=== PATIENT | female | born 1940 | race Caucasian/White ===

== ENCOUNTER 2017-02-10 21:18 | Emergency (ER) | payer MEDICARE, BC ==
[2017-02-11 00:01] VITALS: BP 161/69
--- NOTE | 2017-02-11 01:33 | ED ---
Complex/Multi-Sys Presentation - HPI Summary HPI Summary: 76 female presents to ED stating she was told to come here by her PCP Dr Quigley for abnormal WBC value after obtaining routine bloodwork this morning. Patient states she has no complaints and feels fine without symptoms. Completely asymptomatic, no chest pain, SOB, difficulty breathing, edema, urinary symptoms , abdominal pain and cough. States she is just fatigued and tired as she had a long day. Patient is acting appropriately without concern. - History Of Current Complaint Chief Complaint: EDGeneral Time Seen by Provider: 02/10/17 23:58 Hx Obtained From: Patient Onset/Duration: Sudden Onset Severity Currently: None Aggravating Factor(s): n/a Alleviating Factor(s): n/a - Allergies/Home Medications Allergies/Adverse Reactions: Allergies Allergy/AdvReac Type Severity Reaction Status Date / Time Atorvastatin [From Lipitor] AdvReac Severe elevated Verified 02/05/17 11:23 liver enzymes Pregabalin [From Lyrica] AdvReac Severe mood Verified 02/05/17 11:23 changes Simvastatin [From Zocor] AdvReac Severe elevated Verified 02/05/17 11:23 liver enzymes Lisinopril AdvReac Intermediate shakes/dizz Verified 02/05/17 11:23 iness Metoclopramide [From Reglan] AdvReac Unknown parkinsonian Verified 02/05/17 11: 23 movements PMH/Surg Hx/FS Hx/Imm Hx Endocrine/Hematology History: Reports: Hx Diabetes - IDDM Cardiovascular History: Reports: Hx Angina, Hx Hypercholesterolemia, Hx Hypertension Denies: Hx Coronary Artery Disease, Hx Myocardial Infarction, Hx Pacemaker/ ICD, Hx Valvular Heart Disease Respiratory History: Reports: Other Respiratory Problems/Disorders - PT STATES DYSPNEA X4-5 YRS, BUT HAS NOT BEEN DIAGNOSED WITH ANY RESP DISEAS Denies: Hx Asthma, Hx Chronic Obstructive Pulmonary Disease (COPD) Musculoskeletal History: Reports: Hx Arthritis, Hx Back Problems, Hx Bursitis, Hx Osteoporosis Sensory History: Reports: Hx Contacts or Glasses, Hx Legally Blind - Right Eye, Hx Deafness - Left Ear, Hx Hearing Problem - Deaf Left Ear Denies: Hx Hearing Aid Opthamlomology History: Reports: Hx Contacts or Glasses, Hx Legally Blind - Right Eye Psychiatric History: Denies: Hx Panic Disorder - Cancer History Cancer Type, Location and Year: 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 1976 - LOBECTOMY- 2/3 REMOVED FOR LUNG CA. 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 1993 - Lt SMALL TOE AMPUTEE. 1973 -C SECTION. 2010 - GALLBLADDER Infectious Disease History: No Infectious Disease History: Denies: History Other Infectious Disease, Traveled Outside the [place] in Last 30 Days - Family History Known Family History: Positive: None - Social History Alcohol Use: None Substance Use Type: Reports: None Smoking Status (MU): Never Smoked Tobacco Have You Smoked in the Last Year: No Review of Systems Constitutional: Negative Eyes: Negative ENT: Negative Cardiovascular: Negative Respiratory: Negative Gastrointestinal: Negative Genitourinary: Negative Musculoskeletal: Negative Skin: Negative Neurological: Negative Psychological: Normal All Other Systems Reviewed And Are Negative: Yes Physical Exam Triage Information Reviewed: Yes Vital Signs On Initial Exam: Initial Vitals Temp Pulse Resp BP Pulse Ox 98.8 F 93 18 157/56 98 02/10/17 21:20 02/10/17 21:20 02/10/17 21:20 02/10/17 21:20 02/10/17 21:20 afebrile, not hypoxic Vital Signs Reviewed: Yes Appearance: Positive: Well-Appearing, No Pain Distress, Well-Nourished Skin: Positive: Warm, Skin Color Reflects Adequate Perfusion, Dry. Negative: Cold, Cyanosis @, Pale, Erythema @ Head/Face: Positive: Normal Head/Face Inspection Eyes: Positive: EOMI, EMMANUELLE, Conjunctiva Clear, Other: - missing right eye ENT: Positive: Normal ENT inspection, Hearing grossly normal, Pharynx normal, TMs normal. Negative: Pharyngeal erythema, Nasal congestion, Nasal drainage, TM bulging, Tonsillar swelling, Tonsillar exudate, Trismus Dental: Negative: Cervical Lymphadenopathy Neck: Positive: Supple, Nontender, No Lymphadenopathy Respiratory/Lung Sounds: Positive: Clear to Auscultation, Breath Sounds Present. Negative: Rales, Rhonchi, Wheezes Cardiovascular: Positive: Normal, RRR, Pulses are Symmetrical in both Upper and Lower Extremities. Negative: Murmur, Rub, Leg Edema Left, Leg Edema Right Abdomen Description: Positive: Nontender, No Organomegaly, Soft. Negative: CVA Tenderness (R), CVA Tenderness (L), Distended, Guarding, Peritoneal Signs, Pulsatile Mass Bowel Sounds: Positive: Present Musculoskeletal: Positive: Normal, Strength/ROM Intact. Negative: Pain @ Neurological: Positive: Normal, Sensory/Motor Intact, Alert, Oriented to Person Place, Time, Reflexes Intact, NV Bundle Intact Distally, Normal Gait Psychiatric: Positive: Affect/Mood Appropriate - Dora Coma Scale Best Eye Response: 4 - Spontaneous Best Motor Response: 6 - Obeys Commands Best Verbal Response: 5 - Oriented Diagnostics - Vital Signs Vital Signs Temp Pulse Resp BP Pulse Ox 02/10/17 23:56 98.1 F 93 16 161/69 98 02/10/17 22:55 98.8 F 95 16 150/57 99 02/10/17 21:20 98.8 F 93 18 157/56 98 - Laboratory Lab Statement: Any lab studies that have been ordered have been reviewed, and results considered in the medical decision making process. Complex Multi-Symp Course/Dx Course Of Treatment: discussed with Dr Culver and Dr Vargas at 1:45am. Due to patient being asymptomatic and only lab value of WBC of 15 without known source , complaint or fever does not seem appropriate for admission at this time. No further work up felt necessary as patient was feeling fine. No concern for CHF, sepsis, or other emergent etiology at this time due to HPI and PE findings. Told to follow up with PCP. Aware of worsening signs and symptoms to watch out for such as cough, fever, pain, difficulty breathing, swelling etc. Patient would like to be discharged. - Diagnoses Differential Diagnoses/HQI/PQRI: Sepsis, Urinary Tract Infection, Other - abnormal lab values Provider Diagnoses: Elevated WBC count, Elevated brain natriuretic peptide (BNP) level Discharge - Discharge Plan Condition: Stable Disposition: HOME Referrals: Celestine Quigley MD [Primary Care Provider] - Additional Instructions: If you start developing any symptoms such as fever, chest pain, difficulty breathing, swelling, fatigue, nausea or vomiting- please return and seek medical attention promptly. Follow up with PCP and your specialist doctor as scheduled.
== END 2017-02-11 01:57 | disposition home or self-care (01) ==
LOC: ED 21:18
DX: R79.89 Other specified abnormal findings of blood chemistry (principal); D72.829 Elevated white blood cell count, unspecified
CPT/HCPCS: 99281

== ENCOUNTER 2018-03-11 13:57 | Inpatient (IN) | payer MEDICARE, BC ==
[2018-03-11] MEDS ORDERED: NS 0.9% 1000 ML* 1,000 ML IV ONE ×2 (14:04→16:23)
--- NOTE | 2018-03-11 14:17 | ED ---
HPI Diabetic - HPI Summary HPI Summary: This pt is a 77 y/o female presenting to [facility] via EMS from home for elevated glucose level. EMS states pt is a type 1 diabetic with insulin UTD. Pt reports she has had a cold for the past 2 weeks and last week began intermittently vomiting. She describes emesis as green, denies hematemesis. Pt has noticed that she these episodes of vomiting occur during the mornings. Last night she felt well until this morning. At 04:00 today pt woke up and took her blood glucose, it was 116. At 08:30 she took her glucose level and it was around 500. Pt reports I have been a diabetic since 74 and it has never been this high. She has had 10 to 12 episodes of emesis today, described as green in color. Pt did forget to take her insulin today. Denies tarry black stools, melena, abd pain, chest pain, SOB. EMS reports glucose of 403 [employer]. Pt notes she usually takes Lantus every morning and before bedtime. She also takes Novolog. - History Of Current Complaint Hx Obtained From: Patient Onset/Duration: Lasting Days, Still Present Timing: Days Severity Currently: None Character: Alert Aggravating: Nothing Alleviating: Nothing Associated Signs & Symptoms: Nausea, Vomiting Related History: Compliant, DM I - Allergies/Home Medications Allergies/Adverse Reactions: Allergies Allergy/AdvReac Type Severity Reaction Status Date / Time atorvastatin AdvReac Severe Elevated Verified 02/08/18 11:01 Liver Enzymes pregabalin AdvReac Severe Mood Verified 02/08/18 11:01 Changes simvastatin AdvReac Severe Elevated Verified 02/08/18 11:01 Liver Enzymes lisinopril AdvReac Intermediate Shakes and Verified 02/08/18 11:01 Dizziness metoclopramide AdvReac Unknown Parkinsonian Verified 02/08/18 11:01 movements Home Medications: Home Medications Alendronate (NF) [Fosamax (NF)] 70 mg PO Q30D 03/11/18 [History Confirmed ] Aspirin [Aspir-Low] 81 mg PO DAILY 03/11/18 [History Confirmed 03/11/18] Calcium Carbonate/Vitamin D3 [Calcium 600 + Vit D Tablet] 1 tab PO DAILY [History Confirmed 03/11/18] Multivit-Min/Iron/Folic/Lutein [Centrum Silver Women Tablet] 1 each PO DAILY 10/22 [History Confirmed 03/11/18] traMADol TAB* [Ultram*] 25 mg PO Q8H PRN 03/11/18 [History Confirmed 03/11/18] PMH/Surg Hx/FS Hx/Imm Hx Endocrine/Hematology History: Reports: Hx Diabetes - IDDM Cardiovascular History: Reports: Hx Angina, Hx Hypercholesterolemia, Hx Hypertension Denies: Hx Coronary Artery Disease, Hx Myocardial Infarction, Hx Pacemaker/ ICD, Hx Valvular Heart Disease Respiratory History: Reports: Other Respiratory Problems/Disorders - PT STATES DYSPNEA X4-5 YRS, BUT HAS NOT BEEN DIAGNOSED WITH ANY RESP DISEAS Denies: Hx Asthma, Hx Chronic Obstructive Pulmonary Disease (COPD) Musculoskeletal History: Reports: Hx Arthritis, Hx Rheumatoid Arthritis, Hx Back Problems, Hx Bursitis Denies: Hx Osteoporosis Sensory History: Reports: Hx Contacts or Glasses, Hx Legally Blind - Right Eye, Hx Deafness - Left Ear, Hx Hearing Problem - Deaf Left Ear Denies: Hx Hearing Aid Opthamlomology History: Reports: Hx Contacts or Glasses, Hx Legally Blind - Right Eye Psychiatric History: Denies: Hx Panic Disorder - Cancer History Cancer Type, Location and Year: 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 1976 - LOBECTOMY- 2/3 REMOVED FOR LUNG CA. 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 1993 - Lt SMALL TOE AMPUTEE. 1973 -C SECTION. 2010 - GALLBLADDER Infectious Disease History: Denies: History Other Infectious Disease - Family History Known Family History: Positive: Cardiac Disease - mother, Diabetes - mother, Respiratory Disease - father with emphysema - Social History Alcohol Use: None Substance Use Type: Reports: None Smoking Status (MU): Never Smoked Tobacco Have You Smoked in the Last Year: No Review of Systems Negative: Fever, Chills ENT: Other - cold symptoms Negative: Chest Pain Negative: Shortness Of Breath Positive: Vomiting, Nausea. Negative: Abdominal Pain, Other - black stool, melena All Other Systems Reviewed And Are Negative: Yes Physical Exam - Summary Physical Exam Summary: VITAL SIGNS: Reviewed. GENERAL: Patient is a well-developed and nourished female who is lying comfortable in the stretcher. Patient is not in any acute respiratory distress. HEAD AND FACE: No signs of trauma. No ecchymosis, hematomas or skull depressions. No sinus tenderness. EYES: PERRLA, EOMI x 2, No injected conjunctiva, no nystagmus. EARS: Hearing grossly intact. Ear canals and tympanic membranes are within normal limits. MOUTH: Oropharynx within normal limits. NECK: Supple, trachea is midline, no adenopathy, no JVD, no carotid bruit, no c- spine tenderness, neck with full ROM. CHEST: Symmetric, no tenderness at palpation LUNGS: Clear to auscultation bilaterally. No wheezing or crackles. CVS: Regular rate and rhythm, S1 and S2 present, no murmurs or gallops appreciated. ABDOMEN: Soft, non-tender. No signs of distention. No rebound, no guarding, and no masses palpated. Bowel sounds are normal. EXTREMITIES: FROM in all major joints, no edema, no cyanosis or clubbing. NEURO: Alert and oriented x 3. No acute neurological deficits. Speech is normal and follows commands. SKIN: Dry and warm. Dry skin. Triage Information Reviewed: Yes Vital Signs Reviewed: Yes Diagnostics - Laboratory Result Diagrams: 03/11/18 14:18 03/11/18 14:18 Lab Statement: Any lab studies that have been ordered have been reviewed, and results considered in the medical decision making process. - Radiology Chest XR Xray Interpretation: No Acute Changes - IMPRESSION: No active cardiopulmonary disease. Dr. Israel has reviewed this report. Radiology Interpretation Completed By: Radiologist - EKG 14:37 Cardiac Rate: Tachycardia - at 103 bpm EKG Rhythm: Sinus Tachycardia EKG Interpretation: Incomplete RBBB. EKG Comparison: No Significant Change - unchanged from prior on 05/19/14. Diabetic Course/Dx - Course Assessment/Plan: This pt is a 77 y/o female presenting to [facility] via EMS from home for elevated glucose level. EMS states pt is a type 1 diabetic with insulin UTD. Pt reports she has had a cold for the past 2 weeks and last week began intermittently vomiting. She describes emesis as green, denies hematemesis. Pt has noticed that she these episodes of vomiting occur during the mornings. Last night she felt well until this morning. At 04:00 today pt woke up and took her blood glucose, it was 116. At 08:30 she took her glucose level and it was around 500. Pt reports I have been a diabetic since 74 and it has never been this high. She has had 10 to 12 episodes of emesis today, described as green in color. Pt did forget to take her insulin today. Denies tarry black stools, melena, abd pain, chest pain, SOB. EMS reports glucose of 403 [employer]. Pt notes she usually takes Lantus every morning and before bedtime. She also takes Novolog. At arrival to the emergency department the patient was started on 2 L of IV fluids, and had blood work. Blood test results shows WBCs of 13.9, carbon dioxide of 18, anion gap of 18, BUN 28 and creatinine 0.97. Glucose is 361 and lactic acid is 3.3. Magnesium level is 1.8 and CRP is 39.7. At this time I see that the patient is in DKA and the patient was placed in an insulin drip. Patient was also given magnesium by mouth. Urinalysis is pending. I discussed my physical exam and findings with Dr. Braswell from the hospitalist services who accepted the patient for admission. The patient is hemodynamically stable alert and oriented 3. Dr. Braswell will check the urinalysis. - Diagnoses Differential Dx: Diabetic Ketoacidosis, Gestational Diabetes, Hyperglycemia, Hyperosmolar State, New Onset Diabetes Provider Diagnoses: DKA (diabetic ketoacidoses) - Physician Notifications Discussed Care Of Patient With: Elodia Braswell - hospitalist Time Discussed With Above Provider: 16:26 Instructed by Provider To: Admit As Inpatient Discharge - Sign-Out/Discharge Documenting (check all that apply): Patient Departure - Admit to [facility] [place] - Discharge Plan Condition: Stable Disposition: ADMITTED TO [facility] Referrals: Celestine Quigley MD [Primary Care Provider] - - Attestation Statements Document Initiated by Scribe: Yes Documenting Scribe: Zhanna Hernandez Provider For Whom Scribe is Documenting (Include Credential): Gabriel Israel MD Scribe Attestation: IZhanna, scribed for Gabriel Israel MD on 03/11/18 at 1729.
--- OUTSIDE RECORDS SUMMARY | 2018-03-11 14:31 | XMS REPORT ---
:1940 External Reference #:[id number] Author Organization [facility] Address [address] [place] [address] Phone [phone] Care Team Providers Name Role Phone Celestine Quigley MD Primary Care Physician Unavailable Payers Type Date Identification Numbers Payment Provider Subscriber Medicare Primary Effective: Policy Number: Medicare Rosalva Becerra 1997 [id number] PayID: [id number] [address] [place] [address] Medigap Part B Effective: 2012 Policy Number: Facets Rosalva Becerra October [id number] PayID: [id number] [address] [address] [place] [address] Medigap Part B Effective: 2005 Policy Number: BS FAUSTINA Becerra October [id number] Expires: 2012 Group Number: [id number] [address] [address] PayID: [id number] [place] [address] Problems Date Description Provider Status Onset: 05/20/2011 Benign essential hypertension Gt Long M.D. Active Onset: 04/27/2012 Type 2 diabetes mellitus Gt Long M.D. Active Onset: 04/27/2012 Coronary arteriosclerosis Gt Long M.D. Active Onset: 04/27/2012 Chronic diastolic heart failure Gt Long M.D. Active Onset: 04/27/2012 Difficulty breathing Gt Long M.D. Active Onset: 12/16/2012 Orthostatic hypotension Gt Long M.D. Active Onset: 05/21/2014 Postoperative Wound Closure Peng Strange M.D., [facility], Active Encounter [facility] Family History Date Family Member(s) Problem(s) Comments General Heart Disease Father Emphysema Mother Heart Disease Mother A brother had possible Ra Social History Type Date Description Comments Lives With Alone Occupation Retired Cigarette Use Never Smoked Cigarettes ETOH Use Denies alcohol use Smoking Patient has never smoked Recreational Drug Use Never Used Drugs Daily Caffeine Consumes on average 1 soda per day caffeine free Exercise Type/Frequency Exercises regularly Allergies, Adverse Reactions, Alerts Date Description Reaction Status Severity Comments 07/19/2008 Reglan active tremors 10/15/2008 Lipitor increased lfts active 10/15/2008 Zocor increased lfts active increased lfts 08/01/2010 Lisinopril cough dizziness, cough active cough dizziness dizziness 10/12/2013 Lyrica active radical mood changes Medications Medication Date Status Form Strength Qnty SIG Indications Ordering Provider Leflunomide 09/14/ Active Tablets 10mg 30tab 1 by mouth M05.79 Ever 2017 s every day Zaida Grady Coq10 07/24/ Active Capsules 200mg 90cap 1 by mouth E78.00 Gt 2016 s every day Jerica Long M.D. Crestor 07/24/ Active Tablets 5mg 90tab 1 by mouth E78.00 Gt 2016 s every day Jerica Long M.D. Aspirin 02/27/ Active Tablets 325mg 1/2 tablet Gt 2012 po qd Jerica Long M.D. Centrum Silver 02/27/ Active Tablets 30tab 1 po qd Other 2012 s Ordering Provider Latanoprost 02/27/ Active Solution 0.005% 1 drop in Other 2012 Lt eye at Ordering hs Provider Calcium 500/D 07/19/ Active Tablets 500/D 60tab bid Gt 2008 s Jerica Long M.D. Fish Oil 07/19/ Active Capsules 1000mg 1 po bid Gt 2008 Jerica Long M.D. Novolog 07/19/ Active Solution 100Unit/M 2Vial 1 unit per Gt 2008 L s 15 g of Jerica carbs as meli Long ( M.D. adjusted by Dr. Law Lawler 00/ Active Solution 100Unit/M as Law, 0000 L directed MD Edy Meclizine / Active Tablets 12.5mg 30tab 1 po tid Unknown 0000 s prn Ranitidine HCL / Active Capsules 150mg 60cap 1 po bid Darlow, 0000 s Celestine Samuels MD Betaxolol HCL / Active Liquid 0.5% 90uni 1 drop in Unknown 0000 ts lt eye q am Alendronate / Active Tablets 70mg x1 weekly Unknown Sodium 0000 Dorzolamide HCL / Active Solution 2% 1 gtt OS Brooks, 0000 twice MD Pa daily Tramadol HCL / Active Tablets 50mg 1/2 Unknown 0000 tablets daily as needed Epogen / Active Solution 2000Unit/ Unknown 0000 ML Soothe XP / Active Solution 3-4 Unknown 0000 drops/day Thera Tears / Active prn Unknown Allergy 0000 Fludrocortisone 06/14/ Hx Tablets 0.1mg 30tab 1 by mouth Gt Acetate 2014 - s every F. 07/12/ wednesday M.D. and wednesday On Hold starting 06/18/14 Nitro-Dur 04/06/ Hx Patches 0.2mg/HR 30uni 1 patch Gt 2013 - 24HR ts every day F. 05/20/ on in the 2015 morning, M.D. off in the at night hold as of 11.9.16 Oxycodone HCL 10/12/ Hx Capsules 5mg 60cap 1-2 tabs Meliton 2013 - s by mouth Wilfrid, 11/16/ every 4-6 M.D. 2014 hours as needed pain Fludrocortisone 12/16/ Hx Tablets 0.1mg 90tab 1 by mouth Gt Acetate 2012 - s every day F. 06/14/ Ethan2014 M.D. Aspirin 04/27/ Hx Tablets 325mg 1 po qd Gt 2011 - F. 04/27/ Ethan, 2011 M.D. Gabapentin 04/27/ Hx Capsules 100mg 1 po Gt 2011 - tablet in F. 04/05/ am 1 at [place], 2013 1200 and M.D. 2 at Aspirin 04/27/ Hx Chewtabs 81mg 1 po qd Gt 2011 - F. Mauser, 2012 M.D. Aspirin 04/16/ Hx Chewtabs 81mg 1 po qd Gt 2010 - . user, 2011 M.D. Atenolol 06/12/ Hx Tablets 25mg 90tab 1 po qd Gt 2010 - user, 2012 M.D. Lisinopril 05/26/ Hx Tablets 2.5mg 1 po qd Gt 2009 - . user, 2009 M.D. Lisinopril 03/14/ Hx Tablets 5mg 90tab 1/2 po qd Gt 2008 - kt, 2009 M.D. Atenolol 11/12/ Hx Tablets 25mg 180ta 1 po bid Gt 2008 - F. monar, 2010 M.D. Lisinopril 11/06/ Hx Tablets 5mg 1 po qd Gt 2008 - . kt, 2008 M.D. Atenolol 10/15/ Hx Tablets 25mg 300ta 2 po qam Gt 2008 and 1 qpm . Ethan, 2008 M.D. Lisinopril 07/19/ Hx Tablets 2.5mg 1 po qd Gt 2008 - . user, 2008 M.D. Gemfibrozil 07/19/ Hx Tablets 600mg 60tab 1 po bid Gt 2008 - hold as of F. .17.17 Ethan, 2016 M.D. Aspirin Ec 07/19/ Hx Tablets DR 325mg 1 po qd Gt 2008 - . Valentineuser, 2010 M.D. Atenolol 07/19/ Hx Tablets 25mg 180ta 1 po bid Jones 2008 - bs S. 10/15/ Dari 2008 , Zaida Mucomyst-10 07/19/ Hx Solution 10% 4unit 1200mg bid Gt 2008 - s in diet F. 07/31/ cola 1 day Ethan, 2008 before M.D. cath and day of cath Hydrocodone / Hx Tablets 5-325mg 30tab 1 tablet Unknown Bitartrate/Acetam 0000 - s by mouth inophen 04/27/ every 4 2012 hours as needed Gabapentin / Hx Capsules 90cap 1 po in Gt 0000 - s am 1 F. 04/27/ tablet at [place], 2011 1200 2 M.D. tablets in pm Procrit / Hx Solution 2000U/ML 1 Bael, - injection Zain 07/20/ q week (on E., 2017 hold) Advil / Hx Capsules 200mg as needed Unknown 0000 - 2016 Iron / Hx Tablets 325(65Fe) 1 by mouth Unknown 0000 - mg bid 2016 Meloxicam / Hx Tablets 7.5mg take one Unknown 0000 - tab twice daily as 2017 needed for pain Vital Signs Date Vital Result Comment 02/15/2018 Height 61 inches 5'1" Weight 147.00 lb Heart Rate 85 /min BP Systolic Sitting 148 mmHg BP Diastolic Sitting 71 mmHg Respiratory Rate 16 /min Pain Level 1 BMI (Body Mass Index) 27.8 kg/m2 01/24/2018 Height 61 inches 5'1" Weight 147.00 lb Heart Rate 76 /min BP Systolic Sitting 122 mmHg lg adult cuff left arm BP Diastolic Sitting 74 mmHg lg adult cuff left arm Respiratory Rate 16 /min O2 % BldC Oximetry 96 % at rest on room air BMI (Body Mass Index) 27.8 kg/m2 Neck Circumference in inches 15.25 11/11/2017 Height 61 inches 5'1" Weight 146.00 lb Heart Rate 76 /min BP Systolic Sitting 144 mmHg BP Diastolic Sitting 82 mmHg Respiratory Rate 16 /min Pain Level 5 BMI (Body Mass Index) 27.6 kg/m2 09/27/2017 Height 61 inches 5'1" Weight 145.00 lb Heart Rate 74 /min BP Systolic Sitting 138 mmHg lue reg cuff BP Diastolic Sitting 70 mmHg lue reg cuff BP Systolic Standing 130 mmHg lue reg cuff BP Diastolic Standing 64 mmHg lue reg cuff Respiratory Rate 18 /min BMI (Body Mass Index) 27.4 kg/m2 Ejection Fraction 60-65% echo 03/17/2017 09/14/2017 Height 61 inches 5'1" Weight 146.00 lb Heart Rate 88 /min BP Systolic Sitting 134 mmHg BP Diastolic Sitting 67 mmHg Respiratory Rate 14 /min Pain Level 4 BMI (Body Mass Index) 27.6 kg/m2 07/20/2017 Height 61 inches 5'1" Weight 142.00 lb Heart Rate 84 /min BP Systolic Sitting 150 mmHg BP Diastolic Sitting 80 mmHg Respiratory Rate 18 /min Pain Level 0 BMI (Body Mass Index) 26.8 kg/m2 02/23/2017 Height 61 inches 5'1" Weight 146.00 lb with shoes Heart Rate 94 /min BP Systolic Sitting 128 mmHg Lue reg cuff BP Diastolic Sitting 70 mmHg Lue reg cuff BP Systolic Standing 118 mmHg Lue reg cuff BP Diastolic Standing 64 mmHg Lue reg cuff Respiratory Rate 17 /min BMI (Body Mass Index) 27.6 kg/m2 Ejection Fraction 60-65% 05/13/2016-echo 01/06/2017 Height 61 inches 5'1" Weight 139.62 lb LA reg cuff Heart Rate 90 /min BP Systolic Sitting 134 mmHg LA reg cuff BP Diastolic Sitting 78 mmHg LA reg cuff BMI (Body Mass Index) 26.4 kg/m2 Ejection Fraction 60% - 65% echo 05/13/16 08/13/2016 Height 61 inches 5'1" Weight 156.75 lb with shoes Heart Rate 76 /min BP Systolic 136 mmHg LA 1st home cuff BP Diastolic 70 mmHg LA 1st home cuff BP Systolic Sitting 130 mmHg LA reg cuff in office BP Diastolic Sitting 66 mmHg LA reg cuff in office BP Systolic Standing 155 mmHg LA 2nd home cuff BP Diastolic Standing 89 mmHg LA 2nd home cuff BMI (Body Mass Index) 29.6 kg/m2 Ejection Fraction 60% - 65% echo 05/13/16 07/24/2016 Height 61 inches 5'1" Weight 159.00 lb with shoes Heart Rate 88 /min BP Systolic Sitting 196 mmHg LA lrg cuff BP Diastolic Sitting 86 mmHg LA lrg cuff BP Systolic Standing 152 mmHg repeat nl cuff sitting BP Diastolic Standing 78 mmHg repeat nl cuff sitting BMI (Body Mass Index) 30.0 kg/m2 Ejection Fraction 60%-65% echo 05/13/16 05/20/2016 Height 61 inches 5'1" Weight 157.25 lb w/shoes Heart Rate 86 /min BP Systolic Sitting 142 mmHg LA reg cuff BP Diastolic Sitting 82 mmHg LA reg cuff BMI (Body Mass Index) 29.7 kg/m2 Ejection Fraction 60-65% Echo 05/13/16 04/15/2016 Height 61 inches 5'1" Weight 154.00 lb w/shoes Heart Rate 80 /min BP Systolic Sitting 112 mmHg LA reg cuff BP Diastolic Sitting 68 mmHg LA reg cuff BP Systolic Standing 110 mmHg LA reg cuff BP Diastolic Standing 54 mmHg LA reg cuff BMI (Body Mass Index) 29.1 kg/m2 Ejection Fraction 65-70% Echo 06/06/14 10/31/2015 Height 61 inches 5'1" Weight 156.25 lb with shoes Heart Rate 80 /min BP Systolic 154 mmHg LA reg cuff BP Diastolic 78 mmHg LA reg cuff BMI (Body Mass Index) 29.5 kg/m2 Ejection Fraction 65%-70% echo 06/06/14 07/02/2015 Height 61 inches 5'1" Weight 159.25 lb w/shoes Heart Rate 90 /min BP Systolic Sitting 138 mmHg LA reg cuff BP Diastolic Sitting 66 mmHg LA reg cuff BMI (Body Mass Index) 30.1 kg/m2 Ejection Fraction 65-70 06/06/14 2014 Height 61 inches 5'1" Weight 167.50 lb Heart Rate 84 /min BP Systolic Sitting 172 mmHg LA, reg BP Diastolic Sitting 82 mmHg LA, reg BP Systolic Standing 138 mmHg la sitting BP Diastolic Standing 72 mmHg la sitting BMI (Body Mass Index) 31.6 kg/m2 Ejection Fraction 65%-70% 06/06/14 07/12/2014 Height 61 inches 5'1" Weight 166.00 lb without shoes Heart Rate 90 /min BP Systolic Sitting 138 mmHg LA lg cuff BP Diastolic Sitting 74 mmHg LA lg cuff Respiratory Rate 17 /min BMI (Body Mass Index) 31.4 kg/m2 06/14/2014 Height 61 inches 5'1" Weight 167.75 lb Heart Rate 90 /min BP Systolic 172 mmHg LA reg BP Diastolic 80 mmHg LA reg BMI (Body Mass Index) 31.7 kg/m2 05/21/2014 Height 61 inches 5'1" Weight 167.00 lb Heart Rate 88 /min 90 BP Systolic Sitting 130 mmHg left arm, reg cuff BP Diastolic Sitting 62 mmHg left arm, reg cuff BP Systolic Standing 124 mmHg left arm, reg cuff BP Diastolic Standing 60 mmHg left arm, reg cuff Respiratory Rate 20 /min BMI (Body Mass Index) 31.6 kg/m2 04/06/2014 Height 61 inches 5'1" Weight 161.25 lb Heart Rate 90 /min BP Systolic 128 mmHg repeat la sitting BP Diastolic 74 mmHg repeat la sitting BP Systolic Sitting 168 mmHg LA reg cuff BP Diastolic Sitting 80 mmHg LA reg cuff Respiratory Rate 18 /min BMI (Body Mass Index) 30.5 kg/m2 11/16/2013 Height 61 inches 5'1" Weight 165.00 lb Heart Rate 92 /min Pain Level 0 BMI (Body Mass Index) 31.2 kg/m2 10/26/2013 Height 61 inches 5'1" Weight 165.00 lb Heart Rate 92 /min BP Systolic 159 mmHg BP Diastolic 84 mmHg Pain Level 1 BMI (Body Mass Index) 31.2 kg/m2 10/12/2013 Height 61 inches 5'1" Weight 165.00 lb Heart Rate 86 /min BP Systolic 148 mmHg BP Diastolic 118 mmHg BMI (Body Mass Index) 31.2 kg/m2 02/27/2013 Height 61 inches 5'1" Weight 162.00 lb Heart Rate 83 /min BP Systolic 120 mmHg BP Diastolic 60 mmHg Respiratory Rate 16 /min BMI (Body Mass Index) 30.6 kg/m2 12/16/2012 Height 61 inches 5'1" Weight 164.00 lb Heart Rate 92 /min BP Systolic Sitting 122 mmHg BP Diastolic Sitting 72 mmHg BMI (Body Mass Index) 31.0 kg/m2 04/27/2012 Height 61 inches 5'1" Weight 170.00 lb Heart Rate 81 /min BP Systolic 120 mmHg BP Diastolic 80 mmHg Respiratory Rate 18 /min BMI (Body Mass Index) 32.1 kg/m2 04/16/2011 Height 61 inches 5'1" Weight 163.00 lb Heart Rate 66 /min BP Systolic Sitting 122 mmHg BP Diastolic Sitting 64 mmHg BMI (Body Mass Index) 30.8 kg/m2 08/28/2010 Height 61 inches 5'1" Weight 177.00 lb Heart Rate 77 /min BP Systolic Sitting 120 mmHg BP Diastolic Sitting 54 mmHg BMI (Body Mass Index) 33.4 kg/m2 05/26/2010 Height 61 inches 5'1" Weight 175.00 lb Heart Rate 78 /min BP Systolic Sitting 118 mmHg BP Diastolic Sitting 70 mmHg BP Systolic Standing 118 mmHg BP Diastolic Standing 70 mmHg BMI (Body Mass Index) 33.1 kg/m2 11/14/2009 Height 61 inches 5'1" Weight 174.00 lb Heart Rate 65 /min BP Systolic Sitting 110 mmHg R BP Diastolic Sitting 60 mmHg R BMI (Body Mass Index) 32.9 kg/m2 03/14/2009 Height 61 inches 5'1" Weight 176.00 lb Heart Rate 75 /min BP Systolic Sitting 105 mmHg la: pt bp cuff 116/63 BP Diastolic Sitting 68 mmHg la: pt bp cuff 116/63 BMI (Body Mass Index) 33.3 kg/m2 11/06/2008 Weight 160.00 lb Heart Rate 72 /min BP Systolic Sitting 120 mmHg BP Diastolic Sitting 64 mmHg BP Systolic Standing 110 mmHg BP Diastolic Standing 60 mmHg 10/15/2008 Weight 169.00 lb Heart Rate 83 /min BP Systolic Sitting 120 mmHg BP Diastolic Sitting 70 mmHg 07/31/2008 Weight 171.00 lb Heart Rate 80 /min BP Systolic Sitting 120 mmHg BP Diastolic Sitting 60 mmHg Respiratory Rate 16 /min 07/19/2008 Weight 170.00 lb Heart Rate 94 /min BP Systolic Sitting 144 mmHg BP Diastolic Sitting 70 mmHg Respiratory Rate 16 /min Results Test Date Test Result H/L Range Note CBC Auto Diff 11/17/2017 White Blood Count 7.8 10^3/uL 3.5-10.8 Red Blood Count 4.39 10^6/uL 4.00-5.40 Hemoglobin 12.2 g/dL 12.0-16.0 Hematocrit 37 % 35-47 Mean Corpuscular Volume 85 fL 80-97 Mean Corpuscular Hemoglobin 28 pg 27-31 Mean Corpuscular HGB Conc 33 g/dL 31-36 Red Cell Distribution Width 15 % 10.5-15 Platelet Count 239 10^3/uL 150-450 Mean Platelet Volume 8.5 um3 7.4-10.4 Abs Neutrophils 4.7 10^3/uL 1.5-7.7 Abs Lymphocytes 1.5 10^3/uL 1.0-4.8 Abs Monocytes 0.7 10^3/uL 0-0.8 Abs Eosinophils 0.9 10^3/uL High 0-0.6 Abs Basophils 0 10^3/uL 0-0.2 Abs Nucleated RBC 0 10^3/uL Granulocyte % 60.2 % 38-83 Lymphocyte % 19.3 % Low 25-47 Monocyte % 9.0 % High 0-7 Eosinophil % 11.4 % High 0-6 Basophil % 0.1 % 0-2 Nucleated Red Blood Cells % 0 Iron & Iron Binding Capacity 11/17/2017 Iron 64 g/dL 50-212 Unsaturated Iron Binding 257 g/dL Total Iron Binding Capacity 321 g/dL 250-450 Transferrin 229 mg/dL 203-362 % Iron Saturation 20 % 15-55 Laboratory test finding 11/17/2017 Ferritin 40.4 ng/mL 11-307 CBC Auto Diff 11/03/2017 White Blood Count 7.9 10^3/uL 3.5-10.8 Red Blood Count 4.57 10^6/uL 4.0-5.4 Hemoglobin 12.7 g/dL 12.0-16.0 Hematocrit 39 % 35-47 Mean Corpuscular Volume 85 fL 80-97 Mean Corpuscular Hemoglobin 28 pg 27-31 Mean Corpuscular HGB Conc 33 g/dL 31-36 Red Cell Distribution Width 15 % 10.5-15 Platelet Count 232 10^3/uL 150-450 Mean Platelet Volume 8.5 um3 7.4-10.4 Abs Neutrophils 4.6 10^3/uL 1.5-7.7 Abs Lymphocytes 1.7 10^3/uL 1.0-4.8 Abs Monocytes 0.7 10^3/uL 0-0.8 Abs Eosinophils 0.8 10^3/uL High 0-0.6 Abs Basophils 0 10^3/uL 0-0.2 Abs Nucleated RBC 0 10^3/uL Granulocyte % 58.4 % 38-83 Lymphocyte % 22.1 % Low 25-47 Monocyte % 8.7 % High 0-7 Eosinophil % 10.7 % High 0-6 Basophil % 0.1 % 0-2 Nucleated Red Blood Cells % 0 Lipid Panel - [facility] 11/03/2017 Creatine Kinase(CK) 46 U/L 10-223 Comp Metabolic Panel 11/03/2017 Sodium 138 mmol/L Low 139-145 Potassium 4.2 mmol/L 3.5-5.0 Chloride 105 mmol/L 101-111 Co2 Carbon Dioxide 26 mmol/L 22-32 Anion Gap 7 mmol/L 2-11 Glucose 144 mg/dL High 70-100 Blood Urea Nitrogen 20 mg/dL 6-24 Creatinine 0.76 mg/dL 0.51-0.95 BUN/Creatinine Ratio 26.3 High 8-20 Calcium 9.0 mg/dL 8.6-10.3 Total Protein 6.6 g/dL 6.4-8.9 Albumin 3.8 g/dL 3.2-5.2 Globulin 2.8 g/dL 2-4 Albumin/Globulin Ratio 1.4 1-3 Total Bilirubin 0.40 mg/dL 0.2-1.0 Alkaline Phosphatase 138 U/L High 34-104 Alt 31 U/L 7-52 Ast 37 U/L 13-39 Egfr Non- 74.2 >60 Egfr 95.4 >60 1 Lipid Profile (Trig/Chol/HDL) 11/03/2017 Triglycerides 50 mg/dL 2 Cholesterol 138 mg/dL 3 HDL Cholesterol 67.4 mg/dL 4 LDL Cholesterol 61 mg/dL 5 Laboratory test finding 11/03/2017 B-Type Natriuretic Peptide BNP 31 pg/mL 6 Laboratory test finding 11/03/2017 Erythrocyte Sed Rate 31 mm/Hr 0-40 7 C Reactive Protein 6.99 mg/L High < 5.00 8 CBC Auto Diff 08/18/2017 White Blood Count 13.7 10^3/uL High 3.5-10.8 Red Blood Count 4.08 10^6/uL 4.0-5.4 Hemoglobin 11.5 g/dL Low 12.0-16.0 Hematocrit 35 % 35-47 Mean Corpuscular Volume 86 fL 80-97 Mean Corpuscular Hemoglobin 28 pg 27-31 Mean Corpuscular HGB Conc 33 g/dL 31-36 Red Cell Distribution Width 14 % 10.5-15 Platelet Count 323 10^3/uL 150-450 Mean Platelet Volume 8 um3 7.4-10.4 Abs Neutrophils 10.2 10^3/uL High 1.5-7.7 Abs Lymphocytes 1.8 10^3/uL 1.0-4.8 Abs Monocytes 0.8 10^3/uL 0-0.8 Abs Eosinophils 0.8 10^3/uL High 0-0.6 Abs Basophils 0 10^3/uL 0-0.2 Abs Nucleated RBC 0 10^3/uL Granulocyte % 74.7 % 38-83 Lymphocyte % 13.3 % Low 25-47 Monocyte % 5.6 % 0-7 Eosinophil % 6.2 % High 0-6 Basophil % 0.2 % 0-2 Nucleated Red Blood Cells % 0 Laboratory test finding 08/18/2017 Erythrocyte Sed Rate 67 mm/Hr High 0- 40 9 C Reactive Protein 20.41 mg/L High < 5.00 10 Rheumatoid Factor <10 IU/mL 0-14 11 Cyclic Citrullinated Pep Igg 125.4 U 12 Vitamin D, 1,25 Dihydroxy 39 pg/mL 18-78 13 CBC Auto Diff 05/19/2017 White Blood Count 13.8 10^3/uL High 3.5-10.8 Red Blood Count 3.73 10^6/uL Low 4.0-5.4 Hemoglobin 10.7 g/dL Low 12.0-16.0 Hematocrit 33 % Low 35-47 Mean Corpuscular Volume 88 fL 80-97 Mean Corpuscular Hemoglobin 29 pg 27-31 Mean Corpuscular HGB Conc 33 g/dL 31-36 Red Cell Distribution Width 14 % 10.5-15 Platelet Count 297 10^3/uL 150-450 Mean Platelet Volume 8 um3 7.4-10.4 Abs Neutrophils 10.2 10^3/uL High 1.5-7.7 Abs Lymphocytes 2.0 10^3/uL 1.0-4.8 Abs Monocytes 0.9 10^3/uL High 0-0.8 Abs Eosinophils 0.8 10^3/uL High 0-0.6 Abs Basophils 0 10^3/uL 0-0.2 Abs Nucleated RBC 0 10^3/uL Granulocyte % 73.6 % 38-83 Lymphocyte % 14.2 % Low 25-47 Monocyte % 6.3 % 1-9 Eosinophil % 5.7 % 0-6 Basophil % 0.2 % 0-2 Nucleated Red Blood Cells % 0 Laboratory test 02/26/2017 B-Type Natriuretic 39 pg/mL 14 finding Peptide BNP CBC Auto Diff 02/26/2017 White Blood Count 12.2 10^3/uL High 3.5-10.8 Red Blood Count 4.11 10^6/uL 4.0-5.4 Hemoglobin 11.7 g/dL Low 12.0-16.0 Hematocrit 36 % 35-47 Mean Corpuscular Volume 87 fL 80-97 Mean Corpuscular Hemoglobin 29 pg 27-31 Mean Corpuscular HGB Conc 33 g/dL 31-36 Red Cell Distribution Width 14 % 10.5-15 Platelet Count 361 10^3/uL 150-450 Mean Platelet Volume 8 um3 7.4-10.4 Abs Neutrophils 8.5 10^3/uL High 1.5-7.7 Abs Lymphocytes 2.2 10^3/uL 1.0-4.8 Abs Monocytes 0.9 10^3/uL High 0-0.8 Abs Eosinophils 0.6 10^3/uL 0-0.6 Abs Basophils 0 10^3/uL 0-0.2 Abs Nucleated RBC 0 10^3/uL Granulocyte % 69.8 % 38-83 Lymphocyte % 18.0 % Low 25-47 Monocyte % 7.1 % 1-9 Eosinophil % 4.8 % 0-6 Basophil % 0.3 % 0-2 Nucleated Red Blood Cells % 0 CBC Auto Diff 02/10/2017 White Blood Count 15.6 10^3/uL High 3.5-10.8 Red Blood Count 4.20 10^6/uL 4.0-5.4 Hemoglobin 12.0 g/dL 12.0-16.0 Hematocrit 37 % 35-47 Mean Corpuscular Volume 87 fL 80-97 Mean Corpuscular Hemoglobin 29 pg 27-31 Mean Corpuscular HGB Conc 33 g/dL 31-36 Red Cell Distribution Width 14 % 10.5-15 Platelet Count 342 10^3/uL 150-450 Mean Platelet Volume 8 um3 7.4-10.4 Abs Neutrophils 12.8 10^3/uL High 1.5-7.7 Abs Lymphocytes 1.8 10^3/uL 1.0-4.8 Abs Monocytes 0.7 10^3/uL 0-0.8 Abs Eosinophils 0.3 10^3/uL 0-0.6 Abs Basophils 0 10^3/uL 0-0.2 Abs Nucleated RBC 0 10^3/uL Granulocyte % 82.2 % 38-83 Lymphocyte % 11.4 % Low 25-47 Monocyte % 4.2 % 1-9 Eosinophil % 2.1 % 0-6 Basophil % 0.1 % 0-2 Nucleated Red Blood Cells % 0 Lipid Panel - [facility] 02/10/2017 Creatine Kinase(CK) 37 U/L 10-223 Comp Metabolic Panel 02/10/2017 Sodium 137 mmol/L 133-145 Potassium 4.2 mmol/L 3.5-5.0 Chloride 102 mmol/L 101-111 Co2 Carbon Dioxide 25 mmol/L 22-32 Anion Gap 10 mmol/L 2-11 Glucose 226 mg/dL High 70-100 Blood Urea Nitrogen 27 mg/dL High 6-24 Creatinine 0.93 mg/dL 0.51-0.95 BUN/Creatinine Ratio 29.0 High 8-20 Calcium 9.4 mg/dL 8.6-10.3 Total Protein 6.5 g/dL 6.4-8.9 Albumin 3.6 g/dL 3.2-5.2 Globulin 2.9 g/dL 2-4 Albumin/Globulin Ratio 1.2 1-3 Total Bilirubin 0.50 mg/dL 0.2-1.0 Alkaline Phosphatase 121 U/L High 34-104 Alt 17 U/L 7-52 Ast 22 U/L 13-39 Egfr Non- 58.9 >60 Egfr 75.8 >60 15 Lipid Profile (Trig/Chol/HDL) 02/10/2017 Triglycerides 76 mg/dL 16 Cholesterol 140 mg/dL 17 HDL Cholesterol 58.6 mg/dL 18 LDL Cholesterol 66 mg/dL 19 Laboratory test finding 02/10/2017 B-Type Natriuretic 938 pg/mL High 20 Peptide BNP Lipid Panel - [facility] 08/26/2016 Creatine Kinase(CK) 40 U/L 10-223 21 Comp Metabolic Panel 08/26/2016 Sodium 138 mmol/L 133-145 Potassium 4.3 mmol/L 3.5-5.0 Chloride 108 mmol/L 101-111 Co2 Carbon Dioxide 23 mmol/L 22-32 Anion Gap 7 mmol/L 2-11 Glucose 205 mg/dL High 70-100 Blood Urea Nitrogen 29 mg/dL High 6-24 Creatinine 0.90 mg/dL 0.51-0.95 BUN/Creatinine Ratio 32.2 High 8-20 Calcium 8.9 mg/dL 8.6-10.3 Total Protein 6.3 g/dL Low 6.4-8.9 Albumin 3.6 g/dL 3.2-5.2 Globulin 2.7 g/dL 2-4 Albumin/Globulin Ratio 1.3 1-3 Total Bilirubin 0.40 mg/dL 0.2-1.0 Alkaline Phosphatase 113 U/L High 34-104 Alt 17 U/L 7-52 Ast 22 U/L 13-39 Egfr Non- 61.4 >60 Egfr 78.9 >60 22 Lipid Profile (Trig/Chol/HDL) 08/26/2016 Triglycerides 66 mg/dL 23 Cholesterol 140 mg/dL 24 HDL Cholesterol 58.0 mg/dL 25 LDL Cholesterol 69 mg/dL 26 Basic Metabolic Panel 07/30/2016 Sodium 138 mmol/L 133-145 Potassium 4.2 mmol/L 3.5-5.0 Chloride 107 mmol/L 101-111 Co2 Carbon Dioxide 22 mmol/L 22-32 Anion Gap 9 mmol/L 2-11 Glucose 217 mg/dL High 70-100 Blood Urea Nitrogen 30 mg/dL High 6-24 Creatinine 0.96 mg/dL High 0.51-0.95 BUN/Creatinine Ratio 31.3 High 8-20 Calcium 9.1 mg/dL 8.6-10.3 Egfr Non- 57.0 >60 Egfr 73.3 >60 27 CBC Auto Diff 07/30/2016 White Blood Count 13.4 10^3/uL High 3.5-10.8 Red Blood Count 3.98 10^6/uL Low 4.0-5.4 Hemoglobin 11.2 g/dL Low 12.0-16.0 Hematocrit 35 % 35-47 Mean Corpuscular Volume 88 fL 80-97 Mean Corpuscular Hemoglobin 28 pg 27-31 Mean Corpuscular HGB Conc 32 g/dL 31-36 Red Cell Distribution Width 14 % 10.5-15 Platelet Count 329 10^3/uL 150-450 Mean Platelet Volume 8 um3 7.4-10.4 Abs Neutrophils 10.3 10^3/uL High 1.5-7.7 Abs Lymphocytes 1.8 10^3/uL 1.0-4.8 Abs Monocytes 0.8 10^3/uL 0-0.8 Abs Eosinophils 0.5 10^3/uL 0-0.6 Abs Basophils 0 10^3/uL 0-0.2 Abs Nucleated RBC 0 10^3/uL Granulocyte % 76.6 % 38-83 Lymphocyte % 13.2 % Low 25-47 Monocyte % 5.9 % 1-9 Eosinophil % 4.0 % 0-6 Basophil % 0.3 % 0-2 Nucleated Red Blood Cells % 0 CBC Auto Diff 06/28/2014 White Blood Count 10.3 10^3/uL 4.8-10.8 Red Blood Count 4.86 10^6/uL 4.0-5.4 Hemoglobin 14.6 g/dL 12.0-16.0 Hematocrit 45 % 35-47 Mean Corpuscular Volume 92 fL 80-97 Mean Corpuscular Hemoglobin 30 pg 27-31 Mean Corpuscular HGB Conc 33 g/dL 31-36 Red Cell Distribution Width 14 % 10.5-15 Platelet Count 342 10^3/uL 150-450 Mean Platelet Volume 8 um3 7.4-10.4 Abs Neutrophils 6.8 10^3/uL 1.5-7.7 Abs Lymphocytes 1.9 10^3/uL 1.0-4.8 Abs Monocytes 0.9 10^3/uL High 0-0.8 Abs Eosinophils 0.7 10^3/uL High 0-0.6 Abs Basophils 0 10^3/uL 0-0.2 Abs Nucleated RBC 0 10^3/uL Granulocyte % 65.9 % 38-83 Lymphocyte % 18.7 % Low 25-47 Monocyte % 8.3 % 1-9 Eosinophil % 6.8 % High 0-6 Basophil % 0.3 % 0-2 Nucleated Red Blood Cells % 0 Order 06/06/2014 Echocardiogram <pending> Cath Panel 05/11/2014 Activated Partial Thrombo Time 31.8 seconds 24.0- 36.1 CBC Auto Diff 05/11/2014 White Blood Count 10.9 10^3/uL High 4.8-10.8 Red Blood Count 4.19 10^6/uL 4.0-5.4 Hemoglobin 12.5 g/dL 12.0-16.0 Hematocrit 38 % 35-47 Mean Corpuscular Volume 90 fL 80-97 Mean Corpuscular Hemoglobin 30 pg 27-31 Mean Corpuscular HGB Conc 33 g/dL 31-36 Red Cell Distribution Width 16 % High 10.5-15 Platelet Count 389 10^3/uL 150-450 Mean Platelet Volume 8 um3 7.4-10.4 Abs Neutrophils 7.4 10^3/uL 1.5-7.7 Abs Lymphocytes 1.8 10^3/uL 1.0-4.8 Abs Monocytes 0.9 10^3/uL High 0-0.8 Abs Eosinophils 0.7 10^3/uL High 0-0.6 Abs Basophils 0 10^3/uL 0-0.2 Abs Nucleated RBC 0.01 10^3/uL Granulocyte % 68.2 % 38-83 Lymphocyte % 16.2 % Low 25-47 Monocyte % 8.4 % 1-9 Eosinophil % 6.8 % High 0-6 Basophil % 0.4 % 0-2 Nucleated Red Blood Cells % 0 Basic Metabolic Panel 05/11/2014 Sodium 137 mmol/L 133-145 Potassium 4.4 mmol/L 3.5-5.0 Chloride 106 mmol/L 101-111 Co2 Carbon Dioxide 23 mmol/L 22-32 Anion Gap 8 mmol/L 2-11 Glucose 234 mg/dL High 70-100 Blood Urea Nitrogen 23 mg/dL 6-24 Creatinine 0.80 mg/dL 0.51-0.95 BUN/Creatinine Ratio 28.8 High 8-20 Calcium 9.2 mg/dL 8.6-10.3 Egfr Non- 70.7 >60 Egfr 90.9 >60 28 Inr/Protime 05/11/2014 Inr 0.79 Low 0.85-1.06 CBC Auto Diff 04/26/2014 White Blood Count 8.4 10^3/uL 4.8-10.8 Red Blood Count 4.29 10^6/uL 4.0-5.4 Hemoglobin 12.6 g/dL 12.0-16.0 Hematocrit 39 % 35-47 Mean Corpuscular Volume 90 fL 80-97 Mean Corpuscular Hemoglobin 29 pg 27-31 Mean Corpuscular HGB Conc 33 g/dL 31-36 Red Cell Distribution Width 16 % High 10.5-15 Platelet Count 357 10^3/uL 150-450 Mean Platelet Volume 7 um3 Low 7.4-10.4 Abs Neutrophils 5.7 10^3/uL 1.5-7.7 Abs Lymphocytes 1.5 10^3/uL 1.0-4.8 Abs Monocytes 0.9 10^3/uL High 0-0.8 Abs Eosinophils 0.3 10^3/uL 0-0.6 Abs Basophils 0 10^3/uL 0-0.2 Abs Nucleated RBC 0 10^3/uL Granulocyte % 68.0 % 38-83 Lymphocyte % 18.3 % Low 25-47 Monocyte % 10.2 % High 1-9 Eosinophil % 3.3 % 0-6 Basophil % 0.2 % 0-2 Nucleated Red Blood Cells % 0 Laboratory test finding 04/26/2014 B Type Natriuretic Peptide 72 pg/mL 29 Basic Metabolic Panel 04/26/2014 Sodium 137 mmol/L 133-145 Potassium 4.3 mmol/L 3.5-5.0 30 Chloride 104 mmol/L 101-111 Co2 Carbon Dioxide 23 mmol/L 22-32 Anion Gap 10 mmol/L 2-11 Glucose 183 mg/dL High 70-100 Blood Urea Nitrogen 22 mg/dL 6-24 Creatinine 0.88 mg/dL 0.51-0.95 BUN/Creatinine Ratio 25.0 High 8-20 Calcium 9.4 mg/dL 8.6-10.3 Egfr Non- 63.3 >60 Egfr 81.5 >60 31 CBC Auto Diff 04/02/2014 White Blood Count 12.4 10^3/uL High 4.8-10.8 Red Blood Count 4.07 10^6/uL 4.0-5.4 Hemoglobin 11.7 g/dL Low 12.0-16.0 Hematocrit 35 % 35-47 Mean Corpuscular Volume 87 fL 80-97 Mean Corpuscular Hemoglobin 29 pg 27-31 Mean Corpuscular HGB Conc 33 g/dL 31-36 Red Cell Distribution Width 14 % 10.5-15 Platelet Count 386 10^3/uL 150-450 Mean Platelet Volume 8 um3 7.4-10.4 Abs Neutrophils 8.8 10^3/uL High 1.5-7.7 Abs Lymphocytes 2.0 10^3/uL 1.0-4.8 Abs Monocytes 1.0 10^3/uL High 0-0.8 Abs Eosinophils 0.6 10^3/uL 0-0.6 Abs Basophils 0 10^3/uL 0-0.2 Abs Nucleated RBC 0 10^3/uL Granulocyte % 71.2 % 38-83 Lymphocyte % 16.0 % Low 25-47 Monocyte % 7.7 % 1-9 Eosinophil % 5.0 % 0-6 Basophil % 0.1 % 0-2 Nucleated Red Blood Cells % 0 Leukemia/Lymphoma Flow Tissue 02/07/2014 LLPT Microscopic See Comment 32 Description LLPT Final Diagnosis See Comment 33 LLPT Comment See Comment 34 Cytology Non-Scallop Cutter 02/07/2014 [place] RUN DATE: SEE 35 NOTE> CBC Auto Diff 01/24/2014 White Blood Count 12.0 10^3/uL High 4.8-10.8 Red Blood Count 4.82 10^6/uL 4.0-5.4 Hemoglobin 14.1 g/dL 12.0-16.0 Hematocrit 42 % 35-47 Mean Corpuscular Volume 88 fL 80-97 Mean Corpuscular Hemoglobin 29 pg 27-31 Mean Corpuscular HGB Conc 33 g/dL 31-36 Red Cell Distribution Width 15 % 10.5-15 Platelet Count 342 10^3/uL 150-450 Mean Platelet Volume 8 um3 7.4-10.4 Abs Neutrophils 9.2 10^3/uL High 1.5-7.7 Abs Lymphocytes 1.6 10^3/uL 1.0-4.8 Abs Monocytes 0.8 10^3/uL 0-0.8 Abs Eosinophils 0.4 10^3/uL 0-0.6 Abs Basophils 0 10^3/uL 0-0.2 Abs Nucleated RBC 0.01 10^3/uL Granulocyte % 77.0 % 38-83 Lymphocyte % 13.1 % Low 25-47 Monocyte % 6.6 % 1-9 Eosinophil % 3.2 % 0-6 Basophil % 0.1 % 0-2 Nucleated Red Blood Cells % 0.1 Comp Metabolic Panel 01/24/2014 Sodium 136 mmol/L 133-145 Potassium 4.4 mmol/L 3.7-5.6 Chloride 102 mmol/L 101-111 Co2 Carbon Dioxide 25 mmol/L 22-32 Anion Gap 9 mmol/L 2-11 Glucose 235 mg/dL High 70-100 Blood Urea Nitrogen 25 mg/dL High 6-24 Creatinine 0.87 mg/dL 0.51-0.95 BUN/Creatinine Ratio 28.7 High 8-20 Calcium 9.5 mg/dL 8.6-10.3 Total Protein 6.5 g/dL 6.4-8.9 Albumin 3.8 g/dL 3.2-5.2 Globulin 2.7 g/dL 2-4 Albumin/Globulin Ratio 1.4 1-3 Total Bilirubin 0.50 mg/dL 0.2-1.0 Alkaline Phosphatase 143 U/L High 34-104 Alt 11 U/L 7-52 Ast 16 U/L 13-39 Egfr Non- 64.2 >60 Egfr 82.5 >60 36 Iron & Iron Binding Capacity 01/24/2014 Iron 117 g/dL 50-212 Unsaturated Iron Binding 234 g/dL Total Iron Binding Capacity 351 g/dL 250-450 % Iron Saturation 33 % 15-55 Laboratory test finding 01/24/2014 Vitamin B12 526 pg/mL 180-914 37 CBC Auto Diff 07/17/2013 White Blood Count 11.0 10^3/uL High 4.8-10.8 Red Blood Count 3.66 10^6/uL Low 4.0-5.4 Hemoglobin 10.2 g/dL Low 12.0-16.0 Hematocrit 32 % Low 35-47 Mean Corpuscular Volume 88 fL 80-97 Mean Corpuscular Hemoglobin 28 pg 27-31 Mean Corpuscular HGB Conc 32 g/dL 31-36 Red Cell Distribution Width 15 % 10.5-15 Platelet Count 386 10^3/uL 150-450 Mean Platelet Volume 8 um3 7.4-10.4 Abs Neutrophils 6.2 10^3/uL 1.5-7.7 Abs Lymphocytes 2.1 10^3/uL 1.0-4.8 Abs Monocytes 0.6 10^3/uL 0-0.8 Abs Eosinophils 2.0 10^3/uL High 0-0.6 Abs Basophils 0 10^3/uL 0-0.2 Abs Nucleated RBC 0 10^3/uL Manual Differential 07/17/2013 Neutrophil % 60 % 38-83 Lymphocytes % 17 % Low 25-47 Monocytes % 4 % 0-13 Eosinophils % 19 % High 0-6 RBC Morphology Normal Normal Laboratory test finding 07/17/2013 Pathologist Review (SEE NOTE) 38 Laboratory test finding 06/20/2013 Erythrocyte Sed Rate 61 mm/Hr High 0- 40 Erythropoietin 12.0 mIU/mL 2.6 - 18.5 39 Laboratory test finding 03/13/2013 Cortisol 16.1 g/dL 40 Adrenal 21 Hydroxylase <1 U/mL <1 41 Protein Electrophoresis 02/14/2013 Total Protein(Pep) 7.0 g/dL 6.3 - 7.9 Albumin 3.5 g/dL 3.4-4.7 Alpha-1 Globulin 0.3 g/dL 0.1-0.3 Alpha-2 Globulin 1.1 g/dL 0.6-1.0 Beta Globulin 1.1 g/dL 0.7-1.2 Gamma Globulin 1.0 g/dL 0.6-1.6 Albumin/Globulin Ratio 1.00 Impression See Comment 42 Laboratory test finding 02/14/2013 Rheumatoid Factor <15 IU/mL <15 43 Retic Count 02/14/2013 Retic Count 0.7 % 0.5-1.5 Corrected Retic Count 0.5 % 0.5-1.5 Maturation Factor Retic 1.5 Retic Index 0.30 Mean Retic Volume 105.5 Immature Retic Fraction 0.34 RBC Retic Count 3.71 10^6/uL Low 4.6-6.2 Hematocrit for Retic CNT 34 % Low 35-47 Laboratory test finding 02/14/2013 Erythrocyte Sed Rate 63 mm/Hr High 0- 40 CBC With Manual Diff 02/14/2013 White Blood Count 8.6 10^3/uL 4.8-10.8 Red Blood Count 3.71 10^6/uL Low 4.0-5.4 Hemoglobin 11.3 g/dL Low 12.0-16.0 Hematocrit 34 % Low 35-47 Mean Corpuscular Volume 90 fL 80-97 Mean Corpuscular Hemoglobin 31 pg 27-31 Mean Corpuscular HGB Conc 34 g/dL 31-36 Red Cell Distribution Width 14 % 10.5-15 Platelet Count 351 10^3/uL 150-450 Mean Platelet Volume 9 um3 7.4-10.4 Abs Neutrophils 5.8 10^3/uL 1.5-7.7 Abs Lymphocytes 1.5 10^3/uL 1.0-4.8 Abs Monocytes 0.7 10^3/uL 0-0.8 Abs Eosinophils 0.5 10^3/uL 0-0.6 Abs Basophils 0 10^3/uL 0-0.2 Abs Nucleated RBC 0 10^3/uL Neutrophil % 68 % 38-83 Lymphocytes % 20 % Low 25-47 Monocytes % 5 % 0-13 Eosinophils % 7 % High 0-6 RBC Morphology Normal Normal Laboratory test finding 02/14/2013 Uric Acid 5.2 mg/dL 2.6-7.2 LDH 204 U/L High 95-185 Vitamin B12 354 pg/mL 180-914 Comp Metabolic Panel 02/14/2013 Sodium 141 mmol/L 133-145 Potassium 4.0 mmol/L 3.5-5.0 Chloride 111 mmol/L 101-111 Co2 Carbon Dioxide 24.0 mmol/L 22-32 Anion Gap 6.0 mmol/L 2-11 Glucose 76 mg/dL 70-100 Blood Urea Nitrogen 26 mg/dL High 6-24 Creatinine 1.00 mg/dL 0.50-1.40 BUN/Creatinine Ratio 26.0 High 8-20 Calcium 9.7 mg/dL 8.1-9.9 Total Protein 6.9 g/dL 6.2-8.1 Albumin 3.5 g/dL 3.2-5.2 Globulin 3.4 g/dL 2-4 Albumin/Globulin Ratio 1.0 1-3 Total Bilirubin 0.6 mg/dL 0.4-1.5 Alkaline Phosphatase 129 U/L High 30-110 Alt 17 U/L 14-54 Ast 30 U/L 12-42 Egfr Non- 54.8 >60 Egfr 70.5 >60 44 Basic Metabolic Panel 02/09/2013 Sodium 144 mmol/L 133-145 Potassium 4.0 mmol/L 3.5-5.0 Chloride 111 mmol/L 101-111 Co2 Carbon Dioxide 24.0 mmol/L 22-32 Anion Gap 9.0 mmol/L 2-11 Glucose 33 mg/dL Low 70-100 45 Blood Urea Nitrogen 27 mg/dL High 6-24 Creatinine 0.90 mg/dL 0.50-1.40 BUN/Creatinine Ratio 30.0 High 8-20 Calcium 10.0 mg/dL High 8.1-9.9 Egfr Non- 61.9 >60 Egfr 79.6 >60 46 Laboratory test finding 02/09/2013 B Type Natriuretic Peptide 62.0 pg/mL 0-100 Comp Metabolic Panel 05/14/2012 Sodium 139 mmol/L 133-145 Potassium 4.0 mmol/L 3.5-5.0 Chloride 106 mmol/L 101-111 Co2 Carbon Dioxide 24.0 mmol/L 22-32 Anion Gap 9.0 mmol/L 2-11 Glucose 313 mg/dL High 70-100 Blood Urea Nitrogen 30 mg/dL High 6-24 Creatinine 1.00 mg/dL 0.50-1.40 BUN/Creatinine Ratio 30.0 High 8-20 Calcium 9.6 mg/dL 8.1-9.9 Total Protein 6.8 g/dL 6.2-8.1 Albumin 3.6 g/dL 3.2-5.2 Globulin 3.2 g/dL 2-4 Albumin/Globulin Ratio 1.1 1-3 Total Bilirubin 0.6 mg/dL 0.4-1.5 Alkaline Phosphatase 151 U/L High 30-110 Alt 15 U/L 14-54 Ast 21 U/L 12-42 Egfr Non- 55.0 >60 Egfr 70.7 >60 47 Lipid Profile (Trig/Chol/HDL) 05/14/2012 Triglycerides 48 mg/dL 40-200 Cholesterol 188 mg/dL Less than 200 HDL Cholesterol 54 mg/dL 40-60 48 Cholesterol/HDL Ratio 3.5 Average 1-4.44 LDL Cholesterol 124.4 mg/dL High Less Than 100 49 Laboratory test finding 05/14/2012 Creatine Kinase 30 U/L 0-200 50 Laboratory test finding 05/14/2012 TSH (Thyroid Stimulating 1.55 MIU/ML 0.34-5.60 51 Horm) B Type Natriuretic Peptide 63.0 pg/mL 0-100 CBC Auto Diff 05/14/2012 White Blood Count 6.6 10^3/uL 4.8-10.8 Red Blood Count 3.70 10^6/uL Low 4.0-5.4 Hemoglobin 10.9 g/dL Low 12.0-16.0 Hematocrit 33 % Low 35-47 Mean Corpuscular Volume 89 fL 80-97 Mean Corpuscular Hemoglobin 30 pg 27-31 Mean Corpuscular HGB Conc 33 g/dL 31-36 Red Cell Distribution Width 14 % 10.5-15 Platelet Count 304 10^3/uL 150-450 Mean Platelet Volume 8 um3 7.4-10.4 Abs Neutrophils 3.5 10^3/uL 1.5-7.7 Abs Lymphocytes 1.9 10^3/uL 1.0-4.8 Abs Monocytes 0.6 10^3/uL 0-0.8 Abs Eosinophils 0.5 10^3/uL 0-0.6 Abs Basophils 0 10^3/uL 0-0.2 Abs Nucleated RBC 0 10^3/uL Granulocyte % 53.7 % 38-83 Lymphocyte % 28.9 % 25-47 Monocyte % 9.3 % High 1-9 Eosinophil % 8.0 % High 0-6 Basophil % 0.1 % 0-2 Nucleated Red Blood Cells % 0.1 Comp Metabolic Panel 07/01/2010 Sodium 136 mmol/L 135-145 Potassium 3.9 mmol/L 3.5-5.0 Chloride 103 mmol/L 101-111 Co2 (Carbon Dioxide) 26.0 mmol/L 22-32 Anion Gap 7.0 mmol/L 2-11 52 Glucose 156 mg/dL High 70-100 BUN 20 mg/dL 6-24 Creatinine 0.70 mg/dL 0.50-1.40 One Over Creatinine 1.40 BUN/Creatinine Ratio 28.6 High 8-20 Calcium 8.8 mg/dL 8.1-9.9 Total Protein 6.1 GM/DL Low 6.2-8.1 Albumin 3.4 GM/DL 3.2-5.2 Globulin 2.7 GM/DL 2-4 Albumin/Globulin Ratio 1.3 1-3 Bilirubin Total 0.5 mg/dL 0.4-1.5 53 Alkaline Phosphatase 136 U/L High 30-110 Alt (SGPT) 11 U/L Low 14-54 Ast (Sgot) 19 U/L 12-42 eGFR Non- 88.7 > 60 eGFR 107.3 > 60 54 Lipid Profile (Trig/Chol/HDL) 07/01/2010 Triglyceride 31 mg/dL Low 40-200 Cholesterol 162 mg/dL Less Than 200 55 High Density Lipoprotein 56 mg/dL 40-60 56 Cholesterol/HDL Ratio 2.89 AVERAGE 1-4.44 Low Density Lipoprotein 100 mg/dL Less Than 100 57 Laboratory test finding 07/01/2010 CPK (Creatine Kinase) 50 U/L 0-170 CBC With Electronic Diff 07/01/2010 White Blood Count 10.0 CUMM 4.8-10.8 Red Cell Count 3.52 CUMM Low 4.2-5.4 Hemoglobin 10.2 g/dL Low 12.0-16.0 Hematocrit 30 % Low 35-47 Mean Corpuscular Volume 86 um3 79-97 Mean Corpuscular Hemoglob 29 pg 27-31 Mean Corpuscular HGB Cone 34 g/dL 32-36 Redcell Distribution WDTH 15 % 10.5-15 Platelet Count 398 CUMM 150-450 Mean Platelet Volume 6.8 um3 Low 7.4-10.4 Gran % 72.3 % 38-83 Lymph % 15.6 % Low 25-47 Mononuclear % 7.1 % 1-9 Eosinophil % 4.8 % 0-6 Basophil % 0.2 % 0-2 Abs Lymphs 1.6 1.0-4.8 Abs Mononuclear 0.7 0-0.8 Absolute Neutrophil Count 7.2 1.5-7.7 Abs Eosinophils 0.5 0-0.6 Abs Basophils 0 0-0.2 Laboratory test finding 07/01/2010 Iron Total 86 g/dL 28-170 Iron & Iron Binding 07/01/2010 Unsaturated Iron Binding 304 g/dL Capacity Total Iron Binding Capacity 390 g/dL 250-450 % Iron Saturation 22 % 15-55 Protime 07/20/2008 Protime 11.3 10.9-13.3 Inr 0.87 58 Laboratory test finding 07/20/2008 PTT (Aptt) 22.0 20.1-28.2 59 Basic Metabolic Panel 07/20/2008 Sodium 141 mmol/L 135-145 Potassium 4.3 mmol/L 3.5-5.0 Chloride 106 mmol/L 101-111 Co2 (Carbon Dioxide) 27.0 mmol/L 22-32 Anion Gap 8.0 mmol/L 2-11 60 Glucose 175 mg/dL High 70-100 61 BUN 20 mg/dL 6-24 Creatinine 1.00 mg/dL 0.50-1.40 One Over Creatinine 1.00 BUN/Creatinine Ratio 20.0 8-20 Calcium 9.6 mg/dL 8.1-9.9 62 Lipid Profile (Trig/Chol/HDL) 07/20/2008 Triglyceride 57 mg/dL 40-200 Cholesterol 189 mg/dL Less Than 200 63 High Density Lipoprotein 60 mg/dL 40-60 64 Cholesterol/HDL Ratio 3.15 AVERAGE 1-4.44 Low Density Lipoprotein 118 mg/dL High Less Than 100 65 Liver Function Panel 07/20/2008 Total Protein 6.5 GM/DL 6.2-8.1 Albumin 3.7 GM/DL 3.2-5.2 Globulin 2.8 GM/DL 2-4 Albumin/Globulin Ratio 1.3 1-3 Bilirubin Total 0.7 mg/dL 0.4-1.5 Bilirubin Direct < 0.1 mg/dL Low 0.1-0.5 Indirect Bilirubin (SEE NOTE) mg/dL 0.1-0.75 66 Alkaline Phosphatase 125 U/L High 30-110 Alt (SGPT) 16 U/L 14-54 Ast (Sgot) 22 U/L 12-42 Laboratory test finding 07/20/2008 TSH 1.94 MIU/ML 0.34-5.60 Microalbumin Random Urine 07/20/2008 Microalbumin (MG/L) 14.0 mg/L Urine Creatinine 107.2 mg/dL [place]/Creatinine Ratio 12.7 UG/MG Less Than 30 67 CBC With Manual Diff 07/20/2008 White Blood Count 6.1 CUMM 4.8-10.8 Red Cell Count 4.01 CUMM Low 4.2-5.4 Hemoglobin 11.7 g/dL Low 12.0-16.0 Hematocrit 35 % 35-47 Mean Corpuscular Volume 86 um3 79-97 Mean Corpuscular Hemoglob 29 pg 27-31 Mean Corpuscular HGB Cone 34 g/dL 32-36 Redcell Distribution WDTH 15 % 10.5-15 Platelet Count 362 CUMM 150-450 Mean Platelet Volume 8.1 um3 7.4-10.4 Polysegmented Neutrophil 52 % 38-83 Band Neutrophil 11 % High 0-8 Lymphocyte 22 % Low 25-47 Monocyte 5 % 0-13 Eosenophil 10 % High 0-6 Absolute Neutrophil Count 3.8 RBC Morphology NORMAL 1 Because ethnic data is not always readily available, this report includes an eGFR for both -Americans and non- Americans. The National Kidney Disease Education Program (NKDEP) does not endorse the use of the MDRD equation for patients that are not between the ages of 18 and 70, are , have extremes of body size, muscle mass, or nutritional status, or are non- or non-. According to the National Kidney Foundation, irrespective of diagnosis, the stage of the disease is based on the level of kidney function: Stage Description GFR(mL/min/1.73 m(2)) 1 Kidney damage with normal or decreased GFR 90 2 Kidney damage with mild decrease in GFR 60-89 3 Moderate decrease in GFR 30-59 4 Severe decrease in GFR 15-29 5 Kidney failure <15 (or dialysis) 2 Desirable: <150 Borderline High: 150-199 High: 200-499 Very High: >500 3 Desirable: <200 Borderline High: 200-239 High: >239 4 Low: <40 Desirable: 40-60 High: >60 5 Desirable: <100 Near Optimal: 100-129 Borderline High: 130-159 High: 160-189 Very High: >189 6 >100 to <200 pg/mL: likely compensated congestive heart failure (CHF) 200 to 400 pg/mL: likely moderate CHF >400 pg/mL: likely moderate to severe CHF 7 Please check labs 2 days before follow up visit 8 Acute inflammation: >10.00 9 Please check labs this week 10 Acute inflammation: >10.00 11 Performed by [facility], [address] [place] [id number] [email or web address], Tee Franks MD - Lab. Director Test Performed by: [facility] [address] [place] [address] 12 Interpretation: Strong Positive (>=60.0) REFERENCE VALUE <20.0 (Negative) Test Performed by: [facility] [address] [place] [address] 13 ADDITIONAL INFORMATION This test was developed and its performance characteristics determined by [facility] in a manner consistent with CLIA requirements. This test has not been cleared or approved by the U.S. Food and Drug Administration. Test Performed by: [facility] [address] [place] [address] 14 >100 to <200 pg/mL: likely compensated congestive heart failure (CHF) 200 to 400 pg/mL: likely moderate CHF >400 pg/mL: likely moderate to severe CHF 15 Because ethnic data is not always readily available, this report includes an eGFR for both -Americans and non- Americans. The National Kidney Disease Education Program (NKDEP) does not endorse the use of the MDRD equation for patients that are not between the ages of 18 and 70, are , have extremes of body size, muscle mass, or nutritional status, or are non- or non-. According to the National Kidney Foundation, irrespective of diagnosis, the stage of the disease is based on the level of kidney function: Stage Description GFR(mL/min/1.73 m(2)) 1 Kidney damage with normal or decreased GFR 90 2 Kidney damage with mild decrease in GFR 60-89 3 Moderate decrease in GFR 30-59 4 Severe decrease in GFR 15-29 5 Kidney failure <15 (or dialysis) 16 Desirable <150 Borderline high 150-199 High 200-499 Very High >500 17 Desirable <200 Borderline high 200-239 High >239 18 Low <40 Desirable: 40-60 High: >60 19 Desirable: <100 mg/dL Near Optimal: 100-129 mg/dL Borderline High: 130-159 mg/dL High: 160-189 mg/dL Very High: >189 mg/dL 20 >100 to <200 pg/mL: likely compensated congestive heart failure (CHF) 200 to 400 pg/mL: likely moderate CHF >400 pg/mL: likely moderate to severe CHF 21 FASTING cc pmd 22 Because ethnic data is not always readily available, this report includes an eGFR for both -Americans and non- Americans. The National Kidney Disease Education Program (NKDEP) does not endorse the use of the MDRD equation for patients that are not between the ages of 18 and 70, are , have extremes of body size, muscle mass, or nutritional status, or are non- or non-. According to the National Kidney Foundation, irrespective of diagnosis, the stage of the disease is based on the level of kidney function: Stage Description GFR(mL/min/1.73 m(2)) 1 Kidney damage with normal or decreased GFR 90 2 Kidney damage with mild decrease in GFR 60-89 3 Moderate decrease in GFR 30-59 4 Severe decrease in GFR 15-29 5 Kidney failure <15 (or dialysis) 23 Desirable <150 Borderline high 150-199 High 200-499 Very High >500 24 Desirable <200 Borderline high 200-239 High >239 25 Low <40 Desirable: 40-60 High: >60 26 Desirable: <100 mg/dL Near Optimal: 100-129 mg/dL Borderline High: 130-159 mg/dL High: 160-189 mg/dL Very High: >189 mg/dL 27 Because ethnic data is not always readily available, this report includes an eGFR for both -Americans and non- Americans. The National Kidney Disease Education Program (NKDEP) does not endorse the use of the MDRD equation for patients that are not between the ages of 18 and 70, are , have extremes of body size, muscle mass, or nutritional status, or are non- or non-. According to the National Kidney Foundation, irrespective of diagnosis, the stage of the disease is based on the level of kidney function: Stage Description GFR(mL/min/1.73 m(2)) 1 Kidney damage with normal or decreased GFR 90 2 Kidney damage with mild decrease in GFR 60-89 3 Moderate decrease in GFR 30-59 4 Severe decrease in GFR 15-29 5 Kidney failure <15 (or dialysis) 28 Because ethnic data is not always readily available, this report includes an eGFR for both -Americans and non- Americans. The National Kidney Disease Education Program (NKDEP) does not endorse the use of the MDRD equation for patients that are not between the ages of 18 and 70, are , have extremes of body size, muscle mass, or nutritional status, or are non- or non-. According to the National Kidney Foundation, irrespective of diagnosis, the stage of the disease is based on the level of kidney function: Stage Description GFR(mL/min/1.73 m(2)) 1 Kidney damage with normal or decreased GFR 90 2 Kidney damage with mild decrease in GFR 60-89 3 Moderate decrease in GFR 30-59 4 Severe decrease in GFR 15-29 5 Kidney failure <15 (or dialysis) 29 >100 to <200 pg/mL: likely compensated congestive heart failure (CHF) 200 to 400 pg/mL: likely moderate CHF >400 pg/mL: likely moderate to severe CHF [place] [facility] 30 Potassium reference range changed effective 04/08/14 31 Because ethnic data is not always readily available, this report includes an eGFR for both -Americans and non- Americans. The National Kidney Disease Education Program (NKDEP) does not endorse the use of the MDRD equation for patients that are not between the ages of 18 and 70, are , have extremes of body size, muscle mass, or nutritional status, or are non- or non-. According to the National Kidney Foundation, irrespective of diagnosis, the stage of the disease is based on the level of kidney function: Stage Description GFR(mL/min/1.73 m(2)) 1 Kidney damage with normal or decreased GFR 90 2 Kidney damage with mild decrease in GFR 60-89 3 Moderate decrease in GFR 30-59 4 Severe decrease in GFR 15-29 5 Kidney failure <15 (or dialysis) 32 A Nicholson-Giemsa stained slide prepared from the flow cytometry specimen was examined for quality purposes.The specimen available for morphologic review is sparsely cellular. PDF Report available at: [email or web address] 33 Lymph node, right supraclavicular, specimen for flow cytometric analysis ([id number]): Normal immunophenotyping results. No monotypic B-cell population, phenotypically aberrant T-cell population or increase in blasts identified. Reviewed by: Keiry Stephens M.D 03:14:06 Analyte Specific Reagent: This test was developed and its performance characteristics determined by [facility]. It has not been cleared or approved by the U.S. Food and Drug Administration. 34 Results: Blasts: Not increased by CD45/side scatter. B-cells: No monotypic; normal expression pattern of CD19, CD20, CD5, CD10, CD23, surface kappa and lambda. T-cells/NK-cells: No aberrant phenotype by CD3, CD5, CD7, and CD10. Viability: Acceptable Viable lymphocytes (7-AAD): 99% Quality Assessment: Specimen received within validated guidelines. Test Performed by: [facility] [place] [address] Advertising Material Distributor: Wilmer Loera III, M.D. 35 RUN DATE: 02/13/14 [facility] [place] LAB LIVE PAGE 1 RUN TIME: [address] [place] [address] Specimen Inquiry Name: ROSALVA COLUNGA : [address]: Zain Salcedo MD Acct: [id number] Unit: [id number] AGE: 73 Location: LAB Re02/07/14 SEX: F Status: REG REF SPEC: [id number] ALESSANDRA: 02/07/14 [facility] DR: Crow Cooney MD REQ: [id number] RECD: 02/07/14 STATUS: VIBHA MIGUEL DR: Edy Salcedo MD _ ORDERED: FN ASP SUPERFIC, FN ASP PALP, FNA IMMEDIATE S, PATH CONSULT, Leukemia/Ly FINAL DIAGNOSIS Right supraclavicular node, fine needle aspiration: Benign- mixed lymphocytes compatible with reactive lymph node (see comment). COMMENTS: The aspirate smears are amply cellular and demonstrate an admixture of lymphoid elements dominated by small mature lymphocytes. Scattered macrophages are seen and a few larger lymphocytes are also noted. Based on morphologic features, clinical history, and flow cytometric evaluation these changes are most characteristic of a benign reactive process. The procedure was explained to and understood by the patient. Signed consent was obtained and a time-out was performed to verify patient identity and biopsy site. Fine needle aspiration biopsy was performed x2 of an approximate 10.0 mm. mobile right supraclavicular lymph node. Adequacy was assessed by fast stain technique. The procedure was tolerated well without complications. Specimen sent to [facility] for Flow cytometry [place], [place] on 02/07/14 by [email or web address] at 1457. A. SUPRACLAVICULAR RIGHT - RIGHT SUPRCLAVICULAR FINE NEEDLE ASPIRATION BY PALPATION CONTINUED ON NEXT PAGE * ML=Testing performed at Main Lab DEPARTMENT OF PATHOLOGY, [facility] [employer] [place], [place] [address] Crow Cooney M.D. Director [facility] # [id number] RUN DATE: 02/13/14 [facility] [place] LAB LIVE PAGE 2 RUN TIME: 7028 [facility] [employer] [place], [place] [address] Specimen Inquiry Patient: ROSALVA COLUNGA [id number] (Continued) CLINICAL HISTORY (Continued) CLINICAL HISTORY Right mastectomy. IMMEDIATE INTERPRETATION Pass 1- Adequate GROSS DESCRIPTION Fine needle aspiration by palpation x 2 passes with 1 Alcohol fixed slide(s) , 1 Air dried slide(s) and FLOW Cytometry sent to [facility]. SPECIAL STUDIES Flow cytometry has been performed at [facility], [place], [place]. The testing reveals: A Nicholson-Giemsa stained slide prepared from the flow cytometry specimen was examined for quality purposes.The specimen available for morphologic review is sparsely cellular. Lymph node, right supraclavicular, specimen for flow cytometric analysis ( [id number]): Normal immunophenotyping results. No monotypic B-cell population, phenotypically aberrant T-cell population or increase in blasts identified. Results: Blasts: Not increased by CD45/side scatter. B-cells: No monotypic; normal expression pattern of CD19, CD20, CD5, CD10, CD23, surface kappa and lambda. T-cells/NK-cells: No aberrant phenotype by CD3, CD5, CD7, and CD10. Viability: Acceptable Viable lymphocytes (7-AAD): 99% Quality Assessment: Specimen received within validated guidelines. Test Performed by: [facility] - [address] [address] Advertising Material Distributor: Wilmer Loera III, M.D. CONTINUED ON NEXT PAGE * ML=Testing performed at Main Lab DEPARTMENT OF PATHOLOGY, [address] [place] [address] Crow Cooney M.D. Director [facility] # [id number] RUN DATE: 02/13/14 [facility], [place] LAB LIVE PAGE 3 RUN TIME: [address] [place] [id number] Specimen Inquiry Patient: ROSALVA COLUNGA [id number] (Continued) SPECIAL STUDIES (Continued) Signed (signature on file) Crow Cooney MD 1218 END OF REPORT * ML=Testing performed at Main Lab DEPARTMENT OF PATHOLOGY, [address] [place] [address] Crow Cooney M.D. Director [facility] # [id number] 36 Because ethnic data is not always readily available, this report includes an eGFR for both -Americans and non- Americans. The National Kidney Disease Education Program (NKDEP) does not endorse the use of the MDRD equation for patients that are not between the ages of 18 and 70, are , have extremes of body size, muscle mass, or nutritional status, or are non- or non-. According to the National Kidney Foundation, irrespective of diagnosis, the stage of the disease is based on the level of kidney function: Stage Description GFR(mL/min/1.73 m(2)) 1 Kidney damage with normal or decreased GFR 90 2 Kidney damage with mild decrease in GFR 60-89 3 Moderate decrease in GFR 30-59 4 Severe decrease in GFR 15-29 5 Kidney failure <15 (or dialysis) 37 Normal Range 180 to 914 Indeterminate Range 145 to 180 Deficient Range <145 38 CBC and smear reviewed. Eosinophilia confirmed. May be allergy, drug or parasite related. Reviewed by Coral Ferreira MD 39 Test Performed by: [place] [address] Advertising Material Distributor: Wilmer Lorea III, M.D. 40 AM Cortisol 8.7-22.4 PM Cortisol Less than 10 41 Test Performed by: [place] [address] Advertising Material Distributor: Wilmer Loera III, M.D. 42 RESULT: No apparent monoclonal protein on serum electrophoresis. Test Performed by: [place] [address] Advertising Material Distributor: Wilmer Loera III, M.D. 43 Test Performed by: [place] [address] Advertising Material Distributor: Wilmer Loera III, M.D. 44 Because ethnic data is not always readily available, this report includes an eGFR for both -Americans and non- Americans. The National Kidney Disease Education Program (NKDEP) does not endorse the use of the MDRD equation for patients that are not between the ages of 18 and 70, are , have extremes of body size, muscle mass, or nutritional status, or are non- or non-. According to the National Kidney Foundation, irrespective of diagnosis, the stage of the disease is based on the level of kidney function: Stage Description GFR(mL/min/1.73 m(2)) 1 Kidney damage with normal or decreased GFR 90 2 Kidney damage with mild decrease in GFR 60-89 3 Moderate decrease in GFR 30-59 4 Severe decrease in GFR 15-29 5 Kidney failure <15 (or dialysis) 45 @Repeated by: Paris Lora 02/09/13 1616 @Prev Result: 30 mg/dL 46 Because ethnic data is not always readily available, this report includes an eGFR for both -Americans and non- Americans. The National Kidney Disease Education Program (NKDEP) does not endorse the use of the MDRD equation for patients that are not between the ages of 18 and 70, are , have extremes of body size, muscle mass, or nutritional status, or are non- or non-. According to the National Kidney Foundation, irrespective of diagnosis, the stage of the disease is based on the level of kidney function: Stage Description GFR(mL/min/1.73 m(2)) 1 Kidney damage with normal or decreased GFR 90 2 Kidney damage with mild decrease in GFR 60-89 3 Moderate decrease in GFR 30-59 4 Severe decrease in GFR 15-29 5 Kidney failure <15 (or dialysis) 47 Because ethnic data is not always readily available, this report includes an eGFR for both -Americans and non- Americans. The National Kidney Disease Education Program (NKDEP) does not endorse the use of the MDRD equation for patients that are not between the ages of 18 and 70, are , have extremes of body size, muscle mass, or nutritional status, or are non- or non-. According to the National Kidney Foundation, irrespective of diagnosis, the stage of the disease is based on the level of kidney function: Stage Description GFR(mL/min/1.73 m(2)) 1 Kidney damage with normal or decreased GFR 90 2 Kidney damage with mild decrease in GFR 60-89 3 Moderate decrease in GFR 30-59 4 Severe decrease in GFR 15-29 5 Kidney failure <15 (or dialysis) 48 HDL Interpretation: Undesirable: High Risk: Less than 40 MG/DL Desirable: Low Risk: Greater than 60 MG/DL 49 LDL Interpretation: Low Risk Optimal Level: LDL Less than 100 MG/DL Near or Above Optimal: LDL 100-129 MG/DL Borderline High Risk: LDL 130-159 MG/DL High Risk: LDL 160-189 MG/DL Very High Risk: LDL Greater than 189 MG/DL 50 Fasting 51 Fasting 52 Anion gap measurement may be of limited value in the presence of any alkalosis, especially in a combined acid base disorder. . 53 A metabolite of Naproxen, O-desmethylnaproxen, has been shown to interfere with the Jendrassik-Kanwal method for measuring total bilirubin. Samples from patients who have taken Naproxen have shown spurious elevation in total bilirubin levels. 54 Because ethnic data is not always readily available, this report includes an eGFR for both -Americans and non- Americans. The National Kidney Disease Education Program (NKDEP) does not endorse the use of the MDRD equation for patients that are not between the ages of 18 and 70, are , have extremes of body size, muscle mass, or nutritional status, or are non- or non-. According to the National Kidney Foundation, irrespective of diagnosis, the stage of the disease is based on the level of kidney function: Stage Description GFR(mL/min/1.73 m(2)) 1 Kidney damage with normal or decreased GFR 90 2 Kidney damage with mild decrease in GFR 60-89 3 Moderate decrease in GFR 30-59 4 Severe decrease in GFR 15-29 5 Kidney failure <15 (or dialysis) 55 CHOLESTEROL INTERPRETATION: Desirable: Less than 200 MG/DL Borderline-High Risk: 200-239 MG/DL High-Risk: 240 MG/DL and over 56 HDL INTERPRETATION: Undesirable: High Risk: Less than 40 MG/DL Desirable: Low Risk: Greater than 60 MG/DL 57 LDL INTERPRETATION: Low Risk Optimal Level: LDL Less than 100 MG/DL Near or Above Optimal: LDL 100-129 MG/DL Borderline High Risk: LDL 130-159 MG/DL High Risk: LDL 160-189 MG/DL Very High Risk: LDL Greater than 189 MG/DL 58 IRAIS VALUE=2.01 ( OF 05/13/07 Recommended INR for Patients on Oral Anticoagulants Prophylaxis 2.0 - 3.0 Treatment of thrombosis 2.0 - 3.0 Prevention of embolism 2.0 - 3.0 Prevention of embolism from prosthetic heart valves 2.5 - 3.5 59 PLEASE NOTE NEW REFERENCE RANGE EFFECTIVE 07. 60 Anion gap measurement may be of limited value in the presence of any alkalosis, especially in a combined acid base disorder. . 61 Note change in reference range as of 01/26/08. The change was based on recommendations from the [employer]. 62 Please note change in reference range effective 07 . 63 CHOLESTEROL INTERPRETATION: Desirable: Less than 200 MG/DL Borderline-High Risk: 200-239 MG/DL High-Risk: 240 MG/DL and over 64 HDL INTERPRETATION: Undesirable: High Risk: Less than 40 MG/DL Desirable: Low Risk: Greater than 60 MG/DL 65 LDL INTERPRETATION: Low Risk Optimal Level: LDL Less than 100 MG/DL Near or Above Optimal: LDL 100-129 MG/DL Borderline High Risk: LDL 130-159 MG/DL High Risk: LDL 160-189 MG/DL Very High Risk: LDL Greater than 189 MG/DL 66 UNABLE TO CALCULATE IND.BILI D.BILI IS <0.1 67 MICROALBUMINURIA IN A RANDOM SAMPLE IS DEFINED : MICROALBUMIN/CREATININE RATIO OF 30-299 ug/mg. . Procedures Date CPT Code Description Status 09/27/2017 76161 EKG Tracing & Interpretation Completed 06/15/2017 Bone Mineral Density Test Completed 03/17/2017 98174 ECHO Transthoracic, Real-Time 2D With Doppler And Color Completed Flow 03/17/2017 34269 ECHO Transthoracic, Real-Time 2D With Doppler And Color Completed Flow 02/23/2017 03764 EKG Tracing & Interpretation Completed 02/23/2017 51588 EKG Tracing & Interpretation Completed 01/06/2017 45353 EKG Tracing & Interpretation Completed 07/24/2016 57643 EKG Tracing & Interpretation Completed 05/13/2016 55699 ECHO Transthoracic, Real-Time 2D With Doppler And Color Completed Flow 04/15/2016 31984 EKG Tracing & Interpretation Completed 08/11/2015 22075 Holter Monitor Review (24 hr)dr review & interp only Completed 08/05/2015 06928 ECG Monitor/Recording W/Visual Superimposition Scanning Completed 07/02/2015 14313 EKG Tracing & Interpretation Completed 2014 54327 EKG Tracing & Interpretation Completed 06/06/2014 29783 ECHO Transthoracic, Real-Time 2D With Doppler And Color Completed Flow 05/18/2014 74924 Left Heart Cath. Incl S/I Coronaries, Angio S/I V Gram Completed If Done 05/18/2014 14090 EKG, Interpretation Only Completed 05/02/2014 27249 Treadmill Interp/Report Only Completed 05/02/2014 44249 Stress Test Supervsn W/Out I/R Completed 04/06/2014 42955 EKG Tracing & Interpretation Completed 10/26/2013 26224 Rad Shoulder Comp, Min. 2 Views Completed 10/12/2013 93895 Closed trtmt prox humeral fx Completed 02/27/2013 59553 EKG Tracing & Interpretation Completed 05/19/2012 57700 Stress ECHO Interpretation/Report Hospital Completed 05/19/2012 05475 Treadmill Interp/Report Only Completed 05/19/2012 40648 Stress Test Supervsn W/Out I/R Completed 05/06/2012 65333 ECHO Transthoracic, Real-Time 2D With Doppler And Color Completed Flow 04/27/2012 46274 EKG Tracing & Interpretation Completed 04/16/2011 82589 EKG Tracing & Interpretation Completed 08/28/2010 65835 EKG, Interpretation Only Completed 08/28/2010 83197 EKG Tracing & Interpretation Completed 07/22/2010 34585 ECHO Transthoracic, Real-Time 2D With Doppler And Color Completed Flow 07/01/2010 70735 Treadmill Interp/Report Only Completed 07/01/2010 01370 Stress Test Supervsn W/Out I/R Completed 05/26/2010 98327 EKG Tracing & Interpretation Completed 11/14/2009 77491 EKG Tracing & Interpretation Completed 03/14/2009 16719 EKG Tracing & Interpretation Completed 10/15/2008 14849 EKG Tracing & Interpretation Completed 08/20/2008 53116 Color Doppler Completed 08/20/2008 56321 Pulse Doppler & Continuous Wave Completed 08/20/2008 02180 Echocardiogram Completed 08/20/2008 73289 ECHO Transthoracic, Real-Time 2D With Doppler And Color Completed Flow 07/27/2008 11593 S/I/R Inj Proc Vent And Or Atrial Completed 07/27/2008 81896 Coronary Angiography Completed 07/27/2008 55286 Inj Proc LFT Vent/LFT Atrl Angio Completed 07/27/2008 34140 Com RT And LT Catheterization Completed 07/27/2008 38555 Selective Coronary Angioplasty Completed 07/19/2008 14634 EKG Tracing & Interpretation Completed 04/30/2008 60671 Treadmill Interp/Report Only Completed 04/30/2008 27145 Stress Test Supervsn W/Out I/R Completed 04/30/2008 62213 Stress Test Supervsn W/Out I/R Completed Encounters Type Date Location Provider CPT E/M Dx Office Visit 01/24/2018 [place] [address] R06.83 11:00a [facility] G25.81 D64.9 E66.09 Z68.27 Office Visit 11/11/2017 10:00a [facility] Ever Grady [address] M05.79 Of [facility] M.DCal D64.9 Z79.899 M81.0 Office Visit 09/27/2017 11:00a [facility] [place], [address] D64.9 [facility] M.DCal I25.10 R06.02 I10 R42 G25.81 Office Visit 09/14/2017 10:20a [facility] Ever Grady 18259 M05.79 Of [facility] M.DCal G62.9 D64.9 Z79.899 Office Visit 07/20/2017 10:00a [facility] Ever Grady 38585 M05.79 Of [facility] M.DCal M81.0 G62.9 D64.9 Office Visit 02/23/2017 10:00a [facility] CARLI Samayoa 30650 D72.829 I25.10 R06.02 R94.31 Office Visit 01/06/2017 11:00a [facility] [place] 56814 E78.00 Zaida I25.10 R42 I95.1 I10 R94.31 Office Visit 08/13/2016 1:30p [facility] CARLI Samayoa 47916 E78.00 I25.10 Office Visit 07/24/2016 11:00a [facility] [place] M.D. 71001 R42 I95.9 I25.10 E11.9 I95.1 E78.00 Office Visit 05/20/2016 11:00a [facility] CARLI Samayoa 49565VKV I25.10 R42 Office Visit 04/15/2016 11:00a [facility] [place] M.D. 11285 I95.1 I25.10 E11.9 R42 Office Visit 10/31/2015 11:00a [facility] CARLI Samayoa 60273HNP I25.10 I95.1 E11.9 Office Visit 07/02/2015 10:20a [facility] [place] M.D. 08156 I95.1 I25.10 E11.9 W18.39xA Office Visit 2014 11:00a [facility] [place] M.D. 90917 458.0 414.01 250.00 786.05 Office Visit 07/12/2014 10:30a [facility] CARLI Samayoa 15876 414.01 458.0 250.00 786.05 Office Visit 06/14/2014 1:00p [facility] [place] 68689 786.09 M.DCal 414.01 458.0 401.9 Office Visit 05/21/2014 3:40p [facility] Peng Strange M.D., 49943 V58.41 [facility] AT [facility] Office Visit 05/02/2014 11:00a [facility] [place] 63952 414.9 M.D. 786.09 Office Visit 04/06/2014 10:20a [facility] [place] M.D. 58117 458.0 414.01 428.32 786.09 250.00 794.31 307.49 Office Visit 02/27/2013 1:40p [facility] [place] M.D. 15311 458.0 414.01 428.32 250.00 Office Visit 12/16/2012 4:00p [facility] [place] M.D. 93930 458.0 414.01 428.32 Office Visit 04/27/2012 9:00a [facility] [place] 38921 250.00 M.D. 414.01 428.32 786.09 Office Visit 04/16/2011 1:40p [facility] [place] 18233 414.01 M.D. 401.1 428.32 250.00 Office Visit 08/28/2010 10:40a [facility] [place], 01223 414.01 M.D. 401.1 428.32 426.4 250.00 Office Visit 07/31/2010 8:15a [facility] [place] [address] 401.1 Office Visit 06/11/2010 1:15p [facility] [place] [address] 401.1 414.01 426.4 Office Visit 05/26/2010 11:20a [facility] [place] M.D. 22768 401.1 414.01 426.4 250.00 786.05 Office Visit 01/14/2010 11:00a [facility] Squires M.D. 25013 844.1 C.M.A. Office Visit 12/24/2009 4:00p [facility] Squires M.D. 39623 844.1 C.M.A. Office Visit 11/14/2009 11:20a [facility] [place] 12525 401.1 M.D. 414.01 426.4 250.00 Office Visit 03/14/2009 2:40p [facility] [place] M.D. 90490 401.1 414.01 426.4 250.00 428.32 Office Visit 11/06/2008 10:30[place] [facility] [place] [address] 401.1 Office Visit 10/15/2008 11:10a [facility] [place] 16269 414.01 M.D. 426.4 401.1 250.00 Office Visit 07/31/2008 1:10p [facility] Qutaybeh S. Magesmerydfroylan, 69559 426.4 M.D. 401.1 414.01 250.00 786.09 Office Visit 07/27/2008 10:00a [facility] Qutaybeh S. Maghaydah, [address]1041 786.50 M.D. 786.05 794.31 401.1 414.01 Office Visit 07/19/2008 10:40a [facility] [place] M.D. 53035 426.4 786.50 401.1 272.0 786.09 250.00 Office Visit 04/30/2008 12:00p [facility] [place] M.D. 45318 426.4 786.50 401.1 272.0 Plan of Care Future Appointment(s):05/17/2018 1:00 pm - PARAS Mancuso at [facility]03/30/2018 11:00 am - Yarelis Bryson DNP, RN, AUTOMOTIVE REFINISHER-BC at [facility]02/15/2018 - Ever Grady M.D.M05.79 Rheu arthritis w rheu factor mult site w/o org/sys involvNew Labs:Erythrocyte Sed RateC Reactive KnmilrdP50.0 Age-related osteoporosis w/o current pathological qivauvokA24.9 Polyneuropathy, njqmgujcieeA19.899 Other intermediate teacher ( current) drug therapyNew Labs:CBC Auto DiffComp Metabolic PanelFollow up:Follow up in 3 months or sooner if needed
[2018-03-11 14:40] LABS: ABS Basophils 0 10^3/ul (0-0.2); ABS Eosinophils 0 10^3/ul (0-0.6); ABS Lymphocytes 0.8 10^3/ul (1.0-4.8); ABS Monocytes 0.4 10^3/ul (0-0.8); ABS Neutrophils 12.6 10^3/ul (1.5-7.7); ABS Nucleated RBC 0 10^3/ul; Eosinophil % 0 % (0-6); Hematocrit 39 % (35-47); Hemoglobin 12.9 g/dl (12.0-16.0); Lymphocyte % 6.1 % (25-47); Mean Corpuscular HGB Conc 33 g/dl (31-36); Mean Corpuscular Hemoglobin 29 pg (27-31); Mean Corpuscular Volume 88 fL (80-97); Mean Platelet Volume 8.4 um3 (7.4-10.4); Nucleated Red Blood Cells % 0; Platelet Count 271 10^3/ul (150-450); Red Blood Count 4.47 10^6/ul (4.00-5.40); Red Cell Distribution Width 15 % (10.5-15); White Blood Count 13.9 10^3/ul (3.5-10.8)
[2018-03-11 14:54] LABS: Albumin 3.9 g/dL (3.2-5.2); Albumin/Globulin Ratio 1.5 (1-3); BUN/Creatinine Ratio 28.9 (8-20); C Reactive Protein 39.75 mg/L (<8.01); Calcium 9.3 mg/dL (8.6-10.3); Globulin 2.6 g/dL (2-4); Magnesium 1.8 mg/dL (1.9-2.7); Potassium 3.7 mmol/L (3.5-5.0); Total Bilirubin 0.6 mg/dL (0.2-1.0); Total Protein 6.5 g/dL (6.4-8.9)
--- NOTE | 2018-03-11 15:22 | RAD ---
HISTORY: vomiting COMPARISONS: February 27, 2016 VIEWS: 2: Frontal and lateral views of the chest. FINDINGS: CARDIOMEDIASTINAL SILHOUETTE: The cardiomediastinal silhouette is normal. ANNIKA: The annika are normal. PLEURA: The costophrenic angles are sharp. No pleural abnormalities are noted. LUNG PARENCHYMA: There is postsurgical change to the right lung. ABDOMEN: The upper abdomen is clear. There is no subphrenic gas. BONES AND SOFT TISSUES: There is chronic post traumatic versus post surgical change to the right hemithorax. There is a chronic fracture of the proximal right humerus. The appearance is similar to the previous examination. There is diffuse osteopenia with stable compression deformity of the lower thoracic spine. OTHER: None. IMPRESSION: NO ACTIVE CARDIOPULMONARY DISEASE.
[2018-03-11] MEDS ORDERED: Ondansetron INJ* 2 MG/ML VIAL ONE (15:46)
[2018-03-11] MEDS ORDERED: Ondansetron INJ* 2 MG/ML VIAL IV ONE (15:46)
[2018-03-11] MEDS ORDERED: Insulin IVPB 100 units/100 ml 100 UNITS/100 ML UNIT IVPB ONE (16:23)
[2018-03-11] MEDS ORDERED: Ondansetron INJ* 2 MG/ML VIAL IV PRN (16:59)
[2018-03-11] MEDS ORDERED: NS 0.9% 1000 ML* 1,000 ML IV SCH (17:00)
[2018-03-11] MEDS ORDERED: Meclizine TAB* 12.5 MG PO PRN (17:02)
[2018-03-11] MEDS ORDERED: Magnesium Oxide TAB* 400 MG PO ONE (17:19)
[2018-03-11] MEDS ORDERED: PROCHLORPERAZINE INJ 5 MG/ML 2 ML VIAL ONE (17:53)
[2018-03-11] MEDS: PROCHLORPERAZINE INJ 5 MG/ML 2 ML VIAL IV PRN (17:54)
[2018-03-11] MEDS ORDERED: Insulin IVPB 100 units/100 ml 100 UNITS/100 ML UNIT IVPB SCH (20:00)
[2018-03-11] MEDS: Heparin VIAL(*) 5000 UNITS/ML VIAL (FIVE THOUSAND) SUBCUT SCH (22:18)
[2018-03-11] MEDS: Famotidine TAB* 20 MG PO SCH (22:18)
[2018-03-11] MEDS ORDERED: D5W NS 0.9% 20Meq KCL 1000 ML* 1,000 ML IV SCH (23:00)
[2018-03-11] MEDS ORDERED: D5W NS IV ONE (23:05)
[2018-03-11] MEDS ORDERED: KCL IV ONE (23:05)
[2018-03-11 23:18] LABS: Potassium 3.3 mmol/L (3.5-5.0)
[2018-03-12] MEDS ORDERED: Dextrose 50% Syringe 50 ML* 25 GM/50 ML SYRINGE IV PUSH PRN ×3 (00:24→16:13)
[2018-03-12] MEDS: PROCHLORPERAZINE INJ 5 MG/ML 2 ML VIAL IV PRN (01:13)
[2018-03-12] MEDS: Potassium Chlor TAB* 20 MEQ TAB.ER PO SCH ×3 (01:30→20:59)
[2018-03-12] MEDS: traMADol TAB* 50 MG PO PRN (01:31)
[2018-03-12] MEDS ORDERED: Insulin LISPRO* 1 UNITS UNIT SUBCUT SCH ×2 (04:00→17:00)
--- NOTE | 2018-03-12 04:16 | HP ---
CC: Dr. Quigley * HISTORY AND PHYSICAL: DATE OF ADMISSION: 03/11/18 PRIMARY CARE PROVIDER: Dr. Quigley. IMPORT/EXPORT ADMINISTRATOR: Dr. Harkins. STUDIO OPERATIONS MANAGER: Dr. Grady. CHIEF COMPLAINT: Increased blood sugar, nausea, and vomiting. HISTORY OF PRESENT ILLNESS: Ms. Mari is a 77-year-old female, type 1 diabetic, who has a history also of rheumatoid arthritis, who presents to the emergency room; was feeling unwell for approximately 1 week. The patient states approximately 3 weeks ago, she developed a mild cold. She then began to feel like she had no energy. On 03/01/18, the patient underwent a sleep study at the hospital. She had a hard time sleeping at that point, but otherwise was generally feeling okay. Later that day, however, she began to feel unwell and like something was wrong, but she could not tell directly what that was. The following day, she started vomiting only in the morning. By noon, she was generally feeling better. On , the patient tried to go to [employer] to do some shopping, but was only able to get her lunch but she only took a couple of bites. She could no longer do the activities that she needed at that point. She tried to go back a couple of days later, but again felt very poorly. Last evening, when she went to bed, her blood sugar was reportedly 156. She woke up at approximately 4 a.m. today and her blood sugar was about 500. She did take a dose of NovoLog this morning, but has not had her Lantus since yesterday. She generally takes this in the evening. The patient due to the elevated blood sugar and generally feeling unwell presented to the emergency room for evaluation. PAST MEDICAL HISTORY: 1. Type 1 diabetes. 2. Rheumatoid arthritis. 3. Questionable obstructive sleep apnea - the patient is being worked up for this currently. PAST SURGICAL HISTORY: 1. Left 5th toe removal. 2. Right radical mastectomy. 3. . 4. Bilateral oophorectomy. 5. Right partial pneumonectomy. 6. Bilateral cataract extractions. 7. 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 MEDICATIONS: 1. Calcium plus D 1 tab p.o. daily. 2. Multivitamin 1 tab p.o. daily. 3. Aspirin 81 mg p.o. daily. 4. Alendronate 70 mg p.o. q.30 days. 5. NovoLog 5 units subcutaneous t.i.d. with meals. 6. Lantus 5 units subcutaneous at bedtime, 7 units subcutaneous in the morning. 7. TheraTears apply to the left eye at bedtime. 8. 2000 units IV q.7 days. 9. Meclizine 12.5 mg p.o. t.i.d. p.r.n. dizziness. 10. [place]-3 fatty acids 1 cap p.o. b.i.d. 11. Crestor 5 mg p.o. daily. 12. Ranitidine 150 mg p.o. b.i.d. 13. Soothe X 1 drop to the left eye 4 times a day p.r.n. dryness. 14. Leflunomide 10 mg p.o. daily. 15. Tramadol 25 mg p.o. q.8 hours p.r.n. pain. 16. CoQ10 200 mg p.o. daily. ALLERGIES: LIPITOR, LYRICA, SIMVASTATIN, LISINOPRIL, and METOCLOPRAMIDE. FAMILY HISTORY: Mom at the age of 82 of heart related condition. Dad at the age of 58 of emphysema. SOCIAL HISTORY: The patient is a lifelong nonsmoker. She does not drink alcohol. 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 She is . She has no children. Her 1 child shortly after . REVIEW OF SYSTEMS: A complete 11-system review of systems is obtained. Pertinent positives and negatives are as per HPI and in addition, the patient states that her appetite has been very poor over the last 24 hours. She, in addition to the nausea and vomiting, has had crampy abdominal discomfort. PHYSICAL EXAMINATION GENERAL: The patient is a well-developed elderly female, seen sitting up in the stretcher, in no acute distress. VITAL SIGNS: Blood pressure 150/69, pulse 106, respirations 23, temp 98.3, O2 sat 100% on room air. HEENT: The patient has a right eye prosthesis. Left pupil is round. There is evidence of prior cataract extraction. Extraocular muscles are intact of the left eye. Oropharynx is clear. Oral mucosa is slightly dry. The patient has poor dentition with numerous broken teeth on the bottom and she is mostly edentulous on the top. There is no submandibular, cervical or supraclavicular adenopathy. Thyroid is not enlarged. No thyroid nodules are noted. PULMONARY: Lungs are clear to auscultation anteriorly. CARDIAC: Normal S1, S2. Heart rate is tachycardic and regular. There is no lower extremity edema. ABDOMEN: Bowel sounds are present. Abdomen is soft, nontender, nondistended. MUSCULOSKELETAL: There is no cyanosis or clubbing of the digits. There is full active range of motion of the left upper extremity and bilateral lower extremities. Right upper extremity range of motion is severely limited due to prior shoulder fracture. NEUROLOGIC: Cranial nerves II through XII appear to be grossly intact. Sensation is intact to light touch throughout. Strength is 5/5 and symmetric in both upper and lower extremities bilaterally. SKIN: Warm and dry. There are no rashes. Few bruises are noted in the patient 's bilateral lower extremities. PSYCH: The patient is alert. She is oriented x3. Affect appears appropriate. LABORATORY DATA: WBC 13.9, hemoglobin 12.9, hematocrit 39, platelets 271. Sodium 140, potassium 3.7, chloride 104, anion gap 18, BUN 28, creatinine 0.97, glucose 361, lactic acid 3.3, calcium 9.3, magnesium 1.8. Bilirubin 0.6, AST 26 , ALT 23, alk phos 89. CPK 90. Troponin 0.01. CRP 39.75. Albumin 3.9. EKG reveal sinus rhythm without any acute ST-T wave abnormalities. Chest x-ray reveals no active cardiopulmonary disease. ASSESSMENT AND PLAN: Ms. Mari is a 77-year-old female who developed a cold approximately 3 weeks ago, who has subsequently developed nausea, vomiting and generally feeling of malaise who is found to be in mild diabetic ketoacidosis. 1. Diabetic ketoacidosis. The patient will be admitted to the intensive care unit. We will continue on aggressive IV fluid hydration. Additionally, she will be started on an insulin drip which has been ordered, but not yet started. The patient will have fingersticks q.1 hour with the need to titrate the insulin drip frequently. Follow up electrolyte panel will be obtained at 10 p.m. The patient shall remain on the insulin drip until her CO2 normalizes and her anion gap closes. At that point, the patient can then be transitioned over back to her usual insulin regimen. The patient, as far as I can tell does not follow with an house registry rn. We will discuss this with her tomorrow about potentially establishing with Endocrinology here in town. 2. Rheumatoid arthritis. I am going to hold the patient's leflunomide. We will continue p.r.n. tramadol. 3. Nausea/vomiting/abdominal pain. I suspect this is secondary to the patient' s diabetic ketoacidosis. She will be receiving IV fluids and insulin as above. In addition, she will have p.r.n. Compazine and Zofran. 4. DVT prophylaxis. According to the Adult Thrombosis Prophylaxis Risk Factor Assessment Guide, the patient has a total risk factor score of 6 making her high risk. She will be placed on heparin 5000 units subcutaneous q.8 hours. 5. Code status is DNR. The patient indicates that her friend, Elizabeth Will, would be her healthcare proxy. TIME SPENT: 65 minutes were spent admitting this patient. [id number]/CPS #: [id number] RAJ
[2018-03-12 04:26] LABS: ABS Basophils 0 10^3/ul (0-0.2); ABS Eosinophils 0 10^3/ul (0-0.6); ABS Lymphocytes 0.5 10^3/ul (1.0-4.8); ABS Monocytes 0.5 10^3/ul (0-0.8); ABS Neutrophils 8.9 10^3/ul (1.5-7.7); ABS Nucleated RBC 0 10^3/ul; Eosinophil % 0 % (0-6); Hematocrit 33 % (35-47); Hemoglobin 10.7 g/dl (12.0-16.0); Lymphocyte % 4.6 % (25-47); Mean Corpuscular HGB Conc 32 g/dl (31-36); Mean Corpuscular Hemoglobin 29 pg (27-31); Mean Corpuscular Volume 90 fL (80-97); Mean Platelet Volume 8.6 um3 (7.4-10.4); Nucleated Red Blood Cells % 0; Platelet Count 214 10^3/ul (150-450); Red Blood Count 3.71 10^6/ul (4.00-5.40); Red Cell Distribution Width 15 % (10.5-15); White Blood Count 9.9 10^3/ul (3.5-10.8)
[2018-03-12 04:41] LABS: EGFR Non-African American 62.6 (>60); Potassium 4.8 mmol/L (3.5-5.0)
[2018-03-12] MEDS ORDERED: Insulin LISPRO* 1 UNITS UNIT SUBCUT ONE (04:55)
[2018-03-12] MEDS ORDERED: NS 0.9% 1000 ML* 1,000 ML IV SCH (05:00)
[2018-03-12] MEDS: Insulin LISPRO* 1 UNITS UNIT SUBCUT ONE ×2 (05:01→05:10)
[2018-03-12 06:09] LABS: Urine Appearance Clear; Urine Bacteria 1+ (Absent); Urine Bilirubin Negative (Negative); Urine Blood 1+ (Negative); Urine Color Yellow; Urine Glucose 3+(>=500 mg/dL) (Negative); Urine Ketones 2+ (Negative); Urine Nitrite Positive (Negative); Urine Protein Negative (Negative); Urine Red Blood Cell 1+(3-5/hpf) (Absent); Urine Specific Gravity 1.021 (1.010-1.030); Urine Urobilinogen Negative (Negative); Urine White Blood Cell 1+(6-10/hpf) (Absent)
[2018-03-12] MEDS: Heparin VIAL(*) 5000 UNITS/ML VIAL (FIVE THOUSAND) SUBCUT SCH ×3 (07:16→22:37)
--- NOTE | 2018-03-12 08:17 | RAD ---
Indication: Nausea and vomiting. Oncology patient. Comparison: October 21, 2011 CT. Technique: Supine and LEFT lateral decubitus abdomen views. Report: Negative for free intraperitoneal air. Upper normal diameter small bowel loops visualized. No dilated bowel loops evident. No suspicious calcifications or mass effect evident. Unremarkable soft tissue contours accounting for body habitus. IMPRESSION: #. No evidence for bowel obstruction. R1
--- NOTE | 2018-03-12 08:20 | PN ---
Date of Service: 03/12/18 Critical Care Services: 77F with RA, DM presents with DKA. 03/11: Patient gap closed. Then became hypoglycemic. Insulin gtt stopped. AG reopened. Insulin restarted this am. Vital Signs: Temp Pulse Resp BP SpO2 FiO2 99.1 F 106 16 95/37 95 03/12/18 03:43 03/12/18 07:30 03/12/18 07:30 03/12/18 07:30 03/12/18 07:30 Physical Exam: Gen - nad heent - ncat, eomi, perrl neck - no jvd cv - s1/s2, tachy, no murmur lungs - cta, no wheeze abd - soft, nt, ext - no cce neuro - non-focal Fluid Balance (Past 24 Hours): I= O= Net Intake & Output 03/10/18 03/11/18 03/12/18 03/13/18 06:59 06:59 06:59 06:59 Intake Total 2772 Output Total 150 Balance 2622 Weight 67.2 kg Intake: IV Fluids 2511 NS (0.9%) 510 Medicated IV 21 CC - Insulin 21 Oral 240 Output: Urine 150 Other: Estimated Void Large # Voids 1 Labs: Laboratory Results - last 24 hr 03/11/18 03/11/18 03/11/18 14:18 14:18 14:18 WBC 13.9 H RBC 4.47 Hgb 12.9 Hct 39 MCV 88 MCH 29 MCHC 33 RDW 15 Plt Count 271 MPV 8.4 Neut % (Auto) 90.6 H Lymph % (Auto) 6.1 L [place] % (Auto) 3.0 Eos % (Auto) 0 Baso % (Auto) 0.3 Absolute Neuts (auto) 12.6 H Absolute Lymphs (auto) 0.8 L Absolute Monos (auto) 0.4 Absolute Eos (auto) 0 Absolute Basos (auto) 0 Absolute Nucleated RBC 0 Nucleated RBC % 0 Sodium 140 Potassium 3.7 Chloride 104 Carbon Dioxide 18 L Anion Gap 18 H BUN 28 H Creatinine 0.97 H Est GFR ( Amer) 67.7 Est GFR (Non-Af Amer) 56.0 BUN/Creatinine Ratio 28.9 H Glucose 361 H POC Glucose (mg/dL) Glucose Meter Confirm Lactic Acid 3.3 H* Calcium 9.3 Magnesium 1.8 L Total Bilirubin 0.60 AST 26 ALT 23 Alkaline Phosphatase 89 Total Creatine Kinase 90 Troponin I 0.01 C-Reactive Protein 39.75 H Total Protein 6.5 Albumin 3.9 Globulin 2.6 Albumin/Globulin Ratio 1.5 Urine Color Urine Appearance Urine pH Ur Specific [place] Urine Protein Urine Ketones Urine Blood Urine Nitrate Urine Bilirubin Urine Urobilinogen Ur Leukocyte Esterase Urine WBC (Auto) Urine RBC (Auto) Ur Squamous Epith Cells Urine Bacteria Urine Glucose 03/11/18 03/11/18 03/11/18 17:46 19:06 20:58 WBC RBC Hgb Hct MCV MCH MCHC RDW Plt Count MPV Neut % (Auto) Lymph % (Auto) [place] % (Auto) Eos % (Auto) Baso % (Auto) Absolute Neuts (auto) Absolute Lymphs (auto) Absolute Monos (auto) Absolute Eos (auto) Absolute Basos (auto) Absolute Nucleated RBC Nucleated RBC % Sodium Potassium Chloride Carbon Dioxide Anion Gap BUN Creatinine Est GFR ( Amer) Est GFR (Non-Af Amer) BUN/Creatinine Ratio Glucose POC Glucose (mg/dL) 413 H* 356 H 179 H Glucose Meter Confirm Lactic Acid Calcium Magnesium Total Bilirubin AST ALT Alkaline Phosphatase Total Creatine Kinase Troponin I C-Reactive Protein Total Protein Albumin Globulin Albumin/Globulin Ratio Urine Color Urine Appearance Urine pH Ur Specific [place] Urine Protein Urine Ketones Urine Blood Urine Nitrate Urine Bilirubin Urine Urobilinogen Ur Leukocyte Esterase Urine WBC (Auto) Urine RBC (Auto) Ur Squamous Epith Cells Urine Bacteria Urine Glucose 03/11/18 03/11/18 03/11/18 21:58 22:50 22:50 WBC RBC Hgb Hct MCV MCH MCHC RDW Plt Count MPV Neut % (Auto) Lymph % (Auto) [place] % (Auto) Eos % (Auto) Baso % (Auto) Absolute Neuts (auto) Absolute Lymphs (auto) Absolute Monos (auto) Absolute Eos (auto) Absolute Basos (auto) Absolute Nucleated RBC Nucleated RBC % Sodium 144 Potassium 3.3 L Chloride 114 H Carbon Dioxide 23 Anion Gap 7 BUN Creatinine Est GFR ( Amer) Est GFR (Non-Af Amer) BUN/Creatinine Ratio Glucose POC Glucose (mg/dL) 125 H Glucose Meter Confirm Lactic Acid 1.7 Calcium Magnesium Total Bilirubin AST ALT Alkaline Phosphatase Total Creatine Kinase Troponin I C-Reactive Protein Total Protein Albumin Globulin Albumin/Globulin Ratio Urine Color Urine Appearance Urine pH Ur Specific [place] Urine Protein Urine Ketones Urine Blood Urine Nitrate Urine Bilirubin Urine Urobilinogen Ur Leukocyte Esterase Urine WBC (Auto) Urine RBC (Auto) Ur Squamous Epith Cells Urine Bacteria Urine Glucose 03/11/18 03/12/18 03/12/18 22:55 00:07 03:58 WBC RBC Hgb Hct MCV MCH MCHC RDW Plt Count MPV Neut % (Auto) Lymph % (Auto) [place] % (Auto) Eos % (Auto) Baso % (Auto) Absolute Neuts (auto) Absolute Lymphs (auto) Absolute Monos (auto) Absolute Eos (auto) Absolute Basos (auto) Absolute Nucleated RBC Nucleated RBC % Sodium Potassium Chloride Carbon Dioxide Anion Gap BUN Creatinine Est GFR ( Amer) Est GFR (Non-Af Amer) BUN/Creatinine Ratio Glucose POC Glucose (mg/dL) 44 L 134 H > 444 H* Glucose Meter Confirm Lactic Acid Calcium Magnesium Total Bilirubin AST ALT Alkaline Phosphatase Total Creatine Kinase Troponin I C-Reactive Protein Total Protein Albumin Globulin Albumin/Globulin Ratio Urine Color Urine Appearance Urine pH Ur Specific [place] Urine Protein Urine Ketones Urine Blood Urine Nitrate Urine Bilirubin Urine Urobilinogen Ur Leukocyte Esterase Urine WBC (Auto) Urine RBC (Auto) Ur Squamous Epith Cells Urine Bacteria Urine Glucose 03/12/18 03/12/18 03/12/18 04:20 04:20 05:27 WBC 9.9 RBC 3.71 L Hgb 10.7 L Hct 33 L MCV 90 MCH 29 MCHC 32 RDW 15 Plt Count 214 MPV 8.6 Neut % (Auto) 90.0 H Lymph % (Auto) 4.6 L [place] % (Auto) 5.3 Eos % (Auto) 0 Baso % (Auto) 0.1 Absolute Neuts (auto) 8.9 H Absolute Lymphs (auto) 0.5 L Absolute Monos (auto) 0.5 Absolute Eos (auto) 0 Absolute Basos (auto) 0 Absolute Nucleated RBC 0 Nucleated RBC % 0 Sodium 140 Potassium 4.8 D Chloride 111 Carbon Dioxide 14 L* Anion Gap 15 H BUN 22 Creatinine 0.88 Est GFR ( Amer) 75.8 Est GFR (Non-Af Amer) 62.6 BUN/Creatinine Ratio 25.0 H Glucose 501 H* POC Glucose (mg/dL) Glucose Meter Confirm 501 H* Lactic Acid Calcium 8.0 L Magnesium Total Bilirubin AST ALT Alkaline Phosphatase Total Creatine Kinase Troponin I C-Reactive Protein Total Protein Albumin Globulin Albumin/Globulin Ratio Urine Color Yellow Urine Appearance Clear Urine pH 5.0 Ur Specific [place] 1.021 Urine Protein Negative Urine Ketones 2+ A Urine Blood 1+ A Urine Nitrate Positive A Urine Bilirubin Negative Urine Urobilinogen Negative Ur Leukocyte Esterase Negative Urine WBC (Auto) 1+(6-10/hpf) A Urine RBC (Auto) 1+(3-5/hpf) A Ur Squamous Epith Cells Present A Urine Bacteria 1+ A Urine Glucose 3+(>=500 mg/dl) A 03/12/18 03/12/18 06:00 06:19 WBC RBC Hgb Hct MCV MCH MCHC RDW Plt Count MPV Neut % (Auto) Lymph % (Auto) [place] % (Auto) Eos % (Auto) Baso % (Auto) Absolute Neuts (auto) Absolute Lymphs (auto) Absolute Monos (auto) Absolute Eos (auto) Absolute Basos (auto) Absolute Nucleated RBC Nucleated RBC % Sodium Potassium Chloride Carbon Dioxide Anion Gap BUN Creatinine Est GFR ( Amer) Est GFR (Non-Af Amer) BUN/Creatinine Ratio Glucose POC Glucose (mg/dL) > 444 H* Glucose Meter Confirm 431 H Lactic Acid Calcium Magnesium Total Bilirubin AST ALT Alkaline Phosphatase Total Creatine Kinase Troponin I C-Reactive Protein Total Protein Albumin Globulin Albumin/Globulin Ratio Urine Color Urine Appearance Urine pH Ur Specific [place] Urine Protein Urine Ketones Urine Blood Urine Nitrate Urine Bilirubin Urine Urobilinogen Ur Leukocyte Esterase Urine WBC (Auto) Urine RBC (Auto) Ur Squamous Epith Cells Urine Bacteria Urine Glucose Studies: CXR 03/11 IMPRESSION: NO ACTIVE CARDIOPULMONARY DISEASE. Abd Xray 03/12 Pending Impression: 77F with hld, dm, ra, presents with dka. Plan: Neuro - pain control CV - tachycardia, hypotension - 2/2 dka and volume depletion - iv hydration - statin for hld Pulm - shannan? - f/u as outpatient ID - normal wbc - afebrile - cxr/ua neg GI -nausea/vomiting/abd pain - 2/2 dka - abd xray pending - npo - anti-emetics prn Renal - monitor i/o - replete lytes prn Heme - monitor cbc Endo - dka - insulin gtt - fs q1h - iv hydration Rheum - RA - restart leflunamide when tolerating po Lines - piv PPx - gi/dvt Full Code Critical Care Time: 45 mins
[2018-03-12] MEDS ORDERED: Lactated Ringers 1000 ML Bag* 1,000 ML IV SCH ×2 (09:00→19:00)
[2018-03-12] MEDS ORDERED: Lactated Ringers 1000 ML Bag* 1,000 ML IV ONE (09:00)
[2018-03-12] MEDS: Famotidine TAB* 20 MG PO SCH ×2 (10:24→20:58)
[2018-03-12] MEDS: CMC:Rosuvastatin (NF) 10 MG TAB PO SCH (10:24)
[2018-03-12] MEDS: Aspirin EC TAB* 81 MG TAB.EC PO SCH (10:24)
[2018-03-12] MEDS ORDERED: D5W 1/2 NS 1000 ML BAG* 1,000 ML IV SCH ×2 (11:00→11:16)
[2018-03-12] MEDS: Ketorolac INJ* 15 MG/ML 1 ML VIAL IV PUSH ONE ×2 (12:20→14:14)
[2018-03-12] MEDS: Lidocaine PATCH 5%* 1 PATCH TRANSDERM SCH (12:44)
[2018-03-12] MEDS: cefTRIAXone(*) 1 GM in NS 0.9% 50 ML* 50 ML IVPB SCH (12:45)
[2018-03-12 13:17] LABS: BUN/Creatinine Ratio 21.4 (8-20); Blood Urea Nitrogen 18 mg/dL (6-24); CO2 Carbon Dioxide 19 mmol/L (22-32); Calcium 7.9 mg/dL (8.6-10.3); Chloride 118 mmol/L (101-111); EGFR Non-African American 66.1 (>60); Glucose 77 mg/dL (70-100); Phosphorus 1.7 mg/dL (2.5-5.0); Sodium 144 mmol/L (135-145)
[2018-03-12] MEDS ORDERED: Lidocaine 1% INJ* 10 MG/ML 30 ML SDV ONE (13:34)
[2018-03-12 13:52] LABS: Anion Gap 7 mmol/L (2-11)
[2018-03-12] MEDS ORDERED: Sodium Phosphate INJ* 15 MMOLE in NS 0.9% 250 ML* 250 ML IVPB ONE (15:00)
[2018-03-12] MEDS: Insulin GLARGINE(*) 1 UNITS UNIT SUBCUT SCH (15:02)
--- NOTE | 2018-03-12 16:10 | OP ---
Operative Report - Blank - Operative Report Date of Operation: 03/12/18 Note: Central Venous Catheter (CVC, Central Line) Placement Date: 03/12 Time: 2- Indication: Hemodynamic monitoring/Intravenous access Attending: Lazaro Gillis time-out was completed verifying correct patient, procedure, site, positioning , and special equipment if applicable. The patient was placed in a dependent position appropriate for central line placement based on the vein to be cannulated. The patients right groin was prepped and draped in sterile fashion. 1% Lidocaine was used to anesthetize the surrounding skin area. A triple lumen 7-Alban[place] catheter was introduced into the the common femoral vein using the Seldinger technique and under ultrasound guidance. The catheter was threaded smoothly over the guide wire and appropriate blood return was obtained. Each lumen of the catheter was evacuated of air and flushed with sterile saline. The catheter was then sutured in place to the skin and a sterile dressing applied. Perfusion to the extremity distal to the point of catheter insertion was checked and found to be adequate. Estimated Blood Loss: none The patient tolerated the procedure well and there were no complications.
[2018-03-12 16:36] LABS: Magnesium 1.8 mg/dL (1.9-2.7)
[2018-03-12 18:15] LABS: BUN/Creatinine Ratio 21.1 (8-20); Magnesium 1.8 mg/dL (1.9-2.7); Phosphorus 2.5 mg/dL (2.5-5.0); Potassium 4.2 mmol/L (3.5-5.0)
[2018-03-12] MEDS: oxyCODONE/Acetamin 5/325 MG* TAB PO PRN (18:22)
[2018-03-12] MEDS ORDERED: Lidocaine Patch REMOVE* 1 NOTE MISC SCH (21:00)
[2018-03-12] MEDS: Insulin LISPRO* 1 UNITS UNIT SUBCUT SCH (21:01)
[2018-03-12] MEDS: Lactated Ringers 1000 ML Bag* 1,000 ML IV SCH (21:30)
[2018-03-12] MEDS: Lidocaine Patch REMOVE* 1 NOTE MISC PATCH OFF SCH (22:38)
[2018-03-13] MEDS: oxyCODONE/Acetamin 5/325 MG* TAB PO PRN (00:13)
[2018-03-13] MEDS: traMADol TAB* 50 MG PO PRN (00:14)
[2018-03-13] MEDS ORDERED: Morphine VIAL* 4 MG/ML VIAL (1 ml vial) IV PRN (00:36)
[2018-03-13 01:14] LABS: BUN/Creatinine Ratio 19.8 (8-20); Calcium 7.9 mg/dL (8.6-10.3); EGFR Non-African American 68.9 (>60); Magnesium 1.7 mg/dL (1.9-2.7); Phosphorus 2.7 mg/dL (2.5-5.0); Potassium 3.7 mmol/L (3.5-5.0)
[2018-03-13] MEDS: Lactated Ringers 1000 ML Bag* 1,000 ML IV SCH (05:51)
[2018-03-13 06:32] LABS: BUN/Creatinine Ratio 18.7 (8-20); Calcium 7.8 mg/dL (8.6-10.3); EGFR Non-African American 75.3 (>60); Magnesium 1.7 mg/dL (1.9-2.7); Phosphorus 2.6 mg/dL (2.5-5.0); Potassium 4.1 mmol/L (3.5-5.0)
[2018-03-13] MEDS: Heparin VIAL(*) 5000 UNITS/ML VIAL (FIVE THOUSAND) SUBCUT SCH ×3 (06:33→21:53)
[2018-03-13] MEDS: Lidocaine PATCH 5%* 1 PATCH TRANSDERM SCH (08:03)
[2018-03-13] MEDS: Aspirin EC TAB* 81 MG TAB.EC PO SCH (08:03)
[2018-03-13] MEDS: Famotidine TAB* 20 MG PO SCH ×2 (08:03→21:52)
[2018-03-13] MEDS: Potassium Chlor TAB* 20 MEQ TAB.ER PO SCH ×2 (08:03→21:52)
[2018-03-13] MEDS: Insulin LISPRO* 1 UNITS UNIT SUBCUT SCH ×4 (08:54→21:40)
[2018-03-13] MEDS: CMC:Rosuvastatin (NF) 10 MG TAB PO SCH (08:54)
[2018-03-13] MEDS: Insulin GLARGINE(*) 1 UNITS UNIT SUBCUT SCH ×2 (08:55→13:02)
[2018-03-13] MEDS ORDERED: Magnesium Oxide TAB* 400 MG PO SCH (09:00)
[2018-03-13] MEDS: cefTRIAXone(*) 1 GM in NS 0.9% 50 ML* 50 ML IVPB SCH (10:45)
[2018-03-13] MEDS ORDERED: Magnesium Sulfate 2 GM IV* 2 GM/50 ML BAG IVPB ONE (11:22)
--- NOTE | 2018-03-13 11:38 | PN ---
Subjective Date of Service: 03/13/18 Interval History: Feeling stronger and has much better appetite No abdominal pain today No N/V, LH, SOB, CP Objective Active Medications: Aspirin (Aspirin Ec Tab*) 81 mg PO DAILY [facility] Last Admin: 03/13/18 08:03 Dose: 81 mg Dextrose (D50w Syringe 50 Ml*) 12.5 gm IV PUSH .FOR FS < 60 - SS PRN PRN Reason: FS < 60 Last Admin: 03/13/18 01:23 Dose: 12.5 gm Famotidine (Pepcid Tab*) 20 mg PO BID [facility]; Protocol Last Admin: 03/13/18 08:03 Dose: 20 mg Heparin Sodium (Porcine) (Heparin Vial(*)) 5,000 units SUBCUT Q8HR [facility] Last Admin: 03/13/18 06:33 Dose: 5,000 units Heparin Sodium (Porcine) (Heparin Flush Picc/Ml/Cvc(*)) 0 ml IV FLUSH 0600, 1800 [facility]; Protocol Ceftriaxone Sodium 1 gm/ (Sodium Chloride) 50 mls @ 200 mls/hr IVPB Q24H [facility] Stop: 03/17/18 11:59 Last Admin: 03/13/18 10:45 Dose: 200 mls/hr Magnesium Sulfate (Magnesium Sulfate 2 Gm Iv*) 2 gm in 50 mls @ 50 mls/hr IVPB ONCE ONE Stop: 03/13/18 12:21 Insulin Glargine (Lantus(*)) 5 units SUBCUT Q24H [facility] Last Admin: 03/12/18 15:02 Dose: 5 units Insulin Glargine (Lantus(*)) 7 units SUBCUT QAM [facility] Last Admin: 03/13/18 08:55 Dose: 7 units Insulin Human Lispro (Humalog*) 0 units SUBCUT FS ACHS ICU [facility]; Protocol Last Admin: 03/13/18 08:54 Dose: 1 units Leflunomide (Arava (Nf)) 10 mg PO DAILY [facility]; Protocol Lidocaine (Lidoderm 5% Patch*) 1 patch TRANSDERM DAILY [facility] Last Admin: 03/13/18 08:03 Dose: Not Given Meclizine HCl (Antivert Tab*) 12.5 mg PO TID PRN PRN Reason: VERTIGO Ondansetron HCl (Zofran Inj*) 4 mg IV Q6H PRN PRN Reason: NAUSEA Last Admin: 03/12/18 00:47 Dose: 4 mg Oxycodone/Acetaminophen (Percocet 5/325 Tab*) 1 tab PO Q6H PRN PRN Reason: PAIN Last Admin: 03/13/18 00:13 Dose: 1 tab Pharmacy Profile Note (Lidocaine Patch Remove*) 1 note PATCH OFF 2100 [facility] Last Admin: 03/12/18 22:38 Dose: 1 note Potassium Chloride (Klor Con Er Tab*) 20 meq PO BID [facility] Last Admin: 03/13/18 08:03 Dose: 20 meq Prochlorperazine Edisylate (Compazine Inj*) 10 mg IV Q6H PRN PRN Reason: NAUSEA/VOMITING Last Admin: 03/12/18 01:13 Dose: 10 mg Rosuvastatin Calcium (Crestor (Nf)) 5 mg PO DAILY [facility]; Protocol Last Admin: 03/13/18 08:54 Dose: 5 mg Tramadol HCl (Ultram*) 25 mg PO Q8H PRN PRN Reason: PAIN Last Admin: 03/13/18 00:14 Dose: 25 mg Vital Signs - 8 hr 03/13/18 03/13/18 03/13/18 03:49 06:48 08:09 Temperature 96.8 F 97.5 F Pulse Rate 85 81 Respiratory 16 16 16 Rate Blood Pressure 114/47 142/72 (mmHg) O2 Sat by Pulse 99 98 Oximetry 03/13/18 08:17 Temperature Pulse Rate Respiratory 16 Rate Blood Pressure (mmHg) O2 Sat by Pulse Oximetry Oxygen Devices in Use Now: None Appearance: sitting up, NAD Eyes: No Scleral Icterus, - - right eye prosthetic Ears/Nose/Mouth/Throat: Clear Oropharnyx Neck: NL Appearance and Movements; NL JVP, Trachea Midline Respiratory: Symmetrical Chest Expansion and Respiratory Effort, Clear to Auscultation Cardiovascular: RRR Abdominal: NL Sounds; No Tenderness; No Distention, No Hepatosplenomegaly Lymphatic: No Cervical Adenopathy Extremities: - - trace b/l LE edema Neurological: Alert and Oriented x 3 Result Diagrams: 03/12/18 04:20 03/13/18 05:50 Microbiology and Other Data: Microbiology 03/12/18 05:27 Urine Culture - Preliminary Urine Escherichia Coli 03/11/18 19:00 Nasal Screen MRSA (PCR) - Final Nasal Mrsa Not Detected Assess/Plan/Problems-Billing Assessment: 77 yo F h/o DM1, RA p/w DKA found with UTI - Patient Problems (1) DKA (diabetic ketoacidoses) Comment: resolved c/w home dose lantus - low BS noted overnight. No intervention noted. Pt reports appetite much better today - will not adjust down insulin. Ambulate, encouraged PO intake d/c LR c/w SS insulin (2) Rheumatoid arthritis Comment: restart leflunomide (3) Urinary tract infection Comment: cw CTX (4) DVT prophylaxis Comment: HSQ
[2018-03-13] MEDS: LEFLUNOMIDE 10 MG PO SCH (12:29)
[2018-03-13] MEDS: Lidocaine Patch REMOVE* 1 NOTE MISC PATCH OFF SCH (21:59)
[2018-03-14] MEDS: traMADol TAB* 50 MG PO PRN (00:27)
[2018-03-14] MEDS: oxyCODONE/Acetamin 5/325 MG* TAB PO PRN ×2 (00:28→13:00)
[2018-03-14] MEDS: Heparin VIAL(*) 5000 UNITS/ML VIAL (FIVE THOUSAND) SUBCUT SCH ×2 (07:20→14:23)
[2018-03-14 07:51] LABS: BUN/Creatinine Ratio 13.1 (8-20); Calcium 8.2 mg/dL (8.6-10.3); EGFR Non-African American 95.6 (>60)
[2018-03-14 08:09] LABS: Magnesium 1.7 mg/dL (1.9-2.7); Potassium 4.2 mmol/L (3.5-5.0)
[2018-03-14] MEDS: Insulin GLARGINE(*) 1 UNITS UNIT SUBCUT SCH (08:36)
[2018-03-14] MEDS: Famotidine TAB* 20 MG PO SCH (08:36)
[2018-03-14] MEDS: CMC:Rosuvastatin (NF) 10 MG TAB PO SCH (08:37)
[2018-03-14] MEDS: Aspirin EC TAB* 81 MG TAB.EC PO SCH (08:37)
[2018-03-14] MEDS: Potassium Chlor TAB* 20 MEQ TAB.ER PO SCH (08:37)
[2018-03-14] MEDS: LEFLUNOMIDE 10 MG PO SCH (08:38)
[2018-03-14] MEDS: Insulin LISPRO* 1 UNITS UNIT SUBCUT SCH ×2 (08:40→12:54)
[2018-03-14] MEDS: Lidocaine PATCH 5%* 1 PATCH TRANSDERM SCH (08:41)
[2018-03-14 10:27] LABS: ABS Basophils 0 10^3/ul (0-0.2); ABS Eosinophils 0.3 10^3/ul (0-0.6); ABS Lymphocytes 1.4 10^3/ul (1.0-4.8); ABS Monocytes 0.7 10^3/ul (0-0.8); ABS Neutrophils 5.6 10^3/ul (1.5-7.7); ABS Nucleated RBC 0 10^3/ul; Eosinophil % 3.8 % (0-6); Hematocrit 32 % (35-47); Hemoglobin 10.7 g/dl (12.0-16.0); Lymphocyte % 17.4 % (25-47); Mean Corpuscular HGB Conc 33 g/dl (31-36); Mean Corpuscular Hemoglobin 29 pg (27-31); Mean Corpuscular Volume 87 fL (80-97); Mean Platelet Volume 8.2 um3 (7.4-10.4); Nucleated Red Blood Cells % 0.1; Platelet Count 182 10^3/ul (150-450); Red Blood Count 3.66 10^6/ul (4.00-5.40); Red Cell Distribution Width 15 % (10.5-15)
[2018-03-14 11:38] VITALS: BP 135/69
[2018-03-14] MEDS: cefTRIAXone(*) 1 GM in NS 0.9% 50 ML* 50 ML IVPB SCH (12:54)
--- NOTE | 2018-03-14 16:55 | DS ---
CC: Dr. Quigley * DISCHARGE SUMMARY: DATE OF ADMISSION: 03/11/18 DATE OF DISCHARGE: 03/14/18 PRIMARY CARE PROVIDER: Dr. Quigley. PRIMARY DIAGNOSIS: Diabetic ketoacidosis (DKA). SECONDARY DIAGNOSES: Include: 1. Type 1 diabetes. 2. Rheumatoid arthritis. 3. Urinary tract infection. MEDICATIONS AT DISCHARGE: 1. Keflex 500 mg twice a day for 3 additional days. 2. Calcium/vitamin D 1 tab daily. 3. Multivitamin 1 tab daily. 4. Aspirin 81 mg daily. 5. Fosamax 70 mg every month. 6. Insulin aspart 5 units 3 times a day with meals. 7. Insulin glargine 5 units at bedtime and 7 units in the morning. 8. TheraTears 1% left eye at bedtime. 9. Epoetin 2000 units injected weekly. 10. Meclizine 12.5 mg 3 times a day as needed. 11. Parks-3 fatty acids with fish oil 1 cap twice daily. 12. Crestor 5 mg daily. 13. Ranitidine 150 mg twice daily. 14. Soothe XP 1 drop left eye 4 times a day as needed. 15. Leflunomide 10 mg daily. 16. Tramadol 25 mg 3 times a day as needed. 17. CoQ10 200 mg daily. PERTINENT LABORATORY DATA: Glucose on presentation as high as 501, on the morning of discharge 145. Lactic acid 3.3 on presentation. Creatinine on discharge 0.61. White blood cell count on presentation 13.9, 8.0 on the day of discharge. Urine microbiology positive for E. coli pansensitive to all antibiotics tested. DIET ON DISCHARGE: Diabetic. HISTORY OF PRESENT ILLNESS AND HOSPITAL COURSE: This is a 77-year-old female with past medical history as outlined in the history of present illness on the day of admission including type 1 diabetes, on long and short acting insulin, presented to the hospital feeling unwell for 1 week. Noted that she had not taken her insulin the day before, was found with hyperglycemia as well as an anion gap of 18, bicarb as a silvana to 14. There was no ABG drawn. She was treated for DKA in the ICU on an insulin drip before being restarted on her home regimen of insulin. Her urine microbiology grew E. coli pansensitive to all antibiotics. She received 3 days of ceftriaxone in the hospital and was discharged with additional 3 days of Keflex. It is unclear if this was the precipitating event leading to her decompensated diabetes and hospital admission , although she improved with antibiotics, fluids, and insulin. On the day of discharge, she felt back to her baseline, was ambulating, in good spirits. We discussed insulin management as well as diet management, which she has a good grasp of. There were no complications during the course of this hospital stay. At followup, please; 1. Continue to follow diabetes control after discharge from the hospital. 2. There should be no complications with Keflex as she received ceftriaxone, however query as necessary. 3. No other specific labs or vitals that need followup. Reasons to return to the hospital including but not limited to, recurrent or worsening symptoms, changes in urinary frequency, urinary burning or hesitancy, fevers, chills or night sweats, inability to obtain or tolerate her insulin, chest pain, shortness of breath, abdominal pain, nausea, vomiting, or bleeding from any source were discussed with the patient and she acknowledged understanding. TIME SPENT: Greater than 45 minutes was spent on the discharge of the patient, greater than half was spent [id number] with the patient. [id number]/[facility] #: [id number] RAJ
[2018-03-15] MEDS ORDERED: CMC:Rosuvastatin (NF) 5 MG TAB PO SCH (09:00)
== END 2018-03-14 15:35 | disposition home or self-care (01) | DRG 638 ==
LOC: ED 13:57 → ICU 18:51 → MED 03-12 20:29
PROVIDERS: ADMIT Hospitalist; ATTEND Internal Medicine
PROC: 06HM33Z Insertion of Infusion Device into Right Femoral Vein, Percutaneous Approach (ICD-10-PCS; principal; 2018-03-12)
PROC: B54BZZA Ultrasonography of Right Lower Extremity Veins, Guidance (ICD-10-PCS; 2018-03-12)
DX: E10.10 Type 1 diabetes mellitus with ketoacidosis without coma (principal); N39.0 Urinary tract infection, site not specified; I44.7 Left bundle-branch block, unspecified; E78.00 Pure hypercholesterolemia, unspecified; I10 Essential (primary) hypertension; M06.9 Rheumatoid arthritis, unspecified; H54.61 Unqualified visual loss, right eye, normal vision left eye; B96.20 Unspecified Escherichia coli [E. coli] as the cause of diseases classified elsewhere; Z66 Do not resuscitate; E10.649 Type 1 diabetes mellitus with hypoglycemia without coma; H91.92 Unspecified hearing loss, left ear; I95.9 Hypotension, unspecified; E10.65 Type 1 diabetes mellitus with hyperglycemia; R00.0 Tachycardia, unspecified; Z88.8 Allergy status to other drugs, medicaments and biological substances; Z85.3 Personal history of malignant neoplasm of breast; Z85.118 Personal history of other malignant neoplasm of bronchus and lung; Z82.49 Family history of ischemic heart disease and other diseases of the circulatory system; Z83.3 Family history of diabetes mellitus; Z82.5 Family history of asthma and other chronic lower respiratory diseases; Z90.11 Acquired absence of right breast and nipple; Z90.2 Acquired absence of lung [part of]; Z90.49 Acquired absence of other specified parts of digestive tract; Z98.42 Cataract extraction status, left eye; Z98.41 Cataract extraction status, right eye; Z90.722 Acquired absence of ovaries, bilateral; Z79.4 Long term (current) use of insulin; Z79.82 Long term (current) use of aspirin
CPT/HCPCS: 36415; 71046; 74019; 80048; 80051; 80053; 81003; 81015; 82550; 82947; 83605; 83735; 84100; 84484; 85025; 86140; 87077; 87086; 87186; 87641; 93005; 99285; A9270-GY; J0696; J0780; J1644; J1815; J1885; J2405; J3475

== ENCOUNTER 2018-11-29 12:33 | Emergency (ER) | payer MEDICARE, BC ==
--- NOTE | 2018-11-29 12:50 | ED ---
HPI Diabetic - HPI Summary HPI Summary: The patient is a 78 y/o F arriving by ambulance to [facility] with a chief complaint of hypoglycemia this morning. She reports that she woke up at 0600 as usual, had breakfast around 0730, and then was lying down watching TV. She states that for her IDDM, she takes 7 units of Lantus in the morning, and then 1 unit/15 carbs of Novolog. She took the Lantus this morning, and then she had 5 units of Novolog because she measured her glucose and it was 222; she usually takes just 4 units, but she took an extra unit for hyperglycemia. She was then supposed to go out, but then the [employer] truck driver found her unresponsive on the floor. In the ambulance, the patient's glucose was 39, and she was confused; they administered 45g PO glucose and patient was alert. Her glucose is now 151. She denies nausea and abd pain. Hx of IDDM, HLD, HTN, arthritis. Nonsmoker, no EtOH , no substance use. - History Of Current Complaint Chief Complaint: EDDiabeticProb Time Seen by Provider: 11/29/18 12:40 Hx Obtained From: Patient Onset/Duration: Sudden Onset, Resolved Timing: Minutes Severity Initially: Severe Severity Currently: Mild Character: Other - patient was unresponsive and confused upon EMS arrival but is now alert Aggravating: Other - took 5 units of Novolog instead of 4 Alleviating: EMS Treatment - 45g PO glucose Associated Signs & Symptoms: Decreased Level of Conciousness Related History: Insulin Requiring - Allergies/Home Medications Allergies/Adverse Reactions: Allergies Allergy/AdvReac Type Severity Reaction Status Date / Time atorvastatin AdvReac Severe Elevated Verified 11/29/18 12:44 Liver Enzymes pregabalin AdvReac Severe Mood Verified 11/29/18 12:44 Changes simvastatin AdvReac Severe Elevated Verified 11/29/18 12:44 Liver Enzymes lisinopril AdvReac Intermediate Shakes and Verified 11/29/18 12:44 Dizziness metoclopramide AdvReac Unknown Parkinsonian Verified 11/29/18 12:44 movements Home Medications: Home Medications Gabapentin CAP(*) [Neurontin 100 mg CAP(*)] 100 mg PO DAILY 11/29/18 [History Confirmed 11/29/18] PMH/Surg Hx/FS Hx/Imm Hx Endocrine/Hematology History: Reports: Hx Diabetes - IDDM Cardiovascular History: Reports: Hx Angina, Hx Hypercholesterolemia, Hx Hypertension, Other Cardiovascular Problems/Disorders - cardiac cath 05/2014 Denies: Hx Coronary Artery Disease, Hx Myocardial Infarction, Hx Pacemaker/ ICD, Hx Valvular Heart Disease Respiratory History: Reports: Other Respiratory Problems/Disorders - PT STATES DYSPNEA X4-5 YRS; H/O PARTIAL RIGHT LUNGECTOMY IN 1976 Denies: Hx Asthma, Hx Chronic Obstructive Pulmonary Disease (COPD) Musculoskeletal History: Reports: Hx Arthritis, Hx Rheumatoid Arthritis, Hx Back Problems, Hx Bursitis Denies: Hx Osteoporosis Sensory History: Reports: Hx Legally Blind - RIGHT EYE, Hx Deafness - LEFT EAR, Hx Hearing Problem - Deaf Left Ear Denies: Hx Contacts or Glasses - LEFT AT HOME, Hx Hearing Aid Opthamlomology History: Reports: Hx Legally Blind - RIGHT EYE Denies: Hx Contacts or Glasses - LEFT AT HOME Psychiatric History: Denies: Hx Panic Disorder - Cancer History Cancer Type, Location and Year: 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 1976 - LOBECTOMY- 2/3 REMOVED FOR LUNG CA. 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 - Lt SMALL TOE AMPUTEE. 1973 -C SECTION. 2010 - GALLBLADDER Infectious Disease History: No Infectious Disease History: Denies: History Other Infectious Disease, Traveled Outside the [place] in Last 30 Days - Family History Known Family History: Positive: Cardiac Disease - mother, Diabetes - mother, Respiratory Disease - father with emphysema - Social History Alcohol Use: None Hx Substance Use: No Substance Use Type: Reports: None Substance Use Comment - Amount & Last Used: tramadol Hx Tobacco Use: No Smoking Status (MU): Never Smoked Tobacco Do You Chew or Dip Tobacco: No Have You Chewed or Dipped Tobacco in the LAST YEAR: No Have You Smoked in the Last Year: No Review of Systems Negative: Abdominal Pain, Nausea Neurological: Other - decreased responsiveness All Other Systems Reviewed And Are Negative: Yes Physical Exam - Summary Physical Exam Summary: Appearance: Well-appearing, Well-nourished, lying in bed comfortably Skin: Warm, dry, no obvious rash Eyes: sclera anicteric, no conjunctival pallor ENT: mucous membranes moist, pharynx appears normal Neck: Supple, nontender Respiratory: Clear to auscultation, no signs of respiratory distress Cardiovascular: Normal S1, S2. No murmurs. Normal distal pulses in tibial and radial bilaterally. Abdomen: Soft, nontender, normal active bowel sounds present Musculoskeletal: Normal, Strength/ROM Intact Neurological: A&Ox3, awake and alert, mentation is normal, speech is fluent and appropriate Psychiatric: affect is normal, does not appear anxious or depressed Triage Information Reviewed: Yes Vital Signs On Initial Exam: Initial Vitals Temp Pulse Resp BP Pulse Ox 97.6 F 93 18 158/65 96 11/29/18 12:37 11/29/18 12:37 11/29/18 12:37 11/29/18 12:37 11/29/18 12:37 Vital Signs Reviewed: Yes Diagnostics - Vital Signs Vital Signs Temp Pulse Resp BP Pulse Ox 11/29/18 12:37 97.6 F 93 18 158/65 96 - Laboratory Lab Statement: Any lab studies that have been ordered have been reviewed, and results considered in the medical decision making process. Re-Evaluation - Re-Evaluation First Eval Re-Evaluation Time: 14:20 Change: Improved Comment: Patient's symptoms have improved. We discussed discharge home. Diabetic Course/Dx - Course Course Of Treatment: The patient is a 78 y/o F arriving by ambulance to [facility] with a chief complaint of hypoglycemia this morning after eating breakfast and 7 units of Lantus and 5 units of Novolog because she measured her glucose and it was 222. The [employer] tier truck driver found her unresponsive on the floor. In the ambulance, the patient's glucose was 39, and she was confused; they administered 45g PO glucose and patient was alert. Her glucose is now 151. She denies nausea and abd pain. Hx of IDDM, HLD, HTN, arthritis. Nonsmoker, no EtOH , no substance use. Upon physical exam, the patient exhibits no acute abnormalities. In the ED course, she was given sandwiches because she hasnt eaten lunch yet. Finger stick reveals first glucose of 151. Second glucose is 203. Since she is feeling better, she will be discharged home with dx of hypoglycemia associated with diabetes. She will follow up with PCP. She agrees with this plan. - Diagnoses Provider Diagnoses: Hypoglycemia associated with diabetes Discharge - Sign-Out/Discharge Documenting (check all that apply): Patient Departure - Patient will be discharged home. Patient Received Moderate/Deep Sedation with Procedure: No - Discharge Plan Condition: Good Disposition: HOME Patient Education Materials: Hypoglycemia in a Person with Diabetes (ED) Referrals: Celestine Quigley MD [Primary Care Provider] - 3 Days Additional Instructions: Make sure to eat something when you take your insulin. RETURN TO THE EMERGENCY DEPARTMENT FOR ANY NEW OR WORSENING SYMPTOMS. - Billing Disposition and Condition Condition: GOOD Disposition: Home - Attestation Statements Document Initiated by Paulie: Yes Documenting Scribe: Dara Yang Provider For Whom Paulie is Documenting (Include Credential): Dr. Yonny Beal MD Scribe Attestation: Dara Valdes scribed for Dr. Yonny Beal MD on 12/02/18 at 0417. Scribe Documentation Reviewed: Yes Provider Attestation: The documentation as recorded by the Dara sanchez accurately reflects the service I personally performed and the decisions made by me, Dr. Yonny Beal MD Status of [place] Document: Viewed
--- OUTSIDE RECORDS SUMMARY | 2018-11-29 13:05 | XMS REPORT | Continuity of Care Document ---
:1940 External Reference #:[id number] Author Name Sara Greenwood Care Team Providers Name Role Phone Celestine Quigley MD Primary Care Physician Unavailable Payers Date Identification Numbers Payment Provider Subscriber Effective: 1999 Policy Number: [id number] Medicare Rosalva Colunga PayID: [id number] [address] [place] [address] Effective: 2012 Policy Number: [id number] BS [employer]ets Rosalva Colunga PayID: [id number] [address] [place] [address] Effective: 2005 Policy Number: [id number] BS Of FAUSTINA Becerra October Expires: 2012 Group Number: [id number] [address] PayID: [id number] [place] [address] Problems Active Problems Provider Date Benign essential hypertension Gt Long M.D. Onset: 05/20/2011 Type 2 diabetes mellitus Gt Long M.D. Onset: 04/27/2012 Coronary arteriosclerosis Gt Long M.D. Onset: 04/27/2012 Chronic diastolic heart failure Gt Long M.D. Onset: 04/27/2012 Difficulty breathing Gt Long M.D. Onset: 04/27/2012 Orthostatic hypotension Gt Long M.D. Onset: 12/16/2012 Postoperative Wound Closure Encounter Peng Strange M.D., [facility], Onset: 2013 [facility] Family History Date Family Member(s) Observation Comments General Heart Disease Father Emphysema Mother Heart Disease Mother A brother had possible Ra Social History Type Date Description Comments Sex Unknown Lives With Alone Occupation Retired Tobacco Use Start: Unknown Never Smoked Cigarettes Smoking Status Reviewed: 11/08/18 Never Smoked Cigarettes ETOH Use Denies alcohol use Tobacco Use Start: Unknown Patient has never smoked Recreational Drug Use Never Used Drugs Exercise Type/Frequency Exercises regularly Allergies, Adverse Reactions, Alerts Active Allergies Reaction Severity Comments Date Reglan tremors 07/19/2008 Lipitor increased lfts 10/15/2008 Zocor increased lfts increased lfts 10/15/2008 Lisinopril cough dizziness, cough cough dizziness 08/01/2010 dizziness Lyrica radical mood changes 10/12/2013 Medications Active Medications SIG Qnty Indications Ordering Provider Date Midodrine HCL Take 1 Tablet 270tabs I95.1 Ban Knox, 08/04/2018 2.5mg Three Times Daily N.P. Tablets Gabapentin take 1 capsule by 30caps G25.81 Lorin Harkins, 04/14/2018 100mg mouth at bedtime Capsules Leflunomide Take 1 Tablet 90tabs M05.79 Ever Grady, 09/14/2017 10mg Every Day MCalDCal Tablets Coq10 1 by mouth every 90caps E78.00 Gt Pizano 07/24/2016 200mg Capsules day Zaida Long Crestor 1/2 tablet by 45tabs E78.00 Gt Pizano 07/24/2016 5mg Tablets mouth every day Zaida Long Aspirin 1/2 tablet po qd Gt Pizano 02/27/2013 325mg Tablets Zaida Long Centrum Silver 1 po qd 30tabs Other Ordering 02/27/2013 Provider Tablets Latanoprost 1 drop in Lt eye Other Ordering 02/27/2013 0.005% at hs Provider Solution Calcium 500/D bid 60tabs M81.0 Gt Pizano 07/19/2008 500/D Zaida Long Tablets Fish Oil 1 po bid Gt Pizano 07/19/2008 1000mg Zaida Long Capsules Novolog 1 unit per 15 g 2Vials Gt Pizano 07/19/2008 100Unit/ML of carbs as Zaida Long Solution directed ( adjusted by Dr. Abraham Thercaitlin Tears Allergy prn Unknown Soothe XP 3-4 drops/day Unknown Solution Epogen Unknown 2000Unit/ML Solution Tramadol HCL 1/2 tablets Unknown 50mg daily as needed Tablets Dorzolamide HCL 1 gtt OS twice Pa Brooks MD 2% daily Solution Alendronate Sodium x1 weekly M81.0 Unknown 70mg Tablets Betaxolol HCL 1 drop in lt eye 90units Unknown 0.5% q am Liquid Ranitidine HCL 1 po bid 60caps Celestine Quigley, 150mg MD Capsules Meclizine 1 po tid prn 30tabs Unknown 12.5mg Tablets Lantus 5 units as 30units Edy Abraham MD 100Unit/ML directed Solution History Medications Fludrocortisone Acetate 1 by mouth every 30tabs Gt Pizano 06/14/2014 - 0.1mg wednesday Zaida Long 07/12/2014 Tablets and wednesday On Hold starting 06/18/14 Nitro-Dur 1 patch every day 30units Gt Pizano 04/06/2014 - 0.2mg/HR Patches on in the Zaida Long 05/20/2016 24HR morning, off in the at night hold as of 11.9.16 Oxycodone HCL 1-2 tabs by mouth 60caps Meliton Yuen 10/12/2013 - 5mg Capsules every 4-6 hours M.DCal 11/16/2013 as needed pain Fludrocortisone Acetate 1 by mouth every 90tabs Gt Pizano 12/16/2012 - 0.1mg day Zaida Long 06/14/2014 Tablets Aspirin 1 po qd Gt Pizano 04/27/2012 - 325mg Tablets Zaida Long 04/27/2012 Gabapentin 1 po tablet in am Gt Pizano 04/27/2012 - 100mg Capsules 1 at 1200 Zaida Long 04/05/2014 and 2 at hs Aspirin 1 po qd Gt Pizano 04/27/2012 - 81mg Chewtabs Zaida Long 02/27/2013 Aspirin 1 po qd Gt Pizano 04/16/2011 - 81mg Chewjuan m Long M.D. 04/27/2012 Atenolol 1 po qd 90tabs Gt Pizano 06/12/2010 - 25mg Tablets Zaida Long 12/01/2012 Lisinopril 1 po qd Gt Pizano 05/26/2010 - 2.5mg Tablets Zaida Long 05/26/2010 Lisinopril 1/2 po qd 90tabs Gt Pizano 03/14/2009 - 5mg Tablets Zaida Long 05/26/2010 Atenolol 1 po bid 180tabs Gt Pizano 11/12/2008 - 25mg Tablets Zaida Long 06/12/2010 Lisinopril 1 po qd Gt Pizano 11/06/2008 - 5mg Tablets Zaida Long 03/14/2009 Atenolol 2 po qam and 1 300tabs Gt Pizano 10/15/2008 - 25mg Tablets qpm Zaida Long 11/12/2008 Lisinopril 1 po qd Gt Pizano 07/19/2008 - 2.5mg Tablets Zaida Long 11/06/2008 Gemfibrozil 1 po bid hold as 60tabs Gt Pizano 07/19/2008 - 600mg Tablets of 2.17.17 Zaida Long 08/12/2016 Aspirin Ec 1 po qd Gt Pizano 07/19/2008 - 325mg Tablets DR Ethan M.D. 04/16/2011 Atenolol 1 po bid 180tabs Jones Ruiz 07/19/2008 - 25mg Tablets Zaida Chapin 10/15/2008 Mucomyst-10 1200mg bid in 4units Gt Pizano 07/19/2008 - 10% Solution diet cola 1 day Zaida Long 07/31/2008 before cath and day of cath Hydrocodone 1 tablet by mouth 30tabs Unknown - Bitartrate/Acetaminophen every 4 hours as 04/27/2012 needed 5-325mg Tablets Gabapentin 1 po in am 1 luz Pizano - Capsules tablet at 1200 2 Zaida Long 04/27/2012 tablets in pm Procrit 1 injection q Zain Salcedo - 2000U/ML Solution edmond (on hold) MD Timi 07/20/2017 Advil as needed Unknown - 200mg Capsules 08/12/2016 Iron 1 by mouth bid Unknown - 325(65Fe) mg Tablets 08/12/2016 Meloxicam take one tab Unknown - 7.5mg Tablets twice daily as 02/15/2017 needed for pain Vital Signs Date Vital Result Comment 11/08/2018 10:29am Height 61 inches 5'1" Weight 146.00 lb Heart Rate 98 /min BP Systolic Sitting 154 mmHg BP Diastolic Sitting 84 mmHg Respiratory Rate 16 /min BMI (Body Mass Index) 27.6 kg/m2 08/05/2018 10:46am Height 61 inches 5'1" Weight 142.12 lb Heart Rate 85 /min BP Systolic 128 mmHg BP Diastolic 70 mmHg Pain Level 2 O2 % BldC Oximetry 97 % BMI (Body Mass Index) 26.9 kg/m2 08/04/2018 10:55am Height 61 inches 5'1" Heart Rate 88 /min BP Systolic Sitting 164 mmHg BP Diastolic Sitting 90 mmHg BP Systolic Standing 134 mmHg BP Diastolic Standing 68 mmHg Ejection Fraction 60-65% echo 03/17/17 07/04/2018 10:47am Height 61 inches 5'1" Weight 140.12 lb Heart Rate 88 /min BP Systolic Sitting 118 mmHg Lue reg cuff BP Diastolic Sitting 80 mmHg Lue reg cuff Respiratory Rate 16 /min O2 % BldC Oximetry 96 % On Ra BMI (Body Mass Index) 26.5 kg/m2 05/17/2018 1:00pm Height 61 inches 5'1" Weight 143.50 lb Heart Rate 88 /min BP Systolic Sitting 130 mmHg BP Diastolic Sitting 74 mmHg Pain Level 1 O2 % BldC Oximetry 95 % BMI (Body Mass Index) 27.1 kg/m2 04/14/2018 10:16am Height 61 inches 5'1" Weight 138.00 lb Heart Rate 88 /min BP Systolic Sitting 132 mmHg BP Diastolic Sitting 74 mmHg Respiratory Rate 14 /min O2 % BldC Oximetry 97 % BMI (Body Mass Index) 26.1 kg/m2 02/15/2018 11:10am Height 61 inches 5'1" Weight 147.00 lb Heart Rate 85 /min BP Systolic Sitting 148 mmHg BP Diastolic Sitting 71 mmHg Respiratory Rate 16 /min Pain Level 1 BMI (Body Mass Index) 27.8 kg/m2 01/24/2018 10:27am Height 61 inches 5'1" Weight 147.00 lb Heart Rate 76 /min BP Systolic Sitting 122 mmHg lg adult cuff left arm BP Diastolic Sitting 74 mmHg lg adult cuff left arm Respiratory Rate 16 /min O2 % BldC Oximetry 96 % at rest on room air BMI (Body Mass Index) 27.8 kg/m2 Neck Circumference in inches 15.25 11/11/2017 10:16am Height 61 inches 5'1" Weight 146.00 lb Heart Rate 76 /min BP Systolic Sitting 144 mmHg BP Diastolic Sitting 82 mmHg Respiratory Rate 16 /min Pain Level 5 BMI (Body Mass Index) 27.6 kg/m2 09/27/2017 11:09am Height 61 inches 5'1" Weight 145.00 lb Heart Rate 74 /min BP Systolic Sitting 138 mmHg lue reg cuff BP Diastolic Sitting 70 mmHg lue reg cuff BP Systolic Standing 130 mmHg lue reg cuff BP Diastolic Standing 64 mmHg lue reg cuff Respiratory Rate 18 /min BMI (Body Mass Index) 27.4 kg/m2 Ejection Fraction 60-65% echo 03/17/2017 09/14/2017 10:16am Height 61 inches 5'1" Weight 146.00 lb Heart Rate 88 /min BP Systolic Sitting 134 mmHg BP Diastolic Sitting 67 mmHg Respiratory Rate 14 /min Pain Level 4 BMI (Body Mass Index) 27.6 kg/m2 07/20/2017 9:31am Height 61 inches 5'1" Weight 142.00 lb Heart Rate 84 /min BP Systolic Sitting 150 mmHg BP Diastolic Sitting 80 mmHg Respiratory Rate 18 /min Pain Level 0 BMI (Body Mass Index) 26.8 kg/m2 02/23/2017 9:43am Height 61 inches 5'1" Weight 146.00 lb with shoes Heart Rate 94 /min BP Systolic Sitting 128 mmHg Lue reg cuff BP Diastolic Sitting 70 mmHg Lue reg cuff BP Systolic Standing 118 mmHg Lue reg cuff BP Diastolic Standing 64 mmHg Lue reg cuff Respiratory Rate 17 /min BMI (Body Mass Index) 27.6 kg/m2 Ejection Fraction 60-65% 05/13/2016-echo 01/06/2017 10:36am Height 61 inches 5'1" Weight 139.62 lb LA reg cuff Heart Rate 90 /min BP Systolic Sitting 134 mmHg LA reg cuff BP Diastolic Sitting 78 mmHg LA reg cuff BMI (Body Mass Index) 26.4 kg/m2 Ejection Fraction 60% - 65% echo 05/13/16 08/13/2016 1:07pm Height 61 inches 5'1" Weight 156.75 lb [...] Fraction 60% - 65% echo 05/13/16 07/24/2016 10:50am Height 61 inches 5'1" Weight 159.00 lb with shoes Heart Rate 88 /min BP Systolic Sitting 196 mmHg LA lrg cuff BP Diastolic Sitting 86 mmHg LA lrg cuff BP Systolic Standing 152 mmHg repeat nl cuff sitting BP Diastolic Standing 78 mmHg repeat nl cuff sitting BMI (Body Mass Index) 30.0 kg/m2 Ejection Fraction 60%-65% echo 05/13/16 05/20/2016 10:50am Height 61 inches 5'1" Weight 157.25 lb w/shoes Heart Rate 86 /min BP Systolic Sitting 142 mmHg LA reg cuff BP Diastolic Sitting 82 mmHg LA reg cuff BMI (Body Mass Index) 29.7 kg/m2 Ejection Fraction 60-65% Echo 05/13/16 04/15/2016 10:13am Height 61 inches 5'1" Weight 154.00 lb w/shoes Heart Rate 80 /min BP Systolic Sitting 112 mmHg LA reg cuff BP Diastolic Sitting 68 mmHg LA reg cuff BP Systolic Standing 110 mmHg LA reg cuff BP Diastolic Standing 54 mmHg LA reg cuff BMI (Body Mass Index) 29.1 kg/m2 Ejection Fraction 65-70% Echo 06/06/14 10/31/2015 10:27am Height 61 inches 5'1" Weight 156.25 lb with shoes Heart Rate 80 /min BP Systolic 154 mmHg LA reg cuff BP Diastolic 78 mmHg LA reg cuff BMI (Body Mass Index) 29.5 kg/m2 Ejection Fraction 65%-70% echo 06/06/14 07/02/2015 10:06am Height 61 inches 5'1" Weight 159.25 lb w/shoes Heart Rate 90 /min BP Systolic Sitting 138 mmHg LA reg cuff BP Diastolic Sitting 66 mmHg LA reg cuff BMI (Body Mass Index) 30.1 kg/m2 Ejection Fraction 65-70 06/06/14 2014 10:27am Height 61 inches 5'1" Weight 167.50 lb Heart Rate 84 /min BP Systolic Sitting 172 mmHg LA, reg BP Diastolic Sitting 82 mmHg LA, reg BP Systolic Standing 138 mmHg la sitting BP Diastolic Standing 72 mmHg la sitting BMI (Body Mass Index) 31.6 kg/m2 Ejection Fraction 65%-70% 06/06/14 07/12/2014 9:39am Height 61 inches 5'1" Weight 166.00 lb without shoes Heart Rate 90 /min BP Systolic Sitting 138 mmHg LA lg cuff BP Diastolic Sitting 74 mmHg LA lg cuff Respiratory Rate 17 /min BMI (Body Mass Index) 31.4 kg/m2 06/14/2014 12:31pm Height 61 inches 5'1" Weight 167.75 lb Heart Rate 90 /min BP Systolic 172 mmHg LA reg BP Diastolic 80 mmHg LA reg BMI (Body Mass Index) 31.7 kg/m2 05/21/2014 3:41pm Height 61 inches 5'1" Weight 167.00 lb Heart Rate 88 /min 90 BP Systolic Sitting 130 mmHg left arm, reg cuff BP Diastolic Sitting 62 mmHg left arm, reg cuff BP Systolic Standing 124 mmHg left arm, reg cuff BP Diastolic Standing 60 mmHg left arm, reg cuff Respiratory Rate 20 /min BMI (Body Mass Index) 31.6 kg/m2 04/06/2014 10:38am Height 61 inches 5'1" Weight 161.25 lb Heart Rate 90 /min BP Systolic 128 mmHg repeat la sitting BP Diastolic 74 mmHg repeat la sitting BP Systolic Sitting 168 mmHg LA reg cuff BP Diastolic Sitting 80 mmHg LA reg cuff Respiratory Rate 18 /min BMI (Body Mass Index) 30.5 kg/m2 11/16/2013 1:23pm Height 61 inches 5'1" Weight 165.00 lb Heart Rate 92 /min Pain Level 0 BMI (Body Mass Index) 31.2 kg/m2 10/26/2013 12:58pm Height 61 inches 5'1" Weight 165.00 lb Heart Rate 92 /min BP Systolic 159 mmHg BP Diastolic 84 mmHg Pain Level 1 BMI (Body Mass Index) 31.2 kg/m2 10/12/2013 1:18pm Height 61 inches 5'1" Weight 165.00 lb Heart Rate 86 /min BP Systolic 148 mmHg BP Diastolic 118 mmHg BMI (Body Mass Index) 31.2 kg/m2 02/27/2013 1:49pm Height 61 inches 5'1" Weight 162.00 lb Heart Rate 83 /min BP Systolic 120 mmHg BP Diastolic 60 mmHg Respiratory Rate 16 /min BMI (Body Mass Index) 30.6 kg/m2 12/16/2012 3:43pm Height 61 inches 5'1" Weight 164.00 lb Heart Rate 92 /min BP Systolic Sitting 122 mmHg BP Diastolic Sitting 72 mmHg BMI (Body Mass Index) 31.0 kg/m2 04/27/2012 8:56am Height 61 inches 5'1" Weight 170.00 lb Heart Rate 81 /min BP Systolic 120 mmHg BP Diastolic 80 mmHg Respiratory Rate 18 /min BMI (Body Mass Index) 32.1 kg/m2 04/16/2011 1:34pm Height 61 inches 5'1" Weight 163.00 lb Heart Rate 66 /min BP Systolic Sitting 122 mmHg BP Diastolic Sitting 64 mmHg BMI (Body Mass Index) 30.8 kg/m2 08/28/2010 10:23am Height 61 inches 5'1" Weight 177.00 lb Heart Rate 77 /min BP Systolic Sitting 120 mmHg BP Diastolic Sitting 54 mmHg BMI (Body Mass Index) 33.4 kg/m2 05/26/2010 11:20am Height 61 inches 5'1" Weight 175.00 lb Heart Rate 78 /min BP Systolic Sitting 118 mmHg BP Diastolic Sitting 70 mmHg BP Systolic Standing 118 mmHg BP Diastolic Standing 70 mmHg BMI (Body Mass Index) 33.1 kg/m2 11/14/2009 11:16am Height 61 inches 5'1" Weight 174.00 lb Heart Rate 65 /min BP Systolic Sitting 110 mmHg R BP Diastolic Sitting 60 mmHg R BMI (Body Mass Index) 32.9 kg/m2 03/14/2009 2:23pm Height 61 inches 5'1" Weight 176.00 lb Heart Rate 75 /min BP Systolic Sitting 105 mmHg la: pt bp cuff 116/63 BP Diastolic Sitting 68 mmHg la: pt bp cuff 116/63 BMI (Body Mass Index) 33.3 kg/m2 11/06/2008 10:26am Weight 160.00 lb Heart Rate 72 /min BP Systolic Sitting 120 mmHg BP Diastolic Sitting 64 mmHg BP Systolic Standing 110 mmHg BP Diastolic Standing 60 mmHg 10/15/2008 10:46am Weight 169.00 lb Heart Rate 83 /min BP Systolic Sitting 120 mmHg BP Diastolic Sitting 70 mmHg 07/31/2008 1:05pm Weight 171.00 lb Heart Rate 80 /min BP Systolic Sitting 120 mmHg BP Diastolic Sitting 60 mmHg Respiratory Rate 16 /min 07/19/2008 10:39am Weight 170.00 lb Heart Rate 94 /min BP Systolic Sitting 144 mmHg BP Diastolic Sitting 70 mmHg Respiratory Rate 16 /min Results Test Date Facility Test Result H/L Range Note Liver Function 09/21/2018 [facility] Total Protein 6.1 g/dL Low 6.4-8.9 Panel [address] [place] [address] [phone] Albumin 3.8 g/dL N 3.2-5.2 Globulin 2.3 g/dL N 2-4 Albumin/Globulin Ratio 1.7 N 1-3 Total Bilirubin 0.40 mg/dL N 0.2-1.0 Direct Bilirubin 0.10 mg/dL N 0.03-0.18 Indirect Bilirubin 0.3 mg/dL N 0.3-1.0 Alkaline Phosphatase 136 U/L High 34-104 Alt 24 U/L N 7-52 Ast 28 U/L N 13-39 Laboratory test 08/18/2018 [facility] Creatine 53 U/L N 10- 223 1 finding [facility] Kinase(CK) [place] [address] [phone] Cortisol 13.64 g/dL 2 Lipid Profile 08/18/2018 [facility] Triglycerides 82 mg/dL 3 (Trig/Chol/HDL) [place] [address] [phone] Cholesterol 172 mg/dL 4 HDL Cholesterol 81.4 mg/dL 5 LDL Cholesterol 74 mg/dL 6 Comp Metabolic Panel 08/18/2018 [facility] Sodium 139 mmol/L N 135-145 [address] [place] [address] [phone] Potassium 4.3 mmol/L N 3.5-5.0 Chloride 104 mmol/L N 101-111 Co2 Carbon Dioxide 23 mmol/L N 22-32 Anion Gap 12 mmol/L High 2-11 Glucose 261 mg/dL High 70-100 Blood Urea Nitrogen 25 mg/dL High 6-24 Creatinine 0.84 mg/dL N 0.51-0.95 BUN/Creatinine Ratio 29.8 High 8-20 Calcium 9.6 mg/dL N 8.6-10.3 Total Protein 6.7 g/dL N 6.4-8.9 Albumin 4.1 g/dL N 3.2-5.2 Globulin 2.6 g/dL N 2-4 Albumin/Globulin Ratio 1.6 N 1-3 Total Bilirubin 0.60 mg/dL N 0.2-1.0 Alkaline Phosphatase 324 U/L High 34-104 Alt 48 U/L N 7-52 Ast 42 U/L High 13-39 Egfr Non- 66.1 >60 Egfr 80.0 >60 7 Laboratory test 08/18/2018 [facility] B-Type 20 pg/mL <=100 [address] [place] [address] Peptide BNP [phone] Urine Microalbumin 08/18/2018 [facility] Ur Microalbumin 44.[address] (mg/L) [place] [address] [phone] Urine Creatinine 125.76 mg/dL Urine Microalbumin/Creatinine 35.3 High <31 Laboratory test 08/18/2018 [facility] Vitamin B12 597 pg/mL N 180-914 [address] [place] [address] [phone] Liver Function 08/18/2018 [facility] Total Protein 6.5 g/dL N 6.4-8.[address] [place] [address] [phone] Albumin 4.1 g/dL N 3.2-5.2 Globulin 2.4 g/dL N 2-4 Albumin/Globulin Ratio 1.7 N 1-3 Total Bilirubin 0.60 mg/dL N 0.2-1.0 Direct Bilirubin 0.10 mg/dL N 0.03-0.18 Indirect Bilirubin 0.5 mg/dL N 0.3-1.0 Alkaline Phosphatase 329 U/L High 34-104 Alt 46 U/L N 7-52 Ast 41 U/L High 13-39 Urine Microalbumin 08/18/2018 [facility] Ur Microalbumin 44.[address] (mg/L) [place] [address] [phone] Urine Creatinine 125.76 mg/dL Urine Microalbumin/Creatinine 35.3 High <31 CBC Auto Diff 08/18/2018 [facility] White Blood 10.2 10^3/uL N 3.5-10.[address] [place] [address] [phone] Red Blood Count 4.65 10^6/uL N 3.70-4.87 Hemoglobin 13.5 g/dL N 12.0-16.0 Hematocrit 42 % High 33-41 Mean Corpuscular Volume 90 fL N 80-97 Mean Corpuscular Hemoglobin 29 pg N 27-31 Mean Corpuscular HGB Conc 32 g/dL N 31-36 Red Cell Distribution Width 15 % N 10.5-15 Platelet Count 259 10^3/uL N 150-450 Mean Platelet Volume 9.2 fL N 7.4-10.4 Abs Neutrophils 7.7 10^3/uL N 1.5-7.7 Abs Lymphocytes 1.4 10^3/uL N 1.0-4.8 Abs Monocytes 0.7 10^3/uL N 0-0.8 Abs Eosinophils 0.5 10^3/uL N 0-0.6 Abs Basophils 0 10^3/uL N 0-0.2 Abs Nucleated RBC 0 10^3/uL Granulocyte % 75.3 % Lymphocyte % 13.4 % Monocyte % 6.6 % Eosinophil % 4.6 % Basophil % 0.1 % Nucleated Red Blood Cells % 0 Laboratory test 08/18/2018 [facility] B-Type 20 pg/mL <=100 [address] [place] [address] Peptide BNP [phone] Cortisol 13.64 g/dL 11 Lipid Profile 08/18/2018 [facility] Triglycerides 82 mg/dL 12 (Trig/Chol/HDL) [address] [place] [address] [phone] Cholesterol 172 mg/dL 13 HDL Cholesterol 81.4 mg/dL 14 LDL Cholesterol 74 mg/dL 15 Comp Metabolic Panel 08/18/2018 [facility] Sodium 139 mmol/L N 135-[address] [place] [address] [phone] Potassium 4.3 mmol/L N 3.5-5.0 Chloride 104 mmol/L N 101-111 Co2 Carbon Dioxide 23 mmol/L N 22-32 Anion Gap 12 mmol/L High 2-11 Glucose 261 mg/dL High 70-100 Blood Urea Nitrogen 25 mg/dL High 6-24 Creatinine 0.84 mg/dL N 0.51-0.95 BUN/Creatinine Ratio 29.8 High 8-20 Calcium 9.6 mg/dL N 8.6-10.3 Total Protein 6.7 g/dL N 6.4-8.9 Albumin 4.1 g/dL N 3.2-5.2 Globulin 2.6 g/dL N 2-4 Albumin/Globulin Ratio 1.6 N 1-3 Total Bilirubin 0.60 mg/dL N 0.2-1.0 Alkaline Phosphatase 324 U/L High 34-104 Alt 48 U/L N 7-52 Ast 42 U/L High 13-39 Egfr Non- 66.1 >60 Egfr 80.0 >60 16 Lipid Panel - JFM 08/18/2018 [facility] Creatine 53 U/L N 10- [address] Kinase(CK) [place] [address] [phone] Laboratory test 05/19/2018 [facility] C Reactive 7.53 mg/L N < 8.[address] [place] [address] [phone] Erythrocyte Sed Rate 27 mm/Hr N 0-40 Comp Metabolic Panel 05/19/2018 [facility] Sodium 140 mmol/L N 135-[address] [place] [address] [phone] Potassium 4.0 mmol/L N 3.5-5.0 Chloride 106 mmol/L N 101-111 Co2 Carbon Dioxide 27 mmol/L N 22-32 Anion Gap 7 mmol/L N 2-11 Glucose 205 mg/dL High 70-100 Blood Urea Nitrogen 24 mg/dL N 6-24 Creatinine 0.85 mg/dL N 0.51-0.95 BUN/Creatinine Ratio 28.2 High 8-20 Calcium 9.8 mg/dL N 8.6-10.3 Total Protein 6.2 g/dL Low 6.4-8.9 Albumin 3.8 g/dL N 3.2-5.2 Globulin 2.4 g/dL N 2-4 Albumin/Globulin Ratio 1.6 N 1-3 Total Bilirubin 0.30 mg/dL N 0.2-1.0 Alkaline Phosphatase 103 U/L N 34-104 Alt 26 U/L N 7-52 Ast 29 U/L N 13-39 Egfr Non- 65.2 >60 Egfr 78.9 >60 18 CBC Auto Diff 05/19/2018 [facility] White Blood 9.1 10^3/uL N 3.5-10.[address] [place] [address] [phone] Red Blood Count 4.14 10^6/uL N 4.00-5.40 Hemoglobin 12.2 g/dL N 12.0-16.0 Hematocrit 37 % N 35-47 Mean Corpuscular Volume 89 fL N 80-97 Mean Corpuscular Hemoglobin 29 pg N 27-31 Mean Corpuscular HGB Conc 33 g/dL N 31-36 Red Cell Distribution Width 14 % N 10.5-15 Platelet Count 249 10^3/uL N 150-450 Mean Platelet Volume 8.4 fL N 7.4-10.4 Abs Neutrophils 6.3 10^3/uL N 1.5-7.7 Abs Lymphocytes 1.5 10^3/uL N 1.0-4.8 Abs Monocytes 0.7 10^3/uL N 0-0.8 Abs Eosinophils 0.6 10^3/uL N 0-0.6 Abs Basophils 0 10^3/uL N 0-0.2 Abs Nucleated RBC 0 10^3/uL Granulocyte % 68.7 % Lymphocyte % 16.2 % Monocyte % 7.9 % Eosinophil % 7.0 % Basophil % 0.2 % Nucleated Red Blood Cells % 0 Hemoglobin/Hematocrit 02/17/2018 [facility] Hemoglobin 12.7 N 12.0-16.[address] g/[place] [address] [phone] Hematocrit 39 % N 35-47 Iron & Iron Binding 02/17/2018 [facility] Iron 99 g/dL N 50- [address] [place] [address] [phone] Unsaturated Iron Binding 220 g/dL Total Iron Binding Capacity 319 g/dL N 250-450 Transferrin 228 mg/dL N 203-362 % Iron Saturation 31 % N 15-55 Laboratory test 02/17/2018 [facility] Erythrocyte Sed 25 mm/Hr N 0-[address] [place] [address] [phone] C Reactive Protein 7.19 mg/L N <8.01 20 CBC Auto Diff 02/17/2018 [facility] White Blood 8.5 10^3/uL N 3.5-10.[address] [place] [address] [phone] Red Blood Count 4.45 10^6/uL N 4.00-5.40 Hemoglobin 12.9 g/dL N 12.0-16.0 Hematocrit 39 % N 35-47 Mean Corpuscular Volume 88 fL N 80-97 Mean Corpuscular Hemoglobin 29 pg N 27-31 Mean Corpuscular HGB Conc 33 g/dL N 31-36 Red Cell Distribution Width 15 % N 10.5-15 Platelet Count 262 10^3/uL N 150-450 Mean Platelet Volume 8.5 um3 N 7.4-10.4 Abs Neutrophils 4.9 10^3/uL N 1.5-7.7 Abs Lymphocytes 1.9 10^3/uL N 1.0-4.8 Abs Monocytes 0.8 10^3/uL N 0-0.8 Abs Eosinophils 0.9 10^3/uL High 0-0.6 Abs Basophils 0 10^3/uL N 0-0.2 Abs Nucleated RBC 0 10^3/uL Granulocyte % 58.0 % N 38-83 Lymphocyte % 22.5 % Low 25-47 Monocyte % 9.3 % High 0-7 Eosinophil % 10.1 % High 0-6 Basophil % 0.1 % N 0-2 Nucleated Red Blood Cells % 0.2 Comp Metabolic Panel 02/17/2018 [facility] Sodium 141 mmol/L N 135-[address] [place] [address] [phone] Potassium 4.2 mmol/L N 3.5-5.0 Chloride 106 mmol/L N 101-111 Co2 Carbon Dioxide 26 mmol/L N 22-32 Anion Gap 9 mmol/L N 2-11 Blood Urea Nitrogen 23 mg/dL N 6-24 Creatinine 0.80 mg/dL N 0.51-0.95 BUN/Creatinine Ratio 28.8 High 8-20 Calcium 9.4 mg/dL N 8.6-10.3 Total Protein 6.7 g/dL N 6.4-8.9 Albumin 4.1 g/dL N 3.2-5.2 Globulin 2.6 g/dL N 2-4 Albumin/Globulin Ratio 1.6 N 1-3 Total Bilirubin 0.40 mg/dL N 0.2-1.0 Alkaline Phosphatase 111 U/L High 34-104 Alt 27 U/L N 7-52 Ast 45 U/L High 13-39 Egfr Non- 69.9 >60 Egfr 84.6 >60 21 Glucose 41 mg/dL Low 70-100 22 Laboratory test 02/17/2018 [facility] Ferritin 81.0 ng/mL N 11 -[address] [place] [address] [phone] CBC Auto Diff 11/17/2017 [facility] White Blood 7.8 10^3/uL N 3.5-10.[address] [place] [address] [phone] Red Blood Count 4.39 10^6/uL N 4.00-5.40 Hemoglobin 12.2 g/dL N 12.0-16.0 Hematocrit 37 % N 35-47 Mean Corpuscular Volume 85 fL N 80-97 Mean Corpuscular Hemoglobin 28 pg N 27-31 Mean Corpuscular HGB Conc 33 g/dL N 31-36 Red Cell Distribution Width 15 % N 10.5-15 Platelet Count 239 10^3/uL N 150-450 Mean Platelet Volume 8.5 um3 N 7.4-10.4 Abs Neutrophils 4.7 10^3/uL N 1.5-7.7 Abs Lymphocytes 1.5 10^3/uL N 1.0-4.8 Abs Monocytes 0.7 10^3/uL N 0-0.8 Abs Eosinophils 0.9 10^3/uL High 0-0.6 Abs Basophils 0 10^3/uL N 0-0.2 Abs Nucleated RBC 0 10^3/uL Granulocyte % 60.2 % N 38-83 Lymphocyte % 19.3 % Low 25-47 Monocyte % 9.0 % High 0-7 Eosinophil % 11.4 % High 0-6 Basophil % 0.1 % N 0-2 Nucleated Red Blood Cells % 0 Iron & Iron Binding 11/17/2017 [facility] Iron 64 g/dL N 50- [address] [place] [address] [phone] Unsaturated Iron Binding 257 g/dL Total Iron Binding Capacity 321 g/dL N 250-450 Transferrin 229 mg/dL N 203-362 % Iron Saturation 20 % N 15-55 Laboratory test 11/17/2017 [facility] Ferritin 40.4 ng/mL N 11 -[address] [place] [address] [phone] CBC Auto Diff 11/03/2017 [facility] White Blood 7.9 10^3/uL N 3.5-10.[address] [place] [address] [phone] Red Blood Count 4.57 10^6/uL N 4.0-5.4 Hemoglobin 12.7 g/dL N 12.0-16.0 Hematocrit 39 % N 35-47 Mean Corpuscular Volume 85 fL N 80-97 Mean Corpuscular Hemoglobin 28 pg N 27-31 Mean Corpuscular HGB Conc 33 g/dL N 31-36 Red Cell Distribution Width 15 % N 10.5-15 Platelet Count 232 10^3/uL N 150-450 Mean Platelet Volume 8.5 um3 N 7.4-10.4 Abs Neutrophils 4.6 10^3/uL N 1.5-7.7 Abs Lymphocytes 1.7 10^3/uL N 1.0-4.8 Abs Monocytes 0.7 10^3/uL N 0-0.8 Abs Eosinophils 0.8 10^3/uL High 0-0.6 Abs Basophils 0 10^3/uL N 0-0.2 Abs Nucleated RBC 0 10^3/uL Granulocyte % 58.4 % N 38-83 Lymphocyte % 22.1 % Low 25-47 Monocyte % 8.7 % High 0-7 Eosinophil % 10.7 % High 0-6 Basophil % 0.1 % N 0-2 Nucleated Red Blood Cells % 0 Lipid Panel - 11/03/2017 [facility] Creatine 46 U/L N 10-[address] Kinase(CK) [place] [address] [phone] Comp Metabolic 11/03/2017 [facility] Sodium 138 Low 139-[address] mmol/[place] [address] [phone] Potassium 4.2 mmol/L N 3.5-5.0 Chloride 105 mmol/L N 101-111 Co2 Carbon Dioxide 26 mmol/L N 22-32 Anion Gap 7 mmol/L N 2-11 Glucose 144 mg/dL High 70-100 Blood Urea Nitrogen 20 mg/dL N 6-24 Creatinine 0.76 mg/dL N 0.51-0.95 BUN/Creatinine Ratio 26.3 High 8-20 Calcium 9.0 mg/dL N 8.6-10.3 Total Protein 6.6 g/dL N 6.4-8.9 Albumin 3.8 g/dL N 3.2-5.2 Globulin 2.8 g/dL N 2-4 Albumin/Globulin Ratio 1.4 N 1-3 Total Bilirubin 0.40 mg/dL N 0.2-1.0 Alkaline Phosphatase 138 U/L High 34-104 Alt 31 U/L N 7-52 Ast 37 U/L N 13-39 Egfr Non- 74.2 >60 Egfr 95.4 >60 23 Lipid Profile 11/03/2017 [facility] Triglycerides 50 mg/dL 24 (Trig/Chol/HDL) [address] [place] [address] [phone] Cholesterol 138 mg/dL 25 HDL Cholesterol 67.4 mg/dL 26 LDL Cholesterol 61 mg/dL 27 Laboratory test 11/03/2017 [facility] B-Type 31 pg/mL [address] [place] [address] Peptide BNP [phone] Laboratory test 11/03/2017 [facility] Erythrocyte Sed 31 mm/Hr N 0-40 [address] [place] [address] [phone] C Reactive Protein 6.99 mg/L High < 5.00 30 CBC Auto 08/18/2017 [facility] White Blood 13.7 10^3/uL High 3.5-10.[address] [place] [address] [phone] Red Blood Count 4.08 10^6/uL N 4.0-5.4 Hemoglobin 11.5 g/dL Low 12.0-16.0 Hematocrit 35 % N 35-47 Mean Corpuscular Volume 86 fL N 80-97 Mean Corpuscular Hemoglobin 28 pg N 27-31 Mean Corpuscular HGB Conc 33 g/dL N 31-36 Red Cell Distribution Width 14 % N 10.5-15 Platelet Count 323 10^3/uL N 150-450 Mean Platelet Volume 8 um3 N 7.4-10.4 Abs Neutrophils 10.2 10^3/uL High 1.5-7.7 Abs Lymphocytes 1.8 10^3/uL N 1.0-4.8 Abs Monocytes 0.8 10^3/uL N 0-0.8 Abs Eosinophils 0.8 10^3/uL High 0-0.6 Abs Basophils 0 10^3/uL N 0-0.2 Abs Nucleated RBC 0 10^3/uL Granulocyte % 74.7 % N 38-83 Lymphocyte % 13.3 % Low 25-47 Monocyte % 5.6 % N 0-7 Eosinophil % 6.2 % High 0-6 Basophil % 0.2 % N 0-2 Nucleated Red Blood Cells % 0 Laboratory test 08/18/2017 [facility] Erythrocyte Sed 67 mm/Hr High 0-40 [address] [place] [address] [phone] C Reactive Protein 20.41 mg/L High < 5.00 32 Rheumatoid Factor <10 IU/mL 0-14 33 Cyclic Citrullinated Pep Igg 125.4 U Abnormal 34 Vitamin D, 1,25 Dihydroxy 39 pg/mL 18-78 35 CBC Auto 05/19/2017 [facility] White Blood 13.8 10^3/uL High 3.5-10.[address] [place] [address] [phone] Red Blood Count 3.73 10^6/uL Low 4.0-5.4 Hemoglobin 10.7 g/dL Low 12.0-16.0 Hematocrit 33 % Low 35-47 Mean Corpuscular Volume 88 fL N 80-97 Mean Corpuscular Hemoglobin 29 pg N 27-31 Mean Corpuscular HGB Conc 33 g/dL N 31-36 Red Cell Distribution Width 14 % N 10.5-15 Platelet Count 297 10^3/uL N 150-450 Mean Platelet Volume 8 um3 N 7.4-10.4 Abs Neutrophils 10.2 10^3/uL High 1.5-7.7 Abs Lymphocytes 2.0 10^3/uL N 1.0-4.8 Abs Monocytes 0.9 10^3/uL High 0-0.8 Abs Eosinophils 0.8 10^3/uL High 0-0.6 Abs Basophils 0 10^3/uL N 0-0.2 Abs Nucleated RBC 0 10^3/uL Granulocyte % 73.6 % N 38-83 Lymphocyte % 14.2 % Low 25-47 Monocyte % 6.3 % N 1-9 Eosinophil % 5.7 % N 0-6 Basophil % 0.2 % N 0-2 Nucleated Red Blood Cells % 0 Laboratory test 02/26/2017 [facility] B-Type 39 pg/mL N [address] [place] [address] Peptide BNP [phone] CBC Auto Diff 02/26/2017 [facility] White Blood 12.2 High 3.5- [address] Count 10^3/uL 0.8 [place] [address] [phone] Red Blood Count 4.11 10^6/uL N 4.0-5.4 Hemoglobin 11.7 g/dL Low 12.0-16.0 Hematocrit 36 % N 35-47 Mean Corpuscular Volume 87 fL N 80-97 Mean Corpuscular Hemoglobin 29 pg N 27-31 Mean Corpuscular HGB Conc 33 g/dL N 31-36 Red Cell Distribution Width 14 % N 10.5-15 Platelet Count 361 10^3/uL N 150-450 Mean Platelet Volume 8 um3 N 7.4-10.4 Abs Neutrophils 8.5 10^3/uL High 1.5-7.7 Abs Lymphocytes 2.2 10^3/uL N 1.0-4.8 Abs Monocytes 0.9 10^3/uL High 0-0.8 Abs Eosinophils 0.6 10^3/uL N 0-0.6 Abs Basophils 0 10^3/uL N 0-0.2 Abs Nucleated RBC 0 10^3/uL N Granulocyte % 69.8 % N 38-83 Lymphocyte % 18.0 % Low 25-47 Monocyte % 7.1 % N 1-9 Eosinophil % 4.8 % N 0-6 Basophil % 0.3 % N 0-2 Nucleated Red Blood Cells % 0 N Laboratory test 02/10/2017 [facility] B-Type Natriuretic 938 pg/ mL High [address] [place] [address] [phone] Lipid Profile 02/10/2017 [facility] Triglycerides 76 mg/dL N 38 (Trig/Chol/HDL) [address] [place] [address] [phone] Cholesterol 140 mg/dL N 39 HDL Cholesterol 58.6 mg/dL N 40 LDL Cholesterol 66 mg/dL N 41 Comp Metabolic Panel 02/10/2017 [facility] Sodium 137 mmol/L N 133-[address] [place] [address] [phone] Potassium 4.2 mmol/L N 3.5-5.0 Chloride 102 mmol/L N 101-111 Co2 Carbon Dioxide 25 mmol/L N 22-32 Anion Gap 10 mmol/L N 2-11 Glucose 226 mg/dL High 70-100 Blood Urea Nitrogen 27 mg/dL High 6-24 Creatinine 0.93 mg/dL N 0.51-0.95 BUN/Creatinine Ratio 29.0 High 8-20 Calcium 9.4 mg/dL N 8.6-10.3 Total Protein 6.5 g/dL N 6.4-8.9 Albumin 3.6 g/dL N 3.2-5.2 Globulin 2.9 g/dL N 2-4 Albumin/Globulin Ratio 1.2 N 1-3 Total Bilirubin 0.50 mg/dL N 0.2-1.0 Alkaline Phosphatase 121 U/L High 34-104 Alt 17 U/L N 7-52 Ast 22 U/L N 13-39 Egfr Non- 58.9 N >60 Egfr 75.8 N >60 42 Lipid Panel 02/10/2017 [facility] Creatine 37 U/L N 10-223 - JFM [address] Kinase(CK) [place] [address] [phone] CBC Auto 02/10/2017 [facility] White Blood 15.6 High 3.5-10.[address] Count 10^3/[place] [address] [phone] Red Blood Count 4.20 10^6/uL N 4.0-5.4 Hemoglobin 12.0 g/dL N 12.0-16.0 Hematocrit 37 % N 35-47 Mean Corpuscular Volume 87 fL N 80-97 Mean Corpuscular Hemoglobin 29 pg N 27-31 Mean Corpuscular HGB Conc 33 g/dL N 31-36 Red Cell Distribution Width 14 % N 10.5-15 Platelet Count 342 10^3/uL N 150-450 Mean Platelet Volume 8 um3 N 7.4-10.4 Abs Neutrophils 12.8 10^3/uL High 1.5-7.7 Abs Lymphocytes 1.8 10^3/uL N 1.0-4.8 Abs Monocytes 0.7 10^3/uL N 0-0.8 Abs Eosinophils 0.3 10^3/uL N 0-0.6 Abs Basophils 0 10^3/uL N 0-0.2 Abs Nucleated RBC 0 10^3/uL N Granulocyte % 82.2 % N 38-83 Lymphocyte % 11.4 % Low 25-47 Monocyte % 4.2 % N 1-9 Eosinophil % 2.1 % N 0-6 Basophil % 0.1 % N 0-2 Nucleated Red Blood Cells % 0 N Lipid Panel - 08/26/2016 [facility] Creatine 40 U/L N 10-223 [address] Kinase(CK) [place] [address] [phone] Comp Metabolic 08/26/2016 [facility] Sodium 138 N 133-[address] mmol/[place] [address] [phone] Potassium 4.3 mmol/L N 3.5-5.0 Chloride 108 mmol/L N 101-111 Co2 Carbon Dioxide 23 mmol/L N 22-32 Anion Gap 7 mmol/L N 2-11 Glucose 205 mg/dL High 70-100 Blood Urea Nitrogen 29 mg/dL High 6-24 Creatinine 0.90 mg/dL N 0.51-0.95 BUN/Creatinine Ratio 32.2 High 8-20 Calcium 8.9 mg/dL N 8.6-10.3 Total Protein 6.3 g/dL Low 6.4-8.9 Albumin 3.6 g/dL N 3.2-5.2 Globulin 2.7 g/dL N 2-4 Albumin/Globulin Ratio 1.3 N 1-3 Total Bilirubin 0.40 mg/dL N 0.2-1.0 Alkaline Phosphatase 113 U/L High 34-104 Alt 17 U/L N 7-52 Ast 22 U/L N 13-39 Egfr Non- 61.4 N >60 Egfr 78.9 N >60 44 Lipid Profile 08/26/2016 [facility] Triglycerides 66 mg/dL N 45 (Trig/Chol/HDL) [address] [place] [address] [phone] Cholesterol 140 mg/dL N 46 HDL Cholesterol 58.0 mg/dL N 47 LDL Cholesterol 69 mg/dL N 48 CBC Auto 07/30/2016 [facility] White Blood 13.4 10^3/uL High 3.5-10.[address] [place] [address] [phone] Red Blood Count 3.98 10^6/uL Low 4.0-5.4 Hemoglobin 11.2 g/dL Low 12.0-16.0 Hematocrit 35 % N 35-47 Mean Corpuscular Volume 88 fL N 80-97 Mean Corpuscular Hemoglobin 28 pg N 27-31 Mean Corpuscular HGB Conc 32 g/dL N 31-36 Red Cell Distribution Width 14 % N 10.5-15 Platelet Count 329 10^3/uL N 150-450 Mean Platelet Volume 8 um3 N 7.4-10.4 Abs Neutrophils 10.3 10^3/uL High 1.5-7.7 Abs Lymphocytes 1.8 10^3/uL N 1.0-4.8 Abs Monocytes 0.8 10^3/uL N 0-0.8 Abs Eosinophils 0.5 10^3/uL N 0-0.6 Abs Basophils 0 10^3/uL N 0-0.2 Abs Nucleated RBC 0 10^3/uL N Granulocyte % 76.6 % N 38-83 Lymphocyte % 13.2 % Low 25-47 Monocyte % 5.9 % N 1-9 Eosinophil % 4.0 % N 0-6 Basophil % 0.3 % N 0-2 Nucleated Red Blood Cells % 0 N Basic Metabolic Panel 07/30/2016 [facility] Sodium 138 mmol/L N 133-[address] [place] [address] [phone] Potassium 4.2 mmol/L N 3.5-5.0 Chloride 107 mmol/L N 101-111 Co2 Carbon Dioxide 22 mmol/L N 22-32 Anion Gap 9 mmol/L N 2-11 Glucose 217 mg/dL High 70-100 Blood Urea Nitrogen 30 mg/dL High 6-24 Creatinine 0.96 mg/dL High 0.51-0.95 BUN/Creatinine Ratio 31.3 High 8-20 Calcium 9.1 mg/dL N 8.6-10.3 Egfr Non- 57.0 N >60 Egfr 73.3 N >60 49 CBC Auto Diff 06/28/2014 [facility] White Blood 10.3 10^3/uL N 4.8-10.[address] [place] [address] [phone] Red Blood Count 4.86 10^6/uL N 4.0-5.4 Hemoglobin 14.6 g/dL N 12.0-16.0 Hematocrit 45 % N 35-47 Mean Corpuscular Volume 92 fL N 80-97 Mean Corpuscular Hemoglobin 30 pg N 27-31 Mean Corpuscular HGB Conc 33 g/dL N 31-36 Red Cell Distribution Width 14 % N 10.5-15 Platelet Count 342 10^3/uL N 150-450 Mean Platelet Volume 8 um3 N 7.4-10.4 Abs Neutrophils 6.8 10^3/uL N 1.5-7.7 Abs Lymphocytes 1.9 10^3/uL N 1.0-4.8 Abs Monocytes 0.9 10^3/uL High 0-0.8 Abs Eosinophils 0.7 10^3/uL High 0-0.6 Abs Basophils 0 10^3/uL N 0-0.2 Abs Nucleated RBC 0 10^3/uL N Granulocyte % 65.9 % N 38-83 Lymphocyte % 18.7 % Low 25-47 Monocyte % 8.3 % N 1-9 Eosinophil % 6.8 % High 0-6 Basophil % 0.3 % N 0-2 Nucleated Red Blood Cells % 0 N Order 06/06/2014 [facility] Echocardiogram <pending > [address] [place] [address] [phone] Cath 05/11/2014 Activated Partial 31.8 seconds N 24. Panel Thrombo Time 0-3 6.1 CBC Auto 05/11/2014 White Blood Count 10.9 10^3/uL High 4.8 Diff -10 .8 Red Blood Count 4.19 10^6/uL N 4.0-5.4 Hemoglobin 12.5 g/dL N 12.0-16.0 Hematocrit 38 % N 35-47 Mean Corpuscular Volume 90 fL N 80-97 Mean Corpuscular Hemoglobin 30 pg N 27-31 Mean Corpuscular HGB Conc 33 g/dL N 31-36 Red Cell Distribution Width 16 % High 10.5-15 Platelet Count 389 10^3/uL N 150-450 Mean Platelet Volume 8 um3 N 7.4-10.4 Abs Neutrophils 7.4 10^3/uL N 1.5-7.7 Abs Lymphocytes 1.8 10^3/uL N 1.0-4.8 Abs Monocytes 0.9 10^3/uL High 0-0.8 Abs Eosinophils 0.7 10^3/uL High 0-0.6 Abs Basophils 0 10^3/uL N 0-0.2 Abs Nucleated RBC 0.01 10^3/uL N Granulocyte % 68.2 % N 38-83 Lymphocyte % 16.2 % Low 25-47 Monocyte % 8.4 % N 1-9 Eosinophil % 6.8 % High 0-6 Basophil % 0.4 % N 0-2 Nucleated Red Blood Cells % 0 N Basic Metabolic Panel 05/11/2014 Sodium 137 mmol/L N 133-145 Potassium 4.4 mmol/L N 3.5-5.0 Chloride 106 mmol/L N 101-111 Co2 Carbon Dioxide 23 mmol/L N 22-32 Anion Gap 8 mmol/L N 2-11 Glucose 234 mg/dL High 70-100 Blood Urea Nitrogen 23 mg/dL N 6-24 Creatinine 0.80 mg/dL N 0.51-0.95 BUN/Creatinine Ratio 28.8 High 8-20 Calcium 9.2 mg/dL N 8.6-10.3 Egfr Non- 70.7 N >60 Egfr 90.9 N >60 50 Inr/Protime 05/11/2014 Inr 0.79 Low 0.85-1.06 CBC Auto Diff 04/26/2014 White Blood Count 8.4 10^3/uL N 4.8-10.8 Red Blood Count 4.29 10^6/uL N 4.0-5.4 Hemoglobin 12.6 g/dL N 12.0-16.0 Hematocrit 39 % N 35-47 Mean Corpuscular Volume 90 fL N 80-97 Mean Corpuscular Hemoglobin 29 pg N 27-31 Mean Corpuscular HGB Conc 33 g/dL N 31-36 Red Cell Distribution Width 16 % High 10.5-15 Platelet Count 357 10^3/uL N 150-450 Mean Platelet Volume 7 um3 Low 7.4-10.4 Abs Neutrophils 5.7 10^3/uL N 1.5-7.7 Abs Lymphocytes 1.5 10^3/uL N 1.0-4.8 Abs Monocytes 0.9 10^3/uL High 0-0.8 Abs Eosinophils 0.3 10^3/uL N 0-0.6 Abs Basophils 0 10^3/uL N 0-0.2 Abs Nucleated RBC 0 10^3/uL N Granulocyte % 68.0 % N 38-83 Lymphocyte % 18.3 % Low 25-47 Monocyte % 10.2 % High 1-9 Eosinophil % 3.3 % N 0-6 Basophil % 0.2 % N 0-2 Nucleated Red Blood Cells % 0 N Laboratory test finding 04/26/2014 B Type Natriuretic 72 pg/mL N 51 Peptide Basic Metabolic Panel 04/26/2014 Sodium 137 mmol/L N 133-145 Potassium 4.3 mmol/L N 3.5-5.0 52 Chloride 104 mmol/L N 101-111 Co2 Carbon Dioxide 23 mmol/L N 22-32 Anion Gap 10 mmol/L N 2-11 Glucose 183 mg/dL High 70-100 Blood Urea Nitrogen 22 mg/dL N 6-24 Creatinine 0.88 mg/dL N 0.51-0.95 BUN/Creatinine Ratio 25.0 High 8-20 Calcium 9.4 mg/dL N 8.6-10.3 Egfr Non- 63.3 N >60 Egfr 81.5 N >60 53 CBC Auto 04/02/2014 [facility] White Blood 12.4 10^3/uL High 4.8-10.[address] [place] [address] [phone] Red Blood Count 4.07 10^6/uL N 4.0-5.4 Hemoglobin 11.7 g/dL Low 12.0-16.0 Hematocrit 35 % N 35-47 Mean Corpuscular Volume 87 fL N 80-97 Mean Corpuscular Hemoglobin 29 pg N 27-31 Mean Corpuscular HGB Conc 33 g/dL N 31-36 Red Cell Distribution Width 14 % N 10.5-15 Platelet Count 386 10^3/uL N 150-450 Mean Platelet Volume 8 um3 N 7.4-10.4 Abs Neutrophils 8.8 10^3/uL High 1.5-7.7 Abs Lymphocytes 2.0 10^3/uL N 1.0-4.8 Abs Monocytes 1.0 10^3/uL High 0-0.8 Abs Eosinophils 0.6 10^3/uL N 0-0.6 Abs Basophils 0 10^3/uL N 0-0.2 Abs Nucleated RBC 0 10^3/uL N Granulocyte % 71.2 % N 38-83 Lymphocyte % 16.0 % Low 25-47 Monocyte % 7.7 % N 1-9 Eosinophil % 5.0 % N 0-6 Basophil % 0.1 % N 0-2 Nucleated Red Blood Cells % 0 N Leukemia/Lymphoma Flow 02/07/2014 [facility] LLPT See Comment N [address] [place] [address] Description [phone] LLPT Final Diagnosis See Comment N 55 LLPT Comment See Comment N 56 Cytology 02/07/2014 [facility] Raven RUN DATE: 57 Non-Drawing In Machine Tender [address] 02/13/ [place] [address] NOTE> [phone] CBC Auto Diff 01/24/2014 [facility] White Blood 12.0 10^3/uL High 4.8-[address] Count .8 [place] [address] [phone] Red Blood Count 4.82 10^6/uL N 4.0-5.4 Hemoglobin 14.1 g/dL N 12.0-16.0 Hematocrit 42 % N 35-47 Mean Corpuscular Volume 88 fL N 80-97 Mean Corpuscular Hemoglobin 29 pg N 27-31 Mean Corpuscular HGB Conc 33 g/dL N 31-36 Red Cell Distribution Width 15 % N 10.5-15 Platelet Count 342 10^3/uL N 150-450 Mean Platelet Volume 8 um3 N 7.4-10.4 Abs Neutrophils 9.2 10^3/uL High 1.5-7.7 Abs Lymphocytes 1.6 10^3/uL N 1.0-4.8 Abs Monocytes 0.8 10^3/uL N 0-0.8 Abs Eosinophils 0.4 10^3/uL N 0-0.6 Abs Basophils 0 10^3/uL N 0-0.2 Abs Nucleated RBC 0.01 10^3/uL N Granulocyte % 77.0 % N 38-83 Lymphocyte % 13.1 % Low 25-47 Monocyte % 6.6 % N 1-9 Eosinophil % 3.2 % N 0-6 Basophil % 0.1 % N 0-2 Nucleated Red Blood Cells % 0.1 N Comp Metabolic Panel 01/24/2014 [facility] Sodium 136 mmol/L N 133-[address] [place] [address] [phone] Potassium 4.4 mmol/L N 3.7-5.6 Chloride 102 mmol/L N 101-111 Co2 Carbon Dioxide 25 mmol/L N 22-32 Anion Gap 9 mmol/L N 2-11 Glucose 235 mg/dL High 70-100 Blood Urea Nitrogen 25 mg/dL High 6-24 Creatinine 0.87 mg/dL N 0.51-0.95 BUN/Creatinine Ratio 28.7 High 8-20 Calcium 9.5 mg/dL N 8.6-10.3 Total Protein 6.5 g/dL N 6.4-8.9 Albumin 3.8 g/dL N 3.2-5.2 Globulin 2.7 g/dL N 2-4 Albumin/Globulin Ratio 1.4 N 1-3 Total Bilirubin 0.50 mg/dL N 0.2-1.0 Alkaline Phosphatase 143 U/L High 34-104 Alt 11 U/L N 7-52 Ast 16 U/L N 13-39 Egfr Non- 64.2 N >60 Egfr 82.5 N >60 58 Iron & Iron Binding 01/24/2014 [facility] Iron 117 g/dL N 50 -[address] [place] [address] [phone] Unsaturated Iron Binding 234 g/dL N Total Iron Binding Capacity 351 g/dL N 250-450 % Iron Saturation 33 % N 15-55 Laboratory test 01/24/2014 [facility] Vitamin B12 526 pg/mL N 180-914 [address] [place] [address] [phone] CBC Auto Diff 07/17/2013 [facility] White Blood 11.0 High 4.8- 10.[address] Count 10^3/[place] [address] [phone] Red Blood Count 3.66 10^6/uL Low 4.0-5.4 [...] Nucleated RBC 0 10^3/uL Manual Differential 07/17/2013 [facility] Neutrophil % 60 % 38-[address] [place] [address] [phone] Lymphocytes % 17 % Low 25-47 Monocytes % 4 % 0-13 Eosinophils % 19 % High 0-6 RBC Morphology Normal Normal Laboratory test 07/17/2013 [facility] Pathologist (SEE NOTE) [address] [place] [address] [phone] Laboratory test 06/20/2013 [facility] Erythrocyte Sed 61 mm/Hr High 0-[address] [place] [address] [phone] Erythropoietin 12.0 mIU/mL 2.6 - 18.5 61 Laboratory test finding 03/13/2013 [facility] Cortisol 16.1 g/ dL [address] [place] [address] [phone] Adrenal 21 Hydroxylase <1 U/mL <1 63 Comp Metabolic Panel 02/14/2013 [facility] Sodium 141 mmol/L 133-145 [address] [place] [address] [phone] Potassium 4.0 mmol/L 3.5-5.0 Chloride 111 mmol/L [...] Egfr Non- 54.8 >60 Egfr 70.5 >60 64 Laboratory test 02/14/2013 [facility] Uric Acid 5.2 mg/dL 2.6 -7.[address] [place] [address] [phone] LDH 204 U/L High 95-185 Vitamin B12 354 pg/mL 180-914 CBC With 02/14/2013 [facility] White Blood 8.6 10^3/uL 4.8- 10.[address] [place] [address] [phone] Red Blood Count 3.71 10^6/uL Low 4.0-5.4 [...] 0-6 RBC Morphology Normal Normal Laboratory test 02/14/2013 [facility] Erythrocyte Sed 63 mm/Hr High 0-[address] Rate [place], [place] [id number] [phone] Retic Count 02/14/2013 [facility] Retic Count 0.7 % 0.5-1.[address] [place] [address] [phone] Corrected Retic Count 0.5 % 0.5-1.5 Maturation Factor Retic 1.5 Retic Index 0.30 Mean Retic Volume 105.5 Immature Retic Fraction 0.34 RBC Retic Count 3.71 10^6/uL Low 4.6-6.2 Hematocrit for Retic CNT 34 % Low 35-47 Laboratory test 02/14/2013 [facility] Rheumatoid <15 IU/mL < 15 [address] [place] [address] [phone] Protein 02/14/2013 [facility] Total 7.0 g/dL 6.3 - Electrophoresis [address] Protein(Pep) 7.9 [place] [address] [phone] Albumin 3.5 g/dL 3.4-4.7 Alpha-1 Globulin 0.3 g/dL 0.1-0.3 Alpha-2 Globulin 1.1 g/dL Abnormal 0.6-1.0 Beta Globulin 1.1 g/dL 0.7-1.2 Gamma Globulin 1.0 g/dL 0.6-1.6 Albumin/Globulin Ratio 1.00 Impression See Comment 66 Laboratory test 02/09/2013 [facility] B Type 62.0 pg/mL 0- [address] [address] Peptide [phone] Basic Metabolic 02/09/2013 [facility] Sodium 144 mmol/L 133- [address] [place] [address] [phone] Potassium 4.0 mmol/L 3.5-5.0 Chloride 111 mmol/L 101-111 Co2 Carbon Dioxide 24.0 mmol/L 22-32 Anion Gap 9.0 mmol/L 2-11 Glucose 33 mg/dL Low 70-100 67 Blood Urea Nitrogen 27 mg/dL High 6-24 Creatinine 0.90 mg/dL 0.50-1.40 BUN/Creatinine Ratio 30.0 High 8-20 Calcium 10.0 mg/dL High 8.1-9.9 Egfr Non- 61.9 >60 Egfr 79.6 >60 68 Comp Metabolic Panel 05/14/2012 [facility] Sodium 139 mmol/L 133-[address] [place] [address] [phone] Potassium 4.0 mmol/L 3.5-5.0 Chloride 106 mmol/L [...] Egfr Non- 55.0 >60 Egfr 70.7 >60 69 Lipid Profile 05/14/2012 [facility] Triglycerides 48 mg/dL 40 -200 (Trig/Chol/HDL) [address] [place] [address] [phone] Cholesterol 188 mg/dL Less than 200 HDL Cholesterol 54 mg/dL 40-60 70 Cholesterol/HDL Ratio 3.5 Average 1-4.44 LDL Cholesterol 124.4 mg/dL High Less Than 100 71 Laboratory test 05/14/2012 [facility] Creatine 30 U/L 0-200 [address] Kinase [place], [place] [id number] [phone] CBC Auto Diff 05/14/2012 [facility] White Blood 6.6 4.8-10.[address] Count 10^3/[place] [address] [phone] Red Blood Count 3.70 10^6/uL Low 4.0-5.4 [...] 0-2 Nucleated Red Blood Cells % 0.1 Laboratory test 05/14/2012 [facility] TSH (Thyroid 1.55 0.34- 5.60 [address] Stimulating MIU/[place] [address] Horm) [phone] B Type Natriuretic Peptide 63.0 pg/mL 0-100 Comp Metabolic Panel 07/01/2010 [facility] Sodium 136 mmol/L 135-[address] [place] [address] [phone] Potassium 3.9 mmol/L 3.5-5.0 Chloride 103 mmol/L 101-111 Co2 (Carbon Dioxide) 26.0 mmol/L 22-32 Anion Gap 7.0 mmol/L 2-11 74 Glucose 156 mg/dL High 70-100 BUN 20 mg/dL 6-24 Creatinine 0.70 mg/dL 0.50-1.40 One Over Creatinine 1.40 BUN/Creatinine Ratio 28.6 High 8-20 Calcium 8.8 mg/dL 8.1-9.9 Total Protein 6.1 GM/DL Low 6.2-8.1 Albumin 3.4 GM/DL 3.2-5.2 Globulin 2.7 GM/DL 2-4 Albumin/Globulin Ratio 1.3 1-3 Bilirubin Total 0.5 mg/dL 0.4-1.5 75 Alkaline Phosphatase 136 U/L High 30-110 Alt (SGPT) 11 U/L Low 14-54 Ast (Sgot) 19 U/L 12-42 eGFR Non- 88.7 > 60 eGFR 107.3 > 60 76 Lipid Profile 07/01/2010 [facility] Triglyceride 31 mg/dL Low 40-200 (Trig/Chol/HDL) [address] [place] [address] [phone] Cholesterol 162 mg/dL Less Than 200 77 High Density Lipoprotein 56 mg/dL 40-60 78 Cholesterol/HDL Ratio 2.89 AVERAGE 1-4.44 Low Density Lipoprotein 100 mg/dL Less Than 100 79 Laboratory test 07/01/2010 [facility] CPK (Creatine 50 U/L 0- [address] Kinase) [place] [address] [phone] CBC With 07/01/2010 [facility] White Blood 10.0 CUMM 4.8- 10.8 Electronic Diff [address] [place] [address] [phone] Red Cell Count 3.52 CUMM Low 4.2-5.4 [...] 0-0.6 Abs Basophils 0 0-0.2 Laboratory test 07/01/2010 [facility] Iron Total 86 g/dL 28 -[address] [place] [address] [phone] Iron & Iron 07/01/2010 [facility] Unsaturated Iron 304 g/dL Binding Capacity [address] [place] [address] [phone] Total Iron Binding Capacity 390 g/dL 250-450 % Iron Saturation 22 % 15-55 Lipid Profile 07/20/2008 [facility] Triglyceride 57 mg/dL 40- 200 (Trig/Chol/HDL) [address] [place] [address] [phone] Cholesterol 189 mg/dL Less Than 200 80 High Density Lipoprotein 60 mg/dL 40-60 81 Cholesterol/HDL Ratio 3.15 AVERAGE 1-4.44 Low Density Lipoprotein 118 mg/dL High Less Than 100 82 Liver Function 07/20/2008 [facility] Total Protein 6.5 GM/DL 6.2-8.[address] [place] [address] [phone] Albumin 3.7 GM/DL 3.2-5.2 Globulin 2.8 GM/DL 2-4 Albumin/Globulin Ratio 1.3 1-3 Bilirubin Total 0.7 mg/dL 0.4-1.5 Bilirubin Direct < 0.1 mg/dL Low 0.1-0.5 Indirect Bilirubin (SEE NOTE) mg/dL 0.1-0.75 83 Alkaline Phosphatase 125 U/L High 30-110 Alt (SGPT) 16 U/L 14-54 Ast (Sgot) 22 U/L 12-42 Laboratory test 07/20/2008 [facility] TSH 1.94 0.34-5.[address] MIU/[place] [address] [phone] Microalbumin 07/20/2008 [facility] Microalbumin 14.0 mg/L Random Urine [address] (MG/L) [place] [address] [phone] Urine Creatinine 107.2 mg/dL [place] Alb/Creatinine Ratio 12.7 UG/MG Less Than 30 84 CBC With Manual 07/20/2008 [facility] White Blood 6.1 CUMM 4.8-10.[address] [place] [address] [phone] Red Cell Count 4.01 CUMM Low 4.2-5.4 [...] Absolute Neutrophil Count 3.8 RBC Morphology NORMAL Basic Metabolic Panel 07/20/2008 [facility] Sodium 141 mmol/L 135-145 [address] [place] [address] [phone] Potassium 4.3 mmol/L 3.5-5.0 Chloride 106 mmol/L 101-111 Co2 (Carbon Dioxide) 27.0 mmol/L 22-32 Anion Gap 8.0 mmol/L 2-11 85 Glucose 175 mg/dL High 70-100 86 BUN 20 mg/dL 6-24 Creatinine 1.00 mg/dL 0.50-1.40 One Over Creatinine 1.00 BUN/Creatinine Ratio 20.0 8-20 Calcium 9.6 mg/dL 8.1-9.9 87 Laboratory test 07/20/2008 [facility] PTT (Aptt) 22.0 20.1- 28.2 88 finding [address] [place] [address] [phone] Protime 07/20/2008 [facility] Protime 11.3 10.9-13.3 [address] [place] [address] [phone] Inr 0.87 89 1 FASTING Copy Result to: CELESTINE QUIGLEY ([id number]) 2 AM 8.7-22.4 PM <10 3 Desirable: <150 Borderline High: 150-199 High: 200-499 Very High: >500 4 Desirable: <200 Borderline High: 200-239 High: >239 5 Low: <40 Desirable: 40-60 High: >60 6 Desirable: <100 Near Optimal: 100-129 Borderline High: 130-159 High: 160-189 Very High: >189 7 Because ethnic data is not always readily [...] 15-29 5 Kidney failure <15 (or dialysis) 8 FASTING Copy Result to: CELESTINE QUIGLEY ([id number]) 9 Normal Range 180 to 914 Indeterminate Range 145 to 180 Deficient Range <145 10 FASTING Copy Result to: CELESTINE QUIGLEY ([id number]) 11 AM 8.7-22.4 PM <10 12 Desirable: <150 Borderline High: 150-199 High: 200-499 Very High: >500 13 Desirable: <200 Borderline High: 200-239 High: >239 14 Low: <40 Desirable: 40-60 High: >60 15 Desirable: <100 Near Optimal: 100-129 Borderline High: 130-159 High: 160-189 Very High: >189 16 Because ethnic data is not always readily [...] 15-29 5 Kidney failure <15 (or dialysis) 17 FASTING Copy Result to: CELESTINE QUIGLEY ([id number]) 18 Because ethnic data is not always readily [...] 15-29 5 Kidney failure <15 (or dialysis) 19 Please check labs 2 days before follow up 20 Please check labs 2 days before follow up 21 Because ethnic data is not always readily [...] 15-29 5 Kidney failure <15 (or dialysis) 22 Critical Result GLU:41 Called to at: 12:34:44 by:[email or web address] Read back by:DR.[email or web address] 23 Because ethnic data is not always readily [...] 15-29 5 Kidney failure <15 (or dialysis) 24 Desirable: <150 Borderline High: 150-199 High: 200-499 Very High: >500 25 Desirable: <200 Borderline High: 200-239 High: >239 26 Low: <40 Desirable: 40-60 High: >60 27 Desirable: <100 Near Optimal: 100-129 Borderline High: 130-159 High: 160-189 Very High: >189 28 >100 to <200 pg/mL: likely compensated congestive heart failure (CHF) 200 to 400 pg/mL: likely moderate CHF >400 pg/mL: likely moderate to severe CHF 29 Please check labs 2 days before follow up visit 30 Acute inflammation: >10.00 31 Please check labs this week 32 Acute inflammation: >10.00 33 Performed by [facility] [employer], [address] [place] [address] [email or web address] Tee Franks MD - Lab. Director Test Performed by: [facility] [address] [place] [address] 34 Interpretation: Strong Positive (>=60.0) REFERENCE VALUE <20.0 (Negative) Test Performed by: [address] [address] 35 ADDITIONAL INFORMATION This test was developed and its performance characteristics determined by [facility] in a manner consistent with CLIA requirements. This test has not been cleared or approved by the U.S. Food and Drug Administration. Test Performed by: [facility] - [facility] [address] [place] [address] 36 >100 to <200 pg/mL: likely compensated congestive heart failure (CHF) 200 to 400 pg/mL: likely moderate CHF >400 pg/mL: likely moderate to severe CHF 37 >100 to <200 pg/mL: likely compensated congestive heart failure (CHF) 200 to 400 pg/mL: likely moderate CHF >400 pg/mL: likely moderate to severe CHF 38 Desirable <150 Borderline high 150-199 High 200-499 Very High >500 39 Desirable <200 Borderline high 200-239 High >239 40 Low <40 Desirable: 40-60 High: >60 41 Desirable: <100 mg/dL Near Optimal: 100-129 mg/dL Borderline High: 130-159 mg/dL High: 160-189 mg/dL Very High: >189 mg/dL 42 Because ethnic data is not always readily [...] 15-29 5 Kidney failure <15 (or dialysis) 43 FASTING cc pmd 44 Because ethnic data is not always [...] 5 Kidney failure <15 (or dialysis) 45 Desirable <150 Borderline high 150-199 High 200-499 Very High >500 46 Desirable <200 Borderline high 200-239 High >239 47 Low <40 Desirable: 40-60 High: >60 48 Desirable: <100 mg/dL Near Optimal: 100-129 mg/dL Borderline High: 130-159 mg/dL High: 160-189 mg/dL Very High: >189 mg/dL 49 Because ethnic data is not always readily [...] 15-29 5 Kidney failure <15 (or dialysis) 50 Because ethnic data is not always readily [...] 15-29 5 Kidney failure <15 (or dialysis) 51 >100 to <200 pg/mL: likely compensated congestive heart failure (CHF) 200 to 400 pg/mL: likely moderate CHF >400 pg/mL: likely moderate to severe CHF [place] [facility] 52 Potassium reference range changed effective 04/08/14 53 Because ethnic data is not always readily [...] 15-29 5 Kidney failure <15 (or dialysis) 54 A Nicholson-Giemsa stained slide prepared from the flow cytometry specimen was examined for quality purposes.The specimen available for morphologic review is sparsely cellular. PDF Report available at: [email or web address] 55 Lymph node, right supraclavicular, specimen for flow cytometric analysis ([id number]): Normal immunophenotyping results. No monotypic B-cell population, phenotypically aberrant T-cell population or increase in blasts identified. Reviewed by: Keiry Stephens M.D 03:14:06 Analyte Specific Reagent: This test was developed and its performance characteristics determined by [facility]. It has not been cleared or approved by the U.S. Food and Drug Administration. 56 Results: Blasts: Not increased by CD45/side scatter. B-cells: No monotypic; normal expression pattern of CD19, CD20, CD5, CD10, CD23, surface kappa and lambda. T-cells/NK-cells: No aberrant phenotype by CD3, CD5, CD7, and CD10. Viability: Acceptable Viable lymphocytes (7-AAD): 99% Quality Assessment: Specimen received within validated guidelines. Test Performed by: [facility] - [address] [address] Care Management Associate: Wilmer Loera III, M.D. 57 RUN DATE: 02/13/14 [facility] LAB LIVE PAGE 1 RUN TIME: [address] [place] [address] Specimen Inquiry Name: ROSALVA COLUNGA : [address]: Zain Salcedo MD Acct: [id number] Unit: [id number] AGE: 73 Location: LAB Re02/07/14 SEX: F Status: REG REF SPEC: [id number] ALESSANDRA: 02/07/14-[address] [facility] DR: Crow Cooney MD REQ: [id number] RECD: 02/07/14 STATUS: VIBHA MIGUEL DR: Edy [...] tolerated well without complications. Specimen sent to [facility] for Flow cytometry [place], [place] on 02/07/14 by [email or web address] at 1457. A. SUPRACLAVICULAR RIGHT - RIGHT SUPRCLAVICULAR FINE NEEDLE ASPIRATION BY PALPATION CONTINUED ON NEXT PAGE * ML=Testing performed at Main Lab DEPARTMENT OF PATHOLOGY, [facility] [employer] [place], [place] [address] Crow Cooney M.D. Director [facility] # [id number] RUN DATE: 02/13/14 [facility] LAB LIVE PAGE 2 RUN TIME: [address] [facility] [place], [place] [address] Specimen Inquiry Patient: ROSALVA COLUNGA Hernan [id number] (Continued) CLINICAL HISTORY (Continued) CLINICAL HISTORY Right mastectomy. IMMEDIATE INTERPRETATION Pass 1- Adequate GROSS DESCRIPTION Fine needle aspiration by palpation x 2 passes with 1 Alcohol fixed slide(s) , 1 Air dried slide(s) and FLOW Cytometry sent to [facility]. SPECIAL STUDIES Flow cytometry has been performed at [facility], [place], [place]. The testing reveals: A Nicholson-Giemsa stained slide prepared from the flow cytometry specimen was examined for quality purposes.The specimen available for morphologic review is sparsely cellular. Lymph node, right supraclavicular, specimen for flow cytometric analysis ( [id number]): Normal immunophenotyping results. No monotypic B-cell population, [...] received within validated guidelines. Test Performed by: [facility] [place] [address] Care Management Associate: Wilmer Loera III, M.D. CONTINUED ON NEXT PAGE * ML=Testing performed at Main Lab DEPARTMENT OF PATHOLOGY, [address] [place] [address] Crow Cooney M.D. Director [facility] # [id number] RUN DATE: 02/13/14 [facility] LAB LIVE PAGE 3 RUN TIME: [address] [place] [address] Specimen Inquiry Patient: ROSALVA COLUNGA [id number] (Continued) SPECIAL STUDIES (Continued) Signed (signature on file) Crow Cooney MD 1218 END OF REPORT * ML=Testing performed at Main Lab DEPARTMENT OF PATHOLOGY, [address] [place] [address] Crow Cooney M.D. Director [facility] # [id number] 58 Because ethnic data is not always readily [...] 15-29 5 Kidney failure <15 (or dialysis) 59 Normal Range 180 to 914 Indeterminate Range 145 to 180 Deficient Range <145 60 CBC and smear reviewed. Eosinophilia confirmed. May be allergy, drug or parasite related. Reviewed by Coral Ferreira MD 61 Test Performed by: [place] [address] Care Management Associate: Wilmer Loera III, M.D. 62 AM Cortisol 8.7-22.4 PM Cortisol Less than 10 63 Test Performed by: [place] [address] Care Management Associate: Wilmer Loera III, M.D. 64 Because ethnic data is not always readily [...] 15-29 5 Kidney failure <15 (or dialysis) 65 Test Performed by: [place] [address] Care Management Associate: Wilmer Loera III, M.D. 66 RESULT: No apparent monoclonal protein on serum electrophoresis. Test Performed by: [place] [address] Care Management Associate: Wilmer Loera III, M.D. 67 @Repeated by: Paris Lora 02/09/13 1616 @Prev Result: 30 mg/dL 68 Because ethnic data is not always readily [...] 15-29 5 Kidney failure <15 (or dialysis) 69 Because ethnic data is not always readily [...] 15-29 5 Kidney failure <15 (or dialysis) 70 HDL Interpretation: Undesirable: High Risk: Less than 40 MG/DL Desirable: Low Risk: Greater than 60 MG/DL 71 LDL Interpretation: Low Risk Optimal Level: LDL Less than 100 MG/DL Near or Above Optimal: LDL 100-129 MG/DL Borderline High Risk: LDL 130-159 MG/DL High Risk: LDL 160-189 MG/DL Very High Risk: LDL Greater than 189 MG/DL 72 Fasting 73 Fasting 74 Anion gap measurement may be of limited value in the presence of any alkalosis, especially in a combined acid base disorder. . 75 A metabolite of Naproxen, O-desmethylnaproxen, has been shown to interfere with the Jendrassik-Kanwal method for measuring total bilirubin. Samples from patients who have taken Naproxen have shown spurious elevation in total bilirubin levels. 76 Because ethnic data is not always readily [...] 15-29 5 Kidney failure <15 (or dialysis) 77 CHOLESTEROL INTERPRETATION: Desirable: Less than 200 MG/DL Borderline-High Risk: 200-239 MG/DL High-Risk: 240 MG/DL and over 78 HDL INTERPRETATION: Undesirable: High Risk: Less than 40 MG/DL Desirable: Low Risk: Greater than 60 MG/DL 79 LDL INTERPRETATION: Low Risk Optimal Level: LDL Less than 100 MG/DL Near or Above Optimal: LDL 100-129 MG/DL Borderline High Risk: LDL 130-159 MG/DL High Risk: LDL 160-189 MG/DL Very High Risk: LDL Greater than 189 MG/DL 80 CHOLESTEROL INTERPRETATION: Desirable: Less than 200 MG/DL Borderline-High Risk: 200-239 MG/DL High-Risk: 240 MG/DL and over 81 HDL INTERPRETATION: Undesirable: High Risk: Less than 40 MG/DL Desirable: Low Risk: Greater than 60 MG/DL 82 LDL INTERPRETATION: Low Risk Optimal Level: LDL Less than 100 MG/DL Near or Above Optimal: LDL 100-129 MG/DL Borderline High Risk: LDL 130-159 MG/DL High Risk: LDL 160-189 MG/DL Very High Risk: LDL Greater than 189 MG/DL 83 UNABLE TO CALCULATE IND.BILI D.BILI IS <0.1 84 MICROALBUMINURIA IN A RANDOM SAMPLE IS DEFINED : MICROALBUMIN/CREATININE RATIO OF 30-299 ug/mg. . 85 Anion gap measurement may be of limited value in the presence of any alkalosis, especially in a combined acid base disorder. . 86 Note change in reference range as of 01/26/08. The change was based on recommendations from the [place] [employer]. 87 Please note change in reference range effective 07 . 88 PLEASE NOTE NEW REFERENCE RANGE EFFECTIVE 07. 89 IRAIS VALUE=2.01 ( OF 05/13/07 Recommended INR for Patients on Oral Anticoagulants Prophylaxis 2.0 - 3.0 Treatment of thrombosis 2.0 - 3.0 Prevention of embolism 2.0 - 3.0 Prevention of embolism from prosthetic heart valves 2.5 - 3.5 Procedures Date Code Description Status 08/26/2018 72373 ECHO Transthoracic, Real-Time 2D With Doppler And Completed Color Flow 08/26/2018 09380 ECHO Transthoracic, Real-Time 2D With Doppler And Completed Color Flow 08/04/2018 60292 EKG Tracing & Interpretation Completed 03/01/2018 00101 Polysomnography Sleep Staging 4+ Parameters Completed 09/27/2017 24411 EKG Tracing & Interpretation Completed 06/15/2017 [id number] Bone Mineral Density Test Completed 03/17/2017 11922 ECHO Transthoracic, Real-Time 2D With Doppler And Completed Color Flow 03/17/2017 48797 ECHO Transthoracic, Real-Time 2D With Doppler And Completed Color Flow 02/23/2017 68162 EKG Tracing & Interpretation Completed 02/23/2017 18306 EKG Tracing & Interpretation Completed 01/06/2017 03630 EKG Tracing & Interpretation Completed 07/24/2016 98077 EKG Tracing & Interpretation Completed 05/13/2016 19081 ECHO Transthoracic, Real-Time 2D With Doppler And Completed Color Flow 04/15/2016 94141 EKG Tracing & Interpretation Completed 08/11/2015 82317 Holter Monitor Review (24 hr)dr review & interp only Completed 08/05/2015 90530 ECG Monitor/Recording W/Visual Superimposition Completed Scanning 07/02/2015 98296 EKG Tracing & Interpretation Completed 2014 78631 EKG Tracing & Interpretation Completed 06/06/2014 96004 ECHO Transthoracic, Real-Time 2D With Doppler And Completed Color Flow 05/18/2014 40852 Left Heart Cath. Incl S/I Coronaries, Angio S/I V Gram Completed If Done 05/18/2014 81404 EKG, Interpretation Only Completed 05/02/2014 79360 Treadmill Interp/Report Only Completed 05/02/2014 17409 Stress Test Supervsn W/Out I/R Completed 04/06/2014 49214 EKG Tracing & Interpretation Completed 10/26/2013 32269 Rad Shoulder Comp, Min. 2 Views Completed 10/12/2013 54119 Closed trtmt prox humeral fx Completed 02/27/2013 82439 EKG Tracing & Interpretation Completed 05/19/2012 67808 Stress ECHO Interpretation/Report Hospital Completed 05/19/2012 84505 Treadmill Interp/Report Only Completed 05/19/2012 36383 Stress Test Supervsn W/Out I/R Completed 05/06/2012 98119 ECHO Transthoracic, Real-Time 2D With Doppler And Completed Color Flow 04/27/2012 98174 EKG Tracing & Interpretation Completed 04/16/2011 77257 EKG Tracing & Interpretation Completed 08/28/2010 39667 EKG, Interpretation Only Completed 08/28/2010 87278 EKG Tracing & Interpretation Completed 07/22/2010 73492 ECHO Transthoracic, Real-Time 2D With Doppler And Completed Color Flow 07/01/2010 70493 Treadmill Interp/Report Only Completed 07/01/2010 78452 Stress Test Supervsn W/Out I/R Completed 05/26/2010 73976 EKG Tracing & Interpretation Completed 11/14/2009 09422 EKG Tracing & Interpretation Completed 03/14/2009 00706 EKG Tracing & Interpretation Completed 10/15/2008 16583 EKG Tracing & Interpretation Completed 08/20/2008 57356 Color Doppler Completed 08/20/2008 19273 Pulse Doppler & Continuous Wave Completed 08/20/2008 86731 Echocardiogram Completed 08/20/2008 71029 ECHO Transthoracic, Real-Time 2D With Doppler And Completed Color Flow 07/27/2008 37868 S/I/R Inj Proc Vent And Or Atrial Completed 07/27/2008 17187 Coronary Angiography Completed 07/27/2008 84325 Inj Proc LFT Vent/LFT Atrl Angio Completed 07/27/2008 00104 Com RT And LT Catheterization Completed 07/27/2008 75391 Selective Coronary Angioplasty Completed 07/19/2008 96325 EKG Tracing & Interpretation Completed 04/30/2008 03218 Treadmill Interp/Report Only Completed 04/30/2008 42699 Stress Test Supervsn W/Out I/R Completed 04/30/2008 84852 Stress Test Supervsn W/Out I/R Completed Encounters Type Date Location Provider Dx Diagnosis Office Visit 08/05/2018 Rheumatology Dorota Foley, M05.79 Rheu arthritis w 11:00a Services [facility] rheu factor mult site w/o org/sys involv Z79.899 Other fpc (current) drug therapy M81.0 Age-related osteoporosis w/o current pathological fracture Office Visit 08/04/2018 [facility] E78.5 Hyperlipidemia, 11:00a Cardiology Abilio, N.P. unspecified I25.10 Athscl heart disease of [place] coronary artery w/o ang pctrs R06.02 Shortness of breath I10 Essential (primary) hypertension R42 Dizziness and giddiness I95.1 Orthostatic hypotension Office Visit 07/04/2018 10:45a Pulmonology And Lorin G25.81 Restless legs Sleep Services Of [facility] Torin syndrome [facility] Office Visit 05/17/2018 1:00p Rheumatology Dorota Foley, M05.79 Rheu arthritis Services Of [facility] EXERCISE SCIENTIST w rheu factor mult site w/o org/sys involv M81.0 Age-related osteoporosis w/o current pathological fracture Z79.899 Other fpc (current) drug therapy Office Visit 04/14/2018 10:45a Pulmonology And Sleep Lorin Harkins, R06.83 Snoring Services Of [facility] G25.81 Restless legs syndrome G47.00 Insomnia, unspecified Office Visit 03/14/2018 [facility] Derrick E10.10 Type 1 diabetes 9:54a Asscharmaine pulliam M.D. mellitus with Hospitalists ketoacidosis without coma M06.9 Rheumatoid arthritis, unspecified N39.0 Urinary tract infection, site not specified Office Visit 03/13/2018 [facility] Derrick E10.10 Type 1 diabetes 9:53a Asscharmaine pulliam M.D. mellitus with Hospitalists ketoacidosis without coma M06.9 Rheumatoid arthritis, unspecified N39.0 Urinary tract infection, site not specified Office Visit 03/12/2018 9:53a [facility]ens[facility] Vega Willis E10.10 Type 1 diabetes DO mellitus with ketoacidosis without coma E78.5 Hyperlipidemia, unspecified M06.9 Rheumatoid arthritis, unspecified Office Visit 03/11/2018 [facility] Prieto Clifton E10.10 Type 1 diabetes 9:52a Assoccharmaine D.O. mellitus with Hospitalists ketoacidosis without coma M06.9 Rheumatoid arthritis, unspecified R11.2 Nausea with vomiting, unspecified R10.9 Unspecified abdominal pain Office Visit 02/15/2018 11:00a Rheumatology Ever Grady, M05.79 Rheu arthritis Services [facility] Zaida w rheu factor mult site w/o org/sys involv M81.0 Age-related osteoporosis w/o current pathological fracture G62.9 Polyneuropathy, unspecified Z79.899 Other terminal computer operator (current) drug therapy Office Visit 01/24/2018 11:00a Pulmonology And Sleep Lorin Harkins, R06.83 Snoring Services Of [facility] G25.81 Restless legs syndrome D64.9 Anemia, unspecified E66.09 Other obesity due to excess calories Z68.27 Body mass index (BMI) 27.0-27.9, adult Office Visit 11/11/2017 10:00a Rheumatology Ever Grady M05.79 Rheu arthritis Services Of [facility] Zaida w rheu factor mult site w/o org/sys involv D64.9 Anemia, unspecified Z79.899 Other fpc (current) drug therapy M81.0 Age-related osteoporosis w/o current pathological fracture Office Visit 09/27/2017 11:00a [facility] Gt Pizano D64.9 Anemia, Of [facility] Zaida Long unspecified I25.10 Athscl heart disease of [place] coronary artery w/o ang pctrs R06.02 Shortness of breath I10 Essential (primary) hypertension R42 Dizziness and giddiness G25.81 Restless legs syndrome Office Visit 09/14/2017 10:20a Rheumatology Ever Grady, M05.79 Rheu arthritis Services [facility] Zaida w rheu factor mult site w/o org/sys involv G62.9 Polyneuropathy, unspecified D64.9 Anemia, unspecified Z79.899 Other fpc (current) drug therapy Office Visit 07/20/2017 10:00a Rheumatology Ever Grady M05.79 Rheu arthritis Services Of [facility] Zaida w rheu factor mult site w/o org/sys involv M81.0 Age-related osteoporosis w/o current pathological fracture G62.9 Polyneuropathy, unspecified D64.9 Anemia, unspecified Office Visit 02/23/2017 10:00a [facility] Camila Bartlett, D72.829 Elevated white Of Field Support Representative PA blood cell count, unspecified I25.10 Athscl heart disease of [place] coronary artery w/o ang pctrs R06.02 Shortness of breath R94.31 Abnormal electrocardiogram [ECG] [EKG] Office 01/06/2017 [facility] Gt Pizano E78.00 Pure Visit 11:00a Cardiology Zaida Long hypercholesterolemia, unspecified I25.10 Athscl heart disease of [place] coronary artery w/o ang pctrs R42 Dizziness and giddiness I95.1 Orthostatic hypotension I10 Essential (primary) hypertension R94.31 Abnormal electrocardiogram [ECG] [EKG] Office 08/13/2016 [facility] Camila Bartlett, E78.00 Pure hypercholesterolemia, Visit 1:30p Cardiology CARLI unspecified I25.10 Athscl heart disease of [place] coronary artery w/o ang pctrs Office Visit 07/24/2016 11:00a [facility] Gt Pizano R42 Dizziness and Sima Long. giddiness I95.9 Hypotension, unspecified I25.10 Athscl heart disease of [place] coronary artery w/o ang pctrs E11.9 Type 2 diabetes mellitus without complications I95.1 Orthostatic hypotension E78.00 Pure hypercholesterolemia, unspecified Office Visit 05/20/2016 11:00a [facility] CARLI Samayoa I25.10 Athscl heart disease of [place] coronary artery w/o ang pctrs R42 Dizziness and giddiness Office Visit 04/15/2016 11:00a [facility] Gt Pizano I95.1 Orthostatic Nico LongDCal hypotension I25.10 Athscl heart disease of [place] coronary artery w/o ang pctrs E11.9 Type 2 diabetes mellitus without complications R42 Dizziness and giddiness Office Visit 10/31/2015 11:00a [facility] CARLI [place] I25.10 [facility]scl heart disease of [place] coronary artery w/o ang pctrs I95.1 Orthostatic hypotension E11.9 Type 2 diabetes mellitus without complications Office Visit 07/02/2015 10:20a [facility] Gt FCal I95.1 Orthostatic Nico LongD. hypotension I25.10 Athscl heart disease of [place] coronary artery w/o ang pctrs E11.9 Type 2 diabetes mellitus without complications W18.39xA Other fall on same level, initial encounter Office Visit 2014 11:00a [facility] Gt [place] 458.0 Hypotension Zaida Long Orthostatic 414.01 Coronary Atherosclerosis [place] 250.00 Diabetes Mellitus W/O Compl Type II Or Unspec Controlled 786.05 Shortness Of Breath Office Visit 07/12/2014 [place] Camila Bartlett, 414.01 Coronary 10:30a Cardiology [place] Atherosclerosis [place] 458.0 Hypotension Orthostatic 250.00 Diabetes Mellitus W/O Compl Type II Or Unspec Controlled 786.05 Shortness Of Breath Office Visit 06/14/2014 [place] Gt [place] 786.09 Dyspnea & 1:00p Cardiology Zaida Long Respiratory Abnormalities Other 414.01 Coronary Atherosclerosis [place] 458.0 Hypotension Orthostatic 401.9 Hypertension Unspec Office Visit 05/21/2014 Abhishek Strange, V58.41 Postoperative Wound 3:40p Cardiology Aga Cerda, FACC, Closure Encounter Field Support Representative AT [facility] Office Visit 05/02/2014 [place] 414.9 Ischemic Heart 11:00a Cardiology Zaida Long Disease Chronic Unspec 786.09 Dyspnea & Respiratory Abnormalities Other Office Visit 04/06/2014 10:20a [facility] Gt [place] 458.0 Hypotension Zaida Long Orthostatic 414.01 Coronary Atherosclerosis [place] 428.32 Diastolic Heart Failure Chronic 786.09 Dyspnea & Respiratory Abnormalities Other 250.00 Diabetes Mellitus W/O Compl Type II Or Unspec Controlled 794.31 Electrocardiogram (ECG) (EKG) Abnormal 307.49 Sleep Disorder Other Office Visit 02/27/2013 1:40p [facility] Gt [place] 458.0 Anne Marie Long M.D. Orthostatic 414.01 Coronary Atherosclerosis [place] 428.32 Diastolic Heart Failure Chronic 250.00 Diabetes Mellitus W/O Compl Type II Or Unspec Controlled Office Visit 12/16/2012 4:00p [place] [facility] Gt [place] 458.0 Anne Marie Long M.D. Orthostatic 414.01 Coronary Atherosclerosis [place] 428.32 Diastolic Heart Failure Chronic Office Visit 04/27/2012 9:00a [facility] Gt [place] 250.00 Diabetes Zaida Long Mellitus W/O Compl Type II Or Unspec Controlled 414.01 Coronary Atherosclerosis [place] 428.32 Diastolic Heart Failure Chronic 786.09 Dyspnea & Respiratory Abnormalities Other Office Visit 04/16/2011 [place] 414.01 Coronary 1:40p Cardiology Zaida Long Atherosclerosis [place] 401.1 Hypertension Benign 428.32 Diastolic Heart Failure Chronic 250.00 Diabetes Mellitus W/O Compl Type II Or Unspec Controlled Office Visit 08/28/2010 [place] 414.01 Coronary 10:40a Cardiology Zaida Long Atherosclerosis [place] 401.1 Hypertension Benign 428.32 Diastolic Heart Failure Chronic 426.4 Right Bundle [place] 250.00 Diabetes Mellitus W/O Compl Type II Or Unspec Controlled Office Visit 07/31/2010 8:15a [place] [facility] Nurse Visit 401.1 Hypertension Benign cc Office Visit 06/11/2010 1:15p [place] [facility] Nurse Visit 401.1 Hypertension Benign cc 414.01 Coronary Atherosclerosis [place] 426.4 Right Bundle Branch Block Office Visit 05/26/2010 11:20a [facility] Gt [place] 401.1 Daniel Long M.D. Benign 414.01 Coronary Atherosclerosis [place] 426.4 Right Bundle Branch [place] 250.00 Diabetes Mellitus W/O Compl Type II Or Unspec Controlled 786.05 Shortness Of Breath Office Visit 01/14/2010 11:00a [facility] [place] 844.1 [facility] Knee Medial C.M.A. Collateral Ligament Office Visit 12/24/2009 4:00p [facility] [place] 844.1 [facility] Squires Knee Medial C.M.A. Collateral Ligament Office Visit 11/14/2009 11:20a [facility] Gt [place] 401.1 Daniel Long M.D. Benign 414.01 Coronary Atherosclerosis [place] 426.4 Right Bundle [place] 250.00 Diabetes Mellitus W/O Compl Type II Or Unspec Controlled Office Visit 03/14/2009 2:40p [facility] Gt [place] 401.1 Daniel Long M.D. Benign 414.01 Coronary Atherosclerosis [place] 426.4 Right Bundle [place] 250.00 Diabetes Mellitus W/O Compl Type II Or Unspec Controlled 428.32 Diastolic Heart Failure Chronic Office Visit 11/06/2008 [place] Nurse Visit cc 401.1 Hypertension Benign 10:30a Cardiology Office Visit 10/15/2008 [place] Gt Pizano 414.01 Coronary 11:10a Cardiology Zaida Long Atherosclerosis [place] 426.4 Right Bundle [place] 401.1 Hypertension Benign 250.00 Diabetes Mellitus W/O Compl Type II Or Unspec Controlled Office Visit 07/31/2008 1:10p [place] [facility] Jones Ruiz 426.4 Right Bundle Zaida Chapin Branch Block 401.1 Hypertension Benign 414.01 Coronary Atherosclerosis [place] 250.00 Diabetes Mellitus W/O Compl Type II Or Unspec Controlled 786.09 Dyspnea & Respiratory Abnormalities Other Office Visit 07/27/2008 10:00a [place] [facility] Jones S. 786.50 Pain Chest Zaida Chapin Unspec 786.05 Shortness Of Breath 794.31 Electrocardiogram (ECG) (EKG) Abnormal 401.1 Hypertension Benign 414.01 Coronary Atherosclerosis [place] Office Visit 07/19/2008 10:40a [place] [facility] Gt Piz[place] 426.4 Right Bundle Zaida Long [place] 786.50 Pain Chest Unspec 401.1 Hypertension Benign 272.0 Hypercholesterolemia Pure 786.09 Dyspnea & Respiratory Abnormalities Other 250.00 Diabetes Mellitus W/O Compl Type II Or Unspec Controlled Office Visit 04/30/2008 12:00p [place] [facility] Gt Piz[place] 426.4 Right Bundle Zaida Long [place] 786.50 Pain Chest Unspec 401.1 Hypertension Benign 272.0 Hypercholesterolemia Pure Plan of Treatment Future Appointment(s):02/10/2019 11:00 am - PARAS Mancuso at [facility]01/19/2019 1:40 pm - Gt Long M.D. at [facility]01/02/2019 10:45 am - Lorin Harkins MD at [facility]11/08/2018 - RENÉ MancusoPM05.79 Rheumatoid arthritis with rheumatoid factor of multiple siteComments:Your arthritis seems to be clinically and symptomatically well controlled at this time.Your inflammatory markers are within normal range.Your latest laboratory tests indicate no detectable impairment of kidney and liver functions.Please, continue with the present dose of leflunomideContinue with regular blood tests. You will need to have a blood test done about a week prior to your next appointment. You have a standing lab order on file. Refills will be sent to your pharmacy.Please call the office if you develop any sign or symptoms of infection or acute change in your health.M81.0 Age-related osteoporosis without current pathological fractuComments:I will call Dr. Abraham about changing your Alendronate to an other medication called Prolbrenda. I will call once the change is [id number] Other terminal computer operator (current) drug therapyComments:will give you the flu vaccine next visit
[2018-11-29 14:50] VITALS: BP 141/73
== END 2018-11-29 14:49 | disposition home or self-care (01) ==
LOC: ED 12:33
DX: E11.649 Type 2 diabetes mellitus with hypoglycemia without coma (principal); I10 Essential (primary) hypertension; Z79.4 Long term (current) use of insulin; Z79.899 Other long term (current) drug therapy; Z88.8 Allergy status to other drugs, medicaments and biological substances
CPT/HCPCS: 99283

== ENCOUNTER 2019-04-19 11:30 | Observation (INO) | payer MEDICARE, BC ==
--- OUTSIDE RECORDS SUMMARY | 2019-04-19 11:39 | XMS REPORT | Continuity of Care Document ---
:1940 External Reference #:[id number] Author Name Sary Hood, CARLI Address [address] [place] [address] Care Team Providers Name Role Phone Ernie Parry MD - Surgery Care Team Information Resource Teacher [phone] [facility] Hospitalists - Hospitalist Care Team Information Resource Teacher Celestine Quigley MD - Family Medicine Care Team Information Resource Teacher vEer Rubio ([place] - Direct) Care Team Information Resource Teacher - Otolaryngology [facility] Pain Clinic - Interventional Pain Care Team Information Resource Teacher Medicine Problems Active Problems Provider Date Type 2 diabetes mellitus Kinza Osorio M.D. Onset: 03/19/2011 Gallstone Kinza Osorio M.D. Onset: 04/23/2011 Gastroesophageal reflux disease Kinza Osorio M.D. Onset: 04/23/2011 Anemia Kinza Osorio M.D. Onset: 04/23/2011 C/O - vomiting Kinza Osorio M.D. Onset: 10/28/2011 Essential hypertension Kinza Osorio M.D. Onset: 10/28/2011 Cellulitis Kinza Osorio M.D. Onset: 12/07/2011 Malaise and fatigue Kinza Osorio M.D. Onset: 12/07/2011 Adult health examination Kinza Osorio M.D. Onset: 12/30/2011 Personal history of primary malignant Kinza Osorio M.D. Onset: 2011 neoplasm of breast Meniere's disease Kinza Osorio M.D. Onset: 12/30/2011 Backache Kinza Osorio M.D. Onset: 12/30/2011 Seizure Kinza Osorio M.D. Onset: 12/30/2011 Deficiency anemias Celestine Quigley M.D. Onset: 11/17/2012 Malignant neoplasm of lower lobe, Celestine Quigley M.D. 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 Onset: 11/15/2014 Vitamin D deficiency Celestine Quigley M.D. Onset: 05/16/2015 Anemia of chronic disease Celestine Quigley M.D. Onset: 05/16/2015 Meniere's disease, unspecified ear Celestine Quigley M.D. Onset: 05/16/2015 Pure hyperglyceridemia Celestine Quigley M.D. Onset: 05/12/2016 Rheumatoid arthritis Celestine Quigley M.D. Onset: 11/15/2017 Glaucoma Celestine Quigley M.D. Onset: 11/15/2017 Restless legs Celestine Quigley M.D. Onset: 05/17/2018 Mixed hyperlipidemia Celestine Quigley M.D. Onset: 11/15/2018 Social History Type Date Description Comments Sex Unknown Tobacco Use Start: Unknown Nonsmoker ETOH Use Denies alcohol use Tobacco Use Start: Unknown Patient has never smoked Smoking Status Reviewed: 03/29/19 Patient has never smoked Allergies, Adverse Reactions, Alerts Active Allergies Reaction Severity Comments Date Reglan tremors Lipitor increased LFT's 04/23/2011 Zocor increased LFT's 04/23/2011 Lisinopril cough/dizziness 04/23/2011 Lyrica mood changes 11/17/2012 Medications Active Medications SIG Qnty Indications Ordering Date Provider Hydrocortisone apply twice a day 1units L30.9 Celestine Quigley, 03/29/2019 Intensive Healing for 2 weeks or M.D. 1% until resolution Cream of the irritaton. Diphenhydramine HCL Take 1 tablet at 30tabs L30.9 Celestine Quigley, 2018 Maximum Strength night to help M.D. 50mg with the rash Tablets Centrum Silver Ultra 1 po qd Family Medicine 12/07/2011 [facility] Abhishek Aspirin 1/2 po qpm, 2 qam Family Medicine 04/23/[address] Johnaca Lantus 7 units q am, 5 Family Medicine 04/23/2011 100Unit/ML units q pm [facility] Abhishek Fish Oil 1 po bid [facility] 04/23/2011 1000mg Caps[facility] [place] Ranitidine HCL Take 1 Tablet 180tabs Celestine Quigley, 03/19/2011 150mg Twice Daily M.D. Tablets Meclizine HCL Take 1 Tablet Up 60tabs Ever [place] 10/09/2009 12.5mg To Three Times Zaida Alexander Tablets Daily as Needed For Dizziness (Maximum Daily Dose 3 Tablets) Midodrine HCL take one tablet Unknown 2.5mg by mouth tid Tablets Gabapentin 1 by mouth at Unknown 100mg Capsules night time Leflunomide 1 po qd Unknown 10mg Tablets Tramadol HCL 1/2 by mouth bid Unknown 50mg Tablets Co Q 10 2 by mouth every Unknown 100mg Capsules day Crestor 1/2 tab by mouth Unknown 5mg Tablets every day Thera Tears 1 gtt to left eye Unknown Solution qpm Soothe Eye Drops 1 gtt to left eye Unknown tid-qid Dorzolamide HCL instill one drop Unknown 2% left eye twice a Solution day Latanoprost 1 drop in left Unknown 0.005% eye at night Solution Betaxolol HCL 1 drop in left Unknown 0.5% eye q am Solution Novolog 1 unit per 15 gr Unknown 100Unit/ML carbs Solution Calcium + D 1 po bid Unknown Tablets History Medications Walker With Wheels and seat, not with Celestine Quigley, 11/15/2018 - brakes dx: rheumatoid M.D. 03/29/2019 arthritis Medications Administered in Office Medication SIG Qnty Indications Ordering Provider Date Injection Subcutaneous Or Celestine Quigley M.D. 03/16/2000 Intramuscular Injection Immunizations CPT Code Status Date Vaccine Reaction Lot # [id number] Given 02/22/2019 High-Dose, Influenza Virus Vacccine-fluzone 65 and older 76902 Given 01/15/2017 Influenza Vac, [place], [place] [address] Given 11/20/2016 Pneumococcal Immunization 31196 Given 01/29/2016 High-Dose, Influenza Virus Vacccine-fluzone 65 and older 48254 Given 03/08/2015 Pneumococcal Conjugate Vacc-13 69551 Given 02/06/2015 High-Dose, Influenza Virus Vacccine-fluzone 65 and older 25835 Given 12/04/2014 Zostivax 40671 Given 03/11/2012 High-Dose, Influenza Virus [id number] Vacccine-fluzone 65 and older 56261 Given 12/30/2011 Tdap Tetanus, W Pertussis [id number] Q2038 Given 03/19/2011 Split Influenza Medicare: no reaction noted [id number] Fluzone 08186 Given 05/08/2009 DO Not Use Split Influenza Virus [id number] Vaccine 65573 Given 04/23/2008 DO Not Use Split Influenza Virus [id number] Vaccine 69007 Given 01/05/2008 Pneumococcal Immunization [id number] 05235 Given 04/15/2006 DO Not Use Split Influenza Virus [id number] Vaccine 30354 Given 03/12/2005 DO Not Use Split Influenza Virus Vaccine 48942 Given 05/23/2003 DO Not Use Split Influenza Virus Vaccine 82015 Given 05/23/2003 DO Not Use Split Influenza Virus Vaccine 33256 Given 03/28/2002 Influenza Immunization 35568 Given 03/28/2002 DO Not Use Split Influenza Virus Vaccine 95976 Given 04/29/1999 DO Not Use Split Influenza Virus Vaccine 99424 Given 04/24/1997 Pneumococcal Immunization 20196 Given 02/20/1997 Influenza Immunization Vital Signs Date Vital Result Comment 04/05/2019 10:32am BP Systolic 122 mmHg BP Diastolic 62 mmHg Heart Rate 88 /min Body Temperature 97.7 F Height 60 inches 5'0" Weight 145.00 lb BMI (Body Mass Index) 28.3 kg/m2 03/29/2019 12:57pm BP Systolic 116 mmHg BP Diastolic 70 mmHg Heart Rate 68 /min Body Temperature 97.9 F Respiratory Rate 16 /min Height 60 inches 5'0" Weight 146.00 lb BMI (Body Mass Index) 28.5 kg/m2 Results Test Date Facility Test Result H/L Range Note Lipid Profile 02/08/2019 [facility] Triglycerides 82 mg/dL 1 (Trig/Chol/HDL) Cholesterol 162 mg/dL 2 HDL Cholesterol 70.8 mg/dL 3 LDL Cholesterol 75 mg/dL 4 Laboratory test 02/08/2019 [facility] B-Type 93 pg/mL <=100 finding Natriuretic Peptide BNP Laboratory test 11/29/2018 [facility] Point of Care 203 mg/dL High 70-100 5 finding Glucose Laboratory test 11/29/2018 [facility] Point of Care 151 mg/dL High 70-100 6 finding Glucose Laboratory test 11/15/2018 [facility] Hemoglobin A1c 7.0% % High 4.1 -5.7 finding (607)- - (Fma) Comprehensive 11/15/2018 [facility](a) Sodium 143 mEq/L 134-149 Metabolic Prof Potassium 4.2 mEq/L 3.6-5.5 Chloride 105 mEq/L 94-112 Carbon Dioxide 27 mEq/L 21-32 Glucose 140 mg/dL High 70-105 7 BUN 21 mg/dL 6-26 Creatinine 0.8 mg/dL 0.6-1.4 BUN/Creat Ratio 26.3 CALC 8.0-36.0 Calcium 9.3 mg/dL 8.6-10.2 Total Protein 6.7 g/dL 6.4-8.3 Albumin 4.2 g/dL 3.8-5.5 Globulin 2.5 g/dL 2.0-4.8 A/G Ratio 1.7 CALC 0.6-2.3 Alk. Phosphatase 100 U/L 30-110 Alt (SGPT) 21 U/L 7-35 Ast (Sgot) 28 U/L 5-34 Total Bilirubin 0.3 mg/dL 0.2-1.3 GFR Non- >60 ml/min/1.73m^ >=60 GFR >60 ml/min/1.73m^ >=60 Lipid Profile 11/15/2018 [facility](fma) Cholesterol 162 mg/dL 120- 200 Triglycerides 121 mg/dL 30-200 HDL Cholesterol 75 mg/dL 30-85 LDL (Calculated) 63 CALC 0-129 VLDL Cholesterol 24 mg/dL 0-50 HDL Risk Factor 2.2 CALC 0.0-4.4 1 Desirable: <150 Borderline High: 150-199 High: 200-499 Very High: >500 2 Desirable: <200 Borderline High: 200-239 High: >239 3 Low: <40 Desirable: 40-60 High: >60 4 Desirable: <100 Near Optimal: 100-129 Borderline High: 130-159 High: 160-189 Very High: >189 5 Pageant Director: [id number] Pageant Director: [id number] NON-FASTING Procedures Date Code Description Status 10/25/2018 731418878 Diabetic Foot Exam Completed 06/02/2018 865450080 Diabetic Retinal Eye Exam Completed 06/15/2017 [id number] Bone Mineral Density Test Completed 04/19/2009 [id number] Mammogram Completed 08/05/2008 [id number] Mammogram Completed 02/17/2007 [id number] Colonoscopy Completed 08/20/2006 [id number] Mammogram Completed Medical Devices Description No Information Available Encounters Type Date Location Provider Dx Diagnosis Office Visit 03/29/2019 [facility] Office Sary Hood, L30.9 Dermatitis, 1:00p PA unspecified Office Visit 11/15/2018 [facility] Office Celestine Quigley, E11.9 Type 2 diabetes 10:40a M.D. mellitus without complications E78.2 Mixed hyperlipidemia I10 Essential (primary) hypertension K21.9 Gastro-esophageal reflux disease without esophagitis G25.81 Restless legs syndrome D63.8 Anemia in other chronic diseases classified elsewhere M05.79 Rheu arthritis w rheu factor mult site w/o org/sys involv Assessments Date Code Description Provider 04/05/2019 L30.9 Dermatitis, unspecified CARLI Chinchilla 03/29/2019 L30.9 Dermatitis, unspecified CARLI Chinchilla 11/15/2018 E11.9 Type 2 diabetes mellitus without Celestine Quigley M.D. complications 11/15/2018 E78.2 Mixed hyperlipidemia Celestine Quigley M.D. 11/15/2018 I10 Essential (primary) hypertension Celestine Quigley M.D. 11/15/2018 K21.9 Gastro-esophageal reflux disease without Celestine Quigley M.D. esophagitis 11/15/2018 G25.81 Restless legs syndrome Celestine Quigley M.D. 11/15/2018 D63.8 Anemia in other chronic diseases classified Celestine Quigley M.D. elsewhere 11/15/2018 M05.79 Rheumatoid arthritis with rheumatoid factor Celestine Quigley M.D. of multiple site Plan of Treatment Future Appointment(s):05/17/2019 10:30 am - Celestine Quigley M.D. at [facility] [place]04/05/2019 - Sary Hood, PAL30.9 Dermatitis, unspecifiedComments: Continue hydrocortisone cream to the affected areas for the next week Continue Benedryl for the nextweek. Call with any worsening of the rash or other symptoms. Follow up if symptoms worsen or doesn'tcompletely go away in next few weeks.AllComments:PCMHMedication Management Patient Understands medications he' s taking? Yes Are there Barriers to Adherence? No Has the patient been asked about herbal supplements and therapies, and OTC meds? Yes Care Plan1. Patient has been queried about patient's goals/preferences and functional/lifestyle goals at relevant visits. Yes If relevant, describe: N/A2. Treatment goals as explained to the patient: above3. Are there barriers to meeting treatment goals? No If Yes, please describe:4. Self-Management goals as described to the patient: Yes As always, we strongly encourage a healthy diet and making physical activity a part of your every day life. If you have questions about how or where to start, please contact the office. Functional Status Description No Information Available Mental Status Description No Information Available Referrals Description No Information Available
--- OUTSIDE RECORDS SUMMARY | 2019-04-19 11:40 | XMS REPORT | Continuity of Care Document ---
:1940 External Reference #:[id number] Author Name Sary Hood, CARLI Address [address] [place] [address] Care Team Providers Name Role Phone Ernie Parry MD - Surgery Care Team Information Tractor Trailer Technician [phone] [facility] Hospitalists - Hospitalist Care Team Information Tractor Trailer Technician Celestine Quigley MD - Family Medicine Care Team Information Tractor Trailer Technician Ever Rubio ([place] - Direct) Care Team Information Tractor Trailer Technician [phone] - Otolaryngology [facility] - Interventional Pain Care Team Information Tractor Trailer Technician [phone] Medicine Problems Active Problems Provider Date Type [...] Solution Abhishek Fish Oil 1 po bid [facility] Medicine 04/23/2011 1000mg [facility] [place] Ranitidine HCL Take 1 Tablet 180tabs Celestine [...] Code Status Date Vaccine Reaction Lot # [id number] Given 02/22/2019 High-Dose, Influenza Virus Vacccine-fluzone 65 and older 75251 Given 01/15/2017 Influenza Vac, Quadriv[place], [place] [address] Given 11/20/2016 Pneumococcal Immunization 33197 Given 01/29/2016 High-Dose, Influenza Virus Vacccine-fluzone 65 and older 80004 Given 03/08/2015 Pneumococcal Conjugate Vacc-13 94842 Given 02/06/2015 High-Dose, Influenza Virus Vacccine-fluzone 65 and older 65353 Given 12/04/2014 Zostivax 65790 Given 03/11/2012 High-Dose, Influenza Virus [id number] Vacccine-fluzone 65 and older 86204 Given 12/30/2011 Tdap Tetanus, W Pertussis [id number] Q2038 Given 03/19/2011 Split Influenza Medicare: no reaction noted [id number] Fluzone 15900 Given 05/08/2009 DO Not Use Split Influenza Virus [id number] Vaccine 40538 Given 04/23/2008 DO Not Use Split Influenza Virus [id number] Vaccine 80634 Given 01/05/2008 Pneumococcal Immunization [id number] 49836 Given 04/15/2006 DO Not Use Split Influenza Virus [id number] Vaccine 91067 Given 03/12/2005 DO Not Use Split Influenza Virus Vaccine 75423 Given 05/23/2003 DO Not Use Split Influenza Virus Vaccine 06197 Given 05/23/2003 DO Not Use Split Influenza Virus Vaccine 47935 Given 03/28/2002 Influenza Immunization 39789 Given 03/28/2002 DO Not Use Split Influenza Virus Vaccine 14744 Given 04/29/1999 DO Not Use Split Influenza Virus Vaccine 00576 Given 04/24/1997 Pneumococcal Immunization 54523 Given 02/20/1997 Influenza Immunization Vital Signs Date Vital Result Comment 03/29/2019 12:57pm BP Systolic 116 mmHg BP Diastolic 70 mmHg Heart Rate 68 /min Body Temperature 97.9 F Respiratory Rate 16 /min Height 60 inches 5'0" Weight 146.00 lb BMI (Body Mass Index) 28.5 kg/m2 11/15/2018 10:43am BP Systolic 118 mmHg BP Diastolic 70 mmHg Heart Rate 68 /min Body Temperature 97.7 F Respiratory Rate 16 /min Height 60 inches 5'0" Weight 148.00 lb BMI (Body Mass Index) 28.9 kg/m2 Results Test Date Facility Test Result H/L Range Note Lipid Profile 02/08/2019 [facility] Triglycerides 82 mg/dL 1 (Trig/Chol/HDL) Cholesterol 162 mg/dL 2 HDL Cholesterol 70.8 mg/dL 3 LDL Cholesterol 75 mg/dL 4 Laboratory test 02/08/2019 [facility] B-Type 93 pg/mL <=100 finding Natriuretic Peptide BNP Laboratory test 11/29/2018 [facility] Point of Care 203 mg/dL High 70-100 5 finding Glucose Laboratory test 11/29/2018 [facility] Point of Care 151 mg/dL High 70-100 6 finding Glucose Laboratory test 11/15/2018 [facility] Hemoglobin A1c 7.0% % High [...] 130-159 High: 160-189 Very High: >189 5 Tube Cleaning Operator: [id number] Tube Cleaning Operator: [id number] NON-FASTING Procedures Date Code Description Status 10/25/2018 280711074 Diabetic Foot Exam Completed 06/02/2018 [id number] Diabetic Retinal Eye Exam Completed 06/15/2017 [id number] Bone Mineral Density Test Completed 04/19/2009 [id number] Mammogram Completed 08/05/2008 [id number] Mammogram Completed 02/17/2007 [id number] Colonoscopy Completed 08/20/2006 [id number] Mammogram Completed Medical Devices Description No Information Available Encounters Type Date Location Provider Dx Diagnosis Office Visit 11/15/2018 [facility] Office Celestine Quigley, E11.9 Type 2 diabetes 10:40a M.D. mellitus without complications E78.2 Mixed hyperlipidemia I10 Essential (primary) hypertension K21.9 Gastro-esophageal reflux disease without esophagitis G25.81 Restless legs syndrome D63.8 Anemia in other chronic diseases classified elsewhere M05.79 Rheu arthritis w rheu factor mult site w/o org/sys involv Assessments Date Code Description Provider 03/29/2019 L30.9 Dermatitis, unspecified CARLI Chinchilla 11/15/2018 [...] of multiple site Plan of Treatment Future Appointment(s):04/05/2019 11:00 am - CARLI Chinchilla at [facility] [place]/17/2019 10:30 am - Celestine Quigley M.D. at [facility] [place]/29/2019 - Sary Hood, PAL30.9 Dermatitis, unspecifiedNew Medication:Hydrocortisone Intensive Healing 1 % - apply twice a day for 2 weeks or until resolution of the irritaton.Diphenhydramine HCL Maximum Strength 50 mg - Take 1 tablet at night to help with the rashComments:Start hydrocortisone cream to the affected areas.Start Benedryl at night for the itch. Call with anyworsening of the rash or other symptoms. Follow up in 1 weekAllComments:PCMHMedication Management Patient Understands medications he's taking? Yes Are there Barriers to Adherence? No Has the patient been asked about herbal supplements and therapies, and OTC meds? Yes Care Plan1. Patient has been queried about patient's goals/preferences and functional/lifestyle goals at relevant visits. Yes If relevant, describe: N/A2. Treatment goals as explained to the patient: above3. Are there barriers to meeting treatment goals? No If Yes , please describe:4. Self-Management goals as described to [...]
--- NOTE | 2019-04-19 11:59 | ED ---
Dizziness - HPI Summary HPI Summary: Pt is a 78 y/o F presenting to the ED with a chief complaint of dizziness. Pt states that this has been chronic for 2-2.5months but has worsened over the past week. Anywhere from 3-4x/week, when she is walking down the hallway in her trailer, she will have to slide herself down the wall to sit for a minute because she becomes extremely dizzy. She had an episode of dizziness today when she was at Dr. Pennington office for her anemia. She reports some nausea intermittently as well as slight SOB. no chest pain. . She denies other sx, including pain, vomiting, diarrhea, burning with urination, or dysuria. Review of notes from office - pt with profoud orthostatic changes and became dyspneic and hypoxic with short transfer - sent to ED for eval Patient's medications reviewed this visit. - History Of Current Complaint Chief Complaint: EDShortnessOfBreath Stated Complaint: SHORT OF BREATH Time Seen by Provider: 04/19/19 11:31 Hx Obtained From: Patient, EMS Onset/Duration: Resolved, Suddenly Timing: Minutes Severity Initially: Moderate Severity Currently: None Character: Dizzy Aggravating Factor(s): Exertion Alleviating Factor(s): Nothing Associated Signs And Symptoms: Positive: Nausea, SOB. Negative: Vomiting, Diarrhea - Allergies/Home Medications Allergies/Adverse Reactions: Allergies Allergy/AdvReac Type Severity Reaction Status Date / Time atorvastatin AdvReac Severe Elevated Verified 04/19/19 11:37 Liver Enzymes pregabalin AdvReac Severe Mood Verified 04/19/19 11:37 Changes simvastatin AdvReac Severe Elevated Verified 04/19/19 11:37 Liver Enzymes lisinopril AdvReac Intermediate Shakes and Verified 04/19/19 11:37 Dizziness metoclopramide AdvReac Unknown Parkinsonian Verified 04/19/19 11:37 movements Home Medications: Home Medications Aspirin EC TAB* [Ecotrin EC TAB*] 650 mg PO QAM 04/19/19 [History Confirmed ] Carboxymethylcellulose Sodium [Thera Tears] 1 drop LEFT EYE QPM 04/19/19 [ History Confirmed 04/19/19] Hydrocortisone 1% CREAM(NF) [Hytone Cream 1%*] 1 applic TOPICAL BID 04/19/19 [ History Confirmed 04/19/19] Insulin GLARGINE(*) [Lantus(*)] 5 units SUBCUT QPM 04/19/19 [History Confirmed 04/19/19] diphenhydrAMINE HCl [Diphenhydramine HCl] 50 mg PO QPM 04/19/19 [History Confirmed 04/19/19] PMH/Surg Hx/FS Hx/Imm Hx Previously Healthy: Yes Endocrine/Hematology History: Reports: Hx Diabetes - IDDM Cardiovascular History: Reports: Hx Angina, Hx Hypercholesterolemia, Hx Hypertension, Other Cardiovascular Problems/Disorders - cardiac cath 05/2014 Denies: Hx Coronary Artery Disease, Hx Myocardial Infarction, Hx Pacemaker/ ICD, Hx Valvular Heart Disease Respiratory History: Reports: Other Respiratory Problems/Disorders - PT STATES DYSPNEA X4-5 YRS; H/O PARTIAL RIGHT LUNGECTOMY IN 1976 Denies: Hx Asthma, Hx Chronic Obstructive Pulmonary Disease (COPD) History: Denies: Hx Chronic Renal Failure Musculoskeletal History: Reports: Hx Arthritis, Hx Rheumatoid Arthritis, Hx Back Problems, Hx Bursitis Denies: Hx Osteoporosis Sensory History: Reports: Hx Legally Blind - RIGHT EYE, Hx Deafness - LEFT EAR, Hx Hearing Problem - Deaf Left Ear Denies: Hx Contacts or Glasses - LEFT AT HOME, Hx Hearing Aid Opthamlomology History: Reports: Hx Legally Blind - RIGHT EYE Denies: Hx Contacts or Glasses - LEFT AT HOME Neurological History: Denies: Hx CVA Psychiatric History: Denies: Hx Panic Disorder - Cancer History Cancer Type, Location and Year: 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 1976 - LOBECTOMY- 2/3 REMOVED FOR LUNG CA. 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 02/2003. 1993 - Lt SMALL TOE AMPUTEE. 1974 -C SECTION. 2010 - GALLBLADDER Infectious Disease History: No Infectious Disease History: Denies: History Other Infectious Disease, Traveled Outside the [place] in Last 30 Days - Family History Known Family History: Positive: Cardiac Disease - mother, Diabetes - mother, Respiratory Disease - father with emphysema - Social History Alcohol Use: None Hx Substance Use: No Substance Use Type: Reports: None Substance Use Comment - Amount & Last Used: tramadol Hx Tobacco Use: No Smoking Status (MU): Never Smoked Tobacco Have You Smoked in the Last Year: No Review of Systems Positive: Fatigue Positive: Shortness Of Breath Positive: Nausea. Negative: Vomiting, Diarrhea Negative: burning, dysuria Negative: Myalgia Neurological: Other - dizziness Psychological: Other - dizziness All Other Systems Reviewed And Are Negative: Yes Physical Exam - Summary Physical Exam Summary: Vital Signs Reviewed: Yes A+Ox3, no distress Eyes: Conjunctiva Clear, EMMANUELLE. EOM intact and full ENT: Hearing grossly normal TM x 2 clear, mmoist, uvula midline, no exudate, no erythema Neck: Positive: Supple Respiratory: Positive: No respiratory distress, No accessory muscle use + CTA throughout no w/r Cardiovascular: RRR, tachycardia, no bruits nl s1, s2 no m/r CBT <2 sec abd soft + BS nt/nd no guarding, no distension Musculoskeletal Exam: CHOI x 4 without difficulty Strength Intact, ROM Intact Neurological: Positive: Alert, + sensation throughout Psychological: Positive: Normal Response To examiner Skin: Positive: no rash, no ecchymosis Triage Information Reviewed: Yes Vital Signs On Initial Exam: Initial Vitals Temp Pulse Resp BP Pulse Ox 98.4 F 99 16 128/77 100 04/19/19 11:32 04/19/19 11:32 04/19/19 11:32 04/19/19 11:32 04/19/19 11:32 Vital Signs Reviewed: Yes Procedures - Sedation Patient Received Moderate/Deep Sedation with Procedure: No Diagnostics - Vital Signs Vital Signs Temp Pulse Resp BP Pulse Ox 04/19/19 11:44 102 25 100 04/19/19 11:32 98.4 F 102 19 125/77 100 - Laboratory Result Diagrams: 04/19/19 13:57 04/19/19 13:57 Lab Statement: Any lab studies that have been ordered have been reviewed, and results considered in the medical decision making process. - Radiology CXR Radiology Interpretation Completed By: Radiologist Summary of Radiographic Findings: Postsurgical changes. Old ununited fracture right proximal humerus. Lung mahan are unchanged from previous exam. ED physician has reviewed this report. - CT Chest/Thorax CTA CT Interpretation Completed By: Radiologist Summary of CT Findings: 1. ATHEROSCLEROSIS. 2. NO PULMONARY ARTERIAL FILLING DEFECT TO SUGGEST PULMONARY EMBOLISM. ED physician has reviewed this report. Re-Evaluation - Re-Evaluation First Eval Comment: Patient states she has restless legs and at times this causes aching in her legs and feet. Patient denies any current shortness of breath. Patient was difficulty to start IV - awaiting the vascular team to come Second Eval Comment: Vascular team place an IV. Patient's serum IV fluids. There states [facility] and became very short of breath did not notice her options as per patient back in bed and feeling better. Waiting for chest x- ray fluids will likely get a CTA. 3rd eval Re-Evaluation Time: 14:48 Comment: Pt's IV came out. Will call vascular to replace IV. CTA will be obtained. Labs not yet back. 4th eval Re-Evaluation Time: 15:22 Comment: IVT will come to replace IV. called back, unable RN placed - will check CTA Fifth Eval Comment: reviewed CTA - no pe. no clear cause for pt's sx. pt attempted ambulation trial - approx 40feet - lightheaded, pale, needed to sit. will admit - d/w Dr. Keita -caitlin cannon with plan Dizzy Course/Dx - Course Course Of Treatment: Patient is a pleasant [age] female with a history of arthritis as well as anemia. Patient presented to the oncology outpatient appointment today for follow-up for anemia. Patient reports she's been having ongoing dizziness progressive for the last 2 months but worse last week. Patient states she's had near syncopal events. Patient in the office it was noted to be hypoxic and short of breath with transfer from a wheelchair to an examining room. Patient sent for further evaluation. Upon arrival patient states she feels much better. Patient states she's been having these dizzy spells and hold onto clark walking. Patient states she feels better when she is lying down. Patient denies fevers, chills, rash. Patient denies nausea or vomiting. On exam vital signs are stable patient mildly tachycardic. We will check orthostatics here we'll give IV fluids we'll do chest x-ray urine and reassess. Patient is adamant she will not be staying in the hospital but agreed to let us do the testing and follow-up. - Diagnoses Provider Diagnoses: Orthostatic hypotension, Pre-syncope Discharge ED - Sign-Out/Discharge Documenting (check all that apply): Patient Departure - Discharge Plan Condition: Stable Disposition: ADMITTED TO [facility] Referrals: Celestine Quigley MD [Primary Care Provider] - - Billing Disposition and Condition Condition: STABLE Disposition: Admitted to [facility] - Attestation Statements Document Initiated by Scribe: Yes Documenting Scribe: Zahraa Johansen Provider For Whom Connieibe is Documenting (Include Credential): Regla Cramer MD. Scribe Attestation: Zahraa Valdes, scribed for Regla Cramer MD. on 04/19/19 at 1726. Scribe Documentation Reviewed: Yes Provider Attestation: The documentation as recorded by the Zahraa sanchez accurately reflects the service I personally performed and the decisions made by , Regla Cramer MD. Status of Scribe Document: Viewed Consult Consult: [id number] - I spoke with Dr. Muir who accepts pt for admission to [facility].
[2019-04-19] MEDS ORDERED: NS 0.9% 500 ML* 500 ML IV ONE (12:00)
[2019-04-19 14:35] LABS: ABS Eosinophils 0.1 10^3/ul (0-0.6); ABS Lymphocytes 1.4 10^3/ul (1.0-4.8); ABS Monocytes 0.8 10^3/ul (0-0.8); ABS Neutrophils 7.9 10^3/ul (1.5-7.7); Eosinophil % 1.3 %; Hematocrit 34 % (35-47); Hemoglobin 11.3 g/dL (12.0-16.0); Lymphocyte % 13.4 %; Mean Corpuscular HGB Conc 34 g/dL (31-36); Mean Corpuscular Hemoglobin 29 pg (27-31); Mean Corpuscular Volume 87 fL (80-97); Mean Platelet Volume 8.7 fL (7.4-10.4); Platelet Count 254 10^3/uL (150-450); Red Blood Count 3.85 10^6 /uL (3.70-4.87); Red Cell Distribution Width 14 % (10-15); White Blood Count 10.3 10^3/uL (3.5-10.8)
[2019-04-19 14:45] LABS: Albumin 4.4 g/dL (3.2-5.2); Albumin/Globulin Ratio 1.5 (1-3); BUN/Creatinine Ratio 24.1 (8-20); Calcium 10.2 mg/dL (8.6-10.3); EGFR African American 57.2 (>60); EGFR Non-African American 47.3 (>60); Globulin 2.9 g/dL (2-4); Magnesium 2.1 mg/dL (1.9-2.7); Potassium 3.6 mmol/L (3.5-5.0); Total Bilirubin 0.6 mg/dL (0.2-1.0); Total Protein 7.3 g/dL (6.4-8.9)
[2019-04-19 15:01] LABS: Troponin I 0.01 ng/mL (<0.04)
[2019-04-19] MEDS ORDERED: Iodixanol* (CONTRAST) 320 MG/ML 100 ML SDV IV ONE (15:35)
[2019-04-19] MEDS: NS 0.9% 1000 ML** 1,000 ML IV SCH ×2 (16:53→22:23)
[2019-04-19 17:44] LABS: TSH (Thyroid Stimulating Horm) 0.89 mcIU/mL (0.34-5.60)
[2019-04-19] MEDS ORDERED: Acetaminophen TAB* 325 MG PO PRN (18:13)
[2019-04-19] MEDS ORDERED: NS 0.9% 1000 ML** 1,000 ML IV SCH (18:15)
[2019-04-19] MEDS ORDERED: diPHENhydraMINE PO* 25 MG PO PRN (18:17)
[2019-04-19] MEDS ORDERED: Meclizine TAB* 12.5 MG PO PRN (18:17)
[2019-04-19] MEDS ORDERED: traMADol TAB* 50 MG PO PRN (18:45)
[2019-04-19] MEDS: Ondansetron INJ* 2 MG/ML VIAL IV PRN ×2 (18:55→23:53)
[2019-04-19 19:14] LABS: Urine Appearance Cloudy; Urine Bacteria 3+ (Absent); Urine Bilirubin Negative (Negative); Urine Blood Negative (Negative); Urine Color Yellow; Urine Glucose Negative (Negative); Urine Ketones 1+ (Negative); Urine Nitrite Positive (Negative); Urine Protein Negative (Negative); Urine Red Blood Cell Absent (Absent); Urine Specific Gravity > 1.060 (1.010-1.030); Urine Squamous Epithelial Cell Present (Absent); Urine Urobilinogen Negative (Negative); Urine White Blood Cell 2+(11-20/hpf) (Absent)
[2019-04-19] MEDS ORDERED: hydrOXYzine HCL TAB* 25 MG PO ONE (20:45)
[2019-04-19] MEDS ORDERED: Sulfamethox/Trimethoprim DS 800/160* TAB PO SCH (21:00)
[2019-04-19] MEDS ORDERED: Latanoprost 0.005%* 2.5 ml BTL LEFT EYE SCH (21:00)
[2019-04-19] MEDS ORDERED: Gabapentin CAP(*) 100 MG PO SCH (21:00)
--- NOTE | 2019-04-19 21:13 | HP ---
ADMISSION HISTORY AND PHYSICAL: DATE OF ADMISSION: 04/19/19 PRIMARY CARE PHYSICIAN: Dr. Quigley. PROVIDER: Drew Mota NP. ATTENDING PHYSICIAN: Dr. Braswell.* (DICTATED BY DREW MOTA NP) CHIEF COMPLAINT: Dizziness. HISTORY OF PRESENT ILLNESS: This is a 78-year-old female with a past medical history significant for rheumatoid arthritis and diabetes type 1 who arrived to the emergency room on 04/19/19 with a 2- to 3-month course of lightheadedness and dizziness with position changes. She states she has fallen once due to this. She states that she did not feel the world to be spinning; yet, she somehow feels that there is spinning that is happening "in her brain" and it is worse with walking or sudden position changes and it happens up to 5 times a day. It is better with rest. The patient denies having started any new medications, new routine changes, has not eaten anything unusual, and has not undergone any unusual stress. The patient was sent to the emergency room from Barrett Burt's office after being seen for a followup for anemia as the patient has off and on been on Epogen since 2013 after having undergone lung cancer and mastectomy. H and H today was 11.3 and 34. In the emergency room, she received a liter of IV fluids, EKG, and lab draws. The patient wanted to be discharged home, but after she got up and walked about 20 to 30 feet, she became dizzy again and therefore agreed to admission. PAST MEDICAL HISTORY: 1. Diabetes type 1. 2. Hypercholesterolemia. 3. Hypertension. 4. Cardiac cath in 2011 and 2013. 5. Rheumatoid arthritis. 6. Bursitis. 7. Back problem. 8. Right eye enucleation. 9. 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 10. Lung cancer. PAST SURGICAL HISTORY: 1. Bilateral vitrectomies. 2. Cholecystectomy. 3. Left small toe amputation. 4. . 5. Right partial lobectomy in 1976. 6. Right mastectomy. 7. Oophorectomy. 8. Six eye surgeries. HOME MEDICATIONS: 1. Insulin glargine 7 units q.a.m. 2. Midodrine 2.5 mg p.o. t.i.d. 3. Leflunomide 10 mg p.o. daily. 4. Gabapentin 100 mg p.o. at bedtime. 5. Tramadol 25 mg p.o. b.i.d. 6. CoQ10 at 200 mg p.o. daily. 7. Rosuvastatin 2.5 mg p.o. daily. 8. Mineral oil eye drops, 1 drop left eye 3 to 4 times a day. 9. TheraTears 1 drop left eye q.p.m. 10. Dorzolamide 2% 1 drop left eye b.i.d. 11. Latanoprost 0.005% 1 drop left eye at bedtime. 12. Insulin aspart 100 units subcu t.i.d. with meals. 13. Betaxolol 0.5% 1 drop left eye q.a.m. 14. Calcium carbonate/vitamin D3 one cap p.o. b.i.d. 15. Ranitidine 150 mg p.o. b.i.d. 16. Muse-3 fatty acid 1000 mg p.o. b.i.d. 17. Meclizine 12.5 mg p.o. t.i.d. p.r.n. 18. Insulin glargine 5 units subcu q.p.m. 19. Aspirin EC 650 mg p.o. q.a.m. 20. Aspirin 325 p.o. q.p.m. 21. Diphenhydramine 50 mg p.o. q.p.m. 22. Multivitamin or Centrum Silver Women Vitamin 1 tablet p.o. daily. 23. Hydrocortisone 1% cream topically b.i.d. ALLERGIES: To ATORVASTATIN, LISINOPRIL, METOCLOPRAMIDE, PREGABALIN, and SIMVASTATIN. FAMILY HISTORY: Mother had cardiac disease. Father had thyroid disease and emphysema. SOCIAL HISTORY: Denies any tobacco, alcohol, or recreational substance use. Lives alone in a trailer. REVIEW OF SYSTEMS: An 11-point system review was performed and it was positive for lightheadedness and dizziness with sudden position changes and ambulation, generalized itching, blindness in the right eye, hard of hearing in the left ear. Negative for any chest pain, shortness of breath, palpitations, nausea, vomiting. PHYSICAL EXAMINATION GENERAL: This is a well-developed pale woman seen resting on the stretcher, in no acute distress. VITAL SIGNS: 98.4 Fahrenheit, 109 pulse, 17 respirations, 99% oxygen on room air, 131/53 blood pressure. HEENT: Eyes: Fake eye present to the right eye socket with ptosis of the eyelid. Left eye PERRLA. Conjunctiva pink and moist. EOM intact. ENT: Mucous membranes dry. Oropharynx clear. LYMPHATICS: No cervical lymphadenopathy noted. NECK: Supple. RESPIRATORY: Lung sounds clear throughout bilaterally on room air, absent in the right upper lobe. No accessory muscle use noted. CARDIAC: S1, S2 present. Heart rate regular. No murmurs, gallops, or rubs appreciated. No lower extremity edema. ABDOMEN: Soft, nontender, nondistended with positive bowel sounds x4. MUSCULOSKELETAL: No clubbing or cyanosis. No abnormalities. Full range of motion. NEURO: No focal deficits appreciated. Sensation intact to light touch. PSYCH: Alert and oriented x4. No anxiety, depression. Thought content organized. SKIN: The patient has splotchy diffuse red discrete rashes to generalized body with no prodromal burning. Rash has several open areas from scratching on her neck and upper anterior torso. Otherwise, no eruptions or plaques or pustules noted. DIAGNOSTIC STUDIES AND LAB DATA: Hemoglobin 11.3, hematocrit 34, BUN 27, creatinine 1.12, BUN and creatinine ratio 24.1, glucose 128, hemoglobin A1c 6.9. B- natriuretic peptide 41. TSH 0.89. EKG showed right bundle-branch block in the setting of atrial flutter with irregular F waves. Chest x-ray showed old ununited fracture of right proximal humerus. Lung mahan are unchanged from previous exam, and chest and thoracic CTA showed atherosclerosis and no pulmonary artery filling defect to suggest pulmonary embolism. ASSESSMENT AND PLAN: My impression is that this is a 78-year-old female with a past medical history significant for lung cancer, diabetes type 1, and rheumatoid arthritis who is admitted on 04/19/19 for atrial fibrillation and acute kidney injury. 1. Atrial flutter, likely paroxysmal in nature due to history taken. Echocardiogram ordered to assess structures of heart. Started on metoprolol b.i.d. Telemetry monitoring while up on the floor. The patient normally follows with Dr. Long on an outpatient basis. We will attempt to obtain records as far as what he is treating her for. We will refrain from calling cardiology until results of the echocardiogram. Goal is rate control due to the patient currently tachycardic. CHADS-VASc score is 5. HAS-BLED score is 2. Held the patient's normal aspirin and instead place the patient on apixaban b.i.d. 2. Acute kidney injury. Creatinine level was increased from her baseline at 1.12. The patient denies fluid restricting at home. States that she normally drinks Diet Pepsi and bottled water. She did receive a liter of unit in the emergency room and an additional liter bolus was ordered due to the fact that she appeared slightly dry. Mucous membranes were dry. Recheck BMP in the a.m. 3. Diabetes type 1. Hemoglobin A1c today was 6.9%. Normally checks blood sugars 4 times a day at home and will continue that here. Takes low doses of Lantus and much higher doses of aspart. I suggest that she follow up with her primary care on an outpatient basis for better basilar control. 4. Urinary tract infection. This was an incidental finding. Asymptomatic. UA showed positive nitrates and 3+ bacteria. Placed on bactrim x3 days. 5. Hypercholesterolemia. Continue rosuvastatin. 6. Rheumatoid arthritis. The patient reports chronic pain to her back and joints and is a patient at the pain clinic. Continue the leflunomide, gabapentin, and tramadol. Due to her new inability to take aspirin, I suggest that she contact the provider who manages her rheumatoid arthritis. 7. Glaucoma. Continue latanoprost, betaxolol, and dorzolamide. 8. Rash, unspecified origin. The patient stated that she has followed up with her primary care. This rash began about 2 to 3 weeks ago. Is unsure of its cause as she has not introduced anything new into her diet or regimen. Had been taking hydrocortisone, but continues to break out new areas. Suggested that she follow up with her production grip upon discharge, though can have Benadryl as needed during her stay here. Does not appear to be an exanthem. 9. Gastroesophageal reflux disease. No signs or symptoms of acid reflux at this time. Continue ranitidine. 10. Hypotension. The patient has been remaining anywhere between 104 and 122. Stated she has been on this for about 9 months. Could have had a low blood pressure due to dehydration while here, though will continue midodrine during her stay. 11. DVT prophylaxis. Continue apixaban. 12. Code status is DNR. TIME SPENT: On the patient is about 60 minutes with more than half of it spent [id number]. The plan of care was discussed with Dr. Braswell and she agrees. DREW MOTA, LIME MIXER TENDER [id number]/[facility] #: [id number] [facility] MEDICAL CENTERShanda
[2019-04-19] MEDS: Apixaban* 5 MG TAB PO SCH (21:16)
[2019-04-19] MEDS: Metoprolol Tartrate TAB* 25 MG PO SCH (21:16)
[2019-04-19] MEDS: Calcium/Vitamin D TAB 250/125* TAB PO SCH (21:17)
[2019-04-19] MEDS: Dorzolamide 2% OPTH (NF) 10 ML BTL LEFT EYE SCH (21:37)
[2019-04-19] MEDS ORDERED: PROCHLORPERAZINE INJ 5 MG/ML 2 ML VIAL IV ONE (21:44)
[2019-04-19] MEDS ORDERED: Insulin LISPRO* 1 UNITS UNIT SUBCUT ONE (22:53)
[2019-04-20 05:40] LABS: BUN/Creatinine Ratio 22.6 (8-20); Calcium 8.9 mg/dL (8.6-10.3); EGFR African American 70.9 (>60); EGFR Non-African American 58.6 (>60); Potassium 3.8 mmol/L (3.5-5.0)
[2019-04-20] MEDS: NS 0.9% 1000 ML** 1,000 ML IV SCH (07:34)
[2019-04-20] MEDS ORDERED: Insulin LISPRO* 1 UNITS UNIT SUBCUT SCH ×2 (08:00→11:30)
[2019-04-20] MEDS ORDERED: Betaxolol 0.5 %* OPHTH.SOLN 5 ML LEFT EYE SCH (09:00)
[2019-04-20] MEDS ORDERED: Leflunomide (NF) 10 MG TAB PO SCH (09:00)
[2019-04-20] MEDS ORDERED: CMCS: Rosuvastatin (NF) 5 MG TAB PO SCH (09:00)
[2019-04-20] MEDS ORDERED: Aspirin EC TAB* 325 MG PO SCH ×2 (09:00→18:00)
[2019-04-20] MEDS ORDERED: Famotidine TAB* 20 MG PO SCH (09:00)
[2019-04-20] MEDS ORDERED: Insulin GLARGINE(*) 1 UNITS UNIT SUBCUT SCH ×2 (09:00→18:00)
[2019-04-20] MEDS: Ondansetron INJ* 2 MG/ML VIAL IV PRN (09:15)
[2019-04-20] MEDS: Calcium/Vitamin D TAB 250/125* TAB PO SCH (09:36)
[2019-04-20] MEDS: Apixaban* 5 MG TAB PO SCH (09:37)
[2019-04-20] MEDS: Metoprolol Tartrate TAB* 25 MG PO SCH (09:37)
[2019-04-20] MEDS ORDERED: LORazepam TAB(*) 0.5 MG PO ONE (09:38)
[2019-04-20] MEDS: Dorzolamide 2% OPTH (NF) 10 ML BTL LEFT EYE SCH (09:42)
--- NOTE | 2019-04-20 09:44 | ECHO ---
*[facility]* [place] [address] Fax #: [phone] Transthoracic Echocardiogram Patient: Rosalva Mari : 1940 Study Date: 04/20/2019 Age: 78 Gender: F HR: 92 bpm Height: 60 in /152.4 cm BSA: 1.62 m^2 Weight: 143.7 lb /65.3 kg BMI: 28.1 kg/m^2 *Non Food Receiving Clerk: Christie Davies [facility] *Referring Physician: * Ese Mota *Reading Physician: * Jones Chapin MD Indications: Abnormal EKG. History: S/P right mastectomy 1974,s/p lung lobectomy also in the past. Angina pectoris. Risk factors: Hypertension. Dyslipidemia. Conclusions Summary: - Left ventricle: The cavity size is normal. Wall thickness is normal. Systolic function is normal. The estimated ejection fraction is 55-60%. - Mitral valve: There is mild regurgitation. - C/t 08/26/2018, no significant changes. Study data: Transthoracic echocardiogram. Procedure: Transthoracic echocardiography was performed. Image quality was good. Complete 2D, spectral Doppler, and color flow Doppler. Patient status: Observation. Patient room number: 432. Rhythm: Normal sinus rhythm. Findings Left ventricle: The cavity size is normal. Wall thickness is normal. Systolic function is normal. The estimated ejection fraction is 55-60%. Wall motion is normal; there are no regional wall motion abnormalities. Doppler parameters are consistent with abnormal left ventricular relaxation (grade 1 diastolic dysfunction). Right ventricle: Well visualized. The cavity size is normal. Wall thickness is normal. Systolic function is normal. Ventricular septum: The ventricular septum is normal. Left atrium: Well visualized. The atrium is normal in size. Right atrium: Well visualized. The atrium is normal in size. Atrial septum: Well visualized. Mitral valve: Well visualized. The leaflets are mildly thickened. No echocardiographic evidence for prolapse. There is no evidence of stenosis. There is mild regurgitation. Aortic valve: The valve is structurally normal. The valve is trileaflet. The leaflets are normal thickness. Cusp separation is normal. Transvalvular velocity is within the normal range. There is no evidence of stenosis. There is no regurgitation. Tricuspid valve: Well visualized. The leaflets are normal thickness. There is no evidence of stenosis. There is physiologic regurgitation. Pulmonic valve: The valve is structurally normal. There is no evidence of stenosis. There is no regurgitation. Aorta: The aorta is well visualized and normal size. The aortic root appears normal. The aortic arch appears normal. Pericardium: There is no pericardial effusion. No evidence of pleural fluid accumulation. Pulmonary arteries: Well visualized. The main pulmonary artery is normal-sized. Systemic veins: Not well visualized. Pulmonary veins: Visualization of the pulmonary venous anatomy is incomplete, but a significant abnormality is unlikely. Measurements Left ventricle Value Ref Aortic valve Value Ref KENROY, LAX 3.8 cm 3.8 - Serge diam, ED 1.5 cm ---- 5.2 Peak v, S 1.5 m/sec ---- ESD, LAX (L) 1.7 cm 2.2 - VTI, S 37.3 cm ---- 3.5 Mean grad, S 5.0 mm Hg ---- FS, LAX (H) 54 % 27 - 45 Peak grad, S 9.0 mm Hg ---- PW, ED, LAX (H) 1.0 cm 0.6 - LVOT/AV, VTI ratio 0.61 ---- 0.9 FS (H) 54 % 27 - 45 Mitral valve Value Ref Mid-wall FS 18 % -------- Peak E 1 m/sec ---- PW/ID, ED 0.26 -------- Peak A 1.37 m/sec ---- E', lat serge, TDI (L) 6.4 cm/sec >=10.0 Decel time 144 ms --- - E/e', lat serge, TDI 16 -------- Peak grad, D 4.0 mm Hg ---- E', med serge, TDI (L) 3.4 cm/sec >=7.0 Peak E/A ratio 0.7 --- - E/e', med serge, TDI 29 -------- E', avg, TDI 4.9 cm/sec -------- Pulmonic valve Value Ref E/e', avg, TDI (H) 20 <=14 Peak v, S 1.05 m/sec --- - Peak grad, S 4.0 mm Hg ---- LVOT Value Ref Peak hira, S 0.96 m/sec -------- Aortic root Value Ref VTI, S 22.7 cm -------- Root diam 2.5 cm <3.9 Mean grad, S 2 mm Hg -------- Root max diam, ED 2.5 cm <3.9 Ventricular septum Value Ref Ascending aorta Value Ref IVS, ED 0.9 cm 0.6 - AAo AP diam, S 2.6 cm ---- 0.9 Aortic arch Value Ref Right ventricle Value Ref Arch diam 1.4 cm ---- KENROY, LAX 2.4 cm -------- KENROY minor ax, A4C 2.3 cm 1.9 - Decending aorta Value Ref mid 3.5 Robert peak hira 0.74 m/sec ---- Left atrium Value Ref ML dim, A4C 3.1 cm -------- SI dim, A4C 4.6 cm -------- Right atrium Value Ref SI dim, ES 3.5 cm 3.4 - 5.3 ML dim, ES, A4C 2.8 cm 2.6 - 4.4 SI dim, ES, A4C 3.5 cm 3.4 - 5.3 Legend: (L) and (H) alfredo values outside specified reference range. Prepared and electronically signed by Jones Chapin MD 04/20/2019 09:43
[2019-04-20] MEDS ORDERED: Dextrose 50% VIAL 50 ml IV PUSH PRN (10:33)
[2019-04-20] MEDS ORDERED: Insulin LISPRO* 1 UNITS UNIT SUBCUT ONE (13:46)
[2019-04-20 15:44] VITALS: BP 134/64
[2019-04-20] MEDS ORDERED: Dextran 70/Hypromellose Tears Eye Drops 15 ml BTL (for Artificials Tears) LEFT EYE SCH (18:00)
--- NOTE | 2019-04-21 03:00 | DS ---
AMENDED REPORT NOW INCLUDES DESIGNATED COSIGNER CC: Dr. Quigley; Dr. Long * DISCHARGE SUMMARY: DATE OF ADMISSION: 04/19/19 DATE OF DISCHARGE: 04/20/19 ATTENDING PHYSICIAN: Dr. Muir.* (DICTATED BY DREW MEJIA NP) PRIMARY CARE PHYSICIAN: Dr. Quigley. PRIMARY DIAGNOSES: 1. Paroxysmal atrial flutter, likely fibrillation. 2. Acute kidney injury. 3. Urinary tract infection. SECONDARY DIAGNOSES: 1. Diabetes type 1. 2. Hypercholesterolemia. 3. Rheumatoid arthritis. 4. Glaucoma. 5. Rash of unspecified origin. 6. Gastroesophageal reflux disease. 7. Hypotension. PROCEDURES: A transthoracic echocardiogram showed an ejection fraction of 55% to 60%, mild regurgitation of the mitral valve, and no significant changes as compared to a study done on 08/26/18. STUDIES: Chest x-ray showed postsurgical changes. 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 Lung mahan are unchanged from previous exam. Chest and thorax CTA: It showed atherosclerosis and no pulmonary arterial filling defect to suggest pulmonary embolism. EKG showed atrial flutter with right bundle-branch block with inverted T-waves in V1 to V3. PERTINENT LABORATORY DATA: BUN and creatinine ratio 22.6, POC glucose 246, hemoglobin 11.3, hematocrit 34. Urine was positive for nitrites, 1+ leukocyte esterase, 2+ wbc, 3+ urine bacteria. HISTORY OF PRESENT ILLNESS/HOSPITAL COURSE: This is a 78-year-old female with past medical history that is significant for lung cancer, diabetes type 1, and rheumatoid arthritis; who arrived to the emergency room on 04/19/19 with a 2- to 3- month course of lightheadedness and dizziness with position changes. In the emergency room, an EKG was performed. Labs were drawn. The patient noted to be in atrial flutter, had received IV fluids. The patient did not initially want to be admitted to the hospital; however, after walking 20 to 30 feet in the emergency room, she became dizzy and lightheaded, and at that point, she agreed to stay for monitoring. She was then admitted to the telemetry floor with monitoring and had no further complaints of chest pain or shortness of breath, was started on metoprolol, able to ambulate with assistance. An EKG was done today which showed that she converted back into sinus rhythm with right bundle-branch block. Educated the patient on her new requirement for a beta-delores and apixaban. Educated the patient about no longer being able to take aspirin or any other NSAIDs due to the increased risk of bleeding and to follow up with Dr. Long on an outpatient basis. It was also found on the urine sent in the emergency room that she had had an asymptomatic urinary tract infection. It is unclear as to how long she had been infected with E. coli as the cultures later showed as the patient had no urinary frequency, urgency, or burning. She also denied ever feeing feverish or chilled. REVIEW OF SYSTEMS: An 11-point system review was performed which was positive for anxiety; but negative for any chest pain, shortness of breath, abdominal pain, nausea, vomiting, or dysuria. PHYSICAL EXAMINATION: Vital Signs: 97.9, 83 pulse, 17 resp, 97% oxygen on room air, 134/64 blood pressure. General: This is a well-developed woman seen sitting up in the chair. No acute distress noted. Eyes: Fake eye present to the right eye socket. Left eye: EOMs intact, PERRLA. ENT: Oropharynx clear. Mucous membranes moist. Neck is supple. Cardiac: S1, S2 present. Heart rate regular. No murmurs, gallops, or rubs appreciated. Respiratory: Lung sounds clear throughout bilaterally, though diminished in bilateral bases on room air. No accessory muscle use noted. Abdomen: Soft, nontender, nondistended with positive bowel sounds x4. Musculoskeletal: 5/5 strength to bilateral upper and lower extremities. No clubbing or cyanosis of the digits. Skin: Noted generalized rash to various areas of the body including bilateral arms, neck, upper chest, back, and legs which appeared to have improved since yesterday. Neurologic: No focal deficits appreciated. Smile is symmetrical. Tongue midline. Sensation intact to light touch throughout. Psych: Alert and oriented x4. Thought content organized. DISCHARGE PLAN: Diet is to continue consistent carb diet. ACTIVITY: As tolerated. RETURN PRECAUTIONS: The patient is to call 911 and return to the emergency department if she has any sudden increased shortness of breath or chest pain or if the patient continues to have frequent dizziness spells. PROBLEM LIST: 1. Paroxysmal atrial flutter, likely fibrillation. EKG did not show a typical sawtooth F wave pattern, likely atypical atrial flutter; though it is possible due to the unlikely nature that it was just atrial flutter, I feel the patient may have been going in and out of atrial fibrillation at home for the past few months contributing to her dizziness and activity intolerance. The goal is for rate control which has been achieved with metoprolol. In the emergency room, the patient was tachycardic in the low to mid 100s, though has heart rate in the 80s since around midnight. We will continue with metoprolol b.i.d. at home , HAS-BLED score was 2. CHADS/VASc sore was 5. Determined that it was important to start the patient on a standing blood thinner, initiated apixaban. The patient understands that she is to hold her normal aspirin and avoid any NSAIDs. The patient should follow up with Dr. Long. I did not feel that an inpatient stress test was called for at this time due to lack of symptomatology and lack of changes in her echocardiogram. 2. Urinary tract infection. This was an incidental finding. The patient is asymptomatic. UA showed positive nitrites and bacteria. Placed on Bactrim. Has received 1 dose thus far. Is to continue 2 more days' worth of Bactrim at home. 3. Acute kidney injury. Initially, the patient came in with a creatinine level of 1.12. Denied any fluid restricting at home. After receiving IV fluids in the hospital, creatinine came down to 1.93 this morning. Therefore, issue has resolved. Encouraged continued hydration at home. 4. Diabetes type 1. Dr. Abraham normally follows the patient for this diagnosis. Hemoglobin A1c on 04/19/19 was 6.9. Normally checks her blood sugars 4 times a day at home which she should continue and she should continue her normal doses of Lantus and her carb counting. 5. Hypercholesterolemia. Continue rosuvastatin. 6. Rheumatoid arthritis. Reports chronic pain in her back and joints as a patient of the pain clinic. She should continue her leflunomide, gabapentin, and tramadol. 7. Glaucoma. Continue with latanoprost, betaxolol, and dorzolamide. 8. Gastroesophageal reflux disease. No signs or symptoms of acid reflux at this time. Continue ranitidine. 9. Hypotension. The patient has been normotensive during her stay. She should continue on with her midodrine. 10. Rash of unspecified origin. It is unclear as to what is causing the rash, though I do not believe this to be a drug exanthem, and rash began about 2 to 3 weeks ago despite no change in her habits, soaps, personal body products, or medication. Should follow up with rheumatology. 11. Code status is DNR. CONTINUED HOME MEDICATIONS: 1. Insulin glargine 7 units subcu q.a.m. 2. Midodrine 2.5 mg p.o. t.i.d. 3. Leflunomide 10 mg p.o. daily. 4. Gabapentin 100 mg p.o. at bedtime. 5. Tramadol 25 mg p.o. b.i.d. p.r.n. 6. CoQ10 200 mg p.o. daily. 7. Rosuvastatin 2.5 mg p.o. daily. 8. Soothe XP eye drops 1 drop to the left eye 3 to 4 times a day. 9. TheraTears 1 drop left eye q.p.m. 10. Dorzolamide 1 drop left eye b.i.d. 11. Latanoprost 0.005% 1 drop left eye at bedtime. 12. Insulin aspart 1 unit for every 15 carbs, carb counting with each meal. 13. Betoptic 0.5% 1 drop left eye q.a.m. 14. Calcium carbonate/vitamin D 1 tablet p.o. b.i.d. 15. Ranitidine 150 mg p.o. b.i.d. 16. [place]-3 1000 mg p.o. b.i.d. 17. Meclizine 12.5 mg p.o. t.i.d. p.r.n. 18. Insulin glargine 5 units p.o. q.p.m. 19. Diphenhydramine 50 mg p.o. q.p.m. p.r.n. 20. Centrum Silver women's tablet 1 tablet p.o. daily. 21. Bactrim DS 800/160 one tab p.o. q.24 hours x2 more doses. 22. Metoprolol tartrate 25 mg p.o. b.i.d. 23. Apixaban 5 mg p.o. b.i.d. CONDITION UPON DISCHARGE: Stable. DISPOSITION: Home. TIME SPENT: Time spent on the patient is about 40 minutes with half of that spent [id number]. DREW MEJIA, WEB ARCHITECT [id number]/[facility] #: [id number] RA[facility]
== END 2019-04-20 18:25 | disposition home or self-care (01) ==
LOC: ED 11:30 → MEDTELE 18:13
PROVIDERS: ADMIT Hospitalist; ATTEND Internal Medicine
DX: I48.3 Typical atrial flutter (principal); N17.9 Acute kidney failure, unspecified; N39.0 Urinary tract infection, site not specified; E10.9 Type 1 diabetes mellitus without complications; E78.00 Pure hypercholesterolemia, unspecified; M06.9 Rheumatoid arthritis, unspecified; H40.9 Unspecified glaucoma; R21 Rash and other nonspecific skin eruption; K21.9 Gastro-esophageal reflux disease without esophagitis; I95.9 Hypotension, unspecified; Z79.4 Long term (current) use of insulin; Z79.899 Other long term (current) drug therapy; Z66 Do not resuscitate; I95.1 Orthostatic hypotension; D63.8 Anemia in other chronic diseases classified elsewhere
CPT/HCPCS: 36415; 71046; 71275; 80048; 80053; 81003; 81015; 83036; 83605; 83735; 83880; 84443; 84484; 85025; 87077; 87086; 87186; 93005; 93306; 96361; 96374; 96375; 96376; 99215; 99285; A9270-GY; G0378; G0463; J0780; J2405; Q9967

== ENCOUNTER 2019-05-13 14:52 | Inpatient (IN) | payer MEDICARE, BC ==
[2019-05-13] MEDS ORDERED: Ondansetron INJ* 2 MG/ML VIAL IV ONE (15:19)
--- NOTE | 2019-05-13 15:40 | ED ---
HPI Diabetic - HPI Summary HPI Summary: This patient is a 78 year old F brought to [facility] by EMS with a chief complaint of high blood sugar of 432 this morning 05/13/19 at 0800, per triage. Symptoms aggravated by nothing. Symptoms alleviated by nothing. Patient reports she went to bed last night with a blood sugar of 112 and woke up this morning and threw up after which her blood sugar was 432. Pt reports that is when she called EMS. - History Of Current Complaint Chief Complaint: EDDiabeticProb Time Seen by Provider: 05/13/19 15:19 Hx Obtained From: Patient Onset/Duration: Lasting Hours, Still Present Timing: Constant Aggravating: Nothing Alleviating: Nothing Associated Signs & Symptoms: Nausea, Vomiting - Allergies/Home Medications Allergies/Adverse Reactions: Allergies Allergy/AdvReac Type Severity Reaction Status Date / Time atorvastatin AdvReac Severe Elevated Verified 04/19/19 11:37 Liver Enzymes pregabalin AdvReac Severe Mood Verified 04/19/19 11:37 Changes simvastatin AdvReac Severe Elevated Verified 04/19/19 11:37 Liver Enzymes lisinopril AdvReac Intermediate Shakes and Verified 04/19/19 11:37 Dizziness metoclopramide AdvReac Unknown Parkinsonian Verified 04/19/19 11:37 movements PMH/Surg Hx/FS Hx/Imm Hx Endocrine/Hematology History: Reports: Hx Diabetes - IDDM Cardiovascular History: Reports: Hx Angina, Hx Hypercholesterolemia, Hx Hypertension, Other Cardiovascular Problems/Disorders - cardiac cath 05/2014 Denies: Hx Coronary Artery Disease, Hx Myocardial Infarction, Hx Pacemaker/ ICD, Hx Valvular Heart Disease Respiratory History: Reports: Other Respiratory Problems/Disorders - PT STATES DYSPNEA X4-5 YRS; H/O PARTIAL RIGHT LUNGECTOMY IN 1976 Denies: Hx Asthma, Hx Chronic Obstructive Pulmonary Disease (COPD) History: Denies: Hx Chronic Renal Failure Musculoskeletal History: Reports: Hx Arthritis, Hx Rheumatoid Arthritis, Hx Back Problems, Hx Bursitis Denies: Hx Osteoporosis Sensory History: Reports: Hx Contacts or Glasses - glasses, Hx Legally Blind - RIGHT EYE, Hx Deafness - LEFT EAR, Hx Hearing Problem - Deaf Left Ear Denies: Hx Hearing Aid Opthamlomology History: Reports: Hx Contacts or Glasses - glasses, Hx Legally Blind - RIGHT EYE Neurological History: Denies: Hx CVA Psychiatric History: Denies: Hx Panic Disorder - Cancer History Cancer Type, Location and Year: 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 1976 - LOBECTOMY- 2/3 REMOVED FOR LUNG CA. 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 1993 - Lt SMALL TOE AMPUTEE. 1973 -C SECTION. 2010 - GALLBLADDER Infectious Disease History: No Infectious Disease History: Denies: History Other Infectious Disease, Traveled Outside the [place] in Last 30 Days - Family History Known Family History: Positive: Cardiac Disease - mother, Diabetes - mother, Respiratory Disease - father with emphysema - Social History Alcohol Use: None Hx Substance Use: No Substance Use Type: Reports: None Substance Use Comment - Amount & Last Used: tramadol Hx Tobacco Use: No Smoking Status (MU): Never Smoked Tobacco Have You Smoked in the Last Year: No Review of Systems Positive: Other - high blood sugar Positive: Vomiting, Nausea All Other Systems Reviewed And Are Negative: Yes Physical Exam - Summary Physical Exam Summary: VITAL SIGNS: Reviewed. GENERAL: Patient is a elderly female FEMALE who is lying very anxious in the stretcher. HEAD AND FACE: No signs of trauma. No ecchymosis, hematomas or skull depressions. No sinus tenderness. EYES: PERRLA, EOMI x 2, No injected conjunctiva, no nystagmus. EARS: Hearing grossly intact. Ear canals and tympanic membranes are within normal limits. MOUTH: Oropharynx within normal limits. NECK: Supple, trachea is midline, no adenopathy, no JVD, no carotid bruit, no c- spine tenderness, neck with full ROM. CHEST: Symmetric, no tenderness at palpation. LUNGS: Clear to auscultation bilaterally. No wheezing or crackles. CVS: Regular rate and rhythm, S1 and S2 present, no murmurs or gallops appreciated. ABDOMEN: Soft, non-tender. No signs of distention. No rebound, no guarding, and no masses palpated. Bowel sounds are normal. Active vomiting. EXTREMITIES: FROM in all major joints, no edema, no cyanosis or clubbing. Diffuse ROM in right shoulder. NEURO: Alert and oriented x 3. No acute neurological deficits. Speech is normal and follows commands. SKIN: Dry and warm. Triage Information Reviewed: Yes Vital Signs On Initial Exam: Initial Vitals Temp Pulse Resp BP Pulse Ox 98.0 F 101 18 105/55 97 05/13/19 15:00 05/13/19 15:00 05/13/19 15:00 05/13/19 15:00 05/13/19 15:00 Vital Signs Reviewed: Yes Diagnostics - Vital Signs Vital Signs Temp Pulse Resp BP Pulse Ox 05/13/19 15:00 98.0 F 101 18 105/55 97 - Laboratory Result Diagrams: 05/14/19 05:30 05/14/19 05:30 Lab Statement: Any lab studies that have been ordered have been reviewed, and results considered in the medical decision making process. - Radiology Chest X-Ray Radiology Interpretation Completed By: Radiologist Summary of Radiographic Findings: Per radiologist,. 1. No focal airspace opacification. 2. Postoperative changes. 3. Redemonstrated destructive changes about the right humeral head. ED physician has reviewed this imaging report. - EKG 1532 Cardiac Rate: NL - 105 BPM Summary of EKG Findings: EKG reveals sinus tachycardia 105 BPM with incomplete right bundle branch block. Similar to 04/21/19. Diabetic Course/Dx - Course Assessment/Plan: This patient is a 78 year old F brought to [facility] by EMS with a chief complaint of high blood sugar of 432 this morning 05/13/19 at 0800, per triage. Symptoms aggravated by nothing. Symptoms alleviated by nothing. Patient reports she went to bed last night with a blood sugar of 112 and woke up this morning and threw up after which her blood sugar was 432. Pt reports that is when she called EMS. After arrival to the ED and she was given IV fluids since blood sugar was elevated. Blood test results shows wbc of 14.7, hemoglobin 11.3 , hematocrit 34, platelets 207. CMP were within normal limits except for carbon dioxide of 16 , anion gap 22 consistent with DKA, BUN is 25, creatinine 1.1, glucose 339, lactic acid is 0.1 also secondary to hyperglycemia. The patient doesnt have a fever. CRP is 16.5, BNP is 101. ABG pH 7.53, PCO2 is 20, PO2 158 and O2 sat 98.4. In the ED course the patient was given another liter of IV fluids and then the patient was started on an insulin drip. Chest x-ray impression: No focal airspace opacification. Postoperative changes. At this time I discussed my physical exam and findings with Dr. Harkins from the ICU services who accepted the patient for admission. The patient is hemodynamically stable. - Diagnoses Differential Dx: Diabetic Ketoacidosis, Hyperglycemia, Hyperosmolar State, Pneumonia Provider Diagnoses: DKA (diabetic ketoacidoses), Dehydration, Acute renal injury - Physician Notifications Discussed Care Of Patient With: Lorin Harkins Time Discussed With Above Provider: 16:55 Instructed by Provider To: Admit As Inpatient - Critical Care Time Critical Care Time: 30-74 min Discharge ED - Sign-Out/Discharge Documenting (check all that apply): Patient Departure - admit - Discharge Plan Condition: Stable Disposition: ADMITTED TO [facility] - Billing Disposition and Condition Condition: STABLE Disposition: Admitted to [facility] - Attestation Statements Document Initiated by Scribe: Yes Documenting Scribe: Yvrose De Leon Provider For Whom Alfredoe is Documenting (Include Credential): Dr. Gabriel Israel MD Scribe Attestation: IYvrose, scribed for Dr. Gabriel Israel MD on 05/14/19 at 1859. Scribe Documentation Reviewed: Yes Provider Attestation: The documentation as recorded by the Yvrose sanchez accurately reflects the service I personally performed and the decisions made by me, Dr. Gabriel Israel MD Status of Scribe Document: Viewed
[2019-05-13] MEDS: NS 0.9% 1000 ML** 2,000 ML IV ONE (15:46)
[2019-05-13 16:12] LABS: ABS Lymphocytes 0.8 10^3/ul (1.0-4.8); ABS Monocytes 0.9 10^3/ul (0-0.8); Hematocrit 34 % (35-47); Hemoglobin 11.3 g/dL (12.0-16.0); Lymphocyte % 5.1 %; Mean Corpuscular HGB Conc 33 g/dL (31-36); Mean Corpuscular Hemoglobin 29 pg (27-31); Mean Corpuscular Volume 88 fL (80-97); Mean Platelet Volume 9.7 fL (7.4-10.4); Platelet Count 207 10^3/uL (150-450); Red Blood Count 3.87 10^6 /uL (3.70-4.87); Red Cell Distribution Width 14 % (10-15); White Blood Count 14.7 10^3/uL (3.5-10.8)
[2019-05-13 16:25] LABS: ALT 19 U/L (7-52); AST 25 U/L (13-39); Albumin/Globulin Ratio 1.4 (1-3); Alkaline Phosphatase 83 U/L (34-104); Anion Gap 22 mmol/L (2-11); BUN/Creatinine Ratio 22.7 (8-20); Blood Urea Nitrogen 25 mg/dL (6-24); C Reactive Protein 16.59 mg/L (<8.01); CO2 Carbon Dioxide 16 mmol/L (22-32); Chloride 103 mmol/L (101-111); Creatine Kinase 93 U/L (10-223); EGFR African American 58.4 (>60); EGFR Non-African American 48.3 (>60); Globulin 2.8 g/dL (2-4); Glucose 339 mg/dL (70-100); Potassium 3.7 mmol/L (3.5-5.0); Sodium 141 mmol/L (135-145); Total Protein 6.8 g/dL (6.4-8.9)
--- OUTSIDE RECORDS SUMMARY | 2019-05-13 16:28 | XMS REPORT | Continuity of Care Document ---
:1940 External Reference #:[id number] Author Name PARAS Mancuso (transmitted by agent of provider Sara Greenwood) Address [address] [place] [id number] Care Team Providers Name Role Phone Coral Eller MD - Family Care Team Information Neurology Specialist [phone] Medicine Celestine Quigley MD - Family Care Team Information Neurology Specialist [phone] Medicine Zain Salcedo MD - Hematology Care Team Information Neurology Specialist Problems Active Problems Provider Date Benign essential hypertension Gt Long M.D. Onset: 05/20/2011 Type 2 diabetes mellitus Gt Long M.D. Onset: 04/27/2012 Coronary arteriosclerosis Gt Long M.D. Onset: 04/27/2012 Chronic diastolic heart failure Gt Long M.D. Onset: 04/27/2012 Difficulty breathing Gt Long M.D. Onset: 04/27/2012 Orthostatic hypotension Gt Long M.D. Onset: 12/16/2012 Postoperative Wound Closure Encounter Peng Strange M.D., [facility], Onset: 2013 [facility] Social History Type Date Description Comments Sex Unknown Tobacco Use Start: Unknown Never Smoked Cigarettes Smoking Status Reviewed: 05/12/19 Never Smoked Cigarettes ETOH Use Denies alcohol use Tobacco Use Start: Unknown Patient has never smoked Recreational Drug Use Never Used Drugs Exercise Type/Frequency Exercises sporadically Allergies, Adverse Reactions, Alerts Active Allergies Reaction Severity Comments Date Reglan tremors 07/19/2008 Lipitor increased lfts 10/15/2008 Zocor increased lfts increased lfts 10/15/2008 Lisinopril cough dizziness, cough cough dizziness 08/01/2010 dizziness Lyrica radical mood changes 10/12/2013 Medications Active Medications SIG Qnty Indications Ordering Provider Date Eliquis 1 by mouth twice 180tabs Bancaitlin Knox, 04/20/2019 5mg Tablets a day N.P. Metoprolol Tartrate 1/2 tab by mouth 45tabs Ban Sara [place], 04/20/2019 twice a day N.P. 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 Tablets Gabapentin take 1 capsule by 30caps G25.81 Lorin Harkins, 04/14/2018 100mg mouth at bedtime Capsules Coq10 1 by mouth every 90caps E78.00 Gt Pizano 07/24/2016 200mg Capsules day Zaida Long Crestor 1 tablets by 90tabs E78.00 Gt Pizano 07/24/2016 5mg Tablets mouth every day Zaida Long Centrum Silver 1 po qd 30tabs Other Ordering 02/27/2013 Provider Tablets Latanoprost 1 drop in Lt eye Other Ordering 02/27/2013 0.005% at hs Provider Solution Novolog 1 unit per 15 g 2Vials Gt Pizano 07/19/2008 100Unit/ML of carbs as Zaida Long Solution directed ( adjusted by Dr. Abraham Fish Oil 1 po bid Gt Pizano 07/19/2008 1000mg Zaida Long Capsules Lantus 7 units in am, 5 30units Edy Abraham MD 100Unit/ML units in pm Solution Meclizine 1 po tid prn 30tabs Unknown 12.5mg Tablets Ranitidine HCL 1 po bid 60caps Celestine Quigley, 150mg MD Capsules Betaxolol HCL 1 drop in lt eye 90units Unknown 0.5% q am Liquid Dorzolamide HCL 1 gtt OS twice Berto, 2% daily MD Dieudonne Solution Tramadol HCL 1/2 tablets Unknown 50mg daily as needed Tablets Soothe XP 3-4 drops/day Unknown Solution Thera Tears Allergy prn Unknown History Medications Aspir-Low take 1 tab by 90tabs E78.00 Ban S. 05/03/2019 - 81mg Tablets DR mouth daily Abilio, N.P. 05/12/2019 Hydrocortisone apply twice a day Unknown 05/02/2019 - Intensive Healing for 2 weeks or 05/12/2019 1% until resolution Cream of the irritation Immunizations Description No Information Available Vital Signs Date Vital Result Comment 05/12/2019 10:02am Height 61 inches 5'1" Weight 144.00 lb Heart Rate 75 /min BP Systolic Sitting 110 mmHg BP Diastolic Sitting 60 mmHg Body Temperature 97.6 F O2 % BldC Oximetry 97 % BMI (Body Mass Index) 27.2 kg/m2 05/03/2019 10:25am Height 61 inches 5'1" Weight 143.00 lb with shoes Heart Rate 64 /min radial,regular BP Systolic Sitting 102 mmHg LA,reg cuff BP Diastolic Sitting 52 mmHg LA,reg cuff BP Systolic Standing 88 mmHg LA,reg cuff BP Diastolic Standing 42 mmHg LA,reg cuff O2 % BldC Oximetry 97 % room air, at rest BMI (Body Mass Index) 27.0 kg/m2 Ejection Fraction 55%-60% echo 04/20/19 Results Test Acquired Date Facility Test Result H/L Range Note Lipid Profile 04/12/2019 [facility] Triglycerides 80 mg/dL 1 (Trig/Chol/HDL) [address] [place] [address] [phone] Cholesterol 159 mg/dL 2 HDL Cholesterol 65.7 mg/dL 3 LDL Cholesterol 77 mg/dL 4 Laboratory test 04/12/2019 [facility] Creatine 45 U/L Normal 10-[address] Kinase(CK) [place] [address] [phone] CBC Auto Diff 04/12/2019 [facility] White Blood 7.6 Normal 3.5 -10.[address] Count 10^3/uL [place], [place] [id number] [phone] Red Blood Count 3.74 10^6/uL Normal 3.70-4.87 Hemoglobin 11.1 g/dL Low 12.0-16.0 Hematocrit 33 % Low 35-47 Mean Corpuscular Volume 88 fL Normal 80-97 Mean Corpuscular Hemoglobin 30 pg Normal 27-31 Mean Corpuscular HGB Conc 34 g/dL Normal 31-36 Red Cell Distribution Width 14 % Normal 10-15 Platelet Count 262 10^3/uL Normal 150-450 Mean Platelet Volume 8.9 fL Normal 7.4-10.4 Abs Neutrophils 5.1 10^3/uL Normal 1.5-7.7 Abs Lymphocytes 1.3 10^3/uL Normal 1.0-4.8 Abs Monocytes 0.7 10^3/uL Normal 0-0.8 Abs Eosinophils 0.6 10^3/uL Normal 0-0.6 Abs Basophils 0.0 10^3/uL Normal 0-0.2 Abs Nucleated RBC 0.0 10^3/uL Granulocyte % 66.8 % Lymphocyte % 17.3 % Monocyte % 8.6 % Eosinophil % 7.3 % Basophil % 0.0 % Nucleated Red Blood Cells % 0.0 Laboratory test 04/12/2019 [facility] C Reactive 4.50 mg/L Normal <8.[address] [place] [address] [phone] Erythrocyte Sed Rate 50 mm/Hr High 0-29 Comp Metabolic 04/12/2019 [facility] Sodium 140 mmol/L Normal 135-[address] [place] [address] [phone] Potassium 4.0 mmol/L Normal 3.5-5.0 Chloride 108 mmol/L Normal 101-111 Co2 Carbon Dioxide 25 mmol/L Normal 22-32 Anion Gap 7 mmol/L Normal 2-11 Glucose 125 mg/dL High 70-100 Blood Urea Nitrogen 22 mg/dL Normal 6-24 Creatinine 0.83 mg/dL Normal 0.51-0.95 BUN/Creatinine Ratio 26.5 High 8-20 Calcium 9.4 mg/dL Normal 8.6-10.3 Total Protein 6.2 g/dL Low 6.4-8.9 Albumin 3.9 g/dL Normal 3.2-5.2 Globulin 2.3 g/dL Normal 2-4 Albumin/Globulin Ratio 1.7 Normal 1-3 Total Bilirubin 0.50 mg/dL Normal 0.2-1.0 Alkaline Phosphatase 98 U/L Normal 34-104 Alt 15 U/L Normal 7-52 Ast 22 U/L Normal 13-39 Egfr Non- 66.8 >60 Egfr 80.9 >60 5 Lipid Profile 02/08/2019 [facility] Triglycerides 82 mg/dL 6 (Trig/Chol/HDL) [address] [place] [address] [phone] Cholesterol 162 mg/dL 7 HDL Cholesterol 70.8 mg/dL 8 LDL Cholesterol 75 mg/dL 9 Laboratory 02/08/2019 [facility] B-Type 93 pg/mL <=100 test finding [address] [place] [address] Peptide BNP [phone] CBC Auto Diff 02/08/2019 [facility] White Blood 8.4 Normal 3.5 -10.[address] Count 10^3/uL [place], [place] [id number] [phone] Red Blood Count 3.86 10^6/uL Normal 3.70-4.87 Hemoglobin 11.2 g/dL Low 12.0-16.0 Hematocrit 34 % Low 35-47 Mean Corpuscular Volume 88 fL Normal 80-97 Mean Corpuscular Hemoglobin 29 pg Normal 27-31 Mean Corpuscular HGB Conc 33 g/dL Normal 31-36 Red Cell Distribution Width 14 % Normal 10-15 Platelet Count 251 10^3/uL Normal 150-450 Mean Platelet Volume 8.6 fL Normal 7.4-10.4 Abs Neutrophils 5.7 10^3/uL Normal 1.5-7.7 Abs Lymphocytes 1.5 10^3/uL Normal 1.0-4.8 Abs Monocytes 0.7 10^3/uL Normal 0-0.8 Abs Eosinophils 0.6 10^3/uL Normal 0-0.6 Abs Basophils 0.0 10^3/uL Normal 0-0.2 Abs Nucleated RBC 0.0 10^3/uL Granulocyte % 67.9 % Lymphocyte % 17.5 % Monocyte % 7.9 % Eosinophil % 6.6 % Basophil % 0.1 % Nucleated Red Blood Cells % 0.1 Comp Metabolic 02/08/2019 [facility] Sodium 138 mmol/L Normal 135-145 Panel [address] [place] [address] [phone] Potassium 4.0 mmol/L Normal 3.5-5.0 Chloride 104 mmol/L Normal 101-111 Co2 Carbon Dioxide 27 mmol/L Normal 22-32 Anion Gap 7 mmol/L Normal 2-11 Glucose 223 mg/dL High 70-100 Blood Urea Nitrogen 17 mg/dL Normal 6-24 Creatinine 0.74 mg/dL Normal 0.51-0.95 BUN/Creatinine Ratio 23.0 High 8-20 Calcium 9.5 mg/dL Normal 8.6-10.3 Total Protein 6.1 g/dL Low 6.4-8.9 Albumin 3.9 g/dL Normal 3.2-5.2 Globulin 2.2 g/dL Normal 2-4 Albumin/Globulin Ratio 1.8 Normal 1-3 Total Bilirubin 0.40 mg/dL Normal 0.2-1.0 Alkaline Phosphatase 97 U/L Normal 34-104 Alt 18 U/L Normal 7-52 Ast 24 U/L Normal 13-39 Egfr Non- 76.3 >60 Egfr 92.3 >60 10 Laboratory test 02/08/2019 [facility] C Reactive 4.89 mg/L Normal <8.[address] [place] [address] [phone] Erythrocyte Sed Rate 77 mm/Hr High 0-29 1 Desirable: <150 Borderline High: 150-199 High: 200-499 Very High: >500 2 Desirable: <200 Borderline High: 200-239 High: >239 3 Low: <40 Desirable: 40-60 High: >60 4 Desirable: <100 Near Optimal: 100-129 Borderline High: 130-159 High: 160-189 Very High: >189 5 Because ethnic data is not always readily [...] 15-29 5 Kidney failure <15 (or dialysis) 6 Desirable: <150 Borderline High: 150-199 High: 200-499 Very High: >500 7 Desirable: <200 Borderline High: 200-239 High: >239 8 Low: <40 Desirable: 40-60 High: >60 9 Desirable: <100 Near Optimal: 100-129 Borderline High: 130-159 High: 160-189 Very High: >189 10 Because ethnic data is not always readily [...] 15-29 5 Kidney failure <15 (or dialysis) Procedures Date Code Description Status 04/20/2019 10293 ECHO Transthorasic Realtime 2D W Doppler & Color Flow Completed Hosp 03/03/2019 13217 Treadmill Interp/Report Only Completed 03/03/2019 07166 Stress Test Supervsn W/Out I/R Completed 02/01/2019 75744 EKG Tracing & Interpretation Completed 06/15/2017 569552094 Bone Mineral Density Test Completed 10/19/2013 522841368 Bone Mineral Density Test Completed Medical Devices Description No Information Available Encounters Type Date Location Provider Dx Diagnosis Office Visit 05/03/2019 [facility] Ban SCal R94.31 Abnormal 10:30a Abilio N.P. electrocardiogram [ECG] [EKG] I48.3 Typical atrial flutter E78.00 Pure hypercholesterolemia, unspecified I25.10 Athscl heart disease of chilkat coronary artery w/o ang pctrs Office Visit 04/20/2019 11:03a [facility] Ese Castro, I48.3 Typical atrial Assoc,pc CUSTOMER FIELD REPRESENTATIVE flutter Hospitalists N17.9 Acute kidney failure, unspecified N39.0 Urinary tract infection, site not specified E10.9 Type 1 diabetes mellitus without complications E78.00 Pure hypercholesterolemia, unspecified M06.9 Rheumatoid arthritis, unspecified H40.9 Unspecified glaucoma R21 Rash and other nonspecific skin eruption K21.9 Gastro-esophageal reflux disease without esophagitis I95.9 Hypotension, unspecified Office Visit 04/19/2019 [facility] Ese Castro, I48.91 Unspecified 11:03a Assoc,pc CUSTOMER FIELD REPRESENTATIVE atrial Hospitalists fibrillation N17.9 Acute kidney failure, unspecified E10.9 Type 1 diabetes mellitus without complications N39.0 Urinary tract infection, site not specified E78.00 Pure hypercholesterolemia, unspecified M06.9 Rheumatoid arthritis, unspecified H40.9 Unspecified glaucoma R21 Rash and other nonspecific skin eruption K21.9 Gastro-esophageal reflux disease without esophagitis I95.9 Hypotension, unspecified Office Visit 02/10/2019 11:00a Rheumatology Dorota Foley M05.[address] [facility] PARAS w rheu factor mult site w/o org/sys involv M54.5 Low back pain M81.0 Age-related osteoporosis w/o current pathological fracture Z79.899 Other alf (current) drug therapy Office Visit 02/01/2019 11:00a [facility] Gt Pizano M05.79 Rheu arthritis jeanine Long M.D. rheu factor mult site w/o org/sys involv R06.02 Shortness of breath I34.0 Nonrheumatic mitral (valve) insufficiency E78.5 Hyperlipidemia, unspecified R94.31 Abnormal electrocardiogram [ECG] [EKG] I25.10 Athscl heart disease of chilkat coronary artery w/o ang pctrs R06.00 Dyspnea, unspecified Office Visit 01/02/2019 10:45a Pulmonology And Lorin G25.81 Restless legs [facility] Torin syndrome Irrigation Equipment Mechanic Assessments Date Code Description Provider 05/12/2019 M05.79 Rheumatoid arthritis with rheumatoid LeslieofiRENÉ VictorP factor of multiple sites without organ or systems involvement 05/12/2019 M81.0 Age-related osteoporosis without Zsofia Og, ELECTRONIC SEMICONDUCTOR PROCESSOR current pathological fracture 05/12/2019 Z79.01 oysterman (current) use of Zsofia Og, ELECTRONIC SEMICONDUCTOR PROCESSOR anticoagulants 05/12/2019 Z79.899 Other adjunct faculty for medical terminology (current) drug therapy Zsofia Og, ELECTRONIC SEMICONDUCTOR PROCESSOR 05/03/2019 R94.31 Abnormal electrocardiogram [ECG] [EKG] Ban Knox, N.P. 05/03/2019 I48.3 Typical atrial flutter Ban Knox, N.P. 05/03/2019 E78.00 Pure hypercholesterolemia, unspecified Ban Knox, N.P. 05/03/2019 I25.10 Atherosclerotic heart disease of Ban Knox, N.P. chilkat coronary artery without angina pectoris 04/20/2019 R94.31 Abnormal electrocardiogram [ECG] [EKG] Jones Chapin M.D. 04/20/2019 I48.3 Typical atrial flutter Ese Castro NP 04/20/2019 N17.9 Acute kidney failure, unspecified Ese Castro NP 04/20/2019 N39.0 Urinary tract infection, site not Ese Castro NP specified 04/20/2019 E10.9 Type 1 diabetes mellitus without Ese Castro NP complications 04/20/2019 E78.00 Pure hypercholesterolemia, unspecified Ese Castro NP 04/20/2019 M06.9 Rheumatoid arthritis, unspecified Ese Castro NP 04/20/2019 H40.9 Unspecified glaucoma Ese Castro NP 04/20/2019 R21 Rash and other nonspecific skin Ese Castro NP eruption 04/20/2019 K21.9 Gastro-esophageal reflux disease Ese Castro NP without esophagitis 04/20/2019 I95.9 Hypotension, unspecified Ese Castro NP 04/19/2019 I48.91 Unspecified atrial fibrillation Ese Castro NP 04/19/2019 N17.9 Acute kidney failure, unspecified Ese Castro NP 04/19/2019 E10.9 Type 1 diabetes mellitus without Ees Castro NP complications 04/19/2019 N39.0 Urinary tract infection, site not Ese Castro NP specified 04/19/2019 E78.00 Pure hypercholesterolemia, unspecified Ese Castro NP 04/19/2019 M06.9 Rheumatoid arthritis, unspecified Ese Castro, CHAPIS 04/19/2019 H40.9 Unspecified glaucoma Ese Castro NP 04/19/2019 R21 Rash and other nonspecific skin Ese Castro NP eruption 04/19/2019 K21.9 Gastro-esophageal reflux disease Ese Castro NP without esophagitis 04/19/2019 I95.9 Hypotension, unspecified Ese Castro NP 03/03/2019 I25.10 Atherosclerotic heart disease of Gt Long M.D. chilkat coronary artery without angina pectoris 02/10/2019 M05.79 Rheumatoid arthritis with rheumatoid PARAS Mancuso factor of multiple site 02/10/2019 M54.5 Low back pain PARAS Mancuso 02/10/2019 M81.0 Age-related osteoporosis without Leslieofia PARAS Foley current pathological fractu 02/10/2019 Z79.899 Other adjunct faculty for medical terminology (current) drug therapy PARAS Mancuso 02/01/2019 M05.79 Rheumatoid arthritis with rheumatoid Gt Long M.D. factor of multiple site 02/01/2019 R06.02 Shortness of breath Gt Long M.D. 02/01/2019 I34.0 Nonrheumatic mitral (valve) Gt Long M.D. insufficiency 02/01/2019 E78.5 Hyperlipidemia, unspecified Gt Long M.D. 02/01/2019 R94.31 Abnormal electrocardiogram [ECG] [EKG] Gt Long M.D. 02/01/2019 I25.10 Coronary atherosclerosis Gt Long M.D. 02/01/2019 R06.00 Dyspnea Gt Long M.D. 01/02/2019 G25.81 Restless legs syndrome Lorin Harkins MD Plan of Treatment Future Appointment(s):09/01/2019 10:00 am - PARAS Mancuso at [facility]11/07/2019 10:40 am - Gt Long M.D. at [facility]07/12/2019 11:00 am - Ban Knox N.P. at [facility]2018 - RENÉ MancusoPM05.79 Rheumatoid arthritis with rheumatoid factor of multiple sites without organ or systems involvementComments:Your arthritis seems to be clinically and symptomatically well controlled at this time.Your inflammatory markers are within normal range.Your latest laboratory tests indicate no detectable impairment of kidney and liver functions.Please, continue with the present dose of leflunomide Continue with regular blood tests. You will need to have a blood test early July.Please call the office if you develop any sign or symptoms of infection or acute change in your health.Follow up:late August labs early or mid CmkgxuxoQ67.0 Age-related osteoporosis without current pathological fractureComments:We discussed to try to get dairy instead of the supplementWill continue on vitamin D supplement Please take 1000 IU/day doseZ79.01 FPC (current) use of anticoagulantsComments:Please continue on the Eliquis and Aspirin as recommended by cardiology.Please avoid any DHFBEB74.899 Other adjunct faculty for medical terminology (current ) drug therapy Functional Status Description No Information Available Mental Status Description No Information Available Referrals Description No Information Available
--- OUTSIDE RECORDS SUMMARY | 2019-05-13 16:28 | XMS REPORT | Continuity of Care Document ---
:1940 External Reference #:[id number] Author Name Ban Knox N.P. (transmitted by agent of provider Melecio Arias) Address [address] [place] [address] Care Team Providers Name Role Phone Coral Eller MD - Family Care Team Information Bit Tapper [phone] Medicine Celestine Quigley MD - Family Care Team Information Bit Tapper [phone] Medicine Zain Salcedo MD - Hematology Care Team Information Bit Tapper Problems Active Problems Provider Date Benign essential hypertension Gt Long M.D. Onset: 05/20/2011 Type 2 diabetes mellitus Gt Long M.D. Onset: 04/27/2012 Coronary arteriosclerosis Gt Long M.D. Onset: 04/27/2012 Chronic diastolic heart failure Gt Long M.D. Onset: 04/27/2012 Difficulty breathing Gt Long M.D. Onset: 04/27/2012 Orthostatic hypotension Gt Long M.D. Onset: 12/16/2012 Postoperative Wound Closure Encounter Peng Strange M.D., [facility], Onset: 2013 PSYCHIATRIC Social History Type Date Description Comments Sex Unknown Tobacco Use Start: Unknown Never Smoked Cigarettes Smoking Status Reviewed: 05/03/19 Never Smoked Cigarettes ETOH Use Denies alcohol [...] Medications SIG Qnty Indications Ordering Date Provider Aspir-Low take 1 tab by 90tabs E78.00 Ban Knox, 05/03/[address] mouth daily N.P. Hydrocortisone apply twice a day Unknown 05/02/2019 Intensive Healing for 2 weeks or 1% until resolution Cream of the irritation Eliquis 1 by mouth twice 180tabs Ban Knox, 04/20/2019 5mg Tablets a day N.P. Metoprolol Tartrate 1/2 tab by mouth 45tabs Ban Knox, 04/20/2019 25mg twice a day N.P. 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 Tablets Gabapentin take 1 capsule by 30caps G25.81 Lorin Harkins, 04/14/2018 100mg Capsules mouth at bedtime Coq10 1 by mouth every 90caps E78.00 Gt Pizano 07/24/2016 200mg Capsules day Zaida Long Crestor 1 tablets by 90tabs E78.00 Gt Pizano 07/24/2016 5mg Tablets mouth every day Zaida Long Centrum Silver 1 po qd 30tabs Other Ordering 02/27/2013 Tablets Provider Latanoprost 1 drop in Lt eye Other Ordering 02/27/2013 0.005% at hs Provider Solution Novolog 1 unit per 15 g 2Vials Gt Pizano 07/19/2008 100Unit/ML of carbs as Zaida Long Solution directed ( adjusted by Dr. Abraham Fish Oil 1 po bid Gt Pizano 07/19/2008 1000mg Capsules Zaida Long Calcium 500/D bid 60tabs M81.0 Gt Pizano 07/19/2008 500/D Zaida Long Tablets Lantus 7 units in am, 5 30units Edy Abraham MD 100Unit/ML units in pm Solution Meclizine 1 po tid prn 30tabs Unknown 12.5mg Tablets Ranitidine HCL 1 po bid 60caps Celestine Quigley 150mg A., Capsules Betaxolol HCL 1 drop in lt eye 90units Unknown 0.5% Liquid q am Dorzolamide HCL 1 gtt OS twice BrooksPa breaux, 2% daily MD Solution Tramadol HCL 1/2 tablets Unknown 50mg Tablets daily as needed Soothe XP 3-4 drops/day Unknown Solution Thera Tears Allergy prn Unknown Immunizations Description No Information Available Vital Signs Date Vital Result Comment 05/03/2019 10:25am Height 61 inches 5'1" Weight [...] 27.0 kg/m2 Ejection Fraction 55%-60% echo 04/20/19 02/10/2019 11:10am Height 61 inches 5'1" Weight 142.00 lb Heart Rate 85 /min BP Systolic 128 mmHg BP Diastolic 76 mmHg O2 % BldC Oximetry 100 % BMI (Body Mass Index) 26.8 kg/m2 Results Test Acquired Date Facility Test Result H/L Range Note Lipid Profile 04/12/2019 [facility] Triglycerides 80 mg/dL 1 (Trig/Chol/HDL) [address] [place] [address] [phone] Cholesterol 159 mg/dL 2 HDL Cholesterol 65.7 mg/dL 3 LDL Cholesterol 77 mg/dL 4 Laboratory test 04/12/2019 [facility] Creatine 45 U/L Normal 10-[address] Kinase(CK) [place], [place] [id number] [phone] CBC Auto Diff 04/12/2019 [facility] White Blood 7.6 Normal 3.5 -10.[address] Count 10^3/[place] [address] [phone] Red Blood Count 3.74 10^6/uL Normal 3.70-4.87 [...] Blood Cells % 0.0 Laboratory test 04/12/2019 [facility] C Reactive 4.50 mg/L Normal <8.[address] [place] [address] [phone] Erythrocyte Sed Rate 50 mm/Hr High 0-29 Comp Metabolic 04/12/2019 [facility] Sodium 140 mmol/L Normal 135-[address] [place] [address] [phone] Potassium 4.0 mmol/L Normal 3.5-5.0 Chloride 108 [...] Egfr 80.9 >60 5 Lipid Profile 02/08/2019 [facility] Triglycerides 82 mg/dL 6 (Trig/Chol/HDL) [address] [place] [address] [phone] Cholesterol 162 mg/dL 7 HDL Cholesterol 70.8 mg/dL 8 LDL Cholesterol 75 mg/dL 9 Laboratory 02/08/2019 [facility] B-Type 93 pg/mL <=100 test finding [address] [place] [address] Peptide BNP [phone] CBC Auto Diff 02/08/2019 [facility] White Blood 8.4 Normal 3.5 -10.[address] Count 10^3/[place] [address] [phone] Red Blood Count 3.86 10^6/uL Normal 3.70-4.87 [...] Blood Cells % 0.1 Comp Metabolic 02/08/2019 [facility] Sodium 138 mmol/L Normal 135-145 Panel [address] [place] [address] [phone] Potassium 4.0 mmol/L Normal 3.5-5.0 Chloride 104 [...] Egfr 92.3 >60 10 Laboratory test 02/08/2019 [facility] C Reactive 4.89 mg/L Normal <8.[address] [facility] [place] [address] [phone] Erythrocyte Sed Rate 77 mm/Hr High 0-29 [...] dialysis) Procedures Date Code Description Status 04/20/2019 11071 ECHO Transthorasic Realtime 2D W Doppler & Color Flow Completed Hosp 03/03/2019 73896 Treadmill Interp/Report Only Completed 03/03/2019 49427 Stress Test Supervsn W/Out I/R Completed 02/01/2019 98806 EKG Tracing & Interpretation Completed 06/15/2017 702068604 Bone Mineral Density Test Completed 10/19/2013 998442534 Bone Mineral Density Test Completed Medical Devices Description No Information Available Encounters Type Date Location Provider Dx Diagnosis Office Visit 05/03/2019 [facility] Ban Clemente94.31 Abnormal 10:30a Abilio N.P. electrocardiogram [ECG] [EKG] I48.3 Typical atrial flutter E78.00 Pure hypercholesterolemia, unspecified I25.10 Athscl heart disease of [place] coronary artery w/o ang pctrs [facility] Typical atrial Assoc,pc [employer] flutter Hospitalists N17.9 Acute kidney failure, unspecified N39.0 Urinary tract infection, site not specified E10.9 Type 1 diabetes mellitus without complications E78.00 Pure hypercholesterolemia, unspecified M06.9 Rheumatoid arthritis, unspecified H40.9 Unspecified glaucoma R21 Rash and other nonspecific skin eruption K21.9 Gastro-esophageal reflux disease without esophagitis I95.9 Hypotension, unspecified [facility] I48.91 Unspecified 11:03a Assoc,pc [employer] atrial Hospitalists fibrillation N17.9 Acute kidney failure, unspecified E10.9 Type 1 diabetes mellitus without complications N39.0 Urinary tract infection, site not specified E78.00 Pure hypercholesterolemia, unspecified M06.9 Rheumatoid arthritis, unspecified H40.9 Unspecified glaucoma R21 Rash and other nonspecific skin eruption K21.9 Gastro-esophageal reflux disease without esophagitis I95.9 Hypotension, unspecified Office Visit 02/10/2019 11:00a Rheumatology Dorota Foley, M05.79 Rheu arthritis Services Of [facility] w rheu factor mult site w/o org/sys involv M54.5 Low back pain M81.0 Age-related osteoporosis w/o current pathological fracture Z79.899 Other assistant terminal manager (current) drug therapy Office Visit 02/01/2019 11:00a [facility] Gt Pizano M05.79 Rheu arthritis jeanine Long M.D. 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 05/03/2019 I48.3 Typical atrial flutter Ban Knox, N.P. 05/03/2019 E78.00 Pure hypercholesterolemia, unspecified Ban Knox, N.P. 05/03/2019 I25.10 Atherosclerotic heart disease of Ban Knox, N.P. [place] coronary artery without angina pectoris 04/20/2019 R94.31 [...] 04/19/2019 E10.9 Type 1 diabetes mellitus without Ese Castro NP complications 04/19/2019 N39.0 Urinary tract infection, site not Ese Castro NP specified 04/19/2019 E78.00 Pure hypercholesterolemia, unspecified Ese Castro NP 04/19/2019 M06.9 Rheumatoid arthritis, unspecified Ese Castro NP 04/19/2019 H40.9 Unspecified glaucoma Ese Castro NP 04/19/2019 R21 Rash and other nonspecific skin Ese Castro NP eruption 04/19/2019 K21.9 Gastro-esophageal reflux disease Ese Castro NP without esophagitis 04/19/2019 I95.9 Hypotension, unspecified Ese Castro NP 03/03/2019 I25.10 Atherosclerotic heart disease of Gt Long M.D. 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 at [facility]07/12/2019 11:00 am - Ban Knox, N.PCal at [facility]2018 10:00 am - PARAS Mancuso at Rheumatology Services [facility]05/03/2019 - Ban Knox, N.P.R94.31 Abnormal electrocardiogram [ECG] [EKG]I48.3 Typical atrial flutterNew Orders:[facility], Ordered: Follow up:OV Ban after EM monitor (1-2m) [facility] 11/2019Recommendations: Decrease metoprolol to 1/2 (25mg) tab daily Have event monitor to assess for afib.E78.00 Pure hypercholesterolemia, unspecifiedNew Medication:Aspir-Low 81 mg - take 1 tab by mouth dailyRecommendations:lipids at goal RESTART ASAI25.10 Atherosclerotic heart disease of [place] coronary artery without angina pectoris Functional Status Description No Information Available Mental Status Description No Information Available Referrals Refer to Reason for Referral Status Appt Date Edy Abraham MD Sent [address] [place] [address] [phone]
--- OUTSIDE RECORDS SUMMARY | 2019-05-13 16:28 | XMS REPORT | Continuity of Care Document ---
:1940 External Reference #:[id number] Author Name Adrián Barcenas Care Team Providers Name Role Phone Coral Eller MD - Family Care Team Information Food Service Technician [phone] Medicine Celestine Quigley MD - Family Care Team Information Food Service Technician [phone] Medicine Zain Salcedo MD - Hematology Care Team Information Food Service Technician [phone] Problems Active Problems Provider Date Benign essential hypertension Gt Long M.D. Onset: 05/20/2011 Type 2 diabetes mellitus Gt Long M.D. Onset: 04/27/2012 Coronary arteriosclerosis Gt Long M.D. Onset: 04/27/2012 Chronic diastolic heart failure Gt Long M.D. Onset: 04/27/2012 Difficulty breathing Gt Long M.D. Onset: 04/27/2012 Orthostatic hypotension Gt Long M.D. Onset: 12/16/2012 Postoperative Wound Closure Encounter Peng Strange M.D., [facility], Onset: 2013 [facility] Social History Type Date Description Comments Sex Unknown Tobacco Use Start: Unknown Never Smoked Cigarettes Smoking Status Reviewed: 02/10/19 Never Smoked Cigarettes ETOH Use Denies alcohol [...] Medications SIG Qnty Indications Ordering Date Provider Leflunomide Take 1 Tablet 90tabs M05.79 Dorota Foley, 02/10/2019 20mg Every Day TOWER OBSERVER Tablets Midodrine HCL Take 1 Tablet 270tabs I95.1 Ban Knox, 08/04/2018 2.5mg Three Times Daily N.P. Tablets Gabapentin take 1 capsule by 30caps G25.81 Lorinsteve Trippali, 04/14/2018 100mg mouth at bedtime Capsules Coq10 1 by mouth every 90caps E78.00 Gt Cal 07/24/2016 200mg Capsules day Zaida Long Crestor 2 tablets by mouth 90tabs E78.00 Gt Cal 07/24/2016 5mg Tablets every day Zaida Long Aspirin 1/2 tablet po qd Gt Pizano 02/27/2013 325mg Tablets Zaida Long Centrum Silver 1 po qd 30tabs Other Ordering 02/27/2013 Provider Tablets Latanoprost 1 drop in Lt eye Other Ordering 02/27/2013 0.005% at hs Provider Solution Novolog 1 unit per 15 g of 2Vials Gt Pizano 07/19/2008 100Unit/ML carbs as directed Zaida Long Solution ( adjusted by Dr. Abraham Fish Oil 1 po bid Gt Pizano 07/19/2008 1000mg Zaida Long Capsules Calcium 500/D bid 60tabs M81.0 Gt Pizano 07/19/2008 500/D Zaida Long Tablets Lantus 5 units as 30units Edy Abraham MD 100Unit/ML directed Solution Meclizine 1 po tid prn 30tabs Unknown 12.5mg Tablets Ranitidine HCL 1 po bid 60caps Celestine Quigley 150mg MD Abril Capsules Betaxolol HCL 1 drop in lt eye q 90units Unknown 0.5% am Liquid Dorzolamide HCL 1 gtt OS twice Pa Brooks, 2% daily MD Solution Tramadol HCL 1/2 tablets daily Unknown 50mg as needed Tablets Epogen Medication is on Unknown 2000Unit/ML hold Solution Soothe XP 3-4 drops/day Unknown Solution Thera Tears Allergy prn Unknown Immunizations Description No Information Available Vital Signs Date Vital Result Comment 02/10/2019 11:10am Height 61 inches 5'1" Weight 142.00 lb Heart Rate 85 /min BP Systolic 128 mmHg BP Diastolic 76 mmHg O2 % BldC Oximetry 100 % BMI (Body Mass Index) 26.8 kg/m2 02/01/2019 10:48am Height 61 inches 5'1" Weight 147.38 lb Heart Rate 72 /min BP Systolic Sitting 138 mmHg LA< reg BP Diastolic Sitting 82 mmHg LA< reg BMI (Body Mass Index) 27.8 kg/m2 Ejection Fraction 55%-60% 08/26/18 echo Results Test Acquired Date Facility Test Result H/L Range Note Lipid Profile 04/12/2019 [facility] Triglycerides 80 mg/dL 1 (Trig/Chol/HDL) [address] [place] [address] [phone] Cholesterol 159 mg/dL 2 HDL Cholesterol 65.7 mg/dL 3 LDL Cholesterol 77 mg/dL 4 Laboratory test 04/12/2019 [facility] Creatine 45 U/L Normal 10-[address] Kinase(CK) [place] [address] [phone] CBC Auto Diff 04/12/2019 [facility] White Blood 7.6 Normal 3.5 -10.[address] Count 10^3/uL [place], [place] [address] [phone] Red Blood Count 3.74 10^6/uL Normal 3.70-4.87 [...] Blood Cells % 0.0 Laboratory test 04/12/2019 [facility] C Reactive 4.50 mg/L Normal <8.[address] [facility] [place] [address] [phone] Erythrocyte Sed Rate 50 mm/Hr High 0-29 Comp Metabolic 04/12/2019 [facility] Sodium 140 mmol/L Normal 135-145 Panel [address] [place] [address] [phone] Potassium 4.0 mmol/L Normal 3.5-5.0 Chloride 108 [...] Egfr 80.9 >60 5 Lipid Profile 02/08/2019 [facility] Triglycerides 82 mg/dL 6 (Trig/Chol/HDL) [address] [place] [address] [phone] Cholesterol 162 mg/dL 7 HDL Cholesterol 70.8 mg/dL 8 LDL Cholesterol 75 mg/dL 9 Laboratory 02/08/2019 [facility] B-Type 93 pg/mL <=[address] [place] [address] Peptide BNP [phone] CBC Auto Diff 02/08/2019 [facility] White Blood 8.4 Normal 3.5 -10.[address] Count 10^3/[place] [address] [phone] Red Blood Count 3.86 10^6/uL Normal 3.70-4.87 [...] Blood Cells % 0.1 Comp Metabolic 02/08/2019 [facility] Sodium 138 mmol/L Normal 135-[address] [place] [address] [phone] Potassium 4.0 mmol/L Normal 3.5-5.0 Chloride 104 [...] Egfr 92.3 >60 10 Laboratory test 02/08/2019 [facility] C Reactive 4.89 mg/L Normal <8.[address] [place] [address] [phone] Erythrocyte Sed Rate 77 mm/Hr High 0-29 [...] (or dialysis) Procedures Date Code Description Status 03/03/2019 81800 Treadmill Interp/Report Only Completed 03/03/2019 96813 Stress Test Supervsn W/Out I/R Completed 02/01/2019 12795 EKG Tracing & Interpretation Completed 06/15/2017 [id number] Bone Mineral Density Test Completed 10/19/2013 [id number] Bone Mineral Density Test Completed Medical Devices Description No Information Available Encounters Type Date Location Provider Dx Diagnosis Office Visit 04/20/2019 [facility] Ese Castro, I48.3 Typical atrial 11:03a Assoc,pc CITY CLERK flutter Hospitalists N17.9 Acute kidney failure, unspecified N39.0 Urinary tract infection, site not specified E10.9 Type 1 diabetes mellitus without complications E78.00 Pure hypercholesterolemia, unspecified M06.9 Rheumatoid arthritis, unspecified H40.9 Unspecified glaucoma R21 Rash and other nonspecific skin eruption K21.9 Gastro-esophageal reflux disease without esophagitis I95.9 Hypotension, unspecified Office Visit 04/19/2019 [place] Prieto Castro, I48.91 Unspecified 11:03a Assoc,pc CITY CLERK atrial Hospitalists fibrillation N17.9 Acute kidney failure, unspecified E10.9 Type 1 diabetes mellitus without complications N39.0 Urinary tract infection, site not specified E78.00 Pure hypercholesterolemia, unspecified M06.9 Rheumatoid arthritis, unspecified H40.9 Unspecified glaucoma R21 Rash and other nonspecific skin eruption K21.9 Gastro-esophageal reflux disease without esophagitis I95.9 Hypotension, unspecified Office Visit 02/10/2019 11:00a Rheumatology Dorota Foley M05.79 Rheu arthritis Services Of [facility] rheu factor [facility] w/o org/sys involv M54.5 Low back pain M81.0 Age-related osteoporosis w/o current pathological fracture Z79.899 Other prison (current) drug therapy Office Visit 02/01/2019 11:00a [facility] Gt Pizano M05.79 Rheu arthritis w Zaida Long rheu factor [facility] site w/o org/sys involv R06.02 Shortness of breath I34.0 Nonrheumatic mitral (valve) insufficiency E78.5 Hyperlipidemia, unspecified R94.31 Abnormal electrocardiogram [ECG] [EKG] I25.10 Athscl heart disease of [place] coronary artery w/o ang pctrs R06.00 Dyspnea, unspecified Office Visit 01/02/2019 10:45a Pulmonology And Lorin G25.81 Restless legs Sleep Services Of [facility] Torin [facility] Office Visit 11/08/2018 10:30a Rheumatology Dorota Foley M05.79 Rheu arthritis Services Of [facility] rheu factor [facility] w/o org/sys involv M81.0 Age-related osteoporosis w/o current pathological fracture Z79.899 Other prison (current) drug therapy Assessments Date Code Description Provider 04/20/2019 I48.3 Typical atrial flutter Ese Castro [...] 04/20/2019 R21 Rash and other nonspecific skin eruption Ese Castro, CHAPIS 04/20/2019 K21.9 Gastro-esophageal reflux disease without Ese Castro NP esophagitis 04/20/2019 I95.9 Hypotension, unspecified Ese Castro, CITY CLERK 04/19/2019 I48.91 Unspecified atrial fibrillation Ese Castro NP 04/19/2019 N17.9 Acute kidney failure, unspecified Ese Castro, CHAPIS 04/19/2019 E10.9 Type 1 diabetes mellitus without Ese Castro NP complications 04/19/2019 N39.0 Urinary tract infection, site not Ese Castro NP specified 04/19/2019 E78.00 Pure hypercholesterolemia, unspecified Ese Castro, CHAPIS 04/19/2019 M06.9 Rheumatoid arthritis, unspecified Ese Castro, CHAPIS 04/19/2019 H40.9 Unspecified glaucoma Ese Castro, CHAPIS 04/19/2019 R21 Rash and other nonspecific skin eruption Ese Castro, CHAPIS 04/19/2019 K21.9 Gastro-esophageal reflux disease without Ese Castro NP esophagitis 04/19/2019 I95.9 Hypotension, unspecified Ese Castro, CITY CLERK 03/03/2019 I25.10 Atherosclerotic heart disease of [place] Gt Long M.D. 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 factor of multiple site 02/01/2019 R06.02 Shortness of breath Gt Long M.D. 02/01/2019 I34.0 Nonrheumatic mitral (valve) insufficiency Gt Long M.D. 02/01/2019 E78.5 Hyperlipidemia, unspecified Gt Long M.D. 02/01/2019 R94.31 Abnormal electrocardiogram [ECG] [EKG] Gt Long M.D. 02/01/2019 I25.10 Coronary atherosclerosis Gt Long M.D. 02/01/2019 R06.00 Dyspnea Gt Long M.D. 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 PARAS Mancuso factor of multiple site 11/08/2018 M81.0 Age-related osteoporosis without current PARAS Mancuso pathological fractu 11/08/2018 Z79.899 Other manager intermediate (current) drug therapy PARAS Mancuso Plan of Treatment Future Appointment(s):05/12/2019 10:00 am - PARAS Mancuso at [facility]02/10/2019 - RENÉ MancusoPM05.79 Rheumatoid arthritis with rheumatoid factor of multiple siteNew Medication:Leflunomide 20 mg - Take 1 Tablet Every DayComments:Please increase the leflunomide to 20 mg/day by taking 2 tabs daily until the 10 mg pills are gone, then start taking the 20 mg tabs once daily.Follow up:3 gnxzcM47.5 Low back painComments:I recommend that you make sure that you have a good posture so that you do not have increased pressure on the zljfaD40.0 Age-related osteoporosis without current pathological sadcfgE03.899 Other prison (current) drug therapyComments: Please be sure to get the flu shot late February or early March. Functional Status Description No Information Available Mental Status Description No Information Available Referrals Refer to Reason for Referral Status Appt Date Edy Abraham MD Sent [address] [place] [address] [phone]
[2019-05-13] MEDS ORDERED: NS 0.9% 1000 ML** 1,000 ML IV ONE ×2 (16:57→17:33)
[2019-05-13] MEDS ORDERED: Insulin Infusion 100unit/100mL 100 UNITS/100 ML UNIT IV SCH ×2 (17:00→18:00)
[2019-05-13] MEDS ORDERED: diPHENhydraMINE PO* 50 MG PO PRN (18:38)
[2019-05-13] MEDS: Ondansetron INJ* 2 MG/ML VIAL IV SCH (19:20)
[2019-05-13 19:55] LABS: Hematocrit 31 % (35-47); Hemoglobin 10.2 g/dL (12.0-16.0); Mean Corpuscular HGB Conc 33 g/dL (31-36); Mean Corpuscular Hemoglobin 29 pg (27-31); Mean Corpuscular Volume 88 fL (80-97); Mean Platelet Volume 9.2 fL (7.4-10.4); Platelet Count 178 10^3/uL (150-450); Red Blood Count 3.52 10^6 /uL (3.70-4.87); Red Cell Distribution Width 14 % (10-15); White Blood Count 11.6 10^3/uL (3.5-10.8)
[2019-05-13 20:13] LABS: BUN/Creatinine Ratio 21.5 (8-20); Calcium 7.6 mg/dL (8.6-10.3); EGFR African American 85.6 (>60); EGFR Non-African American 70.8 (>60); Potassium 3.3 mmol/L (3.5-5.0)
[2019-05-13] MEDS: cefTRIAXone(*) 1 GM in NS 0.9% 50 ML* 50 ML IVPB SCH (20:45)
[2019-05-13] MEDS: PROCHLORPERAZINE INJ 5 MG/ML 2 ML VIAL IV PRN (20:58)
[2019-05-13] MEDS ORDERED: Famotidine IV* 10 MG/ML 2 ML (20 mg) IVPB SCH (21:00)
--- NOTE | 2019-05-13 21:35 | HP ---
HISTORY AND PHYSICAL: DATE OF ADMISSION: 05/13/19 ATTENDING PHYSICIAN: Outside Hospital, Dr. Quigley. CHIEF COMPLAINT: High blood sugar. HISTORY OF PRESENT ILLNESS: The patient is a 78-year-old female with multiple admissions in the past. The patient presents for evaluation of high blood sugar. The patient reports that she has seen a plate take out worker yesterday for followup of her rheumatoid arthritis. She checked her blood sugar in the evening, which was found to be within normal limits. The patient reports that she checked her blood sugar this morning at 8 a.m. and was found to be 432. The patient has also had nausea, vomiting since she came into the ED. The patient reports no fevers or chills at home. The patient denies any urinary complaints. The patient denies headaches, fever, chills, or rash. The patient denies abdominal pain. The patient has chronic pain from rheumatoid arthritis and back pain. The patient has history of dyspnea since her lung cancer and lobectomy. The patient also has history of breast cancer status post right mastectomy. The patient was noted to have elevated blood sugar in the ED at 339. She was noted to have elevated anion gap at 22. The patient also noted to have acidosis with bicarb of 16. The patient noted to have elevated lactate at 5.1. ICU admission was requested for DKA. The patient seen and examined at bedside. The patient reported nausea and episode of vomiting in the ED. The patient reports significant anxiety and is tearful about her sugar being elevated even though it was normal yesterday evening. The patient was given 3 L of IV fluids and started on insulin drip. PAST MEDICAL HISTORY: 1. Diabetes type 1. 2. Hypercholesterolemia. 3. Hypertension. 4. Cardiac cath in 2011 and 2013. 5. Rheumatoid arthritis. 6. Bursitis. 7. Back problem. 8. Right eye enucleation. 9. 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 10. Lung cancer. 11. Breast cancer. PAST SURGICAL HISTORY: 1. Bilateral vitrectomies. 2. Cholecystectomy. 3. Left small toe amputation. 4. . 5. Right partial lobectomy in 1976. 6. Right mastectomy. 7. Oophorectomy. 8. Six eye surgeries. 9. The patient had recent hospitalization for dizziness and was placed in observation for 1 night. MEDICATIONS AT HOME: 1. Insulin. 2. Midodrine. 3. Leflunomide. 4. Gabapentin. 5. Tramadol. 6. Coenzyme Q. 7. Rosuvastatin. 8. Mineral oil eye drops. 9. TheraTears. 10. Dorzolamide. 11. Latanoprost. 12. Insulin. 13. Betaxolol. 14. Calcium carbonate/Vitamin D. 15. Ranitidine. 16. [place]-3. 17. Meclizine. 18. Insulin. 19. Aspirin. 20. Diphenhydramine. 21. Multivitamins. 22. Hydrocortisone. ALLERGIES: ATORVASTATIN, LISINOPRIL, METOPROLOL, PREGABALIN, SIMVASTATIN. FAMILY HISTORY: Mother has cardiac disease. Father with thyroid disease and emphysema. SOCIAL HISTORY: Denies tobacco, alcohol, or drug abuse. Lives alone in a trailer. REVIEW OF SYSTEMS: All 12-point system review is negative other than stated in HPI. PHYSICAL EXAMINATION GENERAL: The patient in bed in mild distress secondary to nausea. VITAL SIGNS: Temperature 98, pulse 101 beats per minute, respiratory rate 18 per minute, O2 sat 97% on room air, blood pressure 105/55. HEENT: Pupils equal and reactive to light. Mucous membranes are moist. LUNGS: Good air entry bilaterally. Clear to auscultation. CARDIOVASCULAR: S1, S2 present, tachycardic. ABDOMEN: Soft, nontender, nondistended. Bowel sounds present. EXTREMITIES: Normal range of motion. SKIN: Some excoriation present in the left chest area. NEURO: Alert, awake, oriented x3. No focal deficits. LABORATORY DATA: WBC count 14.7, hemoglobin 11.3, hematocrit 34, platelet count 207,000. Blood gas analysis showed pH of 7.5, PCO2 of 20, PO2 of 158, O2 sat 98%. Sodium 141, potassium 3.7, chloride 103, bicarb 16, BUN 25, creatinine 1.10. Lactic acid 5.1. UA is pending at this time. Chest x-ray performed in the emergency room was personally reviewed by me - no focal airspace opacities. EKG showed evidence of sinus tachycardia with incomplete right bundle-branch block. No acute ST-T wave changes. ASSESSMENT AND PLAN: 1. 78-year-old female with multiple medical problems, recent hospitalization on 04/09/19 and discharged within 24 hours with diagnosis of paroxysmal atrial fibrillation, acute kidney injury, and urinary tract infection. The patient presents for evaluation of elevated blood sugar at 400 at home. The patient's blood sugar around 339 in the hospital. The patient also with elevated anion gap and low bicarb and elevated lactate concerning for possible diabetic ketoacidosis in the setting of urinary tract infection. The patient admitted to ICU for management of diabetic ketoacidosis. The patient received 3 L of fluid. The patient started on insulin drip. The patient with nausea and vomiting was initiated on Zofran. The patient currently on insulin drip. Continue with fluid hydration. White count is elevated. No source of sepsis identified at this time. Lactate is elevated. Will repeat lactate in 3 hours. The patient's blood pressure has been stable. She has been slightly tachycardic. She has been requiring O2 supplementation at 2 L per minute. The patient with acute renal failure likely secondary to dehydration. UA pending at this time. The patient is n.p.o. currently. We will hold other medications until she has anion gap that is closed. 2. DVT prophylaxis. Will start on Lovenox. 3. Anemia stable. TIME SPENT: Total time spent in admission history and physical, 45 minutes. [id number]/[facility] #: [id number] RAJ
[2019-05-13] MEDS ORDERED: NS 0.9% w/ 40 Meq KCL 1000 ML* 1,000 ML IV SCH (22:00)
[2019-05-13 22:14] LABS: Urine Appearance Clear; Urine Bilirubin Negative (Negative); Urine Blood 1+ (Negative); Urine Color Straw; Urine Glucose 3+(>=500 mg/dL) (Negative); Urine Ketones 1+ (Negative); Urine Nitrite Negative (Negative); Urine Protein Negative (Negative); Urine Urobilinogen Negative (Negative)
[2019-05-13 22:16] LABS: Urine Bacteria Absent (Absent); Urine Red Blood Cell Trace(0-2/hpf) (Absent); Urine Squamous Epithelial Cell Present (Absent); Urine White Blood Cell 3+(>20/hpf) (Absent)
[2019-05-13] MEDS ORDERED: Gabapentin CAP(*) 100 MG PO ONE (22:30)
[2019-05-13] MEDS: D5W 1/2 NS 40 Meq KCL 1000 ML* 1,000 ML IV SCH (23:15)
[2019-05-14] MEDS: Apixaban* 5 MG TAB PO SCH ×3 (00:11→21:37)
[2019-05-14] MEDS: Latanoprost 0.005%* 2.5 ml BTL LEFT EYE SCH ×2 (00:14→21:40)
[2019-05-14] MEDS: traMADol TAB* 50 MG PO SCH ×3 (00:15→21:37)
[2019-05-14] MEDS: Ondansetron INJ* 2 MG/ML VIAL IV SCH ×7 (00:15→21:02)
[2019-05-14 01:00] LABS: Calcium 7.9 mg/dL (8.6-10.3); EGFR African American 84.4 (>60); EGFR Non-African American 69.7 (>60); Potassium 3.1 mmol/L (3.5-5.0)
[2019-05-14] MEDS ORDERED: Insulin GLARGINE(*) 1 UNITS UNIT SUBCUT SCH ×3 (02:00)
[2019-05-14] MEDS: PROCHLORPERAZINE INJ 5 MG/ML 2 ML VIAL IV PRN (03:08)
[2019-05-14 05:43] LABS: Hematocrit 28 % (35-47); Hemoglobin 9.1 g/dL (12.0-16.0); Mean Corpuscular HGB Conc 33 g/dL (31-36); Mean Corpuscular Hemoglobin 29 pg (27-31); Mean Corpuscular Volume 88 fL (80-97); Mean Platelet Volume 9.1 fL (7.4-10.4); Platelet Count 181 10^3/uL (150-450); Red Blood Count 3.13 10^6 /uL (3.70-4.87); Red Cell Distribution Width 15 % (10-15); White Blood Count 19.8 10^3/uL (3.5-10.8)
[2019-05-14 06:07] LABS: BUN/Creatinine Ratio 16.7 (8-20); Calcium 7.8 mg/dL (8.6-10.3); EGFR African American 86.9 (>60); EGFR Non-African American 71.8 (>60); Magnesium 1.4 mg/dL (1.9-2.7); Potassium 3.9 mmol/L (3.5-5.0)
[2019-05-14 06:22] LABS: ABS Basophils 0.1 10^3/ul (0-0.2); ABS Lymphocytes 0.9 10^3/ul (1.0-4.8); ABS Monocytes 1.7 10^3/ul (0-0.8); ABS Neutrophils 17.2 10^3/ul (1.5-7.7); Lymphocyte % 4.4 %
[2019-05-14] MEDS: D5W 1/2 NS 40 Meq KCL 1000 ML* 1,000 ML IV SCH (07:28)
[2019-05-14] MEDS ORDERED: Magnesium Sulfate 2 GM IV* 2 GM/50 ML BAG IVPB ONE (07:39)
[2019-05-14] MEDS ORDERED: Dextrose 50% VIAL 50 ml IV PUSH PRN ×2 (07:57→08:53)
[2019-05-14] MEDS ORDERED: Calcium Gluconate INJ* 2 GM in NS 0.9% 100 ML* 100 ML IV ONE (08:00)
[2019-05-14] MEDS ORDERED: Insulin LISPRO* 1 UNITS UNIT SUBCUT SCH (08:00)
[2019-05-14] MEDS ORDERED: NS 0.9% 1000 ML** 1,000 ML IV SCH (08:15)
[2019-05-14] MEDS: NS 0.9% 1000 ML** 2,000 ML IV ONE (08:20)
--- NOTE | 2019-05-14 09:10 | PN ---
Subjective Date of Service: 05/14/19 Interval History: "I'm losing my voice", also mild sore throat. No sx's. No more nausea, plans on eating breakfast. Objective Active Medications: Apixaban (Eliquis*) 5 mg PO BID [facility] Last Admin: 05/14/19 00:11 Dose: 5 mg Betaxolol HCl (Betoptic 0.05%*) 1 drop LEFT EYE QAM [facility] Dextrose (Dextrose 50% Vial 50 Ml*) 25 ml IV PUSH .FOR FS < 60 - SS PRN PRN Reason: FS < 60 Dextrose (Dextrose 50% Vial 50 Ml*) 25 ml IV PUSH .FOR FS < 60 - SS PRN PRN Reason: FS < 60 Diphenhydramine HCl (Benadryl Po*) 50 mg PO QPM PRN PRN Reason: ITCHING Famotidine (Pepcid Tab*) 20 mg PO BID [facility] Insulin Human Regular (Insulin Regular Iv Infusion 1 Unit/Ml) 100 units in 100 mls @ 6.532 mls/hr IV .(INITIAL RATE) [facility]; Protocol Last Admin: 05/13/19 19:58 Dose: 6.532 mls/hr Ceftriaxone Sodium 1 gm/ (Sodium Chloride) 50 mls @ 100 mls/hr IVPB Q24H [facility] Last Admin: 05/13/19 20:45 Dose: 100 mls/hr Calcium Gluconate 2 gm/ Sodium (Chloride) 120 mls @ 60 mls/hr IV ONCE ONE Stop: 05/14/19 09:59 Sodium Chloride (Ns 0.9% 1000 Ml) 1,000 mls @ 100 mls/hr IV PER RATE [facility] Insulin Glargine (Lantus(*)) 5 units SUBCUT Q24H [facility] Last Admin: 05/14/19 06:09 Dose: 5 unit Insulin Glargine (Lantus(*)) 7 units SUBCUT QAM [facility] Insulin Glargine (Lantus(*)) 5 units SUBCUT QPM [facility] Insulin Human Lispro (Humalog*) 0 units SUBCUT Q6HR [facility]; Protocol Last Admin: 05/14/19 08:22 Dose: 8 unit Insulin Human Lispro (Humalog*) 0 units SUBCUT ACHS [facility]; Protocol Insulin Human Lispro (Humalog*) 0 units SUBCUT ACHS [facility]; Protocol Latanoprost (Xalatan 0.005%*) 1 drop LEFT EYE BEDTIME [facility] Last Admin: 05/14/19 00:14 Dose: 1 drop Midodrine (Midodrine) 2.5 mg PO TID [facility]; Protocol Last Admin: 05/14/19 00:14 Dose: 2.5 mg Ondansetron HCl (Zofran Inj*) 4 mg IV Q4H [facility] Last Admin: 05/14/19 06:10 Dose: 4 mg Prochlorperazine Edisylate (Compazine Inj*) 10 mg IV Q6H PRN PRN Reason: NAUSEA/VOMITING Last Admin: 05/14/19 03:08 Dose: 10 mg Tramadol HCl (Ultram*) 25 mg PO BID [facility] Last Admin: 05/14/19 00:15 Dose: 25 mg Vital Signs - 8 hr 05/14/19 05/14/19 05/14/19 02:00 03:00 04:00 Temperature 99.0 F 98.6 F 98.8 F Pulse Rate 108 106 112 Respiratory 17 22 16 Rate Blood Pressure 103/58 96/66 122/48 (mmHg) O2 Sat by Pulse 100 100 100 Oximetry 05/14/19 05/14/19 05/14/19 05:00 06:00 07:00 Temperature 98.4 F 99.0 F 99.1 F Pulse Rate 116 116 110 Respiratory 20 26 17 Rate Blood Pressure 128/50 118/50 132/67 (mmHg) O2 Sat by Pulse 100 100 100 Oximetry 05/14/19 08:00 Temperature 99.3 F Pulse Rate 112 Respiratory 22 Rate Blood Pressure 140/92 (mmHg) O2 Sat by Pulse 100 Oximetry Oxygen Devices in Use Now: Nasal Cannula Appearance: Alert, partly up in ICU bed. In good spirits, looks comfortable. Eyes: No Scleral Icterus Ears/Nose/Mouth/Throat: Clear Oropharnyx Neck: NL Appearance and Movements; NL JVP, No Thyroid Enlargement, Masses Respiratory: Symmetrical Chest Expansion and Respiratory Effort, Clear to Auscultation, Clear to Percussion Cardiovascular: NL Sounds; No Murmurs; No JVD, RRR, No Edema, - Extremities: No Edema, No Clubbing, Cyanosis, - - rheumatoid deformities of fingers BL Skin: No Rash or Ulcers, No Nodules or Sclerosis, - Neurological: Alert and Oriented x 3, NL Sensation Result Diagrams: 12/08/19 05:30 05/14/19 05:30 Microbiology and Other Data: Microbiology 05/13/19 19:40 Nasal Screen MRSA (PCR) - Final Nasal Mrsa Not Detected Assess/Plan/Problems-Billing Assessment: - Patient Problems (1) DKA (diabetic ketoacidoses) Current Visit: No Status: Resolved Code(s): E13.10 - OTH DIABETES MELLITUS WITH KETOACIDOSIS WITHOUT COMA SNOMED Code(s): 814516653 Comment: resolved Type I DM since age 31. Resume home insuline regimen. URI +/- UTI precipitating event. Transfer to regular quijano, ambulate. (2) Rheumatoid arthritis Current Visit: No Status: Chronic Code(s): M06.9 - RHEUMATOID ARTHRITIS, UNSPECIFIED SNOMED Code(s): 59493466 Comment: Continue tramadol, hold leflunomide. (3) Urinary tract infection Current Visit: No Status: Resolved Comment: cw CTX, C&S pending (4) URI (upper respiratory infection) Current Visit: Yes Status: Acute Code(s): J06.9 - ACUTE UPPER RESPIRATORY INFECTION, UNSPECIFIED SNOMED Code(s): 53701625 Comment: Likely viral, treat symptomatically.
[2019-05-14] MEDS: Betaxolol 0.5 %* OPHTH.SOLN 5 ML LEFT EYE SCH (09:29)
[2019-05-14] MEDS: Famotidine TAB* 20 MG PO SCH ×2 (09:50→21:36)
[2019-05-14] MEDS: Insulin GLARGINE(*) 1 UNITS UNIT SUBCUT SCH ×2 (09:51→17:02)
[2019-05-14] MEDS: Insulin LISPRO* 1 UNITS UNIT SUBCUT SCH ×6 (13:27→23:09)
[2019-05-14] MEDS: cefTRIAXone(*) 1 GM in NS 0.9% 50 ML* 50 ML IVPB SCH (21:41)
[2019-05-15] MEDS: Ondansetron INJ* 2 MG/ML VIAL IV SCH ×2 (01:58→05:39)
[2019-05-15] MEDS: Insulin LISPRO* 1 UNITS UNIT SUBCUT SCH ×8 (09:18→22:05)
[2019-05-15] MEDS: Apixaban* 5 MG TAB PO SCH ×2 (09:19→21:18)
[2019-05-15] MEDS: Famotidine TAB* 20 MG PO SCH ×2 (09:20→21:18)
[2019-05-15] MEDS: traMADol TAB* 50 MG PO SCH ×2 (09:20→22:13)
[2019-05-15] MEDS: Insulin GLARGINE(*) 1 UNITS UNIT SUBCUT SCH ×2 (09:21→18:53)
[2019-05-15] MEDS: Betaxolol 0.5 %* OPHTH.SOLN 5 ML LEFT EYE SCH (09:34)
[2019-05-15] MEDS: PROCHLORPERAZINE INJ 5 MG/ML 2 ML VIAL IV PRN (09:35)
[2019-05-15 10:50] LABS: BUN/Creatinine Ratio 16.4 (8-20); Calcium 8.3 mg/dL (8.6-10.3); EGFR African American 103.5 (>60); EGFR Non-African American 85.6 (>60); Potassium 3.2 mmol/L (3.5-5.0)
--- NOTE | 2019-05-15 16:18 | PN ---
Subjective Date of Service: 05/15/19 Interval History: Nausea better after IV prochlorperazine. Appetite still poor. Walks to BR. Objective Active Medications: Apixaban (Eliquis*) 5 mg PO BID [facility] Last Admin: 05/15/19 09:19 Dose: 5 mg Betaxolol HCl (Betoptic 0.05%*) 1 drop LEFT EYE QAM [facility] Last Admin: 05/15/19 09:34 Dose: 1 drop Dextrose (Dextrose 50% Vial 50 Ml*) 25 ml IV PUSH .FOR FS < 60 - SS PRN PRN Reason: FS < 60 Dextrose (Dextrose 50% Vial 50 Ml*) 25 ml IV PUSH .FOR FS < 60 - SS PRN PRN Reason: FS < 60 Diphenhydramine HCl (Benadryl Po*) 50 mg PO QPM PRN PRN Reason: ITCHING Famotidine (Pepcid Tab*) 20 mg PO BID [facility] Last Admin: 05/15/19 09:20 Dose: 20 mg Ceftriaxone Sodium 1 gm/ (Sodium Chloride) 50 mls @ 100 mls/hr IVPB Q24H [facility] Last Admin: 05/14/19 21:41 Dose: 100 mls/hr Insulin Glargine (Lantus(*)) 7 units SUBCUT QAM [facility] Last Admin: 05/15/19 09:21 Dose: 7 units Insulin Glargine (Lantus(*)) 5 units SUBCUT QPM [facility] Last Admin: 05/14/19 17:02 Dose: 5 units Insulin Human Lispro (Humalog*) 0 units SUBCUT [facility]; Protocol Last Admin: 05/15/19 13:33 Dose: 2 units Insulin Human Lispro (Humalog*) 0 units SUBCUT ACHS [facility]; Protocol Last Admin: 05/15/19 13:18 Dose: Not Given Latanoprost (Xalatan 0.005%*) 1 drop LEFT EYE BEDTIME [facility] Last Admin: 05/14/19 21:40 Dose: 1 drop Midodrine (Midodrine) 2.5 mg PO TID [facility]; Protocol Last Admin: 05/15/19 13:33 Dose: 2.5 mg Prochlorperazine Edisylate (Compazine Inj*) 10 mg IV Q6H PRN PRN Reason: NAUSEA/VOMITING Last Admin: 05/15/19 09:35 Dose: 10 mg Tramadol HCl (Ultram*) 25 mg PO BID [facility] Last Admin: 05/15/19 09:20 Dose: 25 mg Vital Signs - 8 hr 05/15/19 05/15/19 05/15/19 09:20 11:00 11:05 Temperature 98.1 F Pulse Rate 97 Respiratory 16 17 20 Rate Blood Pressure 130/62 (mmHg) O2 Sat by Pulse 97 Oximetry 05/15/19 11:35 Temperature 97.7 F Pulse Rate 95 Respiratory 22 Rate Blood Pressure 130/64 (mmHg) O2 Sat by Pulse 95 Oximetry Oxygen Devices in Use Now: None Appearance: Alert, partly up in be. Appears fatigued but otherwise comfortable. Eyes: No Scleral Icterus Result Diagrams: 05/14/19 05:30 05/15/19 10:14 Microbiology and Other Data: Microbiology 05/13/19 19:40 Nasal Screen MRSA (PCR) - Final Nasal Mrsa Not Detected Assess/Plan/Problems-Billing Assessment: - Patient Problems (1) DKA (diabetic ketoacidoses) Current Visit: No Status: Resolved Code(s): E13.10 - OTH DIABETES MELLITUS WITH KETOACIDOSIS WITHOUT COMA SNOMED Code(s): 088535462 Comment: resolved. Type I DM since age 31. Continue home insulin regimen. URI +/- UTI precipitating event. Transfer to regular quijano, ambulate. (2) Rheumatoid arthritis Current Visit: No Status: Chronic Code(s): M06.9 - RHEUMATOID ARTHRITIS, UNSPECIFIED SNOMED Code(s): 75697403 Comment: Continue tramadol, hold leflunomide. (3) Urinary tract infection Current Visit: No Status: Resolved Comment: CTX, C&S pending. If no C&S done, would stop CTX after 3 doses. I think her illness waas predominantly viral. (4) URI (upper respiratory infection) Current Visit: Yes Status: Acute Code(s): J06.9 - ACUTE UPPER RESPIRATORY INFECTION, UNSPECIFIED SNOMED Code(s): 36041842 Comment: Likely viral, treat symptomatically. IV fluids. CBC, BMP 05/16.
[2019-05-15] MEDS ORDERED: NS 0.45% KCl 20 Meq 1000 ML* 1,000 ML IV SCH (17:00)
[2019-05-15] MEDS: cefTRIAXone(*) 1 GM in NS 0.9% 50 ML* 50 ML IVPB SCH (21:18)
[2019-05-15] MEDS: Latanoprost 0.005%* 2.5 ml BTL LEFT EYE SCH (22:06)
[2019-05-16 06:39] LABS: ABS Eosinophils 0.1 10^3/ul (0-0.6); ABS Lymphocytes 1.2 10^3/ul (1.0-4.8); ABS Monocytes 1.3 10^3/ul (0-0.8); Eosinophil % 0.8 %; Hematocrit 29 % (35-47); Hemoglobin 9.8 g/dL (12.0-16.0); Lymphocyte % 10.2 %; Mean Corpuscular HGB Conc 34 g/dL (31-36); Mean Corpuscular Hemoglobin 30 pg (27-31); Mean Corpuscular Volume 89 fL (80-97); Mean Platelet Volume 9.4 fL (7.4-10.4); Nucleated Red Blood Cells % 0.1; Platelet Count 159 10^3/uL (150-450); Red Blood Count 3.23 10^6 /uL (3.70-4.87); Red Cell Distribution Width 15 % (10-15); White Blood Count 11.6 10^3/uL (3.5-10.8)
[2019-05-16 06:40] LABS: BUN/Creatinine Ratio 14.5 (8-20); Calcium 7.9 mg/dL (8.6-10.3); EGFR Non-African American 107.5 (>60); Potassium 3.2 mmol/L (3.5-5.0)
[2019-05-16] MEDS: Insulin LISPRO* 1 UNITS UNIT SUBCUT SCH ×8 (07:06→20:10)
[2019-05-16 08:16] LABS: Magnesium 1.5 mg/dL (1.9-2.7)
[2019-05-16] MEDS: KCL 10 MEQ/50 ML IVPREMIX* 10 MEQ/50 ML BAG IV SCH ×3 (08:53→14:55)
[2019-05-16] MEDS: Betaxolol 0.5 %* OPHTH.SOLN 5 ML LEFT EYE SCH (08:53)
[2019-05-16] MEDS: traMADol TAB* 50 MG PO SCH ×2 (08:54→20:20)
[2019-05-16] MEDS: Famotidine TAB* 20 MG PO SCH ×2 (08:55→20:20)
[2019-05-16] MEDS: Apixaban* 5 MG TAB PO SCH ×2 (09:01→20:19)
[2019-05-16] MEDS: Insulin GLARGINE(*) 1 UNITS UNIT SUBCUT SCH ×2 (09:06→19:28)
[2019-05-16] MEDS: PROCHLORPERAZINE INJ 5 MG/ML 2 ML VIAL IV PRN (09:06)
[2019-05-16] MEDS ORDERED: Magnesium Sulfate 2 GM IV* 2 GM/50 ML BAG IVPB ONE (10:04)
[2019-05-16] MEDS ORDERED: KCL premix 10MEQ/50 ML x 1 TIME IV ONE (15:00)
--- NOTE | 2019-05-16 16:54 | PN ---
Subjective Date of Service: 05/16/19 Interval History: HOSPITALIST PROGRESS NOTE Patient seen and examined at bedside. Care reviewed and d/w Tran Campoverde RN. She feels improved today. Appetite and energy are returning, but she doesn't feel back to her usual self yet. Family History: Unchanged from Admission Social History: Unchanged from Admission Past Medical History: Unchanged from Admission Objective Active Medications: Apixaban (Eliquis*) 5 mg PO BID [facility] Last Admin: 05/16/19 09:01 Dose: 5 mg Betaxolol HCl (Betoptic 0.05%*) 1 drop LEFT EYE QAM [facility] Last Admin: 05/16/19 08:53 Dose: 1 drop Dextrose (Dextrose 50% Vial 50 Ml*) 25 ml IV PUSH .FOR FS < 60 - SS PRN PRN Reason: FS < 60 Dextrose (Dextrose 50% Vial 50 Ml*) 25 ml IV PUSH .FOR FS < 60 - SS PRN PRN Reason: FS < 60 Diphenhydramine HCl (Benadryl Po*) 50 mg PO QPM PRN PRN Reason: ITCHING Famotidine (Pepcid Tab*) 20 mg PO BID [facility] Last Admin: 05/16/19 08:55 Dose: 20 mg Ceftriaxone Sodium 1 gm/ (Sodium Chloride) 50 mls @ 100 mls/hr IVPB Q24H [facility] Last Admin: 05/15/19 21:18 Dose: 100 mls/hr Insulin Glargine (Lantus(*)) 7 units SUBCUT QAM [facility] Last Admin: 05/16/19 09:06 Dose: 7 units Insulin Glargine (Lantus(*)) 5 units SUBCUT QPM [facility] Last Admin: 05/15/19 18:53 Dose: 5 units Insulin Human Lispro (Humalog*) 0 units SUBCUT ACHS [facility]; Protocol Last Admin: 05/16/19 12:00 Dose: 2 units Insulin Human Lispro (Humalog*) 0 units SUBCUT ACHS [facility]; Protocol Last Admin: 05/16/19 13:47 Dose: 1 unit Latanoprost (Xalatan 0.005%*) 1 drop LEFT EYE BEDTIME [facility] Last Admin: 05/15/19 22:06 Dose: 1 drop Midodrine (Midodrine) 2.5 mg PO TID [facility]; Protocol Last Admin: 05/16/19 13:51 Dose: 2.5 mg Prochlorperazine Edisylate (Compazine Inj*) 10 mg IV Q6H PRN PRN Reason: NAUSEA/VOMITING Last Admin: 05/16/19 09:06 Dose: 10 mg Tramadol HCl (Ultram*) 25 mg PO BID [facility] Last Admin: 05/16/19 08:54 Dose: 25 mg Vital Signs - 8 hr 05/16/19 05/16/19 11:15 11:37 Temperature 97.8 F Pulse Rate 92 Respiratory 16 16 Rate Blood Pressure 140/88 (mmHg) O2 Sat by Pulse 98 Oximetry Oxygen Devices in Use Now: None Appearance: Pleasant elderly lady sitting up in bed in NAD Eyes: No Scleral Icterus Ears/Nose/Mouth/Throat: Mucous Membranes Moist Neck: Trachea Midline Respiratory: Symmetrical Chest Expansion and Respiratory Effort, Clear to Auscultation Cardiovascular: RRR - Normal S1 and S2 Abdominal: NL Sounds; No Tenderness; No Distention Neurological: Alert and Oriented x 3, NL Muscle Strength and Tone Result Diagrams: 05/16/19 05:35 05/16/19 05:35 Assess/Plan/Problems-Billing Assessment: Mrs Mari is a 78yo F with PMH of type 1 DM since age 31, HLD, HTN, lung CA, breast CA, RA, atrial flutter on AC, who presented to ED with DKA. - Patient Problems (1) DKA (diabetic ketoacidoses) Comment: - In the setting of UTI. - DKA is resolved. - Continue Lantus and Lispro SS. - Diabetes is under excellent control - Hb A1c was 6.9 in April 2019. (2) Urinary tract infection Comment: - Continue Ceftriaxone and follow urine culture. - She states her urinary symptoms are much improved. (3) Atrial flutter Comment: - Continue Apixaban. (4) Physical deconditioning Comment: - PT/OT consults. (5) DVT prophylaxis Comment: - Apixaban. (6) Full code status Status and Disposition: Inpatient.
[2019-05-16] MEDS: cefTRIAXone(*) 1 GM in NS 0.9% 50 ML* 50 ML IVPB SCH (20:18)
[2019-05-16] MEDS: Latanoprost 0.005%* 2.5 ml BTL LEFT EYE SCH (20:21)
[2019-05-17 06:04] LABS: ABS Eosinophils 0.1 10^3/ul (0-0.6); ABS Monocytes 1.2 10^3/ul (0-0.8); ABS Neutrophils 7.7 10^3/ul (1.5-7.7); Eosinophil % 1.2 %; Hematocrit 29 % (35-47); Hemoglobin 9.9 g/dL (12.0-16.0); Lymphocyte % 9.8 %; Mean Corpuscular HGB Conc 34 g/dL (31-36); Mean Corpuscular Hemoglobin 30 pg (27-31); Mean Corpuscular Volume 88 fL (80-97); Mean Platelet Volume 9.1 fL (7.4-10.4); Platelet Count 174 10^3/uL (150-450); Red Cell Distribution Width 14 % (10-15)
[2019-05-17 06:19] LABS: BUN/Creatinine Ratio 19.6 (8-20); Calcium 8.1 mg/dL (8.6-10.3); EGFR African American 127.4 (>60); EGFR Non-African American 105.3 (>60); Magnesium 1.8 mg/dL (1.9-2.7); Potassium 3.5 mmol/L (3.5-5.0)
[2019-05-17] MEDS ORDERED: Magnesium Sulfate 1 GM IV* 1 GM/100 ML BAG IV ONE (07:45)
[2019-05-17] MEDS: Insulin LISPRO* 1 UNITS UNIT SUBCUT SCH ×8 (08:06→20:46)
[2019-05-17] MEDS: Insulin GLARGINE(*) 1 UNITS UNIT SUBCUT SCH (09:39)
[2019-05-17] MEDS: traMADol TAB* 50 MG PO SCH ×2 (09:44→20:23)
[2019-05-17] MEDS: Famotidine TAB* 20 MG PO SCH ×2 (09:45→20:23)
[2019-05-17] MEDS: Betaxolol 0.5 %* OPHTH.SOLN 5 ML LEFT EYE SCH (09:46)
[2019-05-17] MEDS: Apixaban* 5 MG TAB PO SCH ×2 (09:46→20:23)
--- NOTE | 2019-05-17 16:01 | PN ---
Subjective Date of Service: 05/17/19 Interval History: HOSPITALIST PROGRESS NOTE Patient seen and examined at bedside. Care reviewed and d/w Rosa Carlton RN. She is upset today because she choked on a banana piece and felt very anxious she would not be able to swallow it. Family History: Unchanged from Admission Social History: Unchanged from Admission Past Medical History: Unchanged from Admission Objective Active Medications: Apixaban (Eliquis*) 5 mg PO BID [facility] Last Admin: 05/17/19 09:46 Dose: 5 mg Betaxolol HCl (Betoptic 0.05%*) 1 drop LEFT EYE QAM [facility] Last Admin: 05/17/19 09:46 Dose: 1 drop Dextrose (Dextrose 50% Vial 50 Ml*) 25 ml IV PUSH .FOR FS < 60 - SS PRN PRN Reason: FS < 60 Dextrose (Dextrose 50% Vial 50 Ml*) 25 ml IV PUSH .FOR FS < 60 - SS PRN PRN Reason: FS < 60 Diphenhydramine HCl (Benadryl Po*) 50 mg PO QPM PRN PRN Reason: ITCHING Famotidine (Pepcid Tab*) 20 mg PO BID [facility] Last Admin: 05/17/19 09:45 Dose: 20 mg Ceftriaxone Sodium 1 gm/ (Sodium Chloride) 50 mls @ 100 mls/hr IVPB Q24H [facility] Last Admin: 05/16/19 20:18 Dose: 100 mls/hr Insulin Glargine (Lantus(*)) 5 units SUBCUT QAM [facility] Insulin Glargine (Lantus(*)) 3 units SUBCUT DAILY@2100 [facility] Insulin Human Lispro (Humalog*) 0 units SUBCUT ACHS [facility]; Protocol Last Admin: 05/17/19 13:15 Dose: 4 units Insulin Human Lispro (Humalog*) 0 units SUBCUT ACHS [facility]; Protocol Last Admin: 05/17/19 13:16 Dose: 3 unit Latanoprost (Xalatan 0.005%*) 1 drop LEFT EYE BEDTIME [facility] Last Admin: 05/16/19 20:21 Dose: 1 drop Midodrine (Midodrine) 2.5 mg PO TID [facility]; Protocol Last Admin: 05/17/19 13:15 Dose: 2.5 mg Prochlorperazine Edisylate (Compazine Inj*) 10 mg IV Q6H PRN PRN Reason: NAUSEA/VOMITING Last Admin: 05/16/19 09:06 Dose: 10 mg Tramadol HCl (Ultram*) 25 mg PO BID [facility] Last Admin: 05/17/19 09:44 Dose: 25 mg Vital Signs - 8 hr 05/17/19 05/17/19 05/17/19 09:44 11:01 13:17 Temperature 98 F Pulse Rate 94 Respiratory 18 16 18 Rate Blood Pressure 139/50 (mmHg) O2 Sat by Pulse 95 Oximetry Oxygen Devices in Use Now: None Appearance: Elderly lady sitting up in recliner in NAD Eyes: No Scleral Icterus Ears/Nose/Mouth/Throat: Mucous Membranes Moist Neck: Trachea Midline Respiratory: Symmetrical Chest Expansion and Respiratory Effort, Clear to Auscultation Cardiovascular: RRR - Normal S1 and S2 Abdominal: NL Sounds; No Tenderness; No Distention Neurological: Alert and Oriented x 3, NL Muscle Strength and Tone Result Diagrams: 05/17/19 05:09 05/17/19 05:09 Assess/Plan/Problems-Billing Assessment: Mrs Mari is a 78yo F with PMH of type 1 DM since age 31, HLD, HTN, lung CA, breast CA, RA, atrial flutter on AC, who presented to ED with DKA. - Patient Problems (1) DKA (diabetic ketoacidoses) Comment: - In the setting of UTI. - DKA is resolved. - Continue Lantus, but reduce dose as PO intake has decreased; continueLispro SS. - Diabetes is under excellent control - Hb A1c was 6.9 in April 2019. (2) Urinary tract infection Comment: - Continue Ceftriaxone and follow urine culture. - She states her urinary symptoms are much improved. (3) Atrial flutter Comment: - Continue Apixaban. (4) Physical deconditioning Comment: - PT/OT consults appreciated. (5) DVT prophylaxis Comment: - Apixaban. (6) Full code status Status and Disposition: Inpatient.
[2019-05-17] MEDS: cefTRIAXone(*) 1 GM in NS 0.9% 50 ML* 50 ML IVPB SCH (20:22)
[2019-05-17] MEDS ORDERED: Insulin GLARGINE(*) 1 UNITS UNIT SUBCUT SCH (21:00)
[2019-05-17] MEDS: Latanoprost 0.005%* 2.5 ml BTL LEFT EYE SCH (23:25)
[2019-05-18] MEDS ORDERED: Insulin GLARGINE(*) 1 UNITS UNIT SUBCUT SCH (09:00)
[2019-05-18 09:18] LABS: Hematocrit 31 % (35-47); Hemoglobin 10.3 g/dL (12.0-16.0); Mean Corpuscular HGB Conc 33 g/dL (31-36); Mean Corpuscular Hemoglobin 30 pg (27-31); Mean Corpuscular Volume 89 fL (80-97); Red Cell Distribution Width 14 % (10-15); White Blood Count 9.6 10^3/uL (3.5-10.8)
[2019-05-18 09:22] LABS: BUN/Creatinine Ratio 23.2 (8-20); Calcium 8.6 mg/dL (8.6-10.3); EGFR African American 127.4 (>60); EGFR Non-African American 105.3 (>60); Magnesium 1.7 mg/dL (1.9-2.7); Potassium 3.3 mmol/L (3.5-5.0)
[2019-05-18] MEDS: Insulin LISPRO* 1 UNITS UNIT SUBCUT SCH ×8 (09:38→21:57)
[2019-05-18] MEDS: Apixaban* 5 MG TAB PO SCH ×2 (09:39→21:54)
[2019-05-18] MEDS: Famotidine TAB* 20 MG PO SCH ×2 (09:39→21:54)
[2019-05-18] MEDS: Betaxolol 0.5 %* OPHTH.SOLN 5 ML LEFT EYE SCH (09:39)
[2019-05-18] MEDS: traMADol TAB* 50 MG PO SCH ×2 (09:40→21:53)
[2019-05-18 09:49] LABS: ABS Eosinophils 0.1 10^3/ul (0-0.6); ABS Monocytes 1.3 10^3/ul (0-0.8); ABS Neutrophils 7.1 10^3/ul (1.5-7.7); Eosinophil % 0.9 %; Lymphocyte % 10.9 %; Nucleated Red Blood Cells % 0.1
[2019-05-18 09:51] LABS: Mean Platelet Volume 9.4 fL (7.4-10.4); Platelet Count 167 10^3/uL (150-450)
--- NOTE | 2019-05-18 12:39 | PN ---
Subjective Date of Service: 05/18/19 Interval History: HOSPITALIST PROGRESS NOTE Patient seen and examined at bedside. Care reviewed and d/w Rosa Carlton RN. She c/o weakness. Tolerating soft diet, but still scared she'll choke. Family History: Unchanged from Admission Social History: Unchanged from Admission Past Medical History: Unchanged from Admission Objective Active Medications: Apixaban (Eliquis*) 5 mg PO BID [facility] Last Admin: 05/18/19 09:39 Dose: 5 mg Betaxolol HCl (Betoptic 0.05%*) 1 drop LEFT EYE QAM [facility] Last Admin: 05/18/19 09:39 Dose: 1 drop Dextrose (Dextrose 50% Vial 50 Ml*) 25 ml IV PUSH .FOR FS < 60 - SS PRN PRN Reason: FS < 60 Dextrose (Dextrose 50% Vial 50 Ml*) 25 ml IV PUSH .FOR FS < 60 - SS PRN PRN Reason: FS < 60 Diphenhydramine HCl (Benadryl Po*) 50 mg PO QPM PRN PRN Reason: ITCHING Famotidine (Pepcid Tab*) 20 mg PO BID [facility] Last Admin: 05/18/19 09:39 Dose: 20 mg Ceftriaxone Sodium 1 gm/ (Sodium Chloride) 50 mls @ 100 mls/hr IVPB Q24H [facility] Last Admin: 05/17/19 20:22 Dose: 100 mls/hr Insulin Glargine (Lantus(*)) 5 units SUBCUT QAM [facility] Last Admin: 05/18/19 09:41 Dose: 5 units Insulin Glargine (Lantus(*)) 3 units SUBCUT DAILY@2100 [facility] Last Admin: 05/18/19 00:02 Dose: 3 unit Insulin Human Lispro (Humalog*) 0 units SUBCUT ACHS [facility]; Protocol Last Admin: 05/18/19 09:38 Dose: 2 units Insulin Human Lispro (Humalog*) 0 units SUBCUT ACHS [facility]; Protocol Last Admin: 05/18/19 09:38 Dose: 2 unit Latanoprost (Xalatan 0.005%*) 1 drop LEFT EYE BEDTIME [facility] Last Admin: 05/17/19 23:25 Dose: 1 drop Midodrine (Midodrine) 2.5 mg PO TID [facility]; Protocol Last Admin: 05/18/19 09:40 Dose: 2.5 mg Prochlorperazine Edisylate (Compazine Inj*) 10 mg IV Q6H PRN PRN Reason: NAUSEA/VOMITING Last Admin: 05/16/19 09:06 Dose: 10 mg Tramadol HCl (Ultram*) 25 mg PO BID [facility] Last Admin: 05/18/19 09:40 Dose: 25 mg Vital Signs - 8 hr 05/18/19 05/18/19 05/18/19 07:25 09:40 11:15 Temperature 98.5 F 97.7 F Pulse Rate 95 102 Respiratory 18 18 20 Rate Blood Pressure 149/60 137/50 (mmHg) O2 Sat by Pulse 96 97 Oximetry 05/18/19 12:24 Temperature Pulse Rate Respiratory 18 Rate Blood Pressure (mmHg) O2 Sat by Pulse Oximetry Oxygen Devices in Use Now: None Appearance: Elderly lady sitting up in bed in NAD Eyes: No Scleral Icterus Ears/Nose/Mouth/Throat: Mucous Membranes Moist Neck: Trachea Midline Respiratory: Symmetrical Chest Expansion and Respiratory Effort, Clear to Auscultation Cardiovascular: RRR - Normal S1 and S2 Abdominal: NL Sounds; No Tenderness; No Distention Neurological: Alert and Oriented x 3, NL Muscle Strength and Tone Result Diagrams: 05/18/19 08:48 05/18/19 08:48 Assess/Plan/Problems-Billing Assessment: Mrs Mari is a 78yo F with PMH of type 1 DM since age 31, HLD, HTN, lung CA, breast CA, RA, atrial flutter on AC, who presented to ED with DKA. - Patient Problems (1) DKA (diabetic ketoacidoses) Comment: - In the setting of UTI. - DKA is resolved. - Now that her PO intake is picking up, will increase Lantus back to her usual dose; continueLispro SS. - Diabetes is under excellent control - Hb A1c was 6.9 in April 2019. (2) Urinary tract infection Comment: - Urine culture grew Aerococcus - change Ceftriaxone to Amoxicillin. - She states her urinary symptoms are much improved. (3) Atrial flutter Comment: - Continue Apixaban. (4) Physical deconditioning Comment: - PT/OT consults appreciated. Patient does not want to go to [facility], but also does not feel safe going home. - CM to assist with discharge plan. (5) DVT prophylaxis Comment: - Apixaban. (6) Full code status Status and Disposition: Inpatient.
[2019-05-18] MEDS ORDERED: Magnesium Sulfate 2 GM IV* 2 GM/50 ML BAG IVPB ONE (13:28)
[2019-05-18] MEDS: Amoxicillin PO (*) 500 MG CAP PO SCH ×2 (16:01→21:53)
[2019-05-18] MEDS: KCL 10 MEQ/50 ML IVPREMIX* 10 MEQ/50 ML BAG IV SCH ×3 (16:01→21:59)
[2019-05-18] MEDS ORDERED: KCL 10 MEQ/50 ML IVPREMIX* 10 MEQ/50 ML BAG ONE (21:46)
[2019-05-18] MEDS: Latanoprost 0.005%* 2.5 ml BTL LEFT EYE SCH (21:52)
[2019-05-18] MEDS: Insulin GLARGINE(*) 1 UNITS UNIT SUBCUT SCH (21:55)
[2019-05-19] MEDS: Insulin LISPRO* 1 UNITS UNIT SUBCUT SCH ×8 (09:55→23:03)
[2019-05-19] MEDS: Insulin GLARGINE(*) 1 UNITS UNIT SUBCUT SCH ×2 (09:56→21:52)
[2019-05-19] MEDS: Betaxolol 0.5 %* OPHTH.SOLN 5 ML LEFT EYE SCH (09:57)
[2019-05-19] MEDS: Amoxicillin PO (*) 500 MG CAP PO SCH ×3 (09:57→21:31)
[2019-05-19] MEDS: traMADol TAB* 50 MG PO SCH ×2 (09:58→21:30)
[2019-05-19] MEDS: Famotidine TAB* 20 MG PO SCH ×2 (09:59→21:31)
[2019-05-19] MEDS: Apixaban* 5 MG TAB PO SCH ×2 (10:58→21:30)
--- NOTE | 2019-05-19 14:43 | PN ---
Subjective Date of Service: 05/19/19 Interval History: HOSPITALIST PROGRESS NOTE Patient seen and examined at bedside. Care reviewed and d/w Tran Campoverde. She is eating better today, actually has a brownie on her bedside table! C/o weakness and almost fell while walking to the bathroom as per RN report. Family History: Unchanged from Admission Social History: Unchanged from Admission Past Medical History: Unchanged from Admission Objective Active Medications: Amoxicillin (Amoxicillin Po (*)) 500 mg PO TID [facility] Last Admin: 05/19/19 13:45 Dose: 500 mg Apixaban (Eliquis*) 5 mg PO BID [facility] Last Admin: 05/19/19 10:58 Dose: 5 mg Betaxolol HCl (Betoptic 0.05%*) 1 drop LEFT EYE QAM [facility] Last Admin: 05/19/19 09:57 Dose: 1 drop Dextrose (Dextrose 50% Vial 50 Ml*) 25 ml IV PUSH .FOR FS < 60 - SS PRN PRN Reason: FS < 60 Diphenhydramine HCl (Benadryl Po*) 50 mg PO QPM PRN PRN Reason: ITCHING Famotidine (Pepcid Tab*) 20 mg PO BID [facility] Last Admin: 05/19/19 09:59 Dose: 20 mg Insulin Glargine (Lantus(*)) 7 units SUBCUT QAM [facility] Last Admin: 05/19/19 09:56 Dose: 7 units Insulin Glargine (Lantus(*)) 5 units SUBCUT DAILY@2100 [facility] Last Admin: 05/18/19 21:55 Dose: 5 unit Insulin Human Lispro (Humalog*) 0 units SUBCUT [facility]; Protocol Last Admin: 05/19/19 13:46 Dose: 4 units Insulin Human Lispro (Humalog*) 0 units SUBCUT ACHS [facility]; Protocol Last Admin: 05/19/19 13:46 Dose: 4 unit Latanoprost (Xalatan 0.005%*) 1 drop LEFT EYE BEDTIME [facility] Last Admin: 05/18/19 21:52 Dose: 1 drop Midodrine (Midodrine) 2.5 mg PO TID [facility]; Protocol Last Admin: 05/19/19 13:45 Dose: 2.5 mg Prochlorperazine Edisylate (Compazine Inj*) 10 mg IV Q6H PRN PRN Reason: NAUSEA/VOMITING Last Admin: 05/16/19 09:06 Dose: 10 mg Tramadol HCl (Ultram*) 25 mg PO BID [facility] Last Admin: 05/19/19 09:58 Dose: 25 mg Vital Signs - 8 hr 05/19/19 05/19/19 05/19/19 07:46 08:00 09:58 Temperature 98.2 F Pulse Rate 98 Respiratory 16 17 18 Rate Blood Pressure 146/66 (mmHg) O2 Sat by Pulse 96 Oximetry 05/19/19 05/19/19 10:55 11:55 Temperature 97.8 F Pulse Rate 100 Respiratory 16 17 Rate Blood Pressure 150/73 (mmHg) O2 Sat by Pulse 100 Oximetry Oxygen Devices in Use Now: None Appearance: Pleasant elderly lady sitting up in bed in NAD Eyes: No Scleral Icterus Ears/Nose/Mouth/Throat: Mucous Membranes Moist Neck: Trachea Midline Respiratory: Symmetrical Chest Expansion and Respiratory Effort, Clear to Auscultation Cardiovascular: NL Sounds; No Murmurs; No JVD, RRR Neurological: Alert and Oriented x 3, NL Muscle Strength and Tone Result Diagrams: 05/18/19 08:48 05/18/19 08:48 Assess/Plan/Problems-Billing Assessment: Mrs Mari is a 78yo F with PMH of type 1 DM since age 31, HLD, HTN, lung CA, breast CA, RA, atrial flutter on AC, who presented to ED with DKA. - Patient Problems (1) DKA (diabetic ketoacidoses) Comment: - In the setting of UTI. - DKA is resolved. - Patient educated about diet - her glucose spike last night is likely secondary to the brownie; will continue Lantus and Lispro SS, but may need to increase it if she continues to ear more carbs. - Diabetes was under excellent control - Hb A1c was 6.9 in April 2019. (2) Urinary tract infection Comment: - Urine culture grew Aerococcus - change Ceftriaxone to Amoxicillin. - She states her urinary symptoms are much improved. (3) Atrial flutter Comment: - Continue Apixaban. (4) Physical deconditioning Comment: - PT/OT consults appreciated. - Agreeable with [facility] now - CM to assist with discharge plan. (5) DVT prophylaxis Comment: - Apixaban. (6) Full code status Status and Disposition: Inpatient.
[2019-05-19] MEDS: Latanoprost 0.005%* 2.5 ml BTL LEFT EYE SCH (21:52)
[2019-05-19] MEDS ORDERED: fentaNYL* 50 MCG/ML 2 ML VIAL (100 MCG VIAL) IV PRN (23:17)
[2019-05-19] MEDS: PROCHLORPERAZINE INJ 5 MG/ML 2 ML VIAL IV PRN (23:32)
[2019-05-20] MEDS: Insulin LISPRO* 1 UNITS UNIT SUBCUT SCH ×8 (10:17→22:14)
[2019-05-20] MEDS: Insulin GLARGINE(*) 1 UNITS UNIT SUBCUT SCH ×2 (10:18→22:12)
[2019-05-20] MEDS: traMADol TAB* 50 MG PO SCH ×2 (10:18→22:03)
[2019-05-20] MEDS: Apixaban* 5 MG TAB PO SCH ×2 (10:19→22:03)
[2019-05-20] MEDS: Famotidine TAB* 20 MG PO SCH ×2 (10:19→22:02)
[2019-05-20] MEDS: Amoxicillin PO (*) 500 MG CAP PO SCH ×3 (10:19→22:13)
[2019-05-20] MEDS: Betaxolol 0.5 %* OPHTH.SOLN 5 ML LEFT EYE SCH (10:21)
[2019-05-20] MEDS ORDERED: Insulin LISPRO* 1 UNITS UNIT SUBCUT ONE (12:43)
[2019-05-20] MEDS ORDERED: Dextrose 50% VIAL 50 ml IV PUSH PRN (12:43)
[2019-05-20] MEDS ORDERED: Insulin GLARGINE(*) 1 UNITS UNIT SUBCUT ONE (12:43)
--- NOTE | 2019-05-20 13:51 | PN ---
Subjective Date of Service: 05/20/19 Interval History: HOSPITALIST PROGRESS NOTE Patient seen and examined at bedside. Care reviewed and d/w Tran Campoverde RN. She continues to eat more carbs - had brownie, pudding, ice cream - glucose up to 400. Offers no complaints, in good spirits. Family History: Unchanged from Admission Social History: Unchanged from Admission Past Medical History: Unchanged from Admission Objective Active Medications: Amoxicillin (Amoxicillin Po (*)) 500 mg PO TID [facility] Last Admin: 05/20/19 10:19 Dose: 500 mg Apixaban (Eliquis*) 5 mg PO BID [facility] Last Admin: 05/20/19 10:19 Dose: 5 mg Betaxolol HCl (Betoptic 0.05%*) 1 drop LEFT EYE QAM [facility] Last Admin: 05/20/19 10:21 Dose: 1 drop Dextrose (Dextrose 50% Vial 50 Ml*) 25 ml IV PUSH .FOR FS < 60 - SS PRN PRN Reason: FS < 60 Dextrose (Dextrose 50% Vial 50 Ml*) 25 ml IV PUSH .FOR FS < 60 - SS PRN PRN Reason: FS < 60 Diphenhydramine HCl (Benadryl Po*) 50 mg PO QPM PRN PRN Reason: ITCHING Famotidine (Pepcid Tab*) 20 mg PO BID [facility] Last Admin: 05/20/19 10:19 Dose: 20 mg Insulin Glargine (Lantus(*)) 7 units SUBCUT QAM [facility] Last Admin: 05/20/19 10:18 Dose: 7 units Insulin Glargine (Lantus(*)) 5 units SUBCUT DAILY@2100 [facility] Last Admin: 05/19/19 21:52 Dose: 5 unit Insulin Human Lispro (Humalog*) 0 units SUBCUT ACHS [facility]; Protocol Last Admin: 05/20/19 10:17 Dose: 8 units Insulin Human Lispro (Humalog*) 0 units SUBCUT [facility]; Protocol Last Admin: 05/20/19 10:17 Dose: 2 unit Latanoprost (Xalatan 0.005%*) 1 drop LEFT EYE BEDTIME [facility] Last Admin: 05/19/19 21:52 Dose: 1 drop Midodrine (Midodrine) 2.5 mg PO TID [facility]; Protocol Last Admin: 12/14/19 10:22 Dose: 2.5 mg Prochlorperazine Edisylate (Compazine Inj*) 10 mg IV Q6H PRN PRN Reason: NAUSEA/VOMITING Last Admin: 05/19/19 23:32 Dose: 10 mg Tramadol HCl (Ultram*) 25 mg PO BID [facility] Last Admin: 05/20/19 10:18 Dose: 25 mg Vital Signs - 8 hr 05/20/19 05/20/19 05/20/19 07:20 07:48 10:18 Temperature 97.9 F Pulse Rate 97 Respiratory 18 17 17 Rate Blood Pressure 123/47 (mmHg) O2 Sat by Pulse 96 Oximetry Oxygen Devices in Use Now: None Appearance: Elderly lady sitting up in bed in NAD Eyes: No Scleral Icterus Ears/Nose/Mouth/Throat: Mucous Membranes Moist Neck: Trachea Midline Respiratory: Symmetrical Chest Expansion and Respiratory Effort, Clear to Auscultation Cardiovascular: RRR - Normal S1 and S2 Neurological: Alert and Oriented x 3, NL Muscle Strength and Tone Result Diagrams: 05/18/19 08:48 05/18/19 08:48 Assess/Plan/Problems-Billing Assessment: Mrs Mari is a 78yo F with PMH of type 1 DM since age 31, HLD, HTN, lung CA, breast CA, RA, atrial flutter on AC, who presented to ED with DKA. - Patient Problems (1) DKA (diabetic ketoacidoses) Comment: - In the setting of UTI. - DKA is resolved. - Patient educated about diet - her glucose continues to spike due to dietary non compliance; will continue Lantus and Lispro SS; will give extra 10 units of Lantus now, but if she continues to eat carbs like this will have to increase it. I'm concerned if I increase it now and she becomes compliant, than she'll be hypoglycemic. - Diabetes was under excellent control before - Hb A1c was 6.9 in April 2019. (2) Urinary tract infection Comment: - Urine culture grew Aerococcus - continue Amoxicillin. - She states her urinary symptoms are much improved. (3) Atrial flutter Comment: - Continue Apixaban. (4) Physical deconditioning Comment: - PT/OT consults appreciated. - Agreeable with [facility] now - CM to assist with discharge plan. (5) DVT prophylaxis Comment: - Apixaban. (6) Full code status Status and Disposition: Inpatient.
[2019-05-20] MEDS: Latanoprost 0.005%* 2.5 ml BTL LEFT EYE SCH (22:16)
[2019-05-21] MEDS: Insulin LISPRO* 1 UNITS UNIT SUBCUT SCH ×8 (09:32→23:00)
[2019-05-21] MEDS: Apixaban* 5 MG TAB PO SCH ×2 (09:33→22:41)
[2019-05-21] MEDS: Amoxicillin PO (*) 500 MG CAP PO SCH (09:34)
[2019-05-21] MEDS: traMADol TAB* 50 MG PO SCH ×2 (09:34→23:00)
[2019-05-21] MEDS: Famotidine TAB* 20 MG PO SCH ×2 (09:34→22:45)
[2019-05-21] MEDS: Insulin GLARGINE(*) 1 UNITS UNIT SUBCUT SCH ×2 (09:35→22:57)
[2019-05-21] MEDS: Betaxolol 0.5 %* OPHTH.SOLN 5 ML LEFT EYE SCH (09:35)
[2019-05-21] MEDS: oxyCODONE/Acetamin 5/325 MG* TAB PO PRN ×2 (10:36→22:45)
--- NOTE | 2019-05-21 10:41 | PN ---
Subjective Date of Service: 05/21/19 Interval History: HOSPITALIST PROGRESS NOTE Patient seen and examined at bedside. Care reviewed and d/w Nora Gonzalez RN. She offers no new complaints today. Family History: Unchanged from Admission Social History: Unchanged from Admission Past Medical History: Unchanged from Admission Objective Active Medications: Amoxicillin (Amoxicillin Po (*)) 500 mg PO TID [facility] Last Admin: 05/21/19 09:34 Dose: 500 mg Apixaban (Eliquis*) 5 mg PO BID [facility] Last Admin: 05/21/19 09:33 Dose: 5 mg Betaxolol HCl (Betoptic 0.05%*) 1 drop LEFT EYE QAM [facility] Last Admin: 05/21/19 09:35 Dose: 1 drop Dextrose (Dextrose 50% Vial 50 Ml*) 25 ml IV PUSH .FOR FS < 60 - SS PRN PRN Reason: FS < 60 Last Admin: 05/20/19 22:06 Dose: 25 ml Dextrose (Dextrose 50% Vial 50 Ml*) 25 ml IV PUSH .FOR FS < 60 - SS PRN PRN Reason: FS < 60 Diphenhydramine HCl (Benadryl Po*) 50 mg PO QPM PRN PRN Reason: ITCHING Famotidine (Pepcid Tab*) 20 mg PO BID [facility] Last Admin: 05/21/19 09:34 Dose: 20 mg Insulin Glargine (Lantus(*)) 7 units SUBCUT QAM [facility] Last Admin: 05/21/19 09:35 Dose: 7 units Insulin Glargine (Lantus(*)) 5 units SUBCUT DAILY@2100 [facility] Last Admin: 05/20/19 22:12 Dose: Not Given Insulin Human Lispro (Humalog*) 0 units SUBCUT ACHS [facility]; Protocol Last Admin: 05/21/19 09:32 Dose: 2 units Insulin Human Lispro (Humalog*) 0 units SUBCUT [facility]; Protocol Last Admin: 05/21/19 09:33 Dose: 3 unit Latanoprost (Xalatan 0.005%*) 1 drop LEFT EYE BEDTIME [facility] Last Admin: 05/20/19 22:16 Dose: 1 drop Midodrine (Midodrine) 2.5 mg PO TID [facility]; Protocol Last Admin: 05/21/19 09:34 Dose: 2.5 mg Oxycodone/Acetaminophen (Percocet 5/325 Tab*) 1 tab PO BID PRN PRN Reason: PAIN - MODERATE Prochlorperazine Edisylate (Compazine Inj*) 10 mg IV Q6H PRN PRN Reason: NAUSEA/VOMITING Last Admin: 05/19/19 23:32 Dose: 10 mg Tramadol HCl (Ultram*) 25 mg PO BID [facility] Last Admin: 05/21/19 09:34 Dose: 25 mg Vital Signs - 8 hr 05/21/19 05/21/19 04:46 09:34 Temperature 97.8 F Pulse Rate 91 Respiratory 18 18 Rate Blood Pressure 136/53 (mmHg) O2 Sat by Pulse 97 Oximetry Oxygen Devices in Use Now: None Appearance: Pleasant elderly lady sitting up in bed in good spirits, no acute distress Eyes: No Scleral Icterus Ears/Nose/Mouth/Throat: Mucous Membranes Moist Neck: Trachea Midline Respiratory: Symmetrical Chest Expansion and Respiratory Effort, Clear to Auscultation Cardiovascular: NL Sounds; No Murmurs; No JVD, RRR Neurological: Alert and Oriented x 3, NL Muscle Strength and Tone Result Diagrams: 05/18/19 08:48 05/18/19 08:48 Assess/Plan/Problems-Billing Assessment: Mrs Mari is a 78yo F with PMH of type 1 DM since age 31, HLD, HTN, lung CA, breast CA, RA, atrial flutter on AC, who presented to ED with DKA. - Patient Problems (1) DKA (diabetic ketoacidoses) Comment: - In the setting of UTI. - DKA is resolved. - Diabetes was under excellent control before - Hb A1c was 6.9 in April 2019. - Despite education, she continues to make poor dietary decisions - had a brownie and cookie yesterday, ordered a doughnut for breakfast today and is already planning to order a cinnamon roll for tomorrow. - Continue Lantus and Lispro SS as it is to avoid BG swings like yesterday. (2) Urinary tract infection Comment: - Urine culture grew Aerococcus - completed treatment. (3) Atrial flutter Comment: - Continue Apixaban. (4) Physical deconditioning Comment: - PT/OT consults appreciated. - Agreeable with [facility] now - CM to assist with discharge plan. (5) DVT prophylaxis Comment: - Apixaban. (6) Full code status Status and Disposition: Inpatient.
[2019-05-21] MEDS: Latanoprost 0.005%* 2.5 ml BTL LEFT EYE SCH (22:56)
[2019-05-22] MEDS: Insulin LISPRO* 1 UNITS UNIT SUBCUT SCH ×4 (09:30→13:36)
[2019-05-22] MEDS: Insulin GLARGINE(*) 1 UNITS UNIT SUBCUT SCH (09:31)
[2019-05-22] MEDS: Betaxolol 0.5 %* OPHTH.SOLN 5 ML LEFT EYE SCH (09:32)
[2019-05-22] MEDS: Apixaban* 5 MG TAB PO SCH (09:33)
[2019-05-22] MEDS: Famotidine TAB* 20 MG PO SCH (09:33)
[2019-05-22] MEDS: traMADol TAB* 50 MG PO SCH (09:33)
--- NOTE | 2019-05-22 13:37 | DS ---
CC: Dr. Quigley; Dr. Edy Abraham DISCHARGE SUMMARY: DATE OF ADMISSION: 05/13/19 DATE OF DISCHARGE: 05/22/19 PRIMARY CARE PROVIDER: Dr. Quigley. OXYGEN TANK FILLER: Dr. Edy Abraham. DISCHARGE DIAGNOSES: 1. Diabetic ketoacidosis. 2. Urinary tract infection, present on admission, not Mclean catheter related. SECONDARY DIAGNOSES: 1. Type 1 diabetes. 2. Hyperlipidemia. 3. Hypertension. 4. Rheumatoid arthritis. 5. Lung cancer. 6. Breast cancer. 7. Status post right eye enucleation. 8. Status post bilateral vitrectomies. 9. Status post cholecystectomy. 10. Status post toe amputation. 11. Right mastectomy. 12. Right partial lobectomy. 13. Status post oophorectomy. MEDICATION LIST: 1. Apixaban 5 mg p.o. b.i.d. 2. Betoptic 0.5% one drop to left eye q.a.m. 3. Calcium plus vitamin D 1 tablet p.o. b.i.d. 4. TheraTears 1 drop left eye at bedtime. 5. Benadryl 50 mg p.o. at bedtime as needed for itching. 6. Trusopt 2% one drop to left eye b.i.d. 7. Gabapentin 100 mg p.o. at bedtime. 8. Insulin aspart t.i.d. with meals 1 unit per 15 g of carbs. 9. Lantus 7 units subcutaneously in the morning, 5 units subcutaneously in the evening. 10. Latanoprost 1 drop to left eye at bedtime. 11. Leflunomide 20 mg p.o. daily. 12. Meclizine 12.5 mg p.o. t.i.d. as needed for dizziness. 13. Metoprolol 12.5 mg p.o. b.i.d. 14. Midodrine 2.5 mg p.o. t.i.d. 15. Mineral oil 1 drop to left eye 3 to 4 times a day. 16. Multivitamin 1 tablet p.o. daily. 17. Fish oil 1 capsule p.o. b.i.d. 18. Oxycodone/acetaminophen 5/325 mg 1 tablet p.o. at bedtime. 19. Ranitidine 150 mg p.o. b.i.d. 20. Rosuvastatin 2.5 mg p.o. daily. 21. Tramadol 25 mg p.o. b.i.d. 22. CoQ10 200 mg p.o. daily. HOSPITAL COURSE: Ms. Mari is a 78-year-old female who presented to the emergency room on 05/13/19 with complaints of nausea, vomiting, and high blood glucose. She was initially admitted to the intensive care unit under the impression of diabetic ketoacidosis and started on an insulin drip. Her sugar normalized quickly, and she was transferred to the medical floor. Her hemoglobin A1c was 6.9 in April, so she did have good glucose control, but her dietary options in the hospital have shown that it is not really compliant with her diet. It has been very difficult to maintain her sugar under control as she continues to eat foods with larger amounts of carbs including, but not limited to, brownie, cookies, muffins, donuts, cinnamon roll resulting in postprandial hyperglycemia followed by nocturnal hypoglycemia as the patient gets concerned that her sugar is too high and she would not eat anything anymore but still needs to receive at least her basal insulin. We have had multiple conversations about the importance of dietary compliance and she appears to be willing at this time to follow the recommendations. The patient was also found to have an abnormal urinalysis on admission and urine culture grew aerococcus. The patient was treated with antibiotics and had improvement of her urinary symptoms. The patient did have episodes of unsteady gait. She was seen by Physical and Occupational Therapy and found to have skill needs. So the plan at this time is for her to be discharged to [facility] to continue her rehabilitation process. PHYSICAL EXAMINATION: Vital Signs: Temperature 97.8, heart rate is 93, respiratory rate 16, oxygen saturation 97% on room air, blood pressure is 131/ 52. General: The patient is a pleasant elderly lady, sitting up in bed, in no acute distress. HEENT: The patient is status post enucleation of the right eye. CVS: Normal S1, S2. Regular rate and rhythm. Chest: Breath sounds present bilaterally with no added sounds. Abdomen: Soft. Bowel sounds are present. Extremities: No edema. Neurologic: She is alert and oriented x3. Able to move all 4 extremities. DIET: Consistent carb diet. ACTIVITIES: As tolerated. DISPOSITION: To [facility]. STATUS AT THE TIME OF DISCHARGE: Stable. STATUS WHILE IN THE HOSPITAL: Inpatient. Please keep in mind this is a summarized version of this patient's hospital stay. If you need more information, please feel free to call me at [phone] or please obtain the full medical records. TIME SPENT: Approximately 45 minutes was spent to complete this discharge. [id number]/CPS #: [id number] MTDD
[2019-05-22 16:45] VITALS: BP 113/44
== END 2019-05-22 16:00 | DRG 638 ==
LOC: ED 14:52 → ICU 17:31 → MED 05-14 08:55
PROVIDERS: ADMIT Internal Medicine; ATTEND Internal Medicine
DX: E10.10 Type 1 diabetes mellitus with ketoacidosis without coma (principal); N39.0 Urinary tract infection, site not specified; N17.9 Acute kidney failure, unspecified; I48.92 Unspecified atrial flutter; B96.89 Other specified bacterial agents as the cause of diseases classified elsewhere; E86.0 Dehydration; E78.5 Hyperlipidemia, unspecified; J06.9 Acute upper respiratory infection, unspecified; I10 Essential (primary) hypertension; M06.9 Rheumatoid arthritis, unspecified; R06.09 Other forms of dyspnea; I48.0 Paroxysmal atrial fibrillation; H91.92 Unspecified hearing loss, left ear; Z85.3 Personal history of malignant neoplasm of breast; Z85.118 Personal history of other malignant neoplasm of bronchus and lung; Z79.82 Long term (current) use of aspirin; Z79.4 Long term (current) use of insulin; Z79.899 Other long term (current) drug therapy; Z88.8 Allergy status to other drugs, medicaments and biological substances; Z82.49 Family history of ischemic heart disease and other diseases of the circulatory system; Z82.5 Family history of asthma and other chronic lower respiratory diseases; Z83.49 Family history of other endocrine, nutritional and metabolic diseases
CPT/HCPCS: 36415; 71045; 74018; 80048; 80053; 81003; 81015; 82550; 82803; 82947; 83605; 83690; 83735; 83880; 85025; 85027; 86140; 87077; 87086; 87641; 93005; 96374; 99283; A9270-GY; G8978-GP-CJ; G8979-GP-CI; J0610; J0696; J0780; J1815; J2405; J3010; J3475; J3480

== ENCOUNTER 2019-05-22 23:19 | Emergency (ER) | payer MEDICARE, BC ==
[2019-05-23] MEDS ORDERED: Pantoprazole IV* 40 MG IV ONE (00:03)
[2019-05-23] MEDS ORDERED: NS 0.9% 1000 ML** 1,000 ML IV ONE ×3 (00:03→05:19)
[2019-05-23] MEDS ORDERED: Ondansetron INJ* 2 MG/ML VIAL IV ONE (00:03)
--- NOTE | 2019-05-23 00:04 | ED ---
Complex/Multi-Sys Presentation - HPI Summary HPI Summary: 78 year old F brought in by EMS to [facility] from [facility] complains of nausea and elevated BG since minutes prior to arrival. Saw primary care provider on 05/12. Had normal BG level which was in the 100s 12/6 PM. That same evening, patient started vomiting, and measured her BG which was in the 400s. Patient called EMS and was brought to [facility] 05/13, admitted to hospitalist services, and recently discharged to [facility] yesterday 05/22. Patient only at [place] for several hours when she developed nausea, no vomiting, elevated BG. The patient rates the pain 0/10 in severity. Symptoms aggravated by nothing. Symptoms alleviated by nothing. - History Of Current Complaint Chief Complaint: EDNauseaVomitDiarrh Time Seen by Provider: 05/23/19 00:00 Hx Obtained From: Patient Onset/Duration: Lasting Hours, Still Present Timing: Constant Severity Currently: None Aggravating Factor(s): Nothing Alleviating Factor(s): Nothing - Allergies/Home Medications Allergies/Adverse Reactions: Allergies Allergy/AdvReac Type Severity Reaction Status Date / Time atorvastatin AdvReac Severe Elevated Verified 04/19/19 11:37 Liver Enzymes pregabalin AdvReac Severe Mood Verified 04/19/19 11:37 Changes simvastatin AdvReac Severe Elevated Verified 04/19/19 11:37 Liver Enzymes lisinopril AdvReac Intermediate Shakes and Verified 04/19/19 11:37 Dizziness metoclopramide AdvReac Unknown Parkinsonian Verified 04/19/19 11:37 movements PMH/Surg Hx/FS Hx/Imm Hx Endocrine/Hematology History: Reports: Hx Diabetes - IDDM Cardiovascular History: Reports: Hx Angina, Hx Hypercholesterolemia, Hx Hypertension, Other Cardiovascular Problems/Disorders - cardiac cath 05/2014 Denies: Hx Coronary Artery Disease, Hx Myocardial Infarction, Hx Pacemaker/ ICD, Hx Valvular Heart Disease Respiratory History: Reports: Other Respiratory Problems/Disorders - PT STATES DYSPNEA X4-5 YRS; H/O PARTIAL RIGHT LUNGECTOMY IN 1976 Denies: Hx Asthma, Hx Chronic Obstructive Pulmonary Disease (COPD) History: Denies: Hx Chronic Renal Failure Musculoskeletal History: Reports: Hx Arthritis, Hx Rheumatoid Arthritis, Hx Back Problems, Hx Bursitis Denies: Hx Osteoporosis Sensory History: Reports: Hx Contacts or Glasses - glasses, Hx Eye Prosthesis - Rt eye enucleation, Hx Legally Blind - RIGHT EYE, Hx Deafness - LEFT EAR, Hx Hearing Problem - Deaf Left Ear Denies: Hx Hearing Aid Opthamlomology History: Reports: Hx Contacts or Glasses - glasses, Hx Eye Prosthesis - Rt eye enucleation, Hx Legally Blind - RIGHT EYE Neurological History: Denies: Hx CVA Psychiatric History: Denies: Hx Panic Disorder - Cancer History Cancer Type, Location and Year: 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 1976 - LOBECTOMY- 2/3 REMOVED FOR LUNG CA. 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 1993 - Lt SMALL TOE AMPUTEE. 1973 -C SECTION. 2010 - GALLBLADDER Infectious Disease History: No Infectious Disease History: Denies: Hx of Known/Suspected MRSA, History Other Infectious Disease, Traveled Outside the [place] in Last 30 Days - Family History Known Family History: Positive: Cardiac Disease - mother, Diabetes - mother, Respiratory Disease - father with emphysema - Social History Alcohol Use: None Hx Substance Use: No Substance Use Type: Reports: None Substance Use Comment - Amount & Last Used: tramadol Hx Tobacco Use: No Smoking Status (MU): Never Smoked Tobacco Have You Smoked in the Last Year: No Review of Systems - ROS Summary Review of Systems Summary: Home Medications Medication Instructions Recorded Confirmed Type Insulin Glargine,Hum.rec.anlog 7 unit SUBCUT QAM 05/11/12 05/22/19 History [Lantus] Ranitidine TAB (NF) [Zantac TAB 150 mg PO BID 05/02/14 05/22/19 History (NF)] Ubidecarenone [Co Q-10] 200 mg PO DAILY 12/24/16 04/19/19 History Meclizine TAB* [Antivert 12.5 TAB*] 12.5 mg PO TID PRN 07/30/17 05/22/19 History [place]-3 Fatty Acids/Fish Oil 1 cap PO BID 07/30/17 05/22/19 History [[place] 3 1,000 mg Softgel] Leflunomide (NF) [Arava (NF)] 20 mg PO DAILY 03/23/18 05/22/19 History Rosuvastatin (NF) [Crestor (NF)] 2.5 mg PO DAILY 03/23/18 05/22/19 History Midodrine 2.5 mg PO TID 11/07/18 05/22/19 History Gabapentin CAP(*) [Neurontin 100 100 mg PO BEDTIME 11/29/18 05/22/19 History mg CAP(*)] Betaxolol 0.5 %* [Betoptic 0.5%*] 1 drop LEFT EYE QAM 03/02/19 05/22/19 History Calcium Carbonate/Vitamin D3 1 each PO BID 03/02/19 05/22/19 History [Calcium 500 + Vit D Caplet] Dorzolamide 2% OPTH (NF) [Trusopt 1 drop LEFT EYE BID 03/02/19 05/22/19 History 2% OPTH (NF)] Latanoprost 0.005%* [Xalatan 1 drop LEFT EYE BEDTIME 03/02/19 05/22/19 History 0.005%*] Mineral Oil, Light/Mineral Oil 1 patricia LEFT EYE .3-4 TIMES/DAY 03/02/19 05/22/19 History [Soothe Xp Eye Drops] Insulin Aspart [Novolog] 1 - 10 unit SC TID WITH MEALS 03/03/19 05/22/19 History Multivit-Min/Iron/Folic/Lutein 1 each PO DAILY 03/03/19 05/22/19 History [Centrum Silver Women Tablet] Carboxymethylcellulose Sodium 1 drop LEFT EYE QPM 04/19/19 05/22/19 History [Thera Tears] Insulin GLARGINE(*) [Lantus(*)] 5 units SUBCUT QPM 04/19/19 05/22/19 History Apixaban* [Eliquis*] 5 mg PO BID #60 tab 04/20/19 05/22/19 Rx Insulin LISPRO* [HumaLOG*] 0 units SUBCUT ACHS unit 05/22/19 Rx Metoprolol Tartrate TAB* 12.5 mg PO BID 05/22/19 05/22/19 History [Lopressor TAB*] diPHENhydraMINE PO* [Benadryl PO 50 mg PO QPM PRN cap 05/22/19 Rx 50 MG CAP*] oxyCODONE/Acetamin 5/325 MG* 1 tab PO BEDTIME tab 05/22/19 Rx [Percocet 5/325 TAB*] traMADol TAB* [Ultram*] 25 mg PO BID tab 05/22/19 Rx Positive: Other - elevated BG Positive: Nausea. Negative: Vomiting All Other Systems Reviewed And Are Negative: Yes Physical Exam - Summary Physical Exam Summary: General: Obese FEMALE. No acute distress. HEENT: Normocephalic, Atraumatic. Eyes: Conjuctiva normal, PERRL. Oropharynx: Clear, mucous membranes moist, (-) exudates. Neck: Soft, FROM, (-) lymphadenopathy, (-) thyromegaly, (-) JVD. Cardiovascular: Normal sinus rhythm, (-) murmur. Lungs: Clear to auscultation bilaterally (-) wheezes, (-) rales, (-) rhonchi. Abdomen: Soft, non-tender, non-distended, (-) organomegaly, normal bowel sounds. Back: (-) CVA tenderness Extremities: No edema. Skin: Warm, dry, (-) rash. Neuro: Alert and oriented x3, no focal deficits. Psychiatric: Patient is very distraught and moderately anxious appearing. Triage Information Reviewed: Yes Vital Signs On Initial Exam: Initial Vitals Temp Pulse Resp BP Pulse Ox 97.7 F 110 30 136/91 100 05/22/19 23:37 05/22/19 23:37 05/22/19 23:37 05/22/19 23:37 05/22/19 23:37 Vital Signs Reviewed: Yes Procedures - Sedation Patient Received Moderate/Deep Sedation with Procedure: No Diagnostics - Vital Signs Vital Signs Temp Pulse Resp BP Pulse Ox 05/22/19 23:37 97.7 F 110 30 136/91 100 - Laboratory Result Diagrams: 05/23/19 00:00 05/23/19 03:26 Lab Statement: Any lab studies that have been ordered have been reviewed, and results considered in the medical decision making process. Re-Evaluation - Re-Evaluation First Eval Re-Evaluation Time: 06:38 Change: Improved Comment: Finger stick 265 which is improved from previous. I have discussed results with the patient and symptoms have resolved. Discussed symptoms that warrant immediate return to ED. Complex Multi-Symp Course/Dx Course Of Treatment: 78-year-old female returns after discharge today. Patient went to skilled nursing for a couple hours. 8 there and then had nausea and vomiting. Elevated blood sugar upon arrival. Patient given normal saline fluids, Zofran, pantoprazole, lorazepam, 14 units insulin subcutaneous. Patient had minimal decrease in her blood sugar. She did have some ketones in her urine. However her anion gap was only 13 and repeat was 15. Patient given more fluids and IV insulin. Had significant decrease in blood sugar to the low 200s. Patient discharged back to skilled nursing. Follow up with PCP. Follow up sooner for any worsening symptoms. - Diagnoses Provider Diagnoses: Hyperglycemia, Vomiting - Physician Notifications Discussed Care Of Patient With: Omar Gil Time Discussed With Above Provider: 05:24 Instructed by Provider To: Other - Hospitalist agrees with insulin drip and fluids. Anion gap not that elevated. Not really in DKA. Normalize her BG and discharge. Discharge ED - Sign-Out/Discharge Documenting (check all that apply): Patient Departure - Discharge Plan Condition: Stable Disposition: HOME Patient Education Materials: Acute Nausea and Vomiting (ED), Diabetic Hyperglycemia (ED) Referrals: Celestine Quigley MD [Primary Care Provider] - 3 Days Additional Instructions: Please follow up with your primary care physician within 3 days. Please return to Emergency Department for any new or worsening symptoms. - Billing Disposition and Condition Condition: STABLE Disposition: Home - Attestation Statements Document Initiated by Connieibe: Yes Documenting Scribe: Carley Antunez Provider For Whom Paulie is Documenting (Include Credential): Jayshree Calhoun MD Scribe Attestation: Carley Valdes, scribed for Jayshree Calhoun MD on 05/24/19 at 0519. Scribe Documentation Reviewed: Yes Provider Attestation: The documentation as recorded by the Carley sanchez accurately reflects the service I personally performed and the decisions made by me, Jayshree Calhoun MD Status of Scribe Document: Viewed
[2019-05-23 00:17] LABS: Albumin 3.3 g/dL (3.2-5.2); CO2 Carbon Dioxide 21 mmol/L (22-32); Calcium 8.8 mg/dL (8.6-10.3); Chloride 98 mmol/L (101-111); Sodium 132 mmol/L (135-145)
[2019-05-23 00:23] LABS: ALT 11 U/L (7-52); Albumin/Globulin Ratio 1.1 (1-3); Alkaline Phosphatase 80 U/L (34-104); BUN/Creatinine Ratio 26.3 (8-20); Blood Urea Nitrogen 25 mg/dL (6-24); C Reactive Protein 51.17 mg/L (<8.01); EGFR African American 69.2 (>60); EGFR Non-African American 57.2 (>60); Globulin 2.9 g/dL (2-4); Glucose 432 mg/dL (70-100); Total Protein 6.2 g/dL (6.4-8.9)
[2019-05-23 00:26] LABS: Anion Gap 13 mmol/L (2-11)
[2019-05-23 00:32] LABS: Hematocrit 31 % (35-47); Hemoglobin 10.3 g/dL (12.0-16.0); Mean Corpuscular HGB Conc 33 g/dL (31-36); Mean Corpuscular Hemoglobin 29 pg (27-31); Mean Corpuscular Volume 88 fL (80-97); Red Blood Count 3.55 10^6 /uL (3.70-4.87); Red Cell Distribution Width 15 % (10-15); White Blood Count 18.9 10^3/uL (3.5-10.8)
[2019-05-23] MEDS ORDERED: LORazepam INJ* 2 MG/ML 1 ML VIAL IV PUSH ONE (00:46)
[2019-05-23] MEDS ORDERED: Lorazepam PYXIS KEY PRN (00:46)
[2019-05-23 01:03] LABS: Urine Appearance Clear; Urine Bilirubin Negative (Negative); Urine Blood Negative (Negative); Urine Color Straw; Urine Glucose 3+(>=500 mg/dL) (Negative); Urine Ketones 2+ (Negative); Urine Nitrite Negative (Negative); Urine Protein Negative (Negative); Urine Specific Gravity 1.023 (1.010-1.030); Urine Urobilinogen Negative (Negative)
[2019-05-23 01:06] LABS: Mean Platelet Volume 8.9 fL (7.4-10.4); Platelet Count 300 10^3/uL (150-450)
[2019-05-23] MEDS ORDERED: Insulin REGULAR(*) 1 UNITS UNIT SUBCUT ONE (01:07)
[2019-05-23 01:09] LABS: ABS Basophils 0.1 10^3/ul (0-0.2); ABS Eosinophils 0.1 10^3/ul (0-0.6); ABS Monocytes 0.6 10^3/ul (0-0.8); ABS Neutrophils 17.2 10^3/ul (1.5-7.7); Eosinophil % 0.4 %; Lymphocyte % 5.2 %
--- OUTSIDE RECORDS SUMMARY | 2019-05-23 01:36 | XMS REPORT ---
:1940 Author Organization [facility] Care Team Providers Name Role Phone Unavailable Unavailable Unavailable Problems This patient has no known problems. Allergies, Adverse Reactions, Alerts Allergy Allergy Status Severity Reaction(s) Onset Inactive Treating Comments Name Type Date Date Clinician atorvastati Base Active Unknown ELEVATED 2018- Danni Beam n Ingredient LIVER 2-11 ENZYMES pregabalin Base Active Unknown MOOD CHANGES 2018- Danni Beam Ingredient 2-11 simvastatin Base Active Unknown elevated 2018- Danni Beam Ingredient liver Enzymes 2-11 lisinopril Base Active Unknown shakes & 2018-06 Danni Beam Ingredient dizziness 2-11 metoclopram Base Active Unknown Parkinsonian 2018-06 Danni Beam marybeth Ingredient movements 2-11 Medications Ordered Filled Start Stop Current Ordering Indication Dosage Frequency Signature Comments Components Medication Medication Date Date Medication? Clinician (SIG) Name Name No Known No Known No None None None Medications Medications For This For This Patient Patient Procedures This patient has no known procedures. Results This patient has no known results.
--- OUTSIDE RECORDS SUMMARY | 2019-05-23 01:36 | XMS REPORT ---
:1940 Author Organization [facility] Care Team Providers Name Role Phone Unavailable [...]
[2019-05-23 04:01] LABS: Potassium Redraw 4.1 mmol/L (3.5-5.0)
[2019-05-23 04:16] LABS: Calcium 8.5 mg/dL (8.6-10.3); Potassium 4.1 mmol/L (3.5-5.0)
[2019-05-23 04:21] LABS: BUN/Creatinine Ratio 28.2 (8-20); EGFR African American 78.7 (>60)
[2019-05-23] MEDS ORDERED: Insulin REGULAR(*) 1 UNITS UNIT IV PUSH ONE (05:28)
[2019-05-23] MEDS ORDERED: Insulin Infusion 100unit/100mL 100 UNITS/100 ML UNIT IV SCH (06:00)
[2019-05-23 08:08] VITALS: BP 119/50
== END 2019-05-23 08:07 | disposition home or self-care (01) ==
LOC: ED 23:19
DX: E11.65 Type 2 diabetes mellitus with hyperglycemia (principal); Z79.4 Long term (current) use of insulin; I10 Essential (primary) hypertension; E78.00 Pure hypercholesterolemia, unspecified; M06.9 Rheumatoid arthritis, unspecified; Z88.8 Allergy status to other drugs, medicaments and biological substances
CPT/HCPCS: 36415; 80048; 80053; 81003; 82803; 83605; 83690; 85025; 86140; 99283; J1815; J2405

== ENCOUNTER 2019-06-29 12:04 | Emergency (ER) | payer MEDICARE, BC ==
--- NOTE | 2019-06-29 12:39 | ED ---
Skin Complaint - HPI Summary HPI Summary: Patient is a 78 y/o F presenting to [facility] via EMS from [facility] for possible abscess to back right of her head. She states that she has been able to feel a bump at the back of her head for the past three weeks but has only been able to have someone examine this area last week. Patient now has a circular area of redness with some drainage. She denies fever, chills and nausea but does note that she has vomited a couple of times since Sx onset. PMHx of lung cancer diabetes, vertigo, rheumatoid arthritis, and osteoarthritis is noted. Patient is on leflunomide and meclizine. PSHx of mastectomy and resection of 2/3s of lung. She states that she has been free of cancer since lung resection. Home medications and allergies are reviewed. - History of Current Complaint Chief Complaint: EDRashSkinAbscess Time Seen by Provider: 06/29/19 12:21 Stated Complaint: ABSCESS ON HEAD PER EMS Hx Obtained From: Patient Onset/Duration: Started Weeks Ago, Still Present Skin Exposure Onset/Duration: Weeks Ago Timing: Constant, Lasting Weeks Pain Intensity: 0 Pain Scale Used: 0-10 Numeric Skin Location: Other: - posterior head Character: Redness Associated Signs & Symptoms: Vomiting, Drainage - Additional Pertinent History Primary Care Physician: GAY - Allergy/Home Medications Allergies/Adverse Reactions: Allergies Allergy/AdvReac Type Severity Reaction Status Date / Time atorvastatin AdvReac Severe Elevated Verified 06/29/19 12:16 Liver Enzymes pregabalin AdvReac Severe Mood Verified 06/29/19 12:16 Changes simvastatin AdvReac Severe Elevated Verified 06/29/19 12:16 Liver Enzymes lisinopril AdvReac Intermediate Shakes and Verified 06/29/19 12:16 Dizziness metoclopramide AdvReac Unknown Parkinsonian Verified 06/29/19 12:16 movements PMH/Surg Hx/FS Hx/Imm Hx Endocrine/Hematology History: Reports: Hx Diabetes - IDDM Cardiovascular History: Reports: Hx Angina, Hx Hypercholesterolemia, Hx Hypertension, Other Cardiovascular Problems/Disorders - cardiac cath 05/2014 Denies: Hx Coronary Artery Disease, Hx Myocardial Infarction, Hx Pacemaker/ ICD, Hx Valvular Heart Disease Respiratory History: Reports: Other Respiratory Problems/Disorders - PT STATES DYSPNEA X4-5 YRS; H/O PARTIAL RIGHT LUNGECTOMY IN 1976 Denies: Hx Asthma, Hx Chronic Obstructive Pulmonary Disease (COPD) History: Denies: Hx Chronic Renal Failure Musculoskeletal History: Reports: Hx Arthritis, Hx Rheumatoid Arthritis, Hx Back Problems, Hx Bursitis Denies: Hx Osteoporosis Sensory History: Reports: Hx Contacts or Glasses - glasses, Hx Eye Prosthesis - Rt eye enucleation, Hx Legally Blind - RIGHT EYE, Hx Deafness - LEFT EAR, Hx Hearing Problem - Deaf Left Ear Denies: Hx Hearing Aid Opthamlomology History: Reports: Hx Contacts or Glasses - glasses, Hx Eye Prosthesis - Rt eye enucleation, Hx Legally Blind - RIGHT EYE Neurological History: Denies: Hx CVA Psychiatric History: Denies: Hx Panic Disorder - Cancer History Cancer Type, Location and Year: 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 1976 - LOBECTOMY- 2/3 REMOVED FOR LUNG CA. 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 1993 - Lt SMALL TOE AMPUTEE. 1973 -C SECTION. 2010 - GALLBLADDER - Immunization History Date of Influenza Vaccine: 2018 Immunizations Up to Date: Yes Infectious Disease History: No Infectious Disease History: Denies: Hx of Known/Suspected MRSA, History Other Infectious Disease, Traveled Outside the [place] in Last 30 Days - Family History Known Family History: Positive: Cardiac Disease - mother, Diabetes - mother, Respiratory Disease - father with emphysema - Social History Alcohol Use: None Hx Substance Use: No Substance Use Type: Reports: None Substance Use Comment - Amount & Last Used: tramadol Hx Tobacco Use: No Smoking Status (MU): Never Smoked Tobacco Have You Smoked in the Last Year: No Review of Systems Negative: Fever, Chills Positive: Vomiting. Negative: Nausea Skin: Other - positive - possible abscess to back of head All Other Systems Reviewed And Are Negative: Yes Physical Exam - Summary Physical Exam Summary: Constitutional: Well-developed, Well-nourished, Alert. (-) Distressed Skin: There is an 8x8 cm area of erythema to right posterior occiput with overlying scaling. No warmth to area noted, but area is minimally tender. US showed no abscess. HENT: Normocephalic; Atraumatic Eyes: Conjunctiva normal Neck: Musculoskeletal ROM normal neck. (-) JVD, (-) Stridor, (-) Tracheal deviation Cardio: Rhythm regular, rate normal, Heart sounds normal; Intact distal pulses; Radial pulses are 2+ and symmetric. (-) Murmur Pulmonary/Chest wall: Effort normal. (-) Respiratory distress, (-) Wheezes, (-) Rales Abd: Soft, (-) tenderness, (-) Distension, (-) Guarding, (-) Rebound Musculoskeletal: (-) Edema Lymph: (-) Cervical adenopathy Neuro: Alert, Oriented x3 Psych: Mood and affect Normal Triage Information Reviewed: Yes Vital Signs On Initial Exam: Initial Vitals Temp Pulse Resp BP Pulse Ox 98.7 F 108 24 106/68 99 06/29/19 12:11 06/29/19 12:11 06/29/19 12:11 06/29/19 12:11 06/29/19 12:11 Vital Signs Reviewed: Yes Procedures - Sedation Patient Received Moderate/Deep Sedation with Procedure: No Diagnostics - Vital Signs Vital Signs Temp Pulse Resp BP Pulse Ox 06/29/19 12:11 98.7 F 108 24 106/68 99 - Laboratory Lab Statement: Any lab studies that have been ordered have been reviewed, and results considered in the medical decision making process. - Ultrasound BEDSIDE US Ultrasound Interpretation Completed By: ED Physician Summary of Ultrasound Findings: No abscess noted. Course/Dx - Course Course Of Treatment: Patient is here with erythema and rash to the back of her occiput. Patient's been having symptoms for 3 weeks which she's been treated with a topical cream. Patient's rash is consistent with a Kerion and she likely a superimposed bacterial infection. Patient has no drainable abscess per bedside ultrasound and physical exam. She was started on griseofulvin and Keflex - Diagnoses Provider Diagnoses: Kerion, occipital scalp Discharge ED - Sign-Out/Discharge Documenting (check all that apply): Patient Departure - discharge - Discharge Plan Condition: Stable Disposition: HOME Prescriptions: Cephalexin CAP* [Keflex CAP*] 500 mg PO TID 7 Days #21 cap Griseofulvin, Microsize [Griseofulvin] 500 mg PO QAM 28 Days #28 tablet Patient Education Materials: Skin Yeast Infection (ED) Referrals: Celestine Quigley MD [Primary Care Provider] - Additional Instructions: TAKE YOUR MEDICINE PRESCRIBED. YOUR ANTI-FUNGAL MEDICATION WAS PRESCRIBED FOR FOUR WEEKS, BUT YOU MAY NEED MORE. IF YOU DO, HAVE YOUR PRIMARY CARE PHYSICIAN PRESCRIBE MORE NEEDED. PLEASE RETURN TO ED FOR HIGH FEVER, CHILLS, SEVERE HEADACHE, CHANGES IN VISION, AND ANY OTHER CONCERNING SYMPTOMS. - Billing Disposition and Condition Condition: STABLE Disposition: Home - Attestation Statements Document Initiated by Paulie: Yes Documenting Scribe: BALTAZAR RIOS Provider For Whom Paulie is Documenting (Include Credential): CHELO ULLOA MD Scribe Attestation: IBALTAZAR, scribed for CHELO ULLOA MD on 06/29/19 at 1428. Scribe Documentation Reviewed: Yes Provider Attestation: The documentation as recorded by the BALTAZAR sanchez accurately reflects the service I personally performed and the decisions made by me, CHELO ULLOA MD Status of Scribe Document: Viewed
--- OUTSIDE RECORDS SUMMARY | 2019-06-29 12:50 | XMS REPORT ---
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
--- OUTSIDE RECORDS SUMMARY | 2019-06-29 12:50 | XMS REPORT ---
:1940 Author Organization [facility] Care Team Providers Name Role Phone Unavailable [...]
[2019-06-29 13:10] VITALS: BP 127/74
== END 2019-06-29 13:09 | disposition home or self-care (01) ==
LOC: ED 12:04
DX: B35.0 Tinea barbae and tinea capitis (principal); E11.9 Type 2 diabetes mellitus without complications; E78.00 Pure hypercholesterolemia, unspecified; I10 Essential (primary) hypertension; M06.9 Rheumatoid arthritis, unspecified; Z85.3 Personal history of malignant neoplasm of breast; Z85.118 Personal history of other malignant neoplasm of bronchus and lung; Z90.11 Acquired absence of right breast and nipple; Z90.721 Acquired absence of ovaries, unilateral; Z89.422 Acquired absence of other left toe(s); Z79.899 Other long term (current) drug therapy; Z88.8 Allergy status to other drugs, medicaments and biological substances
CPT/HCPCS: 99283

== ENCOUNTER 2019-10-01 15:15 | Observation (INO) | payer MEDICARE, BC ==
[2019-10-01] MEDS ORDERED: NS 0.9% 1000 ML** 1,000 ML IV ONE (15:27)
--- NOTE | 2019-10-01 15:32 | ED ---
Complex/Multi-Sys Presentation - HPI Summary HPI Summary: 78 y/o female presented to [facility] for an episode of weakness [employer]. Pt states her legs gave out from under her and she could not get up afterward. Pt denies HILL, N /V, fever, chills, abd pain, painful urination, or burning while urinating. Pt lives alone without help. She was discharged from [facility] 3 days ago; [facility] claimed they would arrange at home help but she states that thus far she has not received any. She was originally sent to [facility] 5 months ago. Pt notes Hx of vertigo, DM, anemia, and an injury to her right shoulder that did not heal properly and impedes ROM. She also notes a rash on the back of her neck back in May [address] Salcedo for anemia. - History Of Current Complaint Chief Complaint: EDWeakness Time Seen by Provider: 10/01/19 15:18 Hx Obtained From: Patient Onset/Duration: Still Present Location: Negative Associated Signs And Symptoms: Positive: Weakness, Other - negative - urinary pain or burning. Negative: Headache, Nausea, Vomiting, Abdominal Pain, Fever - Allergies/Home Medications Allergies/Adverse Reactions: Allergies Allergy/AdvReac Type Severity Reaction Status Date / Time atorvastatin AdvReac Severe Elevated Verified 10/01/19 15:23 Liver Enzymes pregabalin AdvReac Severe Mood Verified 10/01/19 15:23 Changes simvastatin AdvReac Severe Elevated Verified 10/01/19 15:23 Liver Enzymes lisinopril AdvReac Intermediate Shakes and Verified 10/01/19 15:23 Dizziness metoclopramide AdvReac Unknown Parkinsonian Verified 10/01/19 15:23 movements Home Medications: Home Medications Insulin Glargine,Hum.rec.anlog [Lantus] 7 unit SUBCUT QAM 05/11/12 [History Confirmed 05/22/19] Ranitidine TAB (NF) [Zantac TAB (NF)] 150 mg PO BID 05/02/14 [History Confirmed 05/22/19] Ubidecarenone [Co Q-10] 200 mg PO DAILY 12/24/16 [History Confirmed 04/19/19] Meclizine TAB* [Antivert 12.5 TAB*] 12.5 mg PO TID PRN 07/30/17 [History Confirmed 05/22/19] Mantoloking-3 Fatty Acids/Fish Oil [Mantoloking 3 1,000 mg Softgel] 1 cap PO BID 07/30/17 [ History Confirmed 05/22/19] Leflunomide (NF) [Arava (NF)] 20 mg PO DAILY 03/23/18 [History Confirmed ] Rosuvastatin (NF) [Crestor (NF)] 2.5 mg PO DAILY 03/23/18 [History Confirmed ] Midodrine 2.5 mg PO TID 11/07/18 [History Confirmed 05/22/19] Gabapentin CAP(*) [Neurontin 100 mg CAP(*)] 100 mg PO BEDTIME 11/29/18 [History Confirmed 05/22/19] Betaxolol 0.5 %* [Betoptic 0.5%*] 1 drop LEFT EYE QAM 03/02/19 [History Confirmed 05/22/19] Calcium Carbonate/Vitamin D3 [Calcium 500-Vit D3 125 Caplet] 1 each PO BID 03/02 [History Confirmed 05/22/19] Dorzolamide 2% OPTH (NF) [Trusopt 2% OPTH (NF)] 1 drop LEFT EYE BID 03/02/19 [ History Confirmed 05/22/19] Latanoprost 0.005%* [Xalatan 0.005%*] 1 drop LEFT EYE BEDTIME 03/02/19 [History Confirmed 05/22/19] Mineral Oil, Light/Mineral Oil [Soothe Xp Eye Drops] 1 patricia LEFT EYE .3-4 TIMES/ DAY 03/02/19 [History Confirmed 05/22/19] Insulin Aspart [Novolog 100 UNITS/ML 10 ML VIAL] 1 - 10 unit SC TID WITH MEALS 03/03/19 [History Confirmed 05/22/19] Multivit-Min/Iron/Folic/Lutein [Centrum Silver Women Tablet] 1 each PO DAILY [History Confirmed 05/22/19] Carboxymethylcellulose Sodium [Thera Tears] 1 drop LEFT EYE QPM 04/19/19 [ History Confirmed 05/22/19] Insulin GLARGINE(*) [Lantus 100 units/ml 10 ml VIAL (*)] 5 units SUBCUT QPM [History Confirmed 05/22/19] Apixaban* [Eliquis*] 5 mg PO BID #60 tab 04/20/19 [Rx Confirmed 05/22/19] Insulin LISPRO* [HumaLOG 100 units/ml 3 ml VIAL *] 0 units SUBCUT ACHS unit [Rx] Metoprolol Tartrate TAB* [Lopressor TAB*] 12.5 mg PO BID 05/22/19 [History Confirmed 05/22/19] diPHENhydraMINE PO* [Benadryl PO 50 MG CAP*] 50 mg PO QPM PRN cap 05/22/19 [Rx] oxyCODONE/Acetamin 5/325 MG* [Percocet 5/325 TAB*] 1 tab PO BEDTIME tab [Rx] traMADol TAB* [Ultram*] 25 mg PO BID tab 05/22/19 [Rx] Cephalexin CAP* [Keflex CAP*] 500 mg PO TID 7 Days #21 cap 06/29/19 [Rx] Griseofulvin, Microsize [Griseofulvin] 500 mg PO QAM 28 Days #28 tablet [Rx] PMH/Surg Hx/FS Hx/Imm Hx Endocrine/Hematology History: Reports: Hx Diabetes - IDDM Cardiovascular History: Reports: Hx Angina, Hx Hypercholesterolemia, Hx Hypertension, Other Cardiovascular Problems/Disorders - cardiac cath 05/2014 Denies: Hx Coronary Artery Disease, Hx Myocardial Infarction, Hx Pacemaker/ ICD, Hx Valvular Heart Disease Respiratory History: Reports: Other Respiratory Problems/Disorders - PT STATES DYSPNEA X4-5 YRS; H/O PARTIAL RIGHT LUNGECTOMY IN 1976 Denies: Hx Asthma, Hx Chronic Obstructive Pulmonary Disease (COPD) History: Denies: Hx Chronic Renal Failure Musculoskeletal History: Reports: Hx Arthritis, Hx Rheumatoid Arthritis, Hx Back Problems, Hx Bursitis Denies: Hx Osteoporosis Sensory History: Reports: Hx Contacts or Glasses - glasses, Hx Eye Prosthesis - Rt eye enucleation, Hx Legally Blind - RIGHT EYE, Hx Deafness - LEFT EAR, Hx Hearing Problem - Deaf Left Ear Denies: Hx Hearing Aid Opthamlomology History: Reports: Hx Contacts or Glasses - glasses, Hx Eye Prosthesis - Rt eye enucleation, Hx Legally Blind - RIGHT EYE Neurological History: Denies: Hx CVA Psychiatric History: Denies: Hx Panic Disorder - Cancer History Cancer Type, Location and Year: 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 1976 - LOBECTOMY- 2/3 REMOVED FOR LUNG CA. 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 1993 - Lt SMALL TOE AMPUTEE. 1973 -C SECTION. 2010 - GALLBLADDER - Immunization History Date of Influenza Vaccine: 2018 Infectious Disease History: No Infectious Disease History: Denies: Hx of Known/Suspected MRSA, History Other Infectious Disease, Traveled Outside the [place] in Last 30 Days - Family History Known Family History: Positive: Cardiac Disease - mother, Diabetes - mother, Respiratory Disease - father with emphysema - Social History Alcohol Use: None Hx Substance Use: No Substance Use Type: Reports: None Substance Use Comment - Amount & Last Used: tramadol Hx Tobacco Use: No Smoking Status (MU): Never Smoked Tobacco Have You Smoked in the Last Year: No Review of Systems Negative: Fever, Chills Negative: Abdominal Pain, Vomiting, Nausea Negative: burning, pain Positive: Weakness. Negative: Headache All Other Systems Reviewed And Are Negative: Yes Physical Exam - Summary Physical Exam Summary: Constitutional: Well-developed, Well-nourished, Alert. (-) Distressed Skin: Warm, Dry, Pale, multiple bilat LE bruises HENT: Normocephalic; Atraumatic Eyes: Conjunctiva normal Neck: Musculoskeletal ROM normal neck. (-) JVD, (-) Stridor, (-) Tracheal deviation Cardio: Rhythm regular, rate normal, Heart sounds normal; Intact distal pulses; The pedal pulses are 2+ and symmetric. Radial pulses are 2+ and symmetric. (-) Murmur Pulmonary/Chest wall: Effort normal. (-) Respiratory distress, (-) Wheezes, (-) Rales Abd: Soft, (-) tenderness, (-) Distension, (-) Guarding, (-) Rebound Musculoskeletal: (-) Edema Lymph: (-) Cervical adenopathy Neuro: Alert, Oriented x3 Psych: Anxious Triage Information Reviewed: Yes Vital Signs On Initial Exam: Initial Vitals Temp Pulse Resp BP Pulse Ox 98.3 F 76 16 142/79 99 10/01/19 15:19 10/01/19 15:19 10/01/19 15:19 10/01/19 15:19 10/01/19 15:19 Vital Signs Reviewed: Yes Procedures - Sedation Patient Received Moderate/Deep Sedation with Procedure: No Diagnostics - Vital Signs Vital Signs Temp Pulse Resp BP Pulse Ox 10/01/19 15:19 98.3 F 76 16 142/79 99 - Laboratory Result Diagrams: 10/02/19 07:19 10/02/19 07:19 Lab Statement: Any lab studies that have been ordered have been reviewed, and results considered in the medical decision making process. - EKG 1602 Cardiac Rate: Tachycardia EKG Rhythm: Sinus Tachycardia Summary of EKG Findings: EKG at 1602 shows sinus tachycardia at 102bpm. PVCs. Incomplete RBBB. This EKG was reviewed and interpreted by Dr. Hernandez. Re-Evaluation - Re-Evaluation First Eval Re-Evaluation Time: 17:25 Comment: Pt is concerned about her ability to walk. Notes she can stand but cannot walk due to weakness. Will try to ambulate with a walker. Complex Multi-Symp Course/Dx Course Of Treatment: 78 y/o female presented to [facility] for an episode of weakness [employer]. Pt states her legs gave out from under her and she could not get up afterward. Pt denies HILL, N/V, fever, chills, abd pain, painful urination, or burning while urinating. Pt lives alone without help. She was discharged from [facility] 3 days ago; [facility] claimed they would arrange at home help but she states that thus far she has not received any. She was originally sent to [facility] 5 months ago. Pt notes Hx of vertigo, DM, anemia, and an injury to her right shoulder that did not heal properly and impedes ROM. She also notes a rash on the back of her neck back in May [address] Salcedo for anemia. Exam showed pt was anxious. Skin Pale, multiple bilat LE bruises. Labs showed RBC 3.56, Hgb 10.2, Hct 32, RDW 16, BUN/creatinine ratio 27.1, Glc 115, Mg 1.8, urine ketones, and urine ascorbic acid. EKG at 1602 shows sinus tachycardia at 102bpm. PVCs. Incomplete RBBB. Re-eval at 1602 notes Pt is concerned about her ability to walk. Notes she can stand but cannot walk due to weakness. Will try to ambulate with a walker. Pt helped out of bed by nurse. Ambulated with walker. Gait appears unsteady. Decision made that pt is unsafe for DC at this time given that she lives alone with no assistance at home. At 1806 pt case was discussed with Dr. Saunders, who accepted the pt for admission. Pt was diagnosed with Recurrent falls, Anemia, Unsteady gait; and admitted to [facility] [place]. - Diagnoses Provider Diagnoses: Recurrent falls, Anemia, Unsteady gait - Physician Notifications Discussed Care Of Patient With: Sharon Saunders Time Discussed With Above Provider: 18:06 Instructed by Provider To: Other - At 1806 pt case was discussed with Dr. Saunders, who accepted the pt for admission. - Critical Care Time Critical Care Statement: Critical care time is provided exclusive of any time spent performing procedures. Discharge ED - Sign-Out/Discharge Documenting (check all that apply): Patient Departure - admit - Discharge Plan Condition: Stable Disposition: ADMITTED TO [facility] - Billing Disposition and Condition Condition: STABLE Disposition: Admitted to [facility] - Attestation Statements Document Initiated by Connieibalee: Yes Documenting Scribe: Laci Boilvar Provider For Whom Paulie is Documenting (Include Credential): Gavin Hernandez DO Scribe Attestation: Laci Valdes scribed for Gavin Hernandez DO on 10/02/19 at 1106. Scribe Documentation Reviewed: Yes Provider Attestation: The documentation as recorded by the scribeLaci accurately reflects the service I personally performed and the decisions made by , Gavin Hernandez DO Status of Scribalee Document: Viewed
--- OUTSIDE RECORDS SUMMARY | 2019-10-01 15:59 | XMS REPORT | Continuity of Care Document ---
:1940 External Reference #:[id number] Author Name Jessica Cruz MD (transmitted by agent of provider Makayla Lynn ) Address [address] [place] [address] Care Team Providers Name Role Phone Coral Eller MD - Family Care Team Information Research Coordinator Medicine Celestine Quigley MD - Family Care Team Information Research Coordinator [phone] Medicine Zain Salcedo MD - Hematology Care Team Information Research Coordinator [phone] Problems Active Problems Provider Date Benign essential hypertension Gt Long M.D. Onset: 05/20/2011 Type 2 diabetes mellitus Gt Long M.D. Onset: 04/27/2012 Coronary arteriosclerosis Gt Long M.D. Onset: 04/27/2012 Chronic diastolic heart failure Gt Long M.D. Onset: 04/27/2012 Difficulty breathing Gt Long M.D. Onset: 04/27/2012 Orthostatic hypotension Gt Long M.D. Onset: 12/16/2012 Postoperative Wound Closure Encounter Peng Strange M.D., [facility], Onset: 2013 [facility] Social History Type Date Description [...] Date Eliquis 1 by mouth twice 180tabs Ban YuryCal Abilio, 04/20/2019 5mg Tablets a day N.P. Metoprolol Tartrate 1/2 tab by mouth 45tabs Ban Ruiz [place], 04/20/2019 twice a day N.P. 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 Every Day [employer] Tablets Midodrine HCL Take 1 Tablet 270tabs I95.1 Ban YuryCal Abilio, 08/04/2018 2.5mg Three Times Daily N.P. Tablets [...] Liquid Dorzolamide HCL 1 gtt OS twice Zablabigail, 2% daily MD Dieudonne Solution Tramadol HCL [...] Date Facility Test Result H/L Range Note Wound 07/19/2019 [facility] Wound/Misc SEE RESULT 1, 2 Culture/Sensi [address] Culture-[place] [address] [phone] Lipid Profile 04/12/2019 [facility] Triglycerides 80 mg/dL 3 (Trig/Chol/HD [address] L) [place] [address] [phone] Cholesterol 159 mg/dL 4 HDL Cholesterol 65.7 mg/dL 5 LDL Cholesterol 77 mg/dL 6 Laboratory test 04/12/2019 [facility] Creatine 45 U/L Normal 10-[address] Kinase(CK) [place] [address] [phone] CBC Auto Diff 04/12/2019 [facility] White Blood 7.6 Normal 3.5 -10.[address] Count 10^3/[place] [address] [phone] Red Blood Count 3.74 10^6/uL Normal 3.70-4.87 [...] Blood Cells % 0.0 Laboratory test 04/12/2019 [facility] C Reactive 4.50 mg/L Normal <8.[address] [place] [address] [phone] Erythrocyte Sed Rate 50 mm/Hr High 0-29 Comp Metabolic 04/12/2019 [facility] Sodium 140 mmol/L Normal 135-[address] [place] [address] [phone] Potassium 4.0 mmol/L Normal 3.5-5.0 Chloride 108 [...] Egfr Non- 66.8 >60 Egfr 80.9 >60 7 1 [id number] 2 SEE RESULT BELOW Name: ROSALVA COLUNGA : [address]: Jessica Cruz MD Acct: [id number] Unit: [id number] AGE: 78 Location: [facility] Re07/19/19 SEX: F Status: REG REF SPEC: [id number] ALESSANDRA: 07/19/19-[address]: Jessica Crzu MD REQ: [id number] RECD: 07/20/19-1234 STATUS: MORELIA MIGUEL DR: Lorena _ SOURCE: HEAD SPDESC: ORDERED: Culture Stain COMMENTS: [id number] QUERIES: Specimen Description BACK OF HEAD WOUND Procedure Result Reported Site Wound/Misc Gram Stain Final 07/20/19- 1621 ML 2+ Neutrophils 2+ Gram Positive Cocci Wound/Misc Culture Final 07/22/19- 1030 ML Organism 1 MRSA Quantity 1+ 1. MRSA M.I.C. RX --------- ------ Penicillin 0.25 R Clindamycin <=0.25 S Erythromycin >=8 R Gentamicin <=0.5 S Linezolid 2 S Oxacillin >=4 R * Quinupristin/Dalfopristin <=0.25 S Rifampin <=0.5 S Tetracycline <=1 S Doxycycline - Deduced S * Minocycline - Deduced S Trimethoprim/Sulfamethoxazole <=10 S Vancomycin <=0.5 S Imipenem-Deduced R * Ampicillin/Sulbactam-Deduced R Cefazolin-Deduced R CONTINUED ON NEXT PAGE DEPARTMENT OF PATHOLOGY, [address] [place] [address] Crow Cooney M.D. Director CARLO # [id number] Patient: ROSALVA COLUNGA [id number] (Continued) Specimen: [id number] Collected: 07/19/19-1599 Received: 07/20/19-123 (Continued) Procedure Result Reported Site Wound/Misc Culture Final (continued) * These antibiotics are not available in the [facility] Formulary Contact the Microbiology Department for any additional antibiotic reporting. * - Main Lab . END OF REPORT DEPARTMENT OF PATHOLOGY, [address] [place] [id number] Crow Cooney M.D. Director [facility] # [id number] 3 Desirable: <150 Borderline High: 150-199 High: [...] (or dialysis) Procedures Date Code Description Status 07/20/2019 26374 Debridement Skin,& sq Tissue Completed 07/06/2019 00971 Punch Biopsy Of Skin Completed 04/20/2019 21654 ECHO Transthorasic Realtime 2D W Doppler & Color Flow Completed Hosp 04/20/2019 93252 EKG, Interpretation Only Completed 06/15/2017 [id number] Bone Mineral Density Test Completed 10/19/2013 [id number] Bone Mineral Density Test Completed Medical Devices Description No Information Available Encounters Type Date Location Provider Dx Diagnosis Office Visit 09/05/2019 [facility] Jessica Z E11.65 Type 2 diabetes 8:45a MD Anthony mellitus with hyperglycemia I48.0 Paroxysmal atrial fibrillation M06.9 Rheumatoid arthritis, unspecified E78.5 Hyperlipidemia, unspecified 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 H40.9 Unspecified glaucoma K21.9 Gastro-esophageal reflux disease without esophagitis R29.6 Repeated falls E11.40 Type 2 diabetes mellitus with diabetic neuropathy, unsp H81.10 Benign paroxysmal vertigo, unspecified ear Office Visit 08/15/2019 8:15a [facility] Jessica Pang E11.65 Type 2 diabetes Jaison Cruz MD mellitus with hyperglycemia A49.02 [facility] 07/31/2019 11:30a Dayo Benitezsmiley Pang S11.90xA Unsp open wound Jaison Cruz MD of unspecified part of neck, init encntr A49.02 Methicillin resis staph infection, unsp site E11.649 Type 2 diabetes mellitus with hypoglycemia without coma I10 Essential (primary) hypertension I48.0 Paroxysmal atrial fibrillation M06.9 Rheumatoid arthritis, unspecified Z79.01 [facility]DC (current) use of anticoagulants E78.5 Hyperlipidemia, unspecified Office Visit 07/27/2019 8:00a Dayo Mott Jessica Pang E11.649 Type 2 diabetes Jaison Cruz MD mellitus with hypoglycemia without coma A49.02 [facility] 07/19/2019 [facility] Benitezsmiley Pang L02.91 Cutaneous 9:45a MD Anthony abscess, unspecified Office Visit 07/13/2019 [facility] Bruce R L02.91 Cutaneous 11:30a DO Cuauhtemoc abscess, unspecified Office Visit 07/05/2019 [facility] Benitezsmiley Pang L98.9 Disorder of the 8:00a MD Anthony skin and subcutaneous tissue, unspecified E11.65 Type 2 diabetes mellitus with hyperglycemia Office Visit 06/26/2019 [facility] Carla L21.8 Other seborrheic 9:30a CHAPIS Francois dermatitis Office Visit 05/22/2019 [facility] Erum Torres, E10.10 Type 1 diabetes 10:23a charmaine Rosales M.D. mellitus with Hospitalists ketoacidosis without coma N39.0 Urinary tract infection, site not specified E78.5 Hyperlipidemia, unspecified I10 Essential (primary) hypertension M06.9 Rheumatoid arthritis, unspecified Office Visit 05/21/2019 10:23a [place] Prieto Danielson N39.0 Urinary tract Asscharmaien pulliam M.D. infection, site Hospitalists not specified I48.92 Unspecified atrial flutter Office Visit 05/20/2019 10:23a [place] Prieto Danielson N39.0 Urinary tract Assoc,charmaine Torres M.D. infection, site Hospitalists not specified I48.92 Unspecified atrial flutter Office Visit [facility] Assoc,charmaine Torres M.D. infection, site Hospitalists not specified I48.92 Unspecified atrial flutter Office Visit 05/18/2019 10:21a [facility] N[facility] Urinary tract Assoc,charmaine Torres M.D. infection, site Hospitalists not specified I48.92 Unspecified atrial flutter Office Visit 05/17/2019 10:21a [facility] Erum N39.0 Urinary tract Assoc,charmaine Torres M.D. infection, site Hospitalists not specified I48.92 Unspecified atrial flutter Office Visit 05/16/2019 10:21a [facility] N[facility].0 Urinary tract Assoc,charmaine Torres M.D. infection, site Hospitalists not specified I48.92 Unspecified atrial flutter Office Visit 05/15/2019 10:19a [facility] M06.9 Rheumatoid Assoc,charmaine Fernandes M.D. arthritis, Hospitalists unspecified N39.0 Urinary tract infection, site not specified J06.9 Acute upper respiratory infection, unspecified Office Visit 05/14/2019 10:19a [facility] M06.9 Rheumatoid Assoc,charmaine Fernandes M.D. arthritis, Hospitalists unspecified N39.0 Urinary tract infection, site not specified J06.9 Acute upper respiratory infection, unspecified Office Visit 05/13/2019 1:13p Intensivists Lorin Harkins, N17.9 Acute kidney MD failure, unspecified R73.9 Hyperglycemia, unspecified E87.2 Acidosis Office Visit 05/12/2019 10:00a Rheumatology Dorota Foley, M05.79 Rheu arthritis [facility] [employer] w rheu factor mult site w/o org/sys involv M81.0 Age-related osteoporosis w/o current pathological fracture Z79.01 sap portal consultant (current) use of anticoagulants Z79.899 Other group home (current) drug therapy Office Visit 05/03/2019 [place] Ban Clemente94.31 Abnormal 10:30a Cardiology Abilio N.PCal electrocardiogram [ECG] [EKG] I48.3 Typical atrial flutter E78.00 Pure hypercholesterolemia, unspecified I25.10 Athscl heart disease of [place] coronary artery w/o ang pctrs Office Visit 04/20/2019 11:03a [facility] Ese Castro, I48.3 Typical atrial Assoc,pc [employer] RE[employer]TER flutter Hospitalists N17.9 Acute kidney failure, unspecified N39.0 Urinary tract infection, site not specified E10.9 Type 1 diabetes mellitus without complications E78.00 Pure hypercholesterolemia, unspecified M06.9 Rheumatoid arthritis, unspecified H40.9 Unspecified glaucoma R21 Rash and other nonspecific skin eruption K21.9 Gastro-esophageal reflux disease without esophagitis I95.9 Hypotension, unspecified Office Visit 04/19/2019 [facility] Ese Castor, I48.91 Unspecified 11:03a Assoc,pc MERC[employer]ILE REPORTER atrial Hospitalists fibrillation N17.9 Acute kidney failure, unspecified E10.9 Type 1 diabetes mellitus without complications N39.0 Urinary tract infection, site not specified E78.00 Pure hypercholesterolemia, unspecified M06.9 Rheumatoid arthritis, unspecified H40.9 Unspecified glaucoma R21 Rash and other nonspecific skin eruption K21.9 Gastro-esophageal reflux disease without esophagitis I95.9 Hypotension, unspecified Assessments Date Code Description Provider 09/05/2019 E11.65 Type 2 diabetes mellitus with Jessica Cruz MD hyperglycemia 09/05/2019 I48.0 Paroxysmal atrial fibrillation Jessica Cruz MD 09/05/2019 M06.9 Rheumatoid arthritis, unspecified Jessica Cruz MD 09/05/2019 E78.5 Hyperlipidemia, unspecified Jessica Cruz MD 09/05/2019 L98.492 Non-pressure chronic ulcer of skin of Jessica Cruz MD other sites with fat layer exposed 09/05/2019 H40.9 Unspecified glaucoma Jessica Cruz MD 09/05/2019 K21.9 Gastro-esophageal reflux disease Jessica Cruz MD without esophagitis 09/05/2019 R29.6 Repeated falls Jessica Cruz MD 09/05/2019 E11.40 Type 2 diabetes mellitus with Jessica Cruz MD diabetic neuropathy, unspecified 09/05/2019 H81.10 Benign paroxysmal vertigo, Jessica Cruz MD unspecified ear 08/15/2019 E11.65 Type 2 diabetes mellitus with Jessica Cruz MD hyperglycemia 08/15/2019 A49.02 Methicillin resistant Staphylococcus Jessica Cruz MD aureus infection, unspecified site 07/31/2019 S11.90xA Unspecified open wound of unspecified Jessica Cruz MD part of neck, initial encounter 07/31/2019 A49.02 Methicillin resistant Staphylococcus Jessica Cruz MD aureus infection, unspecified site 07/31/2019 E11.649 Type 2 diabetes mellitus with Jessica Cruz MD hypoglycemia without coma 07/31/2019 I10 Essential (primary) hypertension Jessica Cruz MD 07/31/2019 I48.0 Paroxysmal atrial fibrillation Jessica Cruz MD 07/31/2019 M06.9 Rheumatoid arthritis, unspecified Jessica Cruz MD 07/31/2019 Z79.01 [facility] (current) use of Jessica Cruz MD anticoagulants 07/31/2019 E78.5 Hyperlipidemia, unspecified Jessica Cruz MD 07/27/2019 E11.649 Type 2 diabetes mellitus with Jessica Cruz MD hypoglycemia without coma 07/27/2019 A49.02 Methicillin resistant Staphylococcus Jessica Cruz MD aureus infection, unspecified site 07/20/2019 L98.492 Non-pressure chronic ulcer of skin of Jessica Cruz MD other sites with fat layer exposed 07/19/2019 L02.91 Cutaneous abscess, unspecified Jessica Cruz MD 07/13/2019 L02.91 Cutaneous abscess, unspecified Han Sweeney MD 07/13/2019 L02.91 Cutaneous abscess, unspecified Bruce Posadas DO 07/06/2019 D48.5 Neoplasm of uncertain behavior of Bruce Posadas DO skin 07/06/2019 L98.9 Disorder of the skin and subcutaneous Han Sweeney MD tissue, unspecified 07/06/2019 L98.9 Disorder of the skin and subcutaneous Bruce Posadas DO tissue, unspecified 07/05/2019 L98.9 Disorder of the skin and subcutaneous Jessica Cruz MD tissue, unspecified 07/05/2019 E11.65 Type 2 diabetes mellitus with Jessica Cruz MD hyperglycemia 06/27/2019 L03.811 Cellulitis of head [any part, except Jessica Cruz MD face] 06/26/2019 L21.8 Other seborrheic dermatitis Carla Francois, MER[employer]ILE REPORTER 06/22/2019 E11.65 Type 2 diabetes mellitus with Jessica Cruz MD hyperglycemia 06/22/2019 E16.1 Other hypoglycemia Jessica Cruz MD 06/22/2019 M06.9 Rheumatoid arthritis, unspecified Jessica Cruz MD 06/22/2019 I10 Essential (primary) hypertension Jessica Cruz MD 06/22/2019 E78.5 Hyperlipidemia, unspecified Jessica Cruz MD 05/22/2019 E10.10 Type 1 diabetes mellitus with Erum Torres M.D. ketoacidosis without coma 05/22/2019 N39.0 Urinary tract infection, site not Erum Torres M.D. specified 05/22/2019 E78.5 Hyperlipidemia, unspecified Erum Torres M.D. 05/22/2019 I10 Essential (primary) hypertension Erum Torres M.D. 05/22/2019 M06.9 Rheumatoid arthritis, unspecified Erum Torres M.D. 05/21/2019 N39.0 Urinary tract infection, site not Erum Torres M.D. specified 05/21/2019 I48.92 Unspecified atrial flutter Erum Torres M.D. 05/20/2019 N39.0 Urinary tract infection, site not Erum Torres M.D. specified 05/20/2019 I48.92 Unspecified atrial flutter Erum Torres M.D. 05/19/2019 N39.0 Urinary tract infection, site not Erum Torres M.D. specified 05/19/2019 I48.92 Unspecified atrial flubenjaer Erum Torres M.D. 05/18/2019 N39.0 Urinary tract infection, site not Erum Torres M.D. specified 05/18/2019 I48.92 Unspecified atrial flutter Erum Torres M.D. 05/17/2019 N39.0 Urinary tract infection, site not Erum Torres M.D. specified 05/17/2019 I48.92 Unspecified atrial flutter Erum Torres M.D. 05/16/2019 N39.0 Urinary tract infection, site not Erum Torres M.D. specified 05/16/2019 I48.92 Unspecified atrial flutter Erum Torres M.D. 05/15/2019 M06.9 Rheumatoid arthritis, unspecified Baljit Fernandes M.D. 05/15/2019 N39.0 Urinary tract infection, site not Baljit Fernandes M.D. specified 05/15/2019 J06.9 Acute upper respiratory infection, Baljit Fernandes M.D. unspecified 05/14/2019 M06.9 Rheumatoid arthritis, unspecified Baljit Fernandes M.D. 05/14/2019 N39.0 Urinary tract infection, site not Baljit Fernandes M.D. specified 05/14/2019 J06.9 Acute upper respiratory infection, Baljit Fernandes M.D. unspecified 05/13/2019 N17.9 Acute kidney failure, unspecified Lorin Harkins MD 05/13/2019 R73.9 Hyperglycemia, unspecified Lorin Harkins MD 05/13/2019 E87.2 Acidosis Lorin Harkins MD 05/12/2019 M05.79 Rheumatoid arthritis with rheumatoid Zsofia Og, [employer] factor of multiple sites without organ or systems involvement 05/12/2019 M81.0 Age-related osteoporosis without Zsofia Og, [employer] current pathological fracture 05/12/2019 Z79.01 [facility]DC (current) use of Zsofia Og, [employer] anticoagulants 05/12/2019 Z79.899 Other long term care administrator (current) drug Zsofia Og, [employer] therapy 05/03/2019 R94.31 Abnormal electrocardiogram [ECG] Ban Knox, N.P. [EKG] 05/03/2019 I48.3 Typical atrial flutter Ban Knox, N.P. 05/03/2019 E78.00 Pure hypercholesterolemia, Ban Knox, N.P. unspecified 05/03/2019 I25.10 Atherosclerotic heart disease of Ban Knox N.P. [place] coronary artery without angina pectoris 04/20/2019 R94.31 Abnormal electrocardiogram [ECG] Tariq Canales M.D. [EKG] 04/20/2019 R94.31 Abnormal electrocardiogram [ECG] Jones Chapin M.D. [EKG] 04/20/2019 I48.3 Typical atrial flutter Ese Castro NP 04/20/2019 N17.9 Acute kidney failure, unspecified Ese Castro, CHAPIS 04/20/2019 N39.0 Urinary tract infection, site not Ese Castro NP specified 04/20/2019 E10.9 Type 1 diabetes mellitus without Ese Castro NP complications 04/20/2019 E78.00 Pure hypercholesterolemia, Ese Castro NP unspecified 04/20/2019 M06.9 Rheumatoid arthritis, unspecified Ese Castro, CHAPIS 04/20/2019 H40.9 Unspecified glaucoma Ese Castro, CHAPIS 04/20/2019 R21 Rash and other nonspecific skin Ese Castro, CHAPIS eruption 04/20/2019 K21.9 Gastro-esophageal reflux disease Ese Castro NP without esophagitis 04/20/2019 I95.9 Hypotension, unspecified Ese Castro, MER[employer]ILE REPORTER 04/19/2019 I48.91 Unspecified atrial fibrillation Ese Castro NP 04/19/2019 N17.9 Acute kidney failure, unspecified Ese Castro, CHAPIS 04/19/2019 E10.9 Type 1 diabetes mellitus without Ese Castro NP complications 04/19/2019 N39.0 Urinary tract infection, site not Ese Castro NP specified 04/19/2019 E78.00 Pure hypercholesterolemia, Ese Castro, [employer]ILE REPORTER unspecified 04/19/2019 M06.9 Rheumatoid arthritis, unspecified Ese Castro, MERCANTILE REPORTER 04/19/2019 H40.9 Unspecified glaucoma Ees Castro, CHAPIS 04/19/2019 R21 Rash and other nonspecific skin Ese Castro NP eruption 04/19/2019 K21.9 Gastro-esophageal reflux disease Ese Castro NP without esophagitis 04/19/2019 I95.9 Hypotension, unspecified Ese Castro NP Plan of Treatment Future Appointment(s):11/07/2019 10:40 am - Gt [facility] M.D. at [facility]09/05/2019 - Jessica Cruz MDE11.65 Type 2 diabetes mellitus with hyperglycemiaComments:Patient is on Basaglar daily-dose depends of blood sugar. I will add a sliding scale for BS more than 250. Will check labs and HbA1C.I48.0 Paroxysmal atrial fibrillationComments:Sounds like she is in sinus rhythm. She is on metoprolol and eliquis.M06.9 Rheumatoid arthritis, unspecifiedComments:Patient on Leflunomide and norco.E78.5 Hyperlipidemia, unspecifiedComments:On Crestor. I will check lipid panel. Statins have been associated with an increased risk of falls in the elderly.L98.492 Non-pressure chronic ulcer of skin of other sites with fat layer exposedComments:Wound on posterior neck is almost healed. Will discontinue santyl. Continue daily dressing changes.H40.9 Unspecified glaucomaComments:on betoptic, latanoprost, oezkivuQ69.9 Gastro-esophageal reflux disease without esophagitisComments:On Zantac, but this is being pulled off of the market. Will change to Pepcid 20 mg po bid.R29.6 Repeated fallsComments:I am going to discontinue midodrine at this time and monitor blood pressure closely. Patient does not think it's working. Physical therapy is working with her.E11.40 Type 2 diabetes mellitus with diabetic neuropathy, unspecifiedComments:on qqwhhrahzpD41.10 Benign paroxysmal vertigo, unspecified earComments:Has meclizine prn which she uses at least twice a day. Will add dramamine to see if this is more effective. I warned patient of increased risk of lethargy. Functional Status Description No Information Available Mental Status Description No Information Available Referrals Description No Information Available
--- OUTSIDE RECORDS SUMMARY | 2019-10-01 15:59 | XMS REPORT | Continuity of Care Document ---
:1940 External Reference #:[id number] Author Name Heide Harkins MD (transmitted by agent of provider Makayla Lynn) Address [address] [place] [address] Care Team Providers Name Role Phone Coral Eller MD - Family Care Team Information Mri Specialist Medicine Celestine Quigley MD - Family Care Team Information Mri Specialist [phone] Medicine Zain Salcedo MD - Hematology Care Team Information Mri Specialist [phone] Problems Active Problems Provider Date Benign essential hypertension Gt Long M.D. Onset: 05/20/2011 Type 2 diabetes mellitus Gt Long M.D. Onset: 04/27/2012 Coronary arteriosclerosis Gt Long M.D. Onset: 04/27/2012 Chronic diastolic heart failure Gt Long M.D. Onset: 04/27/2012 Difficulty breathing Gt Long M.D. Onset: 04/27/2012 Orthostatic hypotension Gt Long M.D. Onset: 12/16/2012 Postoperative Wound Closure Encounter Peng Strange M.D., [facility], Onset: 2013 [facility] Social History Type Date Description Comments [...] Eliquis 1 by mouth twice 180tabs Ban Ruiz Abilio, 04/20/2019 5mg Tablets a day N.P. Metoprolol Tartrate 1/2 tab by mouth 45tabs Ban Ruiz Abilio, 04/20/2019 twice a day N.P. 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 [...] take 1 tab by 90tabs E78.00 Ban SCal 05/03/2019 - 81mg Tablets DR mouth daily [...] Date Facility Test Result H/L Range Note CBC No Diff 09/19/2019 [facility] White Blood 6.2 10^3/uL Normal 3.5-10.[address] [place] [address] [phone] Red Blood Count 3.26 10^6/uL Low 3.70-4.87 Hemoglobin 9.4 g/dL Low 12.0-16.0 Hematocrit 29 % Low 35-47 Mean Corpuscular Volume 89 fL Normal 80-97 Mean Corpuscular Hemoglobin 29 pg Normal 27-31 Mean Corpuscular HGB Conc 32 g/dL Normal 31-36 Red Cell Distribution Width 16 % High 10-15 Platelet Count 233 10^3/uL Normal 150-450 Mean Platelet Volume 9.7 fL Normal 7.4-10.4 Comp Metabolic 09/19/2019 [facility] Sodium 138 mmol/L Normal 135-[address] [place] [address] [phone] Potassium 3.9 mmol/L Normal 3.5-5.0 Chloride 109 mmol/L Normal 101-111 Co2 Carbon Dioxide 22 mmol/L Normal 22-32 Anion Gap 7 mmol/L Normal 2-11 Glucose 253 mg/dL High 70-100 Blood Urea Nitrogen 21 mg/dL Normal 6-24 Creatinine 0.72 mg/dL Normal 0.51-0.95 BUN/Creatinine Ratio 29.2 High 8-20 Calcium 8.8 mg/dL Normal 8.6-10.3 Total Protein 5.7 g/dL Low 6.4-8.9 Albumin 3.7 g/dL Normal 3.2-5.2 Globulin 2.0 g/dL Normal 2-4 Albumin/Globulin Ratio 1.9 Normal 1-3 Total Bilirubin 0.50 mg/dL Normal 0.2-1.0 Alkaline Phosphatase 80 U/L Normal 34-104 Alt 19 U/L Normal 7-52 Ast 26 U/L Normal 13-39 Egfr Non- 78.8 >60 Egfr 95.3 >60 2 Lipid Profile 09/19/2019 [facility] Triglycerides 94 mg/dL 3 (Trig/Chol/HDL) [address] [place] [address] [phone] Cholesterol 134 mg/dL 4 HDL Cholesterol 60.9 mg/dL 5 LDL Cholesterol 54 mg/dL 6 Laboratory 09/19/2019 [facility] TSH (Thyroid 1.14 Normal 0.34 -5.60 [address] Stim Horm) mcIU/mL [place], [place] [address] [phone] Hemoglobin A1c (Glyco HGB) 8.4 % High 4.0-5.6 8 Wound 07/19/2019 [facility] Wound/Misc SEE RESULT 9, 10 Culture/Sensi [address] [place] [address] Stain [phone] Lipid Profile 04/12/2019 [facility] Triglycerides 80 mg/dL 11 (Trig/Chol/HDL) [address] [place] [address] [phone] Cholesterol 159 mg/dL 12 HDL Cholesterol 65.7 mg/dL 13 LDL Cholesterol 77 mg/dL 14 Laboratory test 04/12/2019 [facility] Creatine 45 U/L Normal 10-[address] Kinase(CK) [place] [address] [phone] CBC Auto Diff 04/12/2019 [facility] White Blood 7.6 Normal 3.5 -10.[address] Count 10^3/[place] [address] [phone] Red Blood Count 3.74 10^6/uL Normal 3.70-4.87 [...] Blood Cells % 0.0 Laboratory test 04/12/2019 [facility] C Reactive 4.50 mg/L Normal <8.[address] [place] [address] [phone] Erythrocyte Sed Rate 50 mm/Hr High 0-29 Comp Metabolic 04/12/2019 [facility] Sodium 140 mmol/L Normal 135-[address] [place] [address] [phone] Potassium 4.0 mmol/L Normal 3.5-5.0 Chloride 108 [...] Egfr Non- 66.8 >60 Egfr 80.9 >60 15 1 [id number] 2 Because ethnic data is not always readily [...] 15-29 5 Kidney failure <15 (or dialysis) 3 Desirable: <150 Borderline High: 150-199 High: 200-499 Very High: >500 4 Desirable: <200 Borderline High: 200-239 High: >239 5 Low: <40 Desirable: 40-60 High: >60 6 Desirable: <100 Near Optimal: 100-129 Borderline High: 130-159 High: 160-189 Very High: >189 7 [id number] Therapeutic target for the treatment of diabetes mellitus patients is <7% HBA1C, and in selective patients <6.0%. Please refer to [place] Diabetes Association diabetic care guidelines for further information. 9 [id number] SEE RESULT BELOW Name: ROSALVA COLUNGA : [address]: Jessica Cruz MD Acct: [id number] Unit: [id number] AGE: 78 Location: [facility] Re07/19/19 SEX: F Status: REG REF SPEC: [id number] ALESSANDRA: 07/19/19-[address]: Jessica Cruz MD REQ: [id number] RECD: 07/20/19-1234 STATUS: MORELIA MIGUEL DR: Lorena _ SOURCE: HEAD SPDESC: ORDERED: Culture Stain COMMENTS: [id number] QUERIES: Specimen Description BACK OF HEAD WOUND [...] CONTINUED ON NEXT PAGE DEPARTMENT OF PATHOLOGY, [address] [place] [address] Crow Cooney M.D. Director CARLO # [id number] Patient: ROSALVA COLUNGA [id number] (Continued) Specimen: [id number] Collected: 07/19/19-1599 Received: 07/20/19-1234 (Continued) Procedure Result Reported Site Wound/Misc Culture Final (continued) * These antibiotics are not available in the [facility] Formulary Contact the Microbiology Department for any additional antibiotic reporting. * ML - Main Lab . END OF REPORT DEPARTMENT OF PATHOLOGY, [address] [place] [address] Crow Cooney M.D. Director [facility] # [id number] 11 Desirable: <150 Borderline High: 150-199 High: 200-499 Very High: >500 12 Desirable: <200 Borderline High: 200-239 High: >239 13 Low: <40 Desirable: 40-60 High: >60 14 Desirable: <100 Near Optimal: 100-129 Borderline High: 130-159 High: 160-189 Very High: >189 15 Because ethnic data is not always [...] (or dialysis) Procedures Date Code Description Status 07/06/2019 21920 Punch Biopsy Of Skin Completed 04/20/2019 07430 ECHO Transthorasic Realtime 2D W Doppler & Color Flow Completed Hosp 04/20/2019 41252 EKG, Interpretation Only Completed 06/15/2017 362281027 Bone Mineral Density Test Completed 10/19/2013 972547653 Bone Mineral Density Test Completed Medical Devices Description No Information Available Encounters Type Date Location Provider Dx Diagnosis Office Visit 09/25/2019 Dayo Harkins, E11.65 Type 2 diabetes 8:15a mellitus with hyperglycemia I48.0 Paroxysmal atrial fibrillation Office Visit 09/05/2019 8:45a Dayo Pang E11.65 Type 2 diabetes Jaison Cruz MD mellitus with hyperglycemia I48.0 Paroxysmal atrial fibrillation M06.9 Rheumatoid arthritis, unspecified E78.5 Hyperlipidemia, unspecified 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 H40.9 Unspecified glaucoma K21.9 Gastro-esophageal reflux disease without esophagitis R29.6 Repeated falls E11.40 Type 2 diabetes mellitus with diabetic neuropathy, unsp H81.10 Benign paroxysmal vertigo, unspecified ear Office Visit 08/15/2019 8:15a Dayo Pang E11.65 Type 2 diabetes Jaison Cruz MD mellitus with hyperglycemia A49.02 Methicillin resis staph infection, unsp site Office Visit 07/31/2019 11:30a Dayo Pang S11.90xA Unsp open wound Jaison Cruz MD of unspecified part of neck, init encntr A49.02 Methicillin resis staph infection, unsp site E11.649 Type 2 diabetes mellitus with hypoglycemia without coma I10 Essential (primary) hypertension I48.0 Paroxysmal atrial fibrillation M06.9 Rheumatoid arthritis, unspecified 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 E78.5 Hyperlipidemia, unspecified Office Visit 07/27/2019 8:00a [place] Jessica Pang E11.649 Type 2 diabetes Jaison Cruz MD mellitus with hypoglycemia without coma A49.02 Methicillin resis staph infection, unsp site Office Visit 07/20/2019 [place] Jaison Pang L98.492 Non-prs chronic 8:45a MD Anthony ulcer of skin of sites w fat layer exposed Office Visit 07/19/2019 [place] Jaison Benitezsmiley Pang L02.91 Cutaneous 9:45a MD Anthony abscess, unspecified Office Visit 07/13/2019 [facility] Dermatology Bruce R L02.91 Cutaneous 11:30a BasDO karla abscess, unspecified Office Visit 07/05/2019 [place] Jaison Pang L98.9 Disorder of the 8:00a MD Anthony skin and subcutaneous tissue, unspecified E11.65 Type 2 diabetes mellitus with hyperglycemia Office Visit 06/26/2019 [place] Jaison Aguirre L21.8 Other seborrheic 9:30a CHAPIS Francois dermatitis Office Visit 05/22/2019 [facility] Erum Torres, E10.10 Type 1 diabetes 10:23a charmaine Rosales M.D. mellitus with Hospitalists ketoacidosis without coma N39.0 Urinary tract infection, site not specified E78.5 Hyperlipidemia, unspecified I10 Essential (primary) hypertension M06.9 Rheumatoid arthritis, unspecified Office Visit 05/21/2019 10:23a [place] Prieto Danielson N39.0 Urinary tract Asscharmaine pulliam M.D. infection, site Hospitalists not specified I48.92 Unspecified atrial flutter Office Visit 05/20/2019 10:23a [facility] Erum N39.0 Urinary tract Asscharmaine pulliam M.D. infection, site Hospitalists not specified I48.92 Unspecified atrial flutter Office Visit 05/19/2019 10:22a [facility] Erum N39.0 Urinary tract Asscharmaine pulliam M.D. infection, site Hospitalists not specified I48.92 Unspecified atrial flutter [facility] Assoc,charmaine Torres M.D. infection, site Hospitalists not specified I48.92 Unspecified atrial flutter Office Visit 05/17/2019 [facility] N[facility].0 Urinary tract Assoc,charmaine Torres M.D. infection, site Hospitalists not specified I48.92 Unspecified atrial flutter Office Visit 05/16/2019 10:21a [facility] Erum N39.0 Urinary tract Assoc,charmaine Torres M.D. infection, site Hospitalists not specified I48.92 Unspecified atrial flutter Office Visit 05/15/2019 10:19a [facility] M06.9 Rheumatoid Assoc,charmaine Fernandes M.D. arthritis, Hospitalists unspecified N39.0 Urinary tract infection, site not specified J06.9 Acute upper respiratory infection, unspecified Office Visit 05/14/2019 10:19a [facility] M06.9 Rheumatoid Assoc,charmaine Fernandes M.D. 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 Z79.899 Other computer terminal operator (current) drug therapy Office Visit 05/03/2019 [place] Ban Ruiz R94.31 Abnormal 10:30a Cardiology Abilio N.PCal electrocardiogram [ECG] [EKG] I48.3 Typical atrial flutter E78.00 Pure hypercholesterolemia, unspecified I25.10 Athscl heart disease of [place] coronary artery w/o ang pctrs [facility]3 Typical atrial Assoc,pc LOCK EXPERT flutter Hospitalists N17.9 Acute kidney failure, unspecified N39.0 Urinary tract infection, site not specified E10.9 Type 1 diabetes mellitus without complications E78.00 Pure hypercholesterolemia, unspecified M06.9 Rheumatoid arthritis, unspecified H40.9 Unspecified glaucoma R21 Rash and other nonspecific skin eruption K21.9 Gastro-esophageal reflux disease without esophagitis I95.9 Hypotension, unspecified Office Visit 04/19/2019 [facility] Ese Elizabethorak, I48.91 Unspecified 11:03a Assoc,pc LOCK EXPERT atrial Hospitalists fibrillation N17.9 Acute kidney failure, unspecified E10.9 Type 1 diabetes mellitus without complications N39.0 Urinary tract infection, site not specified E78.00 Pure hypercholesterolemia, unspecified M06.9 Rheumatoid arthritis, unspecified H40.9 Unspecified glaucoma R21 Rash and other nonspecific skin eruption K21.9 Gastro-esophageal reflux disease without esophagitis I95.9 Hypotension, unspecified Assessments Date Code Description Provider 09/28/2019 E11.65 Type 2 diabetes mellitus with Heide Harkins MD hyperglycemia 09/28/2019 I48.0 Paroxysmal atrial fibrillation Heide Harkins MD 09/28/2019 M06.9 Rheumatoid arthritis, unspecified Heide Harkins MD 09/25/2019 E11.65 Type 2 diabetes mellitus with Heide Harkins MD hyperglycemia 09/25/2019 I48.0 Paroxysmal atrial fibrillation Heide Harkins MD 09/05/2019 E11.65 Type 2 diabetes mellitus with [...] arthritis, unspecified Jessica Cruz MD 07/31/2019 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 specified 05/19/2019 I48.92 Unspecified atrial flutter Erum Torrse M.D. 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 [EKG] 05/03/2019 I48.3 Typical atrial flutter Ban Knox N.P. 05/03/2019 E78.00 Pure hypercholesterolemia, Ban Knox N.P. unspecified 05/03/2019 I25.10 Atherosclerotic heart disease of Ban Sara Knox, N.P. [place] coronary artery without angina pectoris 04/20/2019 R94.31 Abnormal electrocardiogram [ECG] Tariq Canales M.D. [EKG] 04/20/2019 R94.31 Abnormal electrocardiogram [ECG] Jones Chapin M.D. [EKG] 04/20/2019 I48.3 Typical atrial flutter Ese Castro, CHAPIS 04/20/2019 N17.9 Acute kidney failure, unspecified Ese Castro, CHAPIS 04/20/2019 N39.0 Urinary tract infection, site not Ese Castro, CHAPIS specified 04/20/2019 E10.9 Type 1 diabetes mellitus without Ese Castro NP complications 04/20/2019 E78.00 Pure hypercholesterolemia, Ese Castro, LOCK EXPERT unspecified 04/20/2019 M06.9 Rheumatoid arthritis, unspecified Ese Castro, CHAPIS 04/20/2019 H40.9 Unspecified glaucoma Ese Castro NP 04/20/2019 R21 Rash and other nonspecific skin Ese Castro, CHAPIS eruption 04/20/2019 K21.9 Gastro-esophageal reflux disease Ese Castro NP without esophagitis 04/20/2019 I95.9 Hypotension, unspecified Ese Castro, LOCK EXPERT 04/19/2019 I48.91 Unspecified atrial fibrillation Ese Castro, CHAPIS 04/19/2019 N17.9 Acute kidney failure, unspecified Ese Castro, LOCK EXPERT 04/19/2019 E10.9 Type 1 diabetes mellitus without Ese Castro NP complications 04/19/2019 N39.0 Urinary tract infection, site not Ese Castro, LOCK EXPERT specified 04/19/2019 E78.00 Pure hypercholesterolemia, Ese Castro, LOCK EXPERT unspecified 04/19/2019 M06.9 Rheumatoid arthritis, unspecified Ese Castro, CHAPIS 04/19/2019 H40.9 Unspecified glaucoma Ese Castro, CHAPIS 04/19/2019 R21 Rash and other nonspecific skin Ese Castro NP eruption 04/19/2019 K21.9 Gastro-esophageal reflux disease Ese Castro, CHAPIS without esophagitis 04/19/2019 I95.9 Hypotension, unspecified Ese Castro NP Plan of Treatment Future Appointment(s):11/07/2019 10:40 am - Gt [facility] M[facility]09/28/2019 - Heide Harkins MDE11.65 Type 2 diabetes mellitus with hyperglycemiaComments:Two SS insulin protocols. Encouraged appropriate diet. Monitored by VNS.I48.0 Paroxysmal atrial fibrillationComments:Stable.M06.9 Rheumatoid arthritis, unspecifiedComments:Chronic. Functional Status Description No Information Available Mental Status Description No Information Available Referrals Description No Information Available
--- OUTSIDE RECORDS SUMMARY | 2019-10-01 15:59 | XMS REPORT | Continuity of Care Document ---
:1940 External Reference #:[id number] Author Name Jessica Cruz MD (transmitted by agent of provider Makayla Lynn ) Address [address] [place] [address] Care Team Providers Name Role Phone Coral Eller MD - Family Care Team Information Business Coordinator Medicine Celestine Quigley MD - Family Care Team Information Business Coordinator [phone] Medicine Zain Salcedo MD - Hematology Care Team Information Business Coordinator [phone] Problems Active Problems Provider Date Benign essential hypertension Gt Long M.D. Onset: 05/20/2011 Type 2 diabetes mellitus Gt Long M.D. Onset: 04/27/2012 Coronary arteriosclerosis Gt Long M.D. Onset: 04/27/2012 Chronic diastolic heart failure Gt Long M.D. Onset: 04/27/2012 Difficulty breathing Gt Long M.D. Onset: 04/27/2012 Orthostatic hypotension Gt Long M.D. Onset: 12/16/2012 Postoperative Wound Closure Encounter Peng Strange M.D., [facility], Onset: 2013 [facility] Social History Type Date Description Comments [...] 1/2 tab by mouth 45tabs Ban Ruiz [place], 04/20/2019 twice a day N.P. 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 Every Day VESSEL ENGINEER Tablets Midodrine HCL Take 1 Tablet 270tabs [...] Test Result H/L Range Note Wound 07/19/2019 [facility] Wound/Misc SEE RESULT 1, 2 Culture/Sensi [address] Culture-[place] [address] [phone] Lipid Profile 04/12/2019 [facility] Triglycerides 80 mg/dL 3 (Trig/Chol/HD [address] L) [place] [address] [phone] Cholesterol 159 mg/dL 4 HDL Cholesterol 65.7 mg/dL 5 LDL Cholesterol 77 mg/dL 6 Laboratory test 04/12/2019 [facility] Creatine 45 U/L Normal 10-[address] Kinase(CK) [place] [address] [phone] CBC Auto Diff 04/12/2019 [facility] White Blood 7.6 Normal 3.5 -10.[address] Count 10^3/[place] [address] [phone] Red Blood Count 3.74 10^6/uL Normal 3.70-4.87 [...] Blood Cells % 0.0 Laboratory test 04/12/2019 [facility] C Reactive 4.50 mg/L Normal <8.[address] [place] [address] [phone] Erythrocyte Sed Rate 50 mm/Hr High 0-29 Comp Metabolic 04/12/2019 [facility] Sodium 140 mmol/L Normal 135-[address] [place] [address] [phone] Potassium 4.0 mmol/L Normal 3.5-5.0 Chloride 108 [...] 66.8 >60 Egfr 80.9 >60 7 1 [id number] 2 SEE RESULT BELOW Name: ROSALVA COLUNGA : [address]: Jessica Cruz MD Acct: [id number] Unit: [id number] AGE: 78 Location: [facility] Re07/19/19 SEX: F Status: REG REF SPEC: [id number] ALESSANDRA: 07/19/19-[address]: Jessica Cruz MD REQ: [id number] RECD: 07/20/19-1234 STATUS: MORELIA MIGUEL DR: Lorena _ SOURCE: HEAD SPDESC: ORDERED: Culture Stain COMMENTS: [id number] QUERIES: Specimen Description BACK OF HEAD WOUND [...] CONTINUED ON NEXT PAGE DEPARTMENT OF PATHOLOGY, [address] [place] [address] Crow Cooney M.D. Director [facility] # [id number] Patient: ROSALVA COLUNGA [id number] (Continued) Specimen: [id number] Collected: 07/19/19-1599 Received: 07/20/19-123 (Continued) Procedure Result Reported Site Wound/Misc Culture Final (continued) * These antibiotics are not available in the [facility] Formulary Contact the Microbiology Department for any additional antibiotic reporting. * - Main Lab . END OF REPORT DEPARTMENT OF PATHOLOGY, [address] [place] [address] Crow Cooney M.D. Director [facility] # [id number] 3 Desirable: <150 Borderline High: 150-199 High: [...] dialysis) Procedures Date Code Description Status 07/20/2019 82579 Debridement Skin,& sq Tissue Completed 07/06/2019 33561 Punch Biopsy Of Skin Completed 04/20/2019 21122 ECHO Transthorasic Realtime 2D W Doppler & Color Flow Completed Hosp 04/20/2019 12685 EKG, Interpretation Only Completed 03/03/2019 98753 Treadmill Interp/Report Only Completed 03/03/2019 10593 Stress Test Supervsn W/Out I/R Completed 06/15/2017 203943620 Bone Mineral Density Test Completed 10/19/2013 589628546 Bone Mineral Density Test Completed Medical Devices Description No Information Available Encounters Type Date Location Provider Dx Diagnosis Office Visit 08/15/2019 Dayo Pang E11.65 Type 2 diabetes 8:15a MD Anthony mellitus with hyperglycemia A49.02 Methicillin resis staph infection, unsp site Office Visit 07/27/2019 8:00a Dayo Pang E11.649 Type 2 diabetes Jaison Cruz MD mellitus with hypoglycemia without coma A49.02 Methicillin resis staph infection, unsp site Office Visit 07/19/2019 [place] Jaison Lopez Z L02.91 Cutaneous 9:45a MD Anthony abscess, unspecified Office Visit 07/13/2019 [facility] Dermatology Bruce R L02.91 Cutaneous 11:30a DO Cuauhtemoc abscess, unspecified Office Visit 07/05/2019 [place] Jaison Pang L98.9 Disorder of the 8:00a MD Anthony skin and subcutaneous tissue, unspecified E11.65 Type 2 diabetes mellitus with hyperglycemia Office Visit 06/26/2019 [place] Jaison Aguirre L21.8 Other seborrheic 9:30a CHAPIS Francois dermatitis Office Visit 05/22/2019 [facility] Erum Torres, E10.10 Type 1 diabetes 10:23a charmaine Rosales M.D. mellitus with Hospitalists ketoacidosis without coma N39.0 Urinary tract infection, site not specified E78.5 Hyperlipidemia, unspecified I10 Essential (primary) hypertension M06.9 Rheumatoid arthritis, unspecified Office Visit 05/21/2019 10:23a [facility] Erum N39.0 Urinary tract Assoccharmaine M.D. infection, site Hospitalists not specified I48.92 Unspecified atrial flutter Office Visit 05/20/2019 10:23a [facility] Erum N39.0 Urinary tract Assoccharmaine M.D. infection, site Hospitalists not specified I48.92 Unspecified atrial flutter Office Visit 05/19/2019 10:22a [facility] Erum N39.0 Urinary tract Assoccharmaine M.D. infection, site Hospitalists not specified I48.92 Unspecified atrial flutter Office Visit 05/18/2019 10:21a [facility] Erum N39.0 Urinary tract Assoccharmaine M.D. infection, site Hospitalists not specified I48.92 Unspecified atrial flutter Office Visit 05/17/2019 10:21a [facility] Erum N39.0 Urinary tract Assoccharmaine M.D. infection, site Hospitalists not specified I48.92 Unspecified atrial flutter Office Visit 05/16/2019 10:21a [facility] Erum N39.0 Urinary tract Assoc,charmaine Torres M.D. infection, site Hospitalists not specified I48.92 Unspecified atrial flutter Office Visit 05/15/2019 10:19a [facility] M06.9 Rheumatoid Assoc,charmaine Fernandes M.D. arthritis, Hospitalists unspecified N39.0 Urinary tract infection, site not specified J06.9 Acute upper respiratory infection, unspecified Office Visit 05/14/2019 10:19a [facility] M06.9 Rheumatoid Assoc,charmaine eFrnandes M.D. arthritis, Hospitalists unspecified N39.0 Urinary tract infection, site not specified J06.9 Acute upper respiratory infection, unspecified Office Visit 05/13/2019 1:13p Intensivists Lorin Harkins, N17.9 Acute kidney MD failure, unspecified R73.9 Hyperglycemia, unspecified E87.2 Acidosis Office Visit 05/12/2019 10:00a Rheumatology Dorota Foley, M05.[address] [facility] VESSEL ENGINEER w rheu factor mult site w/o org/sys involv M81.0 Age-related osteoporosis w/o current pathological fracture Z79.01 [facility] (current) use of anticoagulants Z79.899 Other prison (current) drug therapy Office Visit 05/03/2019 [place] Ban SCal R94.31 Abnormal 10:30a Cardiology Abilio N.P. electrocardiogram [ECG] [EKG] I48.3 Typical atrial flutter E78.00 Pure hypercholesterolemia, unspecified I25.10 Athscl heart disease of [place] coronary artery w/o ang pctrs Office Visit 04/20/2019 11:03a [facility] Ese Castro, I48.3 Typical atrial Assoc,pc [employer] flutter Hospitalists N17.9 Acute kidney failure, unspecified N39.0 Urinary tract infection, site not specified E10.9 Type 1 diabetes mellitus without complications E78.00 Pure hypercholesterolemia, unspecified M06.9 Rheumatoid arthritis, unspecified H40.9 Unspecified glaucoma R21 Rash and other nonspecific skin eruption K21.9 Gastro-esophageal reflux disease without esophagitis I95.9 Hypotension, unspecified Office Visit 04/19/2019 [facility] Ese Castro, I48.91 Unspecified 11:03a Assoc,pc [employer] atrial Hospitalists fibrillation N17.9 Acute kidney failure, unspecified E10.9 Type 1 diabetes mellitus without complications N39.0 Urinary tract infection, site not specified E78.00 Pure hypercholesterolemia, unspecified M06.9 Rheumatoid arthritis, unspecified H40.9 Unspecified glaucoma R21 Rash and other nonspecific skin eruption K21.9 Gastro-esophageal reflux disease without esophagitis I95.9 Hypotension, unspecified Assessments Date Code Description Provider 08/15/2019 E11.65 Type 2 diabetes mellitus with Jessica Cruz MD hyperglycemia 08/15/2019 A49.02 Methicillin resistant Staphylococcus Jessica Cruz MD aureus infection, unspecified site 07/31/2019 E11.649 Type 2 diabetes mellitus with Jessica Cruz MD hypoglycemia without coma 07/31/2019 A49.02 Methicillin resistant Staphylococcus Jessica Cruz MD aureus infection, unspecified site 07/31/2019 I10 Essential (primary) hypertension Jessica Cruz MD 07/31/2019 M06.9 Rheumatoid arthritis, unspecified Jessica Cruz MD 07/31/2019 E78.5 Hyperlipidemia, unspecified Jessica Cruz MD 07/31/2019 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 05/03/2019 I48.3 Typical atrial flutter Ban Knox N.P. 05/03/2019 E78.00 Pure hypercholesterolemia, unspecified Ban Knox, N.P. 05/03/2019 I25.10 Atherosclerotic heart disease of Ban YuryCal Abilio, N.P. [place] coronary artery without angina pectoris 04/20/2019 R94.31 Abnormal electrocardiogram [ECG] [EKG] Tariq Canales M.D. 04/20/2019 R94.31 Abnormal electrocardiogram [ECG] [EKG] Jones Chapin M.D. 04/20/2019 I48.3 Typical atrial flutter Ese Castro, CHAPIS 04/20/2019 N17.9 Acute kidney failure, unspecified Ese Castro, CHAPIS 04/20/2019 N39.0 Urinary tract infection, site not Ese Castro, [place]APIS specified 04/20/2019 E10.9 Type 1 diabetes mellitus without Ese Castro, CHAPIS complications 04/20/2019 E78.00 Pure hypercholesterolemia, unspecified Ese Castro, [employer] 04/20/2019 M06.9 Rheumatoid arthritis, unspecified Ese Castro, [employer] 04/20/2019 H40.9 Unspecified glaucoma Ese Castro, CHAPIS 04/20/2019 R21 Rash and other nonspecific skin Ese Castro, CHAPIS eruption 04/20/2019 K21.9 Gastro-esophageal reflux disease Ese Castro NP without esophagitis 04/20/2019 I95.9 Hypotension, unspecified Ese Castro, [employer] 04/19/2019 I48.91 Unspecified atrial fibrillation Ese Castro, [employer] 04/19/2019 N17.9 Acute kidney failure, unspecified Ese Castro, [employer] 04/19/2019 E10.9 Type 1 diabetes mellitus without Ese Castro NP complications 04/19/2019 N39.0 Urinary tract infection, site not Ese Castro, [employer] specified 04/19/2019 E78.00 Pure hypercholesterolemia, unspecified Ese Castro, [employer] 04/19/2019 M06.9 Rheumatoid arthritis, unspecified Ese Castro, [employer] 04/19/2019 H40.9 Unspecified glaucoma Ese Castro, [employer] 04/19/2019 R21 Rash and other nonspecific skin Ese Catsro, [employer] eruption 04/19/2019 K21.9 Gastro-esophageal reflux disease Ese Castro, [employer] without esophagitis 04/19/2019 I95.9 Hypotension, unspecified Ese Castro, [employer] 03/03/2019 I25.10 Atherosclerotic heart disease of Gt Long M.D. [place] coronary artery without angina pectoris Plan of Treatment Future Appointment(s):09/01/2019 10:00 am - PARAS Mancuso at [facility]11/07/2019 10:40 am - Gt Long M.D. at [facility]08/15/2019 - Jessica Cruz MDE11.65 Type 2 diabetes mellitus with hyperglycemiaComments:It's unclear why blood sugar was so high today. I did end up giving her 12u of lispro for her noon BS 487. No evidence of infection or new medications which could cause increase blood sugar.A49.02 Methicillin resistant Staphylococcus aureus infection, unspecified siteComments: Continue daily wound care. Functional Status Description No Information Available Mental Status Description No Information Available Referrals Description No Information Available
--- OUTSIDE RECORDS SUMMARY | 2019-10-01 15:59 | XMS REPORT | Continuity of Care Document ---
:1940 External Reference #:[id number] Author Name Jessica Cruz MD (transmitted by agent of provider Makayla Lynn ) Address [address] [place] [address] Care Team Providers Name Role Phone Coral Eller MD - Family Care Team Information Cloth Examiner Hand Medicine Celestine Quigley MD - Family Care Team Information Cloth Examiner Hand [phone] Medicine Zain Salcedo MD - Hematology Care Team Information Cloth Examiner Hand Problems Active Problems Provider Date Benign essential hypertension Gt Long M.D. Onset: 05/20/2011 Type 2 diabetes mellitus Gt Long M.D. Onset: 04/27/2012 Coronary arteriosclerosis Gt Long M.D. Onset: 04/27/2012 Chronic diastolic heart failure Gt Long M.D. Onset: 04/27/2012 Difficulty breathing Gt Long M.D. Onset: 04/27/2012 Orthostatic hypotension Gt Long M.D. Onset: 12/16/2012 Postoperative Wound Closure Encounter Peng Strange M.D., [facility], Onset: 2013 [facility] Social History Type Date Description Comments Sex [...] 1/2 tab by mouth 45tabs Ban Ruiz Gibson, 04/20/2019 twice a day N.P. 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 Midodrine HCL Take 1 Tablet 270tabs [...] Test Result H/L Range Note Wound 07/19/2019 [facility] Wound/Misc SEE RESULT 1, 2 Culture/Sensi [address] Culture[place] [address] [phone] Lipid Profile 04/12/2019 [facility] Triglycerides 80 mg/dL 3 (Trig/Chol/HD [address] L) [place] [address] [phone] Cholesterol 159 mg/dL 4 HDL Cholesterol 65.7 mg/dL 5 LDL Cholesterol 77 mg/dL 6 Laboratory test 04/12/2019 [facility] Creatine 45 U/L Normal 10-[address] Kinase(CK) [place] [address] [phone] CBC Auto Diff 04/12/2019 [facility] White Blood 7.6 Normal 3.5 -10.[address] Count 10^3/[place] [address] [phone] Red Blood Count 3.74 10^6/uL Normal 3.70-4.87 [...] Blood Cells % 0.0 Laboratory test 04/12/2019 [facility] C Reactive 4.50 mg/L Normal <8.[address] [place] [address] [phone] Erythrocyte Sed Rate 50 mm/Hr High 0-29 Comp Metabolic 04/12/2019 [facility] Sodium 140 mmol/L Normal 135-[address] [place] [address] [phone] Potassium 4.0 mmol/L Normal 3.5-5.0 Chloride 108 [...] 66.8 >60 Egfr 80.9 >60 7 1 [id number] 2 SEE RESULT BELOW Name: ROSALVA COLUNGA : [address]: Jessica Cruz MD Acct: [id number] Unit: [id number] AGE: [id number] Location: [facility] Re07/19/19 SEX: F Status: REG REF SPEC: [id number] ALESSANDRA: 07/19/19-[address]: Jessica Cruz MD REQ: [id number] RECD: 07/20/19-1234 STATUS: MORELIA MIGUEL DR: Lorena _ SOURCE: HEAD SPDESC: ORDERED: Culture Stain COMMENTS: [id number] QUERIES: Specimen Description BACK OF HEAD WOUND [...] CONTINUED ON NEXT PAGE DEPARTMENT OF PATHOLOGY, [address] [address] Crow Cooney M.D. Director [facility] # [id number] Patient: ROSALVA COLUNGA [id number] (Continued) Specimen: [id number] Collected: 07/19/19-1599 Received: 07/20/19-123 (Continued) Procedure Result Reported Site Wound/Misc Culture Final (continued) * These antibiotics are not available in the [facility] Formulary Contact the Microbiology Department for any additional antibiotic reporting. * - Main Lab . END OF REPORT DEPARTMENT OF PATHOLOGY, [address] [place] [address] Crow Cooney M.D. Director [facility] # [id number] 3 Desirable: <150 Borderline High: 150-199 High: [...] dialysis) Procedures Date Code Description Status 07/20/2019 64644 Debridement Skin,& sq Tissue Completed 07/06/2019 15958 Punch Biopsy Of Skin Completed 04/20/2019 50997 ECHO Transthorasic Realtime 2D W Doppler & Color Flow Completed Hosp 04/20/2019 89386 EKG, Interpretation Only Completed 03/03/2019 42225 Treadmill Interp/Report Only Completed 03/03/2019 20344 Stress Test Supervsn W/Out I/R Completed 06/15/2017 [id number] Bone Mineral Density Test Completed 10/19/2013 [id number] Bone Mineral Density Test Completed Medical Devices [...] init encntr A49.02 Methicillin resis staph infection, [facility] site E11.649 Type 2 diabetes mellitus with hypoglycemia without coma I10 Essential (primary) hypertension I48.0 Paroxysmal atrial fibrillation M06.9 Rheumatoid arthritis, unspecified Z79.01 USP (current) use of anticoagulants E78.5 Hyperlipidemia, unspecified Office Visit 07/27/2019 8:00a [place] Jessica Pang E11.649 Type 2 diabetes Jaison Cruz MD mellitus with hypoglycemia without coma A49.02 Methicillin resis staph infection, [facility] site Office Visit 07/19/2019 [place] Jaison Benitezne Z L02.91 Cutaneous 9:45a MD Anthony abscess, unspecified Office Visit 07/13/2019 [facility] Dermatology Bruce R L02.91 Cutaneous 11:30a DO Cuauhtemoc abscess, unspecified Office Visit 07/05/2019 [place] Jaison Pang L98.9 Disorder of the 8:00a MD Antohny skin and subcutaneous tissue, unspecified E11.65 Type 2 diabetes mellitus with hyperglycemia Office Visit 06/26/2019 [place] Jaison Nunezara L21.8 Other seborrheic 9:30a [place], SHIPPING AND RECEIVING OPERATOR dermatitis Office Visit 05/22/2019 [facility] Erum Torres, E10.10 Type 1 diabetes 10:23a charmaine Rosales M.D. mellitus with Hospitalists ketoacidosis without coma N39.0 Urinary tract infection, site not specified E78.5 Hyperlipidemia, unspecified I10 Essential (primary) hypertension M06.9 Rheumatoid arthritis, unspecified Office Visit 05/21/2019 10:23a [facility] Erum N39.0 Urinary tract Asscharmaine pulliam M.D. infection, site Hospitalists not specified I48.92 Unspecified atrial flutter Office Visit 05/20/2019 10:23a [facility] Erum N39.0 Urinary tract Asscharmaine pulliam M.D. infection, site Hospitalists not specified I48.92 Unspecified atrial flutter Office Visit 05/19/2019 10:22a [facility] Erum N39.0 Urinary tract Asscharmaine pulliam M.D. infection, site Hospitalists not specified I48.92 Unspecified atrial flutter Office Visit 05/18/2019 10[facility] N39.0 Urinary tract Assoc,charmaine Torres M.D. infection, site Hospitalists not specified I48.92 Unspecified atrial flutter Office Visit 05/17/2019 10:21a [facility] Erum N39.0 Urinary tract Assoc,charmaine Torres M.D. infection, site Hospitalists not specified I48.92 Unspecified atrial flutter Office Visit 05/16/2019 10:[facility]a [facility] N39.0 Urinary tract Assoc,charmaine Torres M.D. infection, site Hospitalists not specified I48.92 Unspecified atrial flutter Office Visit 05/15/2019 10:19a [facility] M06.9 Rheumatoid Assoc,charmaine Fernandes M.D. arthritis, Hospitalists unspecified N39.0 Urinary tract infection, site not specified J06.9 Acute upper respiratory infection, unspecified Office Visit 05/14/2019 10:19a [facility] M06.9 Rheumatoid Assoc,charmaine Fernandes M.D. 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 Z79.899 Other fpc (current) drug therapy Office Visit 05/03/2019 [place] Ban SCal R94.31 Abnormal 10:30a Cardiology Abilio, N.PCal electrocardiogram [ECG] [EKG] I48.3 Typical atrial flutter E78.00 Pure hypercholesterolemia, unspecified I25.10 Athscl heart disease of [place] coronary artery w/o ang pctrs Office Visit 04/20/2019 11:03a [facility] Ese Castro, I48.3 Typical atrial Assoc,pc SHIPPING AND RECEIVING OPERATOR flutter Hospitalists N17.9 Acute kidney failure, unspecified N39.0 Urinary tract infection, site not specified E10.9 Type 1 diabetes mellitus without complications E78.00 Pure hypercholesterolemia, unspecified M06.9 Rheumatoid arthritis, unspecified H40.9 Unspecified glaucoma R21 Rash and other nonspecific skin eruption K21.9 Gastro-esophageal reflux disease without esophagitis I95.9 Hypotension, unspecified Office Visit 04/19/2019 [facility] Ese Castro, I48.91 Unspecified 11:03a Assoc,pc SHIPPING AND RECEIVING OPERATOR atrial Hospitalists fibrillation N17.9 Acute kidney failure, [...] arthritis, unspecified Jessica Cruz MD 07/31/2019 Z79.01 USP (current) use of Jessica Cruz MD anticoagulants [...] 06/26/2019 L21.8 Other seborrheic dermatitis Carla Francois, SHIPPING AND RECEIVING OPERATOR 06/22/2019 E11.65 Type 2 diabetes mellitus with [...] M05.79 Rheumatoid arthritis with rheumatoid Zsofia Og, FLAT LOCK MACHINE OPERATOR factor of multiple sites without organ or systems involvement 05/12/2019 M81.0 Age-related osteoporosis without Zsofia Og, FLAT LOCK MACHINE OPERATOR current pathological fracture 05/12/2019 Z79.01 USP (current) use of Zsofia Og, FLAT LOCK MACHINE OPERATOR anticoagulants 05/12/2019 Z79.899 Other fpc (current) drug Zsofia Og, FLAT LOCK MACHINE OPERATOR therapy 05/03/2019 R94.31 Abnormal electrocardiogram [ECG] Ban Knox, N.P. [EKG] 05/03/2019 I48.3 Typical atrial flutter Ban Knox, N.P. 05/03/2019 E78.00 Pure hypercholesterolemia, Ban Knox N.P. unspecified 05/03/2019 I25.10 Atherosclerotic heart disease of Ban Knox N.P. [place] coronary artery without angina pectoris 04/20/2019 R94.31 Abnormal electrocardiogram [ECG] Tariq Canales M.D. [EKG] 04/20/2019 R94.31 Abnormal electrocardiogram [ECG] Jones Chapin M.D. [EKG] 04/20/2019 I48.3 Typical atrial flutter Ese Castro NP 04/20/2019 N17.9 Acute kidney failure, unspecified Ese Castro NP 04/20/2019 N39.0 Urinary tract infection, site not Ese Castro NP specified 04/20/2019 E10.9 Type 1 diabetes mellitus without Ese aCstro NP complications 04/20/2019 E78.00 Pure hypercholesterolemia, Ese Castro NP unspecified 04/20/2019 M06.9 Rheumatoid arthritis, unspecified Ese Castro [...] NP specified 04/19/2019 E78.00 Pure hypercholesterolemia, Ese Castro NP unspecified 04/19/2019 M06.9 Rheumatoid arthritis, unspecified Ese Castro NP 04/19/2019 H40.9 Unspecified glaucoma Ese Castro NP 04/19/2019 R21 Rash and other nonspecific skin Ese Castro NP eruption 04/19/2019 K21.9 Gastro-esophageal reflux disease Ese Castro NP without esophagitis 04/19/2019 I95.9 Hypotension, unspecified Ese Castro NP 03/03/2019 I25.10 Atherosclerotic heart disease of Gt Long M.D. [place] coronary artery without angina pectoris Plan of Treatment Future Appointment(s):09/01/2019 10:00 am - PARAS Mancuso at [facility]11/07/2019 10:40 am - Gt Long M.D. at [facility]08/15/2019 - Jessica Cruz MDE11.65 Type [...]
--- OUTSIDE RECORDS SUMMARY | 2019-10-01 15:59 | XMS REPORT | Continuity of Care Document ---
:1940 External Reference #:[id number] Author Name Heide Harkins MD (transmitted by agent of provider Makayla Lynn) Address [address] [place] [address] Care Team Providers Name Role Phone Coral Eller MD - Family Care Team Information Magnetic Testing Technician Medicine Celestine Quigley MD - Family Care Team Information Magnetic Testing Technician [phone] Medicine Zain Salcedo MD - Hematology Care Team Information Magnetic Testing Technician [phone] Problems Active Problems Provider Date Benign essential hypertension Gt Long M.D. Onset: 05/20/2011 Type 2 diabetes mellitus Gt Long M.D. Onset: 04/27/2012 Coronary arteriosclerosis Gt Long M.D. Onset: 04/27/2012 Chronic diastolic heart failure Gt Long M.D. Onset: 04/27/2012 Difficulty breathing Gt Long M.D. Onset: 04/27/2012 Orthostatic hypotension Gt Long M.D. Onset: 12/16/2012 Postoperative Wound Closure Encounter Peng Strange M.D., [facility], Onset: 2013 [facility] Social History Type Date Description Comments [...] M05.79 Zsofia Og, 02/10/2019 20mg Every Day MEDICAL OFFICE REP Tablets Midodrine HCL Take 1 Tablet 270tabs [...] H/L Range Note CBC No Diff 09/19/2019 [facility] White Blood 6.2 10^3/uL Normal 3.5-10.[address] [place] [address] [phone] Red Blood Count 3.26 10^6/uL Low 3.70-4.87 Hemoglobin 9.4 g/dL Low 12.0-16.0 Hematocrit 29 % Low 35-47 Mean Corpuscular Volume 89 fL Normal 80-97 Mean Corpuscular Hemoglobin 29 pg Normal 27-31 Mean Corpuscular HGB Conc 32 g/dL Normal 31-36 Red Cell Distribution Width 16 % High 10-15 Platelet Count 233 10^3/uL Normal 150-450 Mean Platelet Volume 9.7 fL Normal 7.4-10.4 Comp Metabolic 09/19/2019 [facility] Sodium 138 mmol/L Normal 135-[address] [place] [address] [phone] Potassium 3.9 mmol/L Normal 3.5-5.0 Chloride 109 [...] Egfr 95.3 >60 2 Lipid Profile 09/19/2019 [facility] Triglycerides 94 mg/dL 3 (Trig/Chol/HDL) [address] [place] [address] [phone] Cholesterol 134 mg/dL 4 HDL Cholesterol 60.9 mg/dL 5 LDL Cholesterol 54 mg/dL 6 Laboratory 09/19/2019 [facility] TSH (Thyroid 1.14 Normal 0.34 -5.60 [address] Stim Horm) mcIU/mL [place], [place] [id number] [phone] Hemoglobin A1c (Glyco HGB) 8.4 % High 4.0-5.6 8 Wound 07/19/2019 [facility] Wound/Misc SEE RESULT 9, 10 Culture/Sensi [address] [place] [address] Stain [phone] Lipid Profile 04/12/2019 [facility] Triglycerides 80 mg/dL 11 (Trig/Chol/HDL) [address] [place] [address] [phone] Cholesterol 159 mg/dL 12 HDL Cholesterol 65.7 mg/dL 13 LDL Cholesterol 77 mg/dL 14 Laboratory test 04/12/2019 [facility] Creatine 45 U/L Normal 10-[address] Kinase(CK) [place] [address] [phone] CBC Auto Diff 04/12/2019 [facility] White Blood 7.6 Normal 3.5 -10.[address] Count 10^3/[place] [address] [phone] Red Blood Count 3.74 10^6/uL Normal 3.70-4.87 [...] Blood Cells % 0.0 Laboratory test 04/12/2019 [facility] C Reactive 4.50 mg/L Normal <8.[address] [place] [address] [phone] Erythrocyte Sed Rate 50 mm/Hr High 0-29 Comp Metabolic 04/12/2019 [facility] Sodium 140 mmol/L Normal 135-[address] [place] [address] [phone] Potassium 4.0 mmol/L Normal 3.5-5.0 Chloride 108 [...] 66.8 >60 Egfr 80.9 >60 15 1 [id number] 2 Because ethnic data is not always [...] 130-159 High: 160-189 Very High: >189 7 [id number] 8 Therapeutic target for the treatment of diabetes mellitus patients is <7% HBA1C, and in selective patients <6.0%. Please refer to [employer] [place] [employer] diabetic care guidelines for further information. 9 [id number] 10 SEE RESULT BELOW Name: ROSALVA COLUNGA : [address]: Jessica Cruz MD Acct: [id number] Unit: [id number] AGE: 78 Location: [facility] Re07/19/19 SEX: F Status: REG REF SPEC: [id number] ALESSANDRA: 07/19/19-[address]: Jessica Cruz MD REQ: [id number] RECD: 07/20/19-1234 STATUS: MORELIA MIGUEL DR: Lorena _ SOURCE: HEAD SPDESC: ORDERED: Culture Stain COMMENTS: [id number] QUERIES: Specimen Description BACK OF HEAD WOUND [...] CONTINUED ON NEXT PAGE DEPARTMENT OF PATHOLOGY, [address] [place] [address] Crow Cooney M.D. Director CARLO # [id number] Patient: ROSALVA COLUNGA [id number] (Continued) Specimen: [id number] Collected: 07/19/19-1599 Received: 07/20/19-1234 (Continued) Procedure Result Reported Site Wound/Misc Culture Final (continued) * These antibiotics are not available in the [facility] Formulary Contact the Microbiology Department for any additional antibiotic reporting. * ML - Main Lab . END OF REPORT DEPARTMENT OF PATHOLOGY, [address] [place] [address] Crow Cooney M.D. Director [facility] # [id number] 11 Desirable: <150 Borderline High: 150-199 High: [...] dialysis) Procedures Date Code Description Status 07/06/2019 88183 Punch Biopsy Of Skin Completed 04/20/2019 95688 ECHO Transthorasic Realtime 2D W Doppler & Color Flow Completed Hosp 04/20/2019 35650 EKG, Interpretation Only Completed 06/15/2017 502037404 Bone Mineral Density Test Completed 10/19/2013 897325188 Bone Mineral Density Test Completed Medical Devices [...] atrial fibrillation M06.9 Rheumatoid arthritis, unspecified Z79.01 rn long term care (current) use of anticoagulants E78.5 Hyperlipidemia, unspecified Office Visit 07/27/2019 8:00a [facility] Jessica Pang E11.649 Type 2 diabetes Jaison Cruz MD mellitus with hypoglycemia without coma A49.02 Methicillin resis staph infection, unsp site Office Visit 07/20/2019 [facility] Jaison Pang L98.492 Non-prs chronic 8: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 MD Anthony ulcer of skin of sites w fat layer exposed Office Visit 07/19/2019 [facility] Jaison Benitezsmiley Pang L02.91 Cutaneous 9:45a MD Anthony abscess, unspecified Office Visit 07/13/2019 [facility] Dermatology Bruce R L02.91 Cutaneous 11:30a BasDO karla abscess, unspecified Office Visit 07/05/2019 [facility] Jaison Pang L98.9 Disorder of the 8:00a MD Anthony skin and subcutaneous tissue, unspecified E11.65 Type 2 diabetes mellitus with hyperglycemia Office Visit 06/26/2019 [facility] Jaison Aguirre L21.8 Other seborrheic 9:30a CHAPIS Francois dermatitis Office Visit 05/22/2019 [facility] Erum Torres, E10.10 Type 1 diabetes 10:23a charmaine Rosales M.D. mellitus with Hospitalists ketoacidosis without coma N39.0 Urinary tract infection, site not specified E78.5 Hyperlipidemia, unspecified I10 Essential (primary) hypertension M06.9 Rheumatoid arthritis, unspecified Office Visit 05/21/2019 10:23a [facility] Prieto Danielson N39.0 Urinary tract Asscharmaine pulliam M.D. infection, site Hospitalists not specified I48.92 Unspecified atrial flutter Office Visit 05/20/2019 10:23a [facility] Erum N39.0 Urinary tract Asscharmaine pulliam M.D. infection, site Hospitalists not specified I48.92 Unspecified atrial flutter Office Visit 05/19/2019 10:22a [facility] Erum N39.0 Urinary tract Asscharmaine pulliam M.D. infection, site Hospitalists not specified I48.92 Unspecified atrial flutter Office Visit 05/18/2019 [facility] Urinary tract Assoc,charmaine Torres M.D. infection, site Hospitalists not specified I48.92 Unspecified atrial flutter Office Visit 05/17/2019 10[facility] N[facility] Urinary tract Assoc,charmaine Torres M.D. infection, site Hospitalists not specified I48.92 Unspecified atrial flutter Office Visit 05/16/2019 10:21a [facility] Erum N39.0 Urinary tract Assoc,charmaine Torres M.D. infection, site Hospitalists not specified I48.92 Unspecified atrial flutter Office Visit 05/15/2019 10:19a [facility] M06.9 Rheumatoid Assoc,charmaine Fernandes M.D. arthritis, Hospitalists unspecified N39.0 Urinary tract infection, site not specified J06.9 Acute upper respiratory infection, unspecified Office Visit 05/14/2019 10:19a [facility] M06.9 Rheumatoid Assoc,charmaine Fernandes M.D. arthritis, Hospitalists unspecified N39.0 Urinary tract infection, site not specified J06.9 Acute upper respiratory infection, unspecified Office Visit 05/13/2019 1:13p Intens[facility] Lorin Harkins, N17.9 Acute kidney MD failure, unspecified R73.9 Hyperglycemia, unspecified E87.2 Acidosis Office Visit 05/12/2019 10:00a Rheumatology Dorota Foley, M05.79 [facility] MEDICAL OFFICE REP w rheu factor mult site w/o org/sys involv M81.0 Age-related osteoporosis w/o current pathological fracture Z79.01 rn long term care (current) use of anticoagulants Z79.899 Other machine long goods helper (current) drug therapy Office Visit 05/03/2019 [facility] Ban Ruiz R94.31 Abnormal 10:30a Cardiology Abilio N.PCal electrocardiogram [ECG] [EKG] I48.3 Typical atrial flutter E78.00 Pure hypercholesterolemia, unspecified I25.10 Athscl heart disease of [place] coronary artery w/o ang pctrs Office [facility]3 Typical atrial Assoc,pc [employer] PROFESS[employer] flutter Hospitalists N17.9 Acute kidney failure, unspecified N39.0 Urinary tract infection, site not specified E10.9 Type 1 diabetes mellitus without complications E78.00 Pure hypercholesterolemia, unspecified M06.9 Rheumatoid arthritis, unspecified H40.9 Unspecified glaucoma R21 Rash and other nonspecific skin eruption K21.9 Gastro-esophageal reflux disease without esophagitis I95.9 Hypotension, unspecified Office Visit 04/19/2019 [facility] Ese Elizabethorak, I48.91 Unspecified 11:03a Assoc,pc [employer] PROFESSOR atrial Hospitalists fibrillation N17.9 Acute kidney failure, [...] Cruz MD 09/05/2019 M06.9 Rheumatoid arthritis, unspecified eJssica Cruz MD 09/05/2019 E78.5 Hyperlipidemia, unspecified Jessica [...] arthritis, unspecified Jessica Cruz MD 07/31/2019 Z79.01 rn long term care (current) use of Jessica Cruz MD anticoagulants [...] 06/26/2019 L21.8 Other seborrheic dermatitis Carla Alessandro, [employer] PROFESSOR 06/22/2019 E11.65 Type 2 diabetes mellitus with [...] 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 [EKG] 05/03/2019 I48.3 Typical atrial flutter Ban Knox N.P. 05/03/2019 E78.00 Pure hypercholesterolemia, Ban Knox N.P. unspecified 05/03/2019 I25.10 Atherosclerotic heart disease of Ban Sara Knox, N.P. [place] coronary artery without angina pectoris 04/20/2019 R94.31 [...] complications 04/20/2019 E78.00 Pure hypercholesterolemia, Ese Castro, [employer] PROFESSOR unspecified 04/20/2019 M06.9 Rheumatoid arthritis, unspecified Ese Castro, CHAPIS 04/20/2019 H40.9 Unspecified glaucoma Ese Castro NP 04/20/2019 R21 Rash and other nonspecific skin Ese Castro, CHAPIS eruption 04/20/2019 K21.9 Gastro-esophageal reflux disease Ese Castro NP without esophagitis 04/20/2019 I95.9 Hypotension, unspecified Ese Castro, [employer] PROFESSOR 04/19/2019 I48.91 Unspecified atrial fibrillation Ese Castro, CHAPIS 04/19/2019 N17.9 Acute kidney failure, unspecified Ese Castro, [employer] PROFESSOR 04/19/2019 E10.9 Type 1 diabetes mellitus without Ese Castro NP complications 04/19/2019 N39.0 Urinary tract infection, site not Ese Castro, [employer] PROFESSOR specified 04/19/2019 E78.00 Pure hypercholesterolemia, Ese Castro, [employer] PROFESSOR unspecified 04/19/2019 M06.9 Rheumatoid arthritis, unspecified Ese Castro, CHAPIS 04/19/2019 H40.9 Unspecified glaucoma Ese Castro, CHAPIS 04/19/2019 R21 Rash and other nonspecific skin Ese Castro NP eruption 04/19/2019 K21.9 Gastro-esophageal reflux disease Ese Castro, CHAPIS without esophagitis 04/19/2019 I95.9 Hypotension, unspecified Ese Castro NP Plan of Treatment Future Appointment(s):11/07/2019 10:40 am - Gt [facility] M[facility]09/28/2019 - Heide Harkins MDE11.65 Type 2 diabetes mellitus with hyperglycemiaComments:Two SS insulin protocols. Encouraged appropriate diet. Monitored by VNS.I48.0 Paroxysmal atrial fibrillationComments:Stable.M06.9 Rheumatoid arthritis, unspecifiedComments:Chronic. Functional Status Description No Information Available Mental Status Description No Information Available Referrals Description No Information Available
--- OUTSIDE RECORDS SUMMARY | 2019-10-01 15:59 | XMS REPORT | Continuity of Care Document ---
:1940 External Reference #:[id number] Author Name Jessica Cruz MD (transmitted by agent of provider Makayla Lynn ) Address [address] [place] [address] Care Team Providers Name Role Phone Coral Eller MD - Family Care Team Information Flour Distributor Medicine Celestine Quigley MD - Family Care Team Information Flour Distributor [phone] Medicine Zain Salcedo MD - Hematology Care Team Information Flour Distributor Problems Active Problems Provider Date Benign essential hypertension Gt Long M.D. Onset: 05/20/2011 Type 2 diabetes mellitus Gt Long M.D. Onset: 04/27/2012 Coronary arteriosclerosis Gt Long M.D. Onset: 04/27/2012 Chronic diastolic heart failure Gt Long M.D. Onset: 04/27/2012 Difficulty breathing Gt Long M.D. Onset: 04/27/2012 Orthostatic hypotension Gt Long M.D. Onset: 12/16/2012 Postoperative Wound Closure Encounter Peng Strange M.D., [facility], Onset: 2013 [facility] Social History Type Date Description Comments [...] 1/2 tab by mouth 45tabs Ban Ruiz [place], 04/20/2019 twice a day N.P. 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 Every Day EXTENSION COURSE COUNSELOR Tablets Midodrine HCL Take 1 Tablet 270tabs [...] Test Result H/L Range Note Wound 07/19/2019 [facility] Wound/Misc SEE RESULT 1, 2 Culture/Sensi [address] Culture-[place] [address] [phone] Lipid Profile 04/12/2019 [facility] Triglycerides 80 mg/dL 3 (Trig/Chol/HD [address] L) [place] [address] [phone] Cholesterol 159 mg/dL 4 HDL Cholesterol 65.7 mg/dL 5 LDL Cholesterol 77 mg/dL 6 Laboratory test 04/12/2019 [facility] Creatine 45 U/L Normal 10-[address] Kinase(CK) [place] [address] [phone] CBC Auto Diff 04/12/2019 [facility] White Blood 7.6 Normal 3.5 -10.[address] Count 10^3/[place] [address] [phone] Red Blood Count 3.74 10^6/uL Normal 3.70-4.87 [...] Blood Cells % 0.0 Laboratory test 04/12/2019 [facility] C Reactive 4.50 mg/L Normal <8.[address] [place] [address] [phone] Erythrocyte Sed Rate 50 mm/Hr High 0-29 Comp Metabolic 04/12/2019 [facility] Sodium 140 mmol/L Normal 135-[address] [place] [address] [phone] Potassium 4.0 mmol/L Normal 3.5-5.0 Chloride 108 [...] 66.8 >60 Egfr 80.9 >60 7 1 [id number] 2 SEE RESULT BELOW Name: ROSALVA COLUNGA : [address]: Jessica Cruz MD Acct: [id number] Unit: [id number] AGE: 78 Location: [facility] Re07/19/19 SEX: F Status: REG REF SPEC: [id number] ALESSANDRA: 07/19/19-[address]: Jessica Cruz MD REQ: [id number] RECD: 07/20/19-1234 STATUS: MORELIA MIGUEL DR: Lorena _ SOURCE: HEAD SPDESC: ORDERED: Culture Stain COMMENTS: [id number] QUERIES: Specimen Description BACK OF HEAD WOUND [...] CONTINUED ON NEXT PAGE DEPARTMENT OF PATHOLOGY, [address] [place] [address] Crow Cooney M.D. Director CARLO # [id number] Patient: ROSALVA COLUNGA [id number] (Continued) Specimen: [id number] Collected: 07/19/19-1599 Received: 07/20/19-123 (Continued) Procedure Result Reported Site Wound/Misc Culture Final (continued) * These antibiotics are not available in the [facility] Formulary Contact the Microbiology Department for any additional antibiotic reporting. * - Main Lab . END OF REPORT DEPARTMENT OF PATHOLOGY, [address] [place] [id number] Crow Cooney M.D. Director [facility] # [id number] 3 Desirable: <150 Borderline High: 150-199 High: [...] dialysis) Procedures Date Code Description Status 07/06/2019 78845 Punch Biopsy Of Skin Completed 04/20/2019 35420 ECHO Transthorasic Realtime 2D W Doppler & Color Flow Completed Hosp 04/20/2019 66621 EKG, Interpretation Only Completed 06/15/2017 [id number] Bone Mineral Density Test Completed 10/19/2013 [id number] Bone Mineral Density Test Completed Medical Devices Description No Information Available Encounters Type Date Location Provider Dx Diagnosis Office Visit 09/05/2019 [place] Jaison Lopez Poly E11.65 Type 2 diabetes 8:45a MD Anthony [...] unspecified ear Office Visit 08/15/2019 8:15a [place] Benitezsmiley Pang E11.65 Type 2 diabetes Jaison Cruz MD mellitus with hyperglycemia A49.02 Methicillin resis staph infection, unsp site Office Visit 07/31/2019 11:30a [place] Benitezsmiley Pang S11.90xA Unsp open wound Jaison Cruz MD of unspecified part of neck, init encntr A49.02 Methicillin resis staph infection, unsp site E11.649 Type 2 diabetes mellitus with hypoglycemia without coma I10 Essential (primary) hypertension I48.0 Paroxysmal atrial fibrillation M06.9 Rheumatoid arthritis, unspecified 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 E78.5 Hyperlipidemia, unspecified Office Visit 07/27/2019 8:00a [place] Mott Jessica Pang E11.649 Type 2 diabetes Jaison Cruz MD mellitus with hypoglycemia without coma A49.02 Methicillin resis staph infection, unsp site Office Visit 07/20/2019 [place] Jaison Benitezne Poly L98.492 Non-prs chronic 8: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 MD Anthony ulcer of skin of sites w fat layer exposed Office Visit 07/19/2019 [place] Jaison Benitezsmiley Pang L02.91 Cutaneous 9:45a MD Anthony abscess, unspecified Office Visit 07/13/2019 [facility] D[facility]atology Bruce R L02.91 Cutaneous 11:30a DO Cuauhtemoc abscess, unspecified Office Visit 07/05/2019 [place] Jaison Pang L98.9 Disorder of the 8:00a MD Anthony skin and subcutaneous tissue, unspecified E11.65 Type 2 diabetes mellitus with hyperglycemia Office Visit 06/26/2019 [place] Jaison Nunezara L21.8 Other seborrheic 9:30a [place], ATHLETE MANAGER dermatitis Office Visit 05/22/2019 [facility] Erum Torres, E10.10 Type 1 diabetes 10:23a charmaine Rosales M.D. mellitus with Hospitalists ketoacidosis without coma N39.0 Urinary tract infection, site not specified E78.5 Hyperlipidemia, unspecified I10 Essential (primary) hypertension M06.9 Rheumatoid arthritis, unspecified Office Visit 05/21/2019 10:23a [place] Prieto Danielson N39.0 Urinary tract charmaine Rosales M.D. infection, site Hospitalists not specified I48.92 Unspecified atrial flutter Office Visit 05/20/2019 10:23a [facility] Erum N39.0 Urinary tract Assoc,charmaine Torres M.D. infection, site Hospitalists not specified I48.92 Unspecified atrial flutter Office Visit 05/19/2019 10:22a [facility] Erum N39.0 Urinary tract Assoc,charmaine Torres M.D. infection, site Hospitalists not specified I48.92 Unspecified atrial flutter Office Visit 05/18/2019 10:21a [facility] Erum N39.0 Urinary tract Assoc,charmaine Torres M.D. infection, site Hospitalists not specified I48.92 Unspecified atrial flutter Office Visit 05/17/2019 10:21a [facility] Erum N39.0 Urinary tract Assoc,charmaine Torres M.D. infection, site Hospitalists not specified I48.92 Unspecified atrial flutter Office Visit 05/16/2019 10:21a [facility] Erum N39.0 Urinary tract Assoc,charmaine Torres M.D. infection, site Hospitalists not specified I48.92 Unspecified atrial flutter Office Visit 05/15/2019 10:19a [facility] M06.9 Rheumatoid Assoc,charmaine Fernandes M.D. arthritis, Hospitalists unspecified N39.0 Urinary tract infection, site not specified J06.9 Acute upper respiratory infection, unspecified Office Visit 05/14/2019 10:19a [facility] M06.9 Rheumatoid Assoc,charmaine Fernandes M.D. 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 Z79.899 Other long term care administrator (current) drug therapy Office Visit 05/03/2019 [place] Ban Ruiz R94.31 Abnormal 10:30a Cardiology Shelby Knox electrocardiogram [ECG] [EKG] I48.3 Typical atrial flutter E78.00 Pure hypercholesterolemia, unspecified I25.10 Athscl heart disease of [place] coronary artery w/o ang pctrs Office Visit 04/20/2019 11:03a [facility] Ese Castro, I48.3 Typical atrial Assoc,pc ATHLETE MANAGER flutter Hospitalists N17.9 Acute kidney failure, unspecified N39.0 Urinary tract infection, site not specified E10.9 Type 1 diabetes mellitus without complications E78.00 Pure hypercholesterolemia, unspecified M06.9 Rheumatoid arthritis, unspecified H40.9 Unspecified glaucoma R21 Rash and other nonspecific skin eruption K21.9 Gastro-esophageal reflux disease without esophagitis I95.9 Hypotension, unspecified Office Visit 04/19/2019 [facility] Ese Castro, I48.91 Unspecified 11:03a Assoc,pc ATHLETE MANAGER atrial Hospitalists fibrillation N17.9 Acute kidney failure, [...] arthritis, unspecified Jessica Cruz MD 07/31/2019 Z79.01 alf (current) use of Jessica Cruz MD anticoagulants [...] 06/26/2019 L21.8 Other seborrheic dermatitis Carla Francois, ATHLETE MANAGER 06/22/2019 E11.65 Type 2 diabetes mellitus with [...] M05.79 Rheumatoid arthritis with rheumatoid Zsofia Og, EXTENSION COURSE COUNSELOR factor of multiple sites without organ or systems involvement 05/12/2019 M81.0 Age-related osteoporosis without Zsofia Og, EXTENSION COURSE COUNSELOR current pathological fracture 05/12/2019 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 [EKG] 05/03/2019 I48.3 Typical atrial flutter Ban Knox, N.P. 05/03/2019 E78.00 Pure hypercholesterolemia, Ban Knox N.P. unspecified 05/03/2019 I25.10 Atherosclerotic heart disease of Ban Knox N.P. [place] coronary artery without angina pectoris 04/20/2019 R94.31 [...] complications 04/20/2019 E78.00 Pure hypercholesterolemia, Ese Castro, CHAPIS unspecified 04/20/2019 M06.9 Rheumatoid arthritis, unspecified Ese Castro, [place] 04/20/2019 H40.9 Unspecified glaucoma Ese Castro NP 04/20/2019 R21 Rash and other nonspecific skin Ese Castro NP eruption 04/20/2019 K21.9 Gastro-esophageal reflux disease Ese Castro NP without esophagitis 04/20/2019 I95.9 Hypotension, unspecified Ese Castro NP 04/19/2019 I48.91 Unspecified atrial fibrillation Ese Castro NP 04/19/2019 N17.9 Acute kidney failure, unspecified Ese Castro, ATHLETE MANAGER 04/19/2019 E10.9 Type 1 diabetes mellitus without Ese Castro NP complications 04/19/2019 N39.0 Urinary tract infection, site not Ese Castro NP specified 04/19/2019 E78.00 Pure hypercholesterolemia, Ese Castro, ATHLETE MANAGER unspecified 04/19/2019 M06.9 Rheumatoid arthritis, unspecified Ese Castro NP 04/19/2019 H40.9 Unspecified glaucoma Ese Castro NP 04/19/2019 R21 Rash and other nonspecific skin Ese Castro NP eruption 04/19/2019 K21.9 Gastro-esophageal reflux disease Ese Castro NP without esophagitis 04/19/2019 I95.9 Hypotension, unspecified Ese Castro NP Plan of Treatment Future Appointment(s):11/07/2019 10:40 am - Gt [facility] M[facility] at [facility]09/05/2019 - Jessica Cruz MDE11.65 Type 2 diabetes [...] daily dressing changes.H40.9 Unspecified glaucomaComments:on betoptic, latanoprost, rslvtiuL36.9 Gastro-esophageal reflux disease without esophagitisComments:On Zantac, but this is being pulled off of the market. Will change to Pepcid 20 mg po bid.R29.6 Repeated fallsComments:I am going to discontinue midodrine at this time and monitor blood pressure closely. Patient does not think it's working. Physical therapy is working with her.E11.40 Type 2 diabetes mellitus with diabetic neuropathy, unspecifiedComments:on tlfbgkdgqyQ65.10 Benign paroxysmal vertigo, unspecified earComments:Has meclizine prn which she uses at least twice a day. Will add dramamine to see if this is more effective. I warned patient of increased risk of lethargy. Functional Status Description No Information Available Mental Status Description No Information Available Referrals Description No Information Available
[2019-10-01 16:50] LABS: ABS Eosinophils 0.1 10^3/ul (0-0.6); ABS Monocytes 0.6 10^3/ul (0-0.8); ABS Neutrophils 4.3 10^3/ul (1.5-7.7); Eosinophil % 1.4 %; Hematocrit 32 % (35-47); Hemoglobin 10.2 g/dL (12.0-16.0); Lymphocyte % 17.4 %; Mean Corpuscular HGB Conc 32 g/dL (31-36); Mean Corpuscular Hemoglobin 29 pg (27-31); Mean Corpuscular Volume 89 fL (80-97); Mean Platelet Volume 9.2 fL (7.4-10.4); Platelet Count 226 10^3/uL (150-450); Red Blood Count 3.56 10^6 /uL (3.70-4.87); Red Cell Distribution Width 16 % (10-15)
[2019-10-01 17:03] LABS: Urine Appearance Clear; Urine Bilirubin Negative (Negative); Urine Blood Negative (Negative); Urine Color Yellow; Urine Glucose Negative (Negative); Urine Ketones 1+ (Negative); Urine Nitrite Negative (Negative); Urine Protein Negative (Negative); Urine Specific Gravity 1.014 (1.010-1.030); Urine Urobilinogen Negative (Negative)
[2019-10-01 17:14] LABS: Albumin 4.1 g/dL (3.2-5.2); Albumin/Globulin Ratio 1.8 (1-3); BUN/Creatinine Ratio 27.1 (8-20); Calcium 9.2 mg/dL (8.6-10.3); EGFR African American 98.4 (>60); EGFR Non-African American 81.4 (>60); Globulin 2.3 g/dL (2-4); Magnesium 1.8 mg/dL (1.9-2.7); Potassium 4.1 mmol/L (3.5-5.0); Total Bilirubin 0.6 mg/dL (0.2-1.0); Total Protein 6.4 g/dL (6.4-8.9)
[2019-10-01 18:41] LABS: TSH (Thyroid Stimulating Horm) 0.34 mcIU/mL (0.34-5.60)
[2019-10-01] MEDS ORDERED: Meclizine TAB* 12.5 MG PO PRN (20:33)
[2019-10-01] MEDS ORDERED: Dextrose 50% Syringe 50 ML* 25 GM/50 ML SYRINGE IV PUSH PRN (20:40)
[2019-10-01] MEDS ORDERED: QUEtiapine TAB* 25 MG PO ONE (23:21)
[2019-10-01] MEDS: Gabapentin CAP(*) 100 MG PO SCH (23:36)
[2019-10-01] MEDS: traMADol TAB* 50 MG PO SCH (23:37)
[2019-10-01] MEDS: Apixaban* 5 MG TAB PO SCH (23:37)
[2019-10-01] MEDS: Metoprolol Tartrate TAB* 25 MG PO SCH (23:37)
[2019-10-01] MEDS: oxyCODONE/Acetamin 5/325 MG* TAB PO SCH (23:38)
[2019-10-01 23:45] LABS: C Reactive Protein 3.99 mg/L (<8.01)
[2019-10-01] MEDS: Insulin LISPRO* 1 UNITS UNIT SUBCUT SCH (23:45)
--- NOTE | 2019-10-02 06:02 | HP ---
Amended report to enter cosigning physician. CC: Dr. Celestine Quigley; Dr. Edy Abraham* HISTORY AND PHYSICAL: DATE OF ADMISSION: 10/01/19. PROVIDER: Owen King NP. PRIMARY CARE PROVIDER: Dr. Celestine Quigley. ATTENDING PHYSICIAN WHILE IN THE HOSPITAL: Dr. Jaja Muir* (report dictated by Owen King NP). CHIEF COMPLAINT: Leg weakness. HISTORY OF PRESENT ILLNESS: Ms. Mari is a 78-year-old female patient with medical history significant for diabetes mellitus, rheumatoid arthritis, Meniere 's disease, anemia, right eye enucleation, breast cancer with mets to lung and paroxysmal atrial flutter. Ms. Mari presents to the emergency department via ambulance after suffering a fall at home. The patient reports that she lives at home, alone. She was walking to the bathroom today and her legs just gave out. The patient ambulates with a walker. She reports that she made multiple attempts to lift herself off the floor to no avail. Ms. Mari reports that she was on the floor for approximately 1 hour after several failed attempts to get up she finally activated her life alert system. The patient denies head strike , loss of consciousness, or acute injury. The patient reports that her leg weakness started while living at [facility]. Ms. Mari was discharged from [place] on , 09/28/19. She also reports that she was supposed to have in-home visiting nurses upon discharge, but nobody showed up. Presently, the patient denies any pain in her legs and demonstrates full range of motion bilaterally. She does, however, have multiple areas of bruising to both legs at various stages of healing. The patient reports that those bruises happened while at [place] when she would run into things related to her poor vision. Her right eye was enucleated due to complications of diabetes. She denies any new complaints of pain at this time and requests only to go home. The patient is very tearful and anxious about staying in the hospital because she fears that she is going to lose her home. The patient is also very concerned that her stay in the hospital will not be paid for by her insurance because she believes she used all her benefits while admitted at [place]. PAST MEDICAL HISTORY: Significant for: 1. Rheumatoid arthritis. 2. Diabetes mellitus. 3. Breast cancer. 4. Lung cancer. 5. Meniere's disease. 6. Anemia. 7. Paroxysmal atrial flutter. 8. Right humeral fracture, unhealed. PAST SURGICAL HISTORY: 1. Right eye enucleation. 2. Cholecystectomy. 3. Left fifth toe amputation. 4. Bilateral carpal tunnel surgery. 5. Right-sided partial lung removal. 6. Right-sided mastectomy. 7. Oophorectomy. 8. x1. HOME MEDICATIONS: Include: 1. Eliquis 5 mg p.o. b.i.d. 2. Metoprolol 12.5 mg p.o. b.i.d. 3. Leflunomide 20 mg p.o. daily. 4. Meclizine 12.5 mg t.i.d. as needed. 5. Rosuvastatin 2.5 mg p.o. daily. 6. Famotidine 20 mg p.o. b.i.d. 7. Percocet 5/325 1 tab p.o. h.s. 8. Tramadol 12.5 mg p.o. b.i.d. 9. Gabapentin 100 mg p.o. q.h.s. 10. Lantus 7 units a.m. 11. Lantus 5 units p.m. 12. NovoLog 1 unit per 15 g of carbs. 13. Dorzolamide 2% ophthalmic 1 drop to left eye b.i.d. 14. Betaxolol 0.5% 1 drop left eye q.a.m. 15. Latanoprost 0.005% 1 drop left eye h.s. ALLERGIES: LIPITOR, LISINOPRIL, LYRICA, REGLAN, ZOCOR. FAMILY HISTORY: Mother passed at 81 years of age related to [place]. Father at 58 years of age of emphysema. SOCIAL HISTORY: The patient lives alone. Does not smoke. Does not drink. Does not use illicit drugs. The patient reports she does not have a surrogate decision maker. The patient also reports that she had 1 child but the child at . REVIEW OF SYSTEMS: The patient denies fever. Does report 25-pound weight loss in the last 5 months. Denies visual changes. Denies hearing loss. Denies rhinorrhea or sore throat. Denies thyroid enlargement. The patient denies any chest pain. Denies shortness of breath. Denies abdominal pain. Denies nausea, vomiting. Denies dysuria. Denies increased frequency. Denies loss of consciousness. Denies pruritus. Does report bruising to lower extremities. Review of 14- system completed, all others are negative. PHYSICAL EXAMINATION GENERAL: At this time, Rosalva Mari is a 78-year-old female patient, frail appearing, lying in bed in the ER. She does not appear to be in any acute distress. VITAL SIGNS: 98.1 for temp, 20 respirations, 128/76 blood pressure, heart rate 100, oxygen saturation 99%. HEENT: Head is atraumatic, normocephalic. Eyes: Left eye EOMs are intact. Sclerae anicteric, not pale. Oral mucosa appears to be moist and without erythema. Extensive dental decay. No oropharyngeal erythema. NECK: Supple. LUNGS: Clear to auscultation bilaterally. No wheezes, rales or rhonchi appreciated. CARDIAC: Heart sounds S1, S2. Regular rate and rhythm. Tachycardiac. No murmurs, rubs or gallops. ABDOMEN: Soft, flat and nontender. Bowel sounds are present x4 quadrants. EXTREMITIES: Pulses are 2+ throughout. She is moving all 4 extremities with 4/ 5 strength. NEUROLOGIC: She is awake, alert, and oriented x4. Cranial nerves II through XII are intact. EOMs intact. Freight And Passenger Agent are equal. Pedal flexion and extension equal bilaterally. No gross focal deficits. SKIN: Intact, however, there are multiple areas of bruising with varying stages of healing. DIAGNOSTIC STUDIES: White blood cell count 6.0, RBC 3.56, Hgb 10.2, HCT 32, platelets 226. Sodium 138, potassium 4.1, chloride 108, carbon dioxide 22, BUN 19, creatinine 0.70. BUN and creatinine ratio 27.1, glucose 115, calcium 9.2, magnesium 1.8, T- bili 0.60, AST 32, ALT 20, alkaline phosphatase 86, troponin 0.00. CRP 3.99. TSH 0.34. EKG sinus tachycardiac, rate of 102, 1 PVC, no ST elevations or T wave inversions. ASSESSMENT AND PLAN: Ms. Mari is a 78-year-old female patient coming to the ER today with complaints of weakness with fall. We were asked to evaluate because of the patient's weakness. She will be admitted under observation status for: 1. Weakness in the lower extremities. Among my differentials for are urinary tract infection; however, I do not suspect this is cause of the patient's weakness, as urinalysis is without any blood, leukocytes or nitrites. Although she is at higher risk as a diabetic. Other differential considered is neuropathy as the patient does have a history of diabetes. The patient does not complain of pain, numbness or tingling in the lower extremities at this time. However, these findings do not exclude neuropathy as a cause. I do suspect her weakness and falls are more likely related to deconditioning. I do believe that it would be beneficial for the patient to receive PT evaluation. While in the ER, the patient did ambulate with a walker and demonstrated very unsteady gait. I also believe placement in a correction would be beneficial for the patient as she does not seem safe to be discharged to home at this time despite having been discharged from [facility] for physical rehab recently. 2. Anxiety. The patient seems very distressed that she will be admitted into the hospital. She is concerned that she will not be able to pay certain bills and she is going to lose her home. She does seem preoccupied with concern that she does not have enough money to pay her bills and also concerned that she will not able to pay for this hospital stay. The patient does become very weepy and emotional while talking about these concerns. I do believe a social work consult will be beneficial to possibly look for placement for the patient as she may not be able to care for herself at home and manage finances and also does not appear that she gained any functional improvement throughout her rehab [facility] as she was discharged on 09/28/19 and ended up falling again shortly after due to weakness in her legs. 3. Diabetes. She will be placed on lispro sliding scale a.c. and h.s. If lack of control by this method consider adding patients home Lantus dosing. 4. Rheumatoid arthritis. Continue her leflunomide home dosing well as gabapentin home dosing. 5. Paroxysmal atrial flutter. The patient will continue Eliquis 5 mg p.o. b.i.d. 6. Hypertension. The patient will continue home dosing of metoprolol. 7. Hyperlipidemia. The patient will continue home dosing simvastatin. 8. Meniere's disease. Meclizine as needed. 9. FEN: Diabetic diet. 10. Code status: Full code. 11. DVT prophylaxis. Continue eliquis TIME SPENT: Time spent on the admission was 60 minutes, greater than half of the time was spent [id number] with the patient obtaining my history and physical, the other half the time was spent going over the plan of care with the patient and obtaining care of care and implementing my plan of care. I did discuss plan of care with my attending, Dr. Muir, and she is in agreement. OWEN KING, [place] [id number]/CPS #: [id number] RAJ
[2019-10-02 07:33] LABS: ABS Eosinophils 0.2 10^3/ul (0-0.6); ABS Lymphocytes 1.4 10^3/ul (1.0-4.8); ABS Monocytes 0.6 10^3/ul (0-0.8); ABS Neutrophils 3.3 10^3/ul (1.5-7.7); Eosinophil % 3.1 %; Hematocrit 26 % (35-47); Hemoglobin 8.8 g/dL (12.0-16.0); Lymphocyte % 25.4 %; Mean Corpuscular HGB Conc 34 g/dL (31-36); Mean Corpuscular Hemoglobin 30 pg (27-31); Mean Corpuscular Volume 88 fL (80-97); Mean Platelet Volume 9.2 fL (7.4-10.4); Nucleated Red Blood Cells % 0.1; Platelet Count 183 10^3/uL (150-450); Red Blood Count 2.98 10^6 /uL (3.70-4.87); Red Cell Distribution Width 16 % (10-15); White Blood Count 5.5 10^3/uL (3.5-10.8)
[2019-10-02 07:46] LABS: BUN/Creatinine Ratio 25.3 (8-20); Calcium 8.3 mg/dL (8.6-10.3); EGFR African American 85.6 (>60); EGFR Non-African American 70.8 (>60); Potassium 4.3 mmol/L (3.5-5.0)
[2019-10-02] MEDS: Insulin LISPRO* 1 UNITS UNIT SUBCUT SCH ×4 (08:57→20:20)
[2019-10-02] MEDS: LEFLUNOMIDE 10 MG PO SCH (08:59)
[2019-10-02] MEDS: Magnesium Oxide TAB* 400 MG PO SCH (09:00)
[2019-10-02] MEDS: CMCS:Rosuvastatin (NF) 5 MG TAB PO SCH (09:00)
[2019-10-02] MEDS: Apixaban* 5 MG TAB PO SCH ×2 (09:01→20:22)
[2019-10-02] MEDS: Metoprolol Tartrate TAB* 25 MG PO SCH ×2 (09:01→20:22)
[2019-10-02] MEDS: traMADol TAB* 50 MG PO SCH ×2 (09:02→20:23)
[2019-10-02] MEDS: Betaxolol 0.5 %* OPHTH.SOLN 5 ML LEFT EYE SCH (09:04)
--- NOTE | 2019-10-02 10:03 | PN ---
Subjective Date of Service: 10/02/19 Interval History: The patient denies problems lying in bed. No fevers No pain No SOB No problems with appetite. No trouble with bowels or bladder. When the patient went home last week she had a friend get her food. Her legs gave way at home. She has a walker, states a wheelchair would be too big/not work in her house. I had an extensive discussion about her leg weakness and safety. The patient does not want to go back to [facility] or any facility, she did not articulate specifically why. She stated it was too expensive. She does not have funds to pay for home health and does not have family to assist at home. When I asked her why she came to [facility] she stated she made a deal with God that if she "made it" she would go to the hospital. The hospital ambulated with PT, PT did not feel pt was safe to ambulate on own. The patient thought things went OK Objective Active Medications: Apixaban (Eliquis*) 5 mg PO BID [facility] Last Admin: 10/02/19 09:01 Dose: 5 mg Betaxolol HCl (Betoptic 0.05%*) 1 drop LEFT EYE QAM [facility] Last Admin: 10/02/19 09:04 Dose: 1 drop Dextrose (D50w Syringe 50 Ml*) 12.5 gm IV PUSH .FOR FS < 60 - SS PRN PRN Reason: FS < 60 Gabapentin (Neurontin Cap(*)) 100 mg PO BEDTIME [facility] Last Admin: 10/01/19 23:36 Dose: 100 mg Insulin Human Lispro (Humalog*) 0 units SUBCUT ACHS [facility]; Protocol Last Admin: 10/02/19 08:57 Dose: 3 unit Latanoprost (Xalatan 0.005%*) 1 drop LEFT EYE BEDTIME [facility] Leflunomide (Arava (Nf)) 20 mg PO DAILY [facility]; Protocol Last Admin: 10/02/19 08:59 Dose: 20 mg Magnesium Oxide (Magox 400 Tab*) 800 mg PO DAILY [facility] Last Admin: 10/02/19 09:00 Dose: 800 mg Meclizine HCl (Antivert Tab*) 12.5 mg PO TID PRN PRN Reason: VERTIGO Metoprolol Tartrate (Lopressor Tab*) 12.5 mg PO BID [facility] Last Admin: 10/02/19 09:01 Dose: 12.5 mg Oxycodone/Acetaminophen (Percocet 5/325 Tab*) 1 tab PO BEDTIME [facility] Last Admin: 10/01/19 23:38 Dose: 1 tab Rosuvastatin Calcium (Crestor (Nf)) 2.5 mg PO DAILY [facility]; Protocol Last Admin: 10/02/19 09:00 Dose: 2.5 mg Tramadol HCl (Ultram*) 25 mg PO BID [facility] Last Admin: 10/02/19 09:02 Dose: 25 mg Vital Signs - 8 hr 10/02/19 10/02/19 10/02/19 06:20 08:00 09:02 Temperature 97.5 F 97.3 F Pulse Rate 85 88 Respiratory 16 16 17 Rate Blood Pressure 103/47 111/33 (mmHg) O2 Sat by Pulse 16 Oximetry Oxygen Devices in Use Now: None Appearance: petite elderly woman lying flat curled in position resting in NAD. Eyes: No Scleral Icterus, PERRLA Ears/Nose/Mouth/Throat: Clear Oropharnyx Neck: NL Appearance and Movements; NL JVP - no carotid bruits Respiratory: Symmetrical Chest Expansion and Respiratory Effort, Clear to Auscultation Cardiovascular: NL Sounds; No Murmurs; No JVD, RRR Abdominal: NL Sounds; No Tenderness; No Distention Extremities: No Edema, No Clubbing, Cyanosis Skin: No Rash or Ulcers - Awake, alert, oriented to person and place. Neurological: - - comprehension seems good, speech is articulate. Lines/Tubes/Other Access: Clean, Dry and Intact Peripheral IV Result Diagrams: 10/02/19 07:19 10/02/19 07:19 Additional Lab and Data: Laboratory Results - last 24 hr 10/01/19 10/01/19 10/01/19 16:40 16:40 16:48 WBC 6.0 RBC 3.56 L Hgb 10.2 L Hct 32 L MCV 89 MCH 29 MCHC 32 RDW 16 H Plt Count 226 MPV 9.2 Neut % (Auto) 71.7 Lymph % (Auto) 17.4 [place] % (Auto) 9.3 Eos % (Auto) 1.4 Baso % (Auto) 0.2 Absolute Neuts (auto) 4.3 Absolute Lymphs (auto) 1.0 Absolute Monos (auto) 0.6 Absolute Eos (auto) 0.1 Absolute Basos (auto) 0.0 Absolute Nucleated RBC 0.0 Nucleated RBC % 0.0 Sodium 138 Potassium 4.1 Chloride 108 Carbon Dioxide 22 Anion Gap 8 BUN 19 Creatinine 0.70 Est GFR ( Amer) 98.4 Est GFR (Non-Af Amer) 81.4 BUN/Creatinine Ratio 27.1 H Glucose 115 H POC Glucose (mg/dL) Calcium 9.2 Magnesium 1.8 L Total Bilirubin 0.60 AST 32 ALT 20 Alkaline Phosphatase 86 Troponin I 0.00 C-Reactive Protein 3.99 Total Protein 6.4 Albumin 4.1 Globulin 2.3 Albumin/Globulin Ratio 1.8 TSH 0.34 Urine Color Yellow Urine Appearance Clear Urine pH 5.0 Ur Specific [place] 1.014 Urine Protein Negative Urine Ketones 1+ A Urine Blood Negative Urine Nitrate Negative Urine Bilirubin Negative Urine Urobilinogen Negative Ur Leukocyte Esterase Negative Urine Glucose Negative Urine Ascorbic Acid * A 10/01/19 10/02/19 10/02/19 22:55 07:19 07:19 WBC 5.5 RBC 2.98 L Hgb 8.8 L Hct 26 L MCV 88 MCH 30 MCHC 34 RDW 16 H Plt Count 183 MPV 9.2 Neut % (Auto) 59.4 Lymph % (Auto) 25.4 [place] % (Auto) 11.6 Eos % (Auto) 3.1 Baso % (Auto) 0.5 Absolute Neuts (auto) 3.3 Absolute Lymphs (auto) 1.4 Absolute Monos (auto) 0.6 Absolute Eos (auto) 0.2 Absolute Basos (auto) 0.0 Absolute Nucleated RBC 0.0 Nucleated RBC % 0.1 Sodium 138 Potassium 4.3 Chloride 108 Carbon Dioxide 24 Anion Gap 6 BUN 20 Creatinine 0.79 Est GFR ( Amer) 85.6 Est GFR (Non-Af Amer) 70.8 BUN/Creatinine Ratio 25.3 H Glucose 306 H POC Glucose (mg/dL) 159 H Calcium 8.3 L Magnesium Total Bilirubin AST ALT Alkaline Phosphatase Troponin I C-Reactive Protein Total Protein Albumin Globulin Albumin/Globulin Ratio TSH Urine Color Urine Appearance Urine pH Ur Specific [place] Urine Protein Urine Ketones Urine Blood Urine Nitrate Urine Bilirubin Urine Urobilinogen Ur Leukocyte Esterase Urine Glucose Urine Ascorbic Acid 10/02/19 10/02/19 07:50 11:43 WBC RBC Hgb Hct MCV MCH MCHC RDW Plt Count MPV Neut % (Auto) Lymph % (Auto) [place] % (Auto) Eos % (Auto) Baso % (Auto) Absolute Neuts (auto) Absolute Lymphs (auto) Absolute Monos (auto) Absolute Eos (auto) Absolute Basos (auto) Absolute Nucleated RBC Nucleated RBC % Sodium Potassium Chloride Carbon Dioxide Anion Gap BUN Creatinine Est GFR ( Amer) Est GFR (Non-Af Amer) BUN/Creatinine Ratio Glucose POC Glucose (mg/dL) 297 H 380 H Calcium Magnesium Total Bilirubin AST ALT Alkaline Phosphatase Troponin I C-Reactive Protein Total Protein Albumin Globulin Albumin/Globulin Ratio TSH Urine Color Urine Appearance Urine pH Ur Specific [place] Urine Protein Urine Ketones Urine Blood Urine Nitrate Urine Bilirubin Urine Urobilinogen Ur Leukocyte Esterase Urine Glucose Urine Ascorbic Acid Assess/Plan/Problems-Billing Assessment: 78 yo with hx DKA 2018 and multiple comorbidities who resided at [facility] from May 2019-September 2019 discharged from [facility] 4 days ago. Presented to ED [facility] 10/01/2019 s/p fall, legs gave way, unable to ambulate well and mild echymosis noted. - Patient Problems (1) Physical deconditioning Comment: PT consulted and note reviewed. Patient did not accept assistance/guidance from PT. PT notes she needed "a little" amount of help for several activities and "a lot " of help climibing stairs with a rail. Plan: continue with PT as pt allows. (2) Fall Comment: PT seeing as above. Appears to be at risk for future falls and would be unable to get herself up again. (3) Diabetes Comment: Stable on current meds. (4) Rheumatoid arthritis Current Visit: No Status: Chronic Code(s): M06.9 - RHEUMATOID ARTHRITIS, UNSPECIFIED SNOMED Code(s): 49352244 Comment: On tramadol and percocet with good pain control. (5) DVT prophylaxis Current Visit: No Status: Inactive Code(s): XMY8935 - SNOMED Code(s): 178006587 Comment: - Apixaban. (6) Atrial flutter Current Visit: No Status: Acute Code(s): I48.92 - UNSPECIFIED ATRIAL FLUTTER SNOMED Code(s): 1493293 Comment: - Continue Apixaban and metoprolol, in NSR. (7) Difficulty processing information Comment: [facility] team concerned about the patient's ability for decision making as she is requesting to return home which is felt to be unsafe. -At their request will consult psychiatry to evaluate for competency, I informed the patient and she told me she is not crazy, I agree with her. -I will seek the assitance of Social Work as well about her finances which appear to be a major concern and may be impacting her decision making. Afternoon addendum: Dr Penny's note appreciated, pt felt to be competent. Will work with high school social science teacher and discharge team in AM on disposition/options to assist the patient. (8) Anemia Comment: Chronic since 2015, but acute drop overnight. Checking stool guiaics, track. Counseling and/or Coordination of Care Minutes: 60 minutes.
--- NOTE | 2019-10-02 14:57 | PN ---
Subjective Date of Service: 10/02/19 Objective Active Medications: Apixaban (Eliquis*) 5 mg PO BID [facility] Last Admin: 10/02/19 09:01 Dose: 5 mg Betaxolol HCl (Betoptic 0.05%*) 1 drop LEFT EYE QAM [facility] Last Admin: 10/02/19 09:04 Dose: 1 drop Dextrose (D50w Syringe 50 Ml*) 12.5 gm IV PUSH .FOR FS < 60 - SS PRN PRN Reason: FS < 60 Gabapentin (Neurontin Cap(*)) 100 mg PO BEDTIME [facility] Last Admin: 10/01/19 23:36 Dose: 100 mg Insulin Human Lispro (Humalog*) 0 units SUBCUT ACHS [facility]; Protocol Last Admin: 10/02/19 12:51 Dose: 5 unit Latanoprost (Xalatan 0.005%*) 1 drop LEFT EYE BEDTIME [facility] Leflunomide (Arava (Nf)) 20 mg PO DAILY [facility]; Protocol Last Admin: 10/02/19 08:59 Dose: 20 mg Magnesium Oxide (Magox 400 Tab*) 800 mg PO DAILY [facility] Last Admin: 10/02/19 09:00 Dose: 800 mg Meclizine HCl (Antivert Tab*) 12.5 mg PO TID PRN PRN Reason: VERTIGO Metoprolol Tartrate (Lopressor Tab*) 12.5 mg PO BID [facility] Last Admin: 10/02/19 09:01 Dose: 12.5 mg Oxycodone/Acetaminophen (Percocet 5/325 Tab*) 1 tab PO BEDTIME [facility] Last Admin: 10/01/19 23:38 Dose: 1 tab Rosuvastatin Calcium (Crestor (Nf)) 2.5 mg PO DAILY [facility]; Protocol Last Admin: 10/02/19 09:00 Dose: 2.5 mg Tramadol HCl (Ultram*) 25 mg PO BID [facility] Last Admin: 10/02/19 09:02 Dose: 25 mg Vital Signs - 8 hr 10/02/19 10/02/19 10/02/19 08:00 09:02 11:15 Temperature 97.3 F 97.6 F Pulse Rate 88 74 Respiratory 16 17 16 Rate Blood Pressure 111/33 96/43 (mmHg) O2 Sat by Pulse 16 100 Oximetry Oxygen Devices in Use Now: None Result Diagrams: 10/02/19 07:19 10/02/19 07:19 Assess/Plan/Problems-Billing Assessment: 78 yo with hx DKA 2018 and multiple comorbidities who resided at [facility] from May 2019-September 2019 discharged from [facility] 4 days ago. Present[facility] [place] [facility] [place]01[place] s/p fall, legs gave way, unable to ambulate well and echymosis noted. - Patient Problems (1) Physical deconditioning Comment: PT consulted. Appears unable to care for herself at home. Discharge planners will assist. (2) Fall Comment: PT seeing as above.
--- NOTE | 2019-10-02 17:02 | CONSULT ---
Consult Consult: Consult for Medical Decision Making Capacity S: Psychiatry is asked to evaluate capacity in this 78 y.o. single, white female with multiple medical comorbidities, who is admitted to the Hospitalist service following a fall in her home. The PT service has evaluated the patient and recommended [facility] placement, which would be indicated due to the risk of further falls in an independent living situation. I spoke with attending physician, Dr. Sharon Saunders, who suggested that an additional risk is the fact that the patient is on anticoagulant therapy, increasing the risk of hemorrhage from trauma. I understand the patient is declining [facility] placement, having just been discharged from [facility] following a 4-month stint in that facility. On exam the patient is somewhat irritable yet cooperative. She states "I know why you're here. Just like the others. You want me to go back to [facility] or some other place like that." She recalls the circumstances of her admission quite well and is aware of her various diagnoses, as well as what the primary team is recommending. Additionally, she expresses a clear understanding of the risks of refusing [facility] and going home. "Well of course...I could fall again." She expresses a willingness to accept some mitigating factors to reduce this risk, including continued use of medic-alert necklace, home health services and moving into assisted living in the near future. She is completely oriented to person, time, place and situation. O: short haired white female, aging; dressed in patient gown; sitting on bed with poor, contracted posture; poor eye contact; cooperative but irritable with interview; euthymic with constricted affect; denies SI or HI; insight and judgment limited given declination of [facility] referral; awake and alert; A/P: Capacity: the patient is declining [facility] placement at this time and, in my judgment, has the capacity to do so, based on her demonstrated understanding of the risk/benefit appraisal of her situation. Capacity is subject to change in these situations and psychiatry can be re-consulted in the event of any significant changes in her presentation/situation. Thanks for the consult.
[2019-10-02] MEDS: Gabapentin CAP(*) 100 MG PO SCH (20:21)
[2019-10-02] MEDS: oxyCODONE/Acetamin 5/325 MG* TAB PO SCH (20:21)
[2019-10-02] MEDS ORDERED: Latanoprost 0.005%* 2.5 ml BTL LEFT EYE SCH (21:00)
[2019-10-03 08:00] LABS: Hematocrit 29 % (35-47); Hemoglobin 9.4 g/dL (12.0-16.0)
[2019-10-03] MEDS: traMADol TAB* 50 MG PO SCH (09:09)
[2019-10-03] MEDS: Metoprolol Tartrate TAB* 25 MG PO SCH (09:10)
[2019-10-03] MEDS: Insulin LISPRO* 1 UNITS UNIT SUBCUT SCH ×2 (09:11→12:44)
[2019-10-03] MEDS: Apixaban* 5 MG TAB PO SCH (09:11)
[2019-10-03] MEDS: Magnesium Oxide TAB* 400 MG PO SCH (09:11)
[2019-10-03] MEDS: Betaxolol 0.5 %* OPHTH.SOLN 5 ML LEFT EYE SCH (09:12)
[2019-10-03] MEDS: CMCS:Rosuvastatin (NF) 5 MG TAB PO SCH (09:14)
[2019-10-03] MEDS: LEFLUNOMIDE 10 MG PO SCH (09:16)
--- NOTE | 2019-10-03 10:23 | PN ---
Progress Note - Progress Note Date of Service: 10/03/19 Note: Patient wants to go home today. She wants to organize her house, then amenable to assisted living but not a NH or similar facility. Appreciate Dr Penny's assistance, pt has capacity. I made pt aware that [facility] will be contacted, but may or may not agree to assist patient. Vital Signs - 12 hr Temp Pulse Resp BP Pulse Ox 10/03/19 09:09 18 10/03/19 07:15 97.3 F 83 16 113/40 99 10/03/19 03:08 97.9 F 73 16 119/50 100 10/02/19 23:19 97.3 F 73 16 100/48 99 10/02/19 22:57 12 10/02/19 22:56 12 10/02/19 22:54 12 Clear lungs S1s2 no murmurs No edema Laboratory Last Values WBC 5.5 10^3/uL (3.5-10.8) 10/02/19 07:19 RBC 2.98 10^6 /uL (3.70-4.87) L 10/02/19 07:19 Hgb 9.4 g/dL (12.0-16.0) L 10/03/19 07:14 Hct 29 % (35-47) L 10/03/19 07:14 MCV 88 fL (80-97) 10/02/19 07:19 MCH 30 pg (27-31) 10/02/19 07:19 MCHC 34 g/dL (31-36) 10/02/19 07:19 RDW 16 % (10-15) H 10/02/19 07:19 Plt Count 183 10^3/uL (150-450) 10/02/19 07:19 MPV 9.2 fL (7.4-10.4) 10/02/19 07:19 Neut % (Auto) 59.4 % 10/02/19 07:19 Lymph % (Auto) 25.4 % 10/02/19 07:19 [place] % (Auto) 11.6 % 10/02/19 07:19 Eos % (Auto) 3.1 % 10/02/19 07:19 Baso % (Auto) 0.5 % 10/02/19 07:19 Absolute Neuts (auto) 3.3 10^3/ul (1.5-7.7) 10/02/19 07:19 Absolute Lymphs (auto) 1.4 10^3/ul (1.0-4.8) 10/02/19 07:19 Absolute Monos (auto) 0.6 10^3/ul (0-0.8) 10/02/19 07:19 Absolute Eos (auto) 0.2 10^3/ul (0-0.6) 10/02/19 07:19 Absolute Basos (auto) 0.0 10^3/ul (0-0.2) 10/02/19 07:19 Absolute Nucleated RBC 0.0 10^3/ul 10/02/19 07:19 Nucleated RBC % 0.1 10/02/19 07:19 Sodium 138 mmol/L (135-145) 10/02/19 07:19 Potassium 4.3 mmol/L (3.5-5.0) 10/02/19 07:19 Chloride 108 mmol/L (101-111) 10/02/19 07:19 Carbon Dioxide 24 mmol/L (22-32) 10/02/19 07:19 Anion Gap 6 mmol/L (2-11) 10/02/19 07:19 BUN 20 mg/dL (6-24) 10/02/19 07:19 Creatinine 0.79 mg/dL (0.51-0.95) 10/02/19 07:19 Est GFR ( Amer) 85.6 (>60) 10/02/19 07:19 Est GFR (Non-Af Amer) 70.8 (>60) 10/02/19 07:19 BUN/Creatinine Ratio 25.3 (8-20) H 10/02/19 07:19 Glucose 306 mg/dL (70-100) H 10/02/19 07:19 POC Glucose (mg/dL) 333 mg/dL (70-100) H 10/03/19 07:54 Calcium 8.3 mg/dL (8.6-10.3) L 10/02/19 07:19 Magnesium 1.8 mg/dL (1.9-2.7) L 10/01/19 16:40 Total Bilirubin 0.60 mg/dL (0.2-1.0) 10/01/19 16:40 AST 32 U/L (13-39) 10/01/19 16:40 ALT 20 U/L (7-52) 10/01/19 16:40 Alkaline Phosphatase 86 U/L (34-104) 10/01/19 16:40 Troponin I 0.00 ng/mL (<0.03) 10/01/19 16:40 C-Reactive Protein 3.99 mg/L (<8.01) 10/01/19 16:40 Total Protein 6.4 g/dL (6.4-8.9) 10/01/19 16:40 Albumin 4.1 g/dL (3.2-5.2) 10/01/19 16:40 Globulin 2.3 g/dL (2-4) 10/01/19 16:40 Albumin/Globulin Ratio 1.8 (1-3) 10/01/19 16:40 TSH 0.34 mcIU/mL (0.34-5.60) 10/01/19 16:40 Urine Color Yellow 10/01/19 16:48 Urine Appearance Clear 10/01/19 16:48 Urine pH 5.0 (5-9) 10/01/19 16:48 Ur Specific [place] 1.014 (1.010-1.030) 10/01/19 16:48 Urine Protein Negative (Negative) 10/01/19 16:48 Urine Ketones 1+ (Negative) A 10/01/19 16:48 Urine Blood Negative (Negative) 10/01/19 16:48 Urine Nitrate Negative (Negative) 10/01/19 16:48 Urine Bilirubin Negative (Negative) 10/01/19 16:48 Urine Urobilinogen Negative (Negative) 10/01/19 16:48 Ur Leukocyte Esterase Negative (Negative) 10/01/19 16:48 Urine Glucose Negative (Negative) 10/01/19 16:48 Urine Ascorbic Acid * (Negative) A 10/01/19 16:48 Plan for discharge today. I obtained her medication list from [facility], unable to get through to Dr Quigley' s office today to schedule a f/u appt, but advised pt to call and schedule.
[2019-10-03 12:13] VITALS: BP 121/53
== END 2019-10-03 14:20 | disposition home or self-care (01) ==
LOC: ED 15:15 → MEDTELE 20:25
PROVIDERS: ADMIT Nurse Practitioner Family; ATTEND Internal Medicine
DX: R53.1 Weakness (principal); M06.9 Rheumatoid arthritis, unspecified; E11.9 Type 2 diabetes mellitus without complications; S42.301K Unspecified fracture of shaft of humerus, right arm, subsequent encounter for fracture with nonunion; Z85.3 Personal history of malignant neoplasm of breast; Z85.118 Personal history of other malignant neoplasm of bronchus and lung; H81.09 Meniere's disease, unspecified ear; I48.0 Paroxysmal atrial fibrillation; D64.9 Anemia, unspecified; I10 Essential (primary) hypertension; E78.5 Hyperlipidemia, unspecified; X58.XXXD Exposure to other specified factors, subsequent encounter; Z79.01 Long term (current) use of anticoagulants; Z79.899 Other long term (current) drug therapy; Z88.8 Allergy status to other drugs, medicaments and biological substances; Z79.4 Long term (current) use of insulin; Z91.81 History of falling; R94.31 Abnormal electrocardiogram [ECG] [EKG]
CPT/HCPCS: 36415; 80048; 80053; 81003; 82270; 83735; 84443; 84484; 85014; 85018; 85025; 86140; 93005; 99283; A9270-GY; G0378

== ENCOUNTER 2020-03-15 17:25 | Inpatient (IN) ==
[2020-03-15 18:14] LABS: ABS Eosinophils 0.5 10^3/ul (0-0.6); ABS Lymphocytes 1.3 10^3/ul (1.0-4.8); ABS Monocytes 1.3 10^3/ul (0-0.8); ABS Neutrophils 17.8 10^3/ul (1.5-7.7); Eosinophil % 2.6 %; Hematocrit 28 % (35-47); Hemoglobin 9.2 g/dL (12.0-16.0); Lymphocyte % 6.1 %; Mean Corpuscular HGB Conc 33 g/dL (31-36); Mean Corpuscular Hemoglobin 28 pg (27-31); Mean Corpuscular Volume 86 fL (80-97); Mean Platelet Volume 7.5 fL (7.4-10.4); Platelet Count 371 10^3/uL (150-450); Red Blood Count 3.27 10^6 /uL (3.70-4.87); Red Cell Distribution Width 15 % (10-15); White Blood Count 20.9 10^3/uL (3.5-10.8)
[2020-03-15 18:21] LABS: INR 1.01 (0.82-1.09)
[2020-03-15] MEDS ORDERED: Vancomycin 1,000 MG in NS 0.9% 250 ml 250 ML IV ONE (18:25)
[2020-03-15 18:32] LABS: Albumin 3.7 g/dL (3.2-5.2); Albumin/Globulin Ratio 1.3 (1-3); BUN/Creatinine Ratio 40.8 (8-20); C Reactive Protein 9.51 mg/L (<8.01); Calcium 9.3 mg/dL (8.6-10.3); EGFR African American 66.6 (>60); Globulin 2.8 g/dL (2-4); Potassium 4.7 mmol/L (3.5-5.0); Total Bilirubin 0.4 mg/dL (0.2-1.0); Total Protein 6.5 g/dL (6.4-8.9)
[2020-03-15 18:35] LABS: Troponin I 0.01 ng/mL (<0.03)
[2020-03-15] MEDS ORDERED: Vancomycin 1,000 MG BAG/ADDV ONE (19:20)
[2020-03-15 19:49] LABS: Erythrocyte Sed Rate 50 mm/Hr (0-29)
[2020-03-15] MEDS ORDERED: Vancomycin per Pharmacy 1 EA NOTE FOLLOW UP SCH (20:00)
[2020-03-15] MEDS ORDERED: Dextrose 50% Syringe 50 ml 25 GM/50 ML SYRINGE IV PUSH PRN (21:07)
[2020-03-15] MEDS ORDERED: NS 0.9% 1000 ml BAG 1,000 ML IV SCH (21:45)
[2020-03-15] MEDS ORDERED: Insulin GLARGINE 100 un/ml 10 ml VIAL SUBCUT ONE (22:35)
[2020-03-15 23:00] LABS: Urine Appearance Turbid; Urine Bilirubin Negative (Negative); Urine Blood Negative (Negative); Urine Color Yellow; Urine Glucose 3+(>=500 mg/dL) (Negative); Urine Ketones 1+ (Negative); Urine Nitrite Negative (Negative); Urine Protein 1+(30 mg/dL) (Negative); Urine Specific Gravity 1.013 (1.010-1.030); Urine Urobilinogen Negative (Negative)
[2020-03-15 23:13] LABS: Urine Bacteria Absent (Absent); Urine Red Blood Cell 3+(>10/hpf) (Absent); Urine Squamous Epithelial Cell Present (Absent); Urine White Blood Cell 3+(>20/hpf) (Absent)
[2020-03-15] MEDS: Cefepime 2 GM in Dextrose 2 GM/50 ML BAG IV SCH (23:35)
[2020-03-15] MEDS: Heparin 5000 UNITS/ML 1 mL VIAL SUBCUT SCH (23:36)
[2020-03-15] MEDS: Dorzolamide 2% OPTH (NF) 10 ML BTL LEFT EYE SCH (23:37)
[2020-03-15] MEDS: Timolol 0.5% OPTH.SOL BTL LEFT EYE SCH (23:37)
[2020-03-15] MEDS: Latanoprost 0.005% 2.5 ml BTL LEFT EYE SCH (23:37)
[2020-03-16] MEDS: Heparin 5000 UNITS/ML 1 mL VIAL SUBCUT SCH ×3 (05:29→20:54)
[2020-03-16 06:47] LABS: ABS Eosinophils 0.7 10^3/ul (0-0.6); ABS Lymphocytes 1.6 10^3/ul (1.0-4.8); ABS Monocytes 1.2 10^3/ul (0-0.8); ABS Neutrophils 7.6 10^3/ul (1.5-7.7); Eosinophil % 6.2 %; Hematocrit 29 % (35-47); Hemoglobin 8.9 g/dL (12.0-16.0); Lymphocyte % 14.3 %; Mean Corpuscular HGB Conc 31 g/dL (31-36); Mean Corpuscular Hemoglobin 29 pg (27-31); Mean Corpuscular Volume 91 fL (80-97); Mean Platelet Volume 7.8 fL (7.4-10.4); Platelet Count 271 10^3/uL (150-450); Red Blood Count 3.13 10^6 /uL (3.70-4.87); Red Cell Distribution Width 15 % (10-15); White Blood Count 11.1 10^3/uL (3.5-10.8)
[2020-03-16 07:08] LABS: CO2 Carbon Dioxide 15 mmol/L (22-32); Calcium 7.7 mg/dL (8.6-10.3); Chloride 101 mmol/L (101-111); Sodium 128 mmol/L (135-145)
[2020-03-16 07:13] LABS: Blood Urea Nitrogen 36 mg/dL (6-24); Glucose 361 mg/dL (70-100)
[2020-03-16 07:24] LABS: Anion Gap 12 mmol/L (2-11)
[2020-03-16] MEDS: Vancomycin 750 MG in NS 0.9% 250 ML IVPB SCH ×2 (08:52→15:30)
[2020-03-16] MEDS ORDERED: Leflunomide 10 mg TAB (NF) PO SCH (09:00)
[2020-03-16] MEDS: Insulin GLARGINE 100 un/ml 10 ml VIAL SUBCUT SCH (09:56)
[2020-03-16] MEDS: Dorzolamide 2% OPTH (NF) 10 ML BTL LEFT EYE SCH ×2 (09:57→20:53)
[2020-03-16] MEDS: Timolol 0.5% OPTH.SOL BTL LEFT EYE SCH ×2 (09:58→20:53)
[2020-03-16 13:43] LABS: Potassium Redraw 4.3 mmol/L (3.5-5.0)
[2020-03-16 13:48] LABS: EGFR African American 72.5 (>60); EGFR Non-African American 59.9 (>60)
[2020-03-16] MEDS: Cefepime 2 GM in Dextrose 2 GM/50 ML BAG IV SCH (16:52)
[2020-03-16] MEDS: metroNIDAZOLE IV 500 MG/100ML 500 MG/100 ML BAG IVPB SCH ×2 (17:03→18:12)
[2020-03-16] MEDS: Latanoprost 0.005% 2.5 ml BTL LEFT EYE SCH (20:53)
[2020-03-17] MEDS: metroNIDAZOLE IV 500 MG/100ML 500 MG/100 ML BAG IVPB SCH ×3 (00:58→19:01)
[2020-03-17] MEDS: Vancomycin 750 MG in NS 0.9% 250 ML IVPB SCH ×2 (03:35→15:52)
[2020-03-17] MEDS: Cefepime 2 GM in Dextrose 2 GM/50 ML BAG IV SCH ×2 (05:05→18:15)
[2020-03-17] MEDS: Heparin 5000 UNITS/ML 1 mL VIAL SUBCUT SCH ×3 (05:50→21:22)
[2020-03-17 06:46] LABS: ABS Eosinophils 1.5 10^3/ul (0-0.6); ABS Lymphocytes 1.7 10^3/ul (1.0-4.8); ABS Monocytes 0.8 10^3/ul (0-0.8); ABS Neutrophils 5.7 10^3/ul (1.5-7.7); Eosinophil % 15.8 %; Hematocrit 26 % (35-47); Hemoglobin 8.4 g/dL (12.0-16.0); Lymphocyte % 17.2 %; Mean Corpuscular HGB Conc 33 g/dL (31-36); Mean Corpuscular Hemoglobin 29 pg (27-31); Mean Corpuscular Volume 87 fL (80-97); Mean Platelet Volume 8.2 fL (7.4-10.4); Platelet Count 305 10^3/uL (150-450); Red Blood Count 2.92 10^6 /uL (3.70-4.87); Red Cell Distribution Width 15 % (10-15); White Blood Count 9.7 10^3/uL (3.5-10.8)
[2020-03-17 07:27] LABS: Albumin 3.1 g/dL (3.2-5.2); Albumin/Globulin Ratio 1.4 (1-3); BUN/Creatinine Ratio 33.3 (8-20); Calcium 8.1 mg/dL (8.6-10.3); EGFR African American 79.6 (>60); EGFR Non-African American 65.7 (>60); Globulin 2.2 g/dL (2-4); Magnesium 1.8 mg/dL (1.9-2.7); Potassium 4.5 mmol/L (3.5-5.0); Total Bilirubin 0.4 mg/dL (0.2-1.0); Total Protein 5.3 g/dL (6.4-8.9)
[2020-03-17] MEDS: Ondansetron 4 mg VIAL 2 MG/ML 2 ml VIAL IV PRN (09:11)
[2020-03-17] MEDS: Insulin GLARGINE 100 un/ml 10 ml VIAL SUBCUT SCH (09:28)
[2020-03-17] MEDS: Dorzolamide 2% OPTH (NF) 10 ML BTL LEFT EYE SCH ×2 (09:31→22:02)
[2020-03-17] MEDS: Timolol 0.5% OPTH.SOL BTL LEFT EYE SCH ×2 (09:31→22:02)
[2020-03-17] MEDS ORDERED: Magnesium Sulfate IV 1GM/100ML 1 GM/100 ML BAG IV ONE (09:50)
[2020-03-17] MEDS: Latanoprost 0.005% 2.5 ml BTL LEFT EYE SCH (22:02)
[2020-03-18] MEDS: metroNIDAZOLE IV 500 MG/100ML 500 MG/100 ML BAG IVPB SCH ×2 (01:28→09:55)
[2020-03-18] MEDS: Vancomycin 750 MG in NS 0.9% 250 ML IVPB SCH ×2 (03:31→16:30)
[2020-03-18] MEDS: Cefepime 2 GM in Dextrose 2 GM/50 ML BAG IV SCH ×2 (06:04→22:46)
[2020-03-18 06:51] LABS: ABS Eosinophils 1.3 10^3/ul (0-0.6); ABS Lymphocytes 1.2 10^3/ul (1.0-4.8); ABS Monocytes 0.9 10^3/ul (0-0.8); ABS Neutrophils 4.5 10^3/ul (1.5-7.7); Hematocrit 25 % (35-47); Hemoglobin 8.3 g/dL (12.0-16.0); Lymphocyte % 14.9 %; Mean Corpuscular HGB Conc 33 g/dL (31-36); Mean Corpuscular Hemoglobin 29 pg (27-31); Mean Corpuscular Volume 87 fL (80-97); Mean Platelet Volume 7.9 fL (7.4-10.4); Platelet Count 286 10^3/uL (150-450); Red Cell Distribution Width 15 % (10-15); White Blood Count 7.9 10^3/uL (3.5-10.8)
[2020-03-18 07:00] LABS: BUN/Creatinine Ratio 22.9 (8-20); Calcium 8.1 mg/dL (8.6-10.3); EGFR African American 80.7 (>60); EGFR Non-African American 66.7 (>60); Magnesium 1.7 mg/dL (1.9-2.7); Potassium 3.8 mmol/L (3.5-5.0)
[2020-03-18] MEDS ORDERED: Magnesium Sulfate 2 gm BAG 2 GM/50 ML BAG IVPB ONE (08:15)
[2020-03-18] MEDS: Insulin GLARGINE 100 un/ml 10 ml VIAL SUBCUT SCH (09:55)
[2020-03-18] MEDS: Timolol 0.5% OPTH.SOL BTL LEFT EYE SCH ×2 (09:56→22:45)
[2020-03-18] MEDS: Dorzolamide 2% OPTH (NF) 10 ML BTL LEFT EYE SCH ×2 (09:56→22:44)
[2020-03-18] MEDS: Prochlorperazine 5 mg/ml 2 ml VIAL (10 mg) IV PRN (11:00)
[2020-03-18] MEDS ORDERED: Buffered Lidocaine 1% SYRIN 1 ml INTRADERM ONE (14:53)
[2020-03-18] MEDS ORDERED: Vancomycin Trough Check NOTE FOLLOW UP ONE (15:00)
[2020-03-18] MEDS ORDERED: Lidocaine 2% PF 5 ML VIAL ONE (16:07)
[2020-03-18] MEDS ORDERED: fentaNYL 100 mcg/2 ml 50 MCG/ML VIAL ONE ×4 (16:07→19:28)
[2020-03-18] MEDS ORDERED: Propofol 10 MG/ML 20 ML BTL ONE (16:07)
[2020-03-18] MEDS ORDERED: Bupivacaine 0.5% SDV PF 30ML VIAL ONE (16:46)
[2020-03-18] MEDS ORDERED: fentaNYL 100 mcg/2 ml 50 MCG/ML VIAL IV PRN (17:59)
[2020-03-18] MEDS ORDERED: Ondansetron 4 mg VIAL 2 MG/ML 2 ml VIAL IV PRN (17:59)
[2020-03-18] MEDS ORDERED: HYDROmorphone 1 MG/1 ML SYRINGE IV PRN (17:59)
[2020-03-18] MEDS ORDERED: Naloxone 0.4 mg VIAL 0.4 mg/ml 1 ml VIAL IV PRN (17:59)
[2020-03-18] MEDS ORDERED: EPHEDrine (Pressors) 50 MG/ML VIAL ONE (18:29)
[2020-03-18] MEDS ORDERED: Ondansetron 4 mg VIAL 2 MG/ML 2 ml VIAL ONE (19:45)
[2020-03-18] MEDS: Lactated Ringers 1000 ml BAG 1,000 ML IV SCH (22:45)
[2020-03-18] MEDS: Latanoprost 0.005% 2.5 ml BTL LEFT EYE SCH (22:45)
[2020-03-19] MEDS: metroNIDAZOLE IV 500 MG/100ML 500 MG/100 ML BAG IVPB SCH ×4 (01:46→16:57)
[2020-03-19] MEDS: Cefepime 2 GM in Dextrose 2 GM/50 ML BAG IV SCH ×3 (01:50→22:23)
[2020-03-19] MEDS: Prochlorperazine 5 mg/ml 2 ml VIAL (10 mg) IV PRN (03:46)
[2020-03-19] MEDS ORDERED: Vancomycin Trough Check NOTE FOLLOW UP ONE (05:30)
[2020-03-19 05:47] LABS: ABS Eosinophils 0.6 10^3/ul (0-0.6); ABS Lymphocytes 1.2 10^3/ul (1.0-4.8); ABS Monocytes 1.1 10^3/ul (0-0.8); Eosinophil % 4.5 %; Hematocrit 27 % (35-47); Hemoglobin 8.8 g/dL (12.0-16.0); Lymphocyte % 8.5 %; Mean Corpuscular HGB Conc 32 g/dL (31-36); Mean Corpuscular Hemoglobin 28 pg (27-31); Mean Corpuscular Volume 88 fL (80-97); Platelet Count 279 10^3/uL (150-450); Red Blood Count 3.13 10^6 /uL (3.70-4.87); Red Cell Distribution Width 15 % (10-15); White Blood Count 13.9 10^3/uL (3.5-10.8)
[2020-03-19 05:57] LABS: BUN/Creatinine Ratio 23.1 (8-20); Calcium 8.4 mg/dL (8.6-10.3); EGFR African American 86.7 (>60); EGFR Non-African American 71.6 (>60); Potassium 4.1 mmol/L (3.5-5.0)
[2020-03-19] MEDS: Vancomycin 750 MG in NS 0.9% 250 ML IVPB SCH ×2 (06:37→18:41)
[2020-03-19] MEDS: Lactated Ringers 1000 ml BAG 1,000 ML IV SCH (06:41)
[2020-03-19] MEDS: Dorzolamide 2% OPTH (NF) 10 ML BTL LEFT EYE SCH ×2 (08:50→21:58)
[2020-03-19] MEDS: Timolol 0.5% OPTH.SOL BTL LEFT EYE SCH ×2 (08:50→21:57)
[2020-03-19] MEDS: Ondansetron 4 mg VIAL 2 MG/ML 2 ml VIAL IV PRN ×2 (09:03→21:58)
[2020-03-19] MEDS: Insulin GLARGINE 100 un/ml 10 ml VIAL SUBCUT SCH (10:58)
[2020-03-19] MEDS: Latanoprost 0.005% 2.5 ml BTL LEFT EYE SCH (21:58)
[2020-03-20] MEDS: Lactated Ringers 1000 ml BAG 1,000 ML IV SCH (00:58)
[2020-03-20] MEDS: metroNIDAZOLE IV 500 MG/100ML 500 MG/100 ML BAG IVPB SCH ×2 (05:08→17:05)
[2020-03-20] MEDS: Vancomycin 750 MG in NS 0.9% 250 ML IVPB SCH ×2 (06:22→18:30)
[2020-03-20] MEDS: Insulin GLARGINE 100 un/ml 10 ml VIAL SUBCUT SCH (10:00)
[2020-03-20] MEDS: Timolol 0.5% OPTH.SOL BTL LEFT EYE SCH (10:01)
[2020-03-20] MEDS: Dorzolamide 2% OPTH (NF) 10 ML BTL LEFT EYE SCH (10:02)
[2020-03-20] MEDS: Cefepime 2 GM in Dextrose 2 GM/50 ML BAG IV SCH (10:02)
[2020-03-20] MEDS: Ondansetron 4 mg VIAL 2 MG/ML 2 ml VIAL IV PRN (12:32)
[2020-03-21] MEDS: Latanoprost 0.005% 2.5 ml BTL LEFT EYE SCH ×2 (00:04→23:48)
[2020-03-21] MEDS: Dorzolamide 2% OPTH (NF) 10 ML BTL LEFT EYE SCH ×3 (00:05→23:47)
[2020-03-21] MEDS: Timolol 0.5% OPTH.SOL BTL LEFT EYE SCH ×3 (00:06→23:48)
[2020-03-21] MEDS ORDERED: Vancomycin Trough Check NOTE FOLLOW UP ONE (06:00)
[2020-03-21] MEDS: Vancomycin 750 MG in NS 0.9% 250 ML IVPB SCH ×2 (07:18→17:49)
[2020-03-21] MEDS: Insulin GLARGINE 100 un/ml 10 ml VIAL SUBCUT SCH (09:04)
[2020-03-21] MEDS: Ondansetron 4 mg VIAL 2 MG/ML 2 ml VIAL IV PRN (11:51)
[2020-03-22] MEDS ORDERED: Vancomycin Trough Check NOTE FOLLOW UP ONE (06:00)
[2020-03-22 06:19] LABS: ABS Eosinophils 0.6 10^3/ul (0-0.6); ABS Lymphocytes 1.8 10^3/ul (1.0-4.8); ABS Monocytes 1.1 10^3/ul (0-0.8); ABS Neutrophils 4.2 10^3/ul (1.5-7.7); Eosinophil % 8.1 %; Hematocrit 23 % (35-47); Hemoglobin 7.8 g/dL (12.0-16.0); Lymphocyte % 23.2 %; Mean Corpuscular HGB Conc 33 g/dL (31-36); Mean Corpuscular Hemoglobin 29 pg (27-31); Mean Corpuscular Volume 87 fL (80-97); Mean Platelet Volume 7.8 fL (7.4-10.4); Platelet Count 264 10^3/uL (150-450); Red Blood Count 2.67 10^6 /uL (3.70-4.87); Red Cell Distribution Width 15 % (10-15); White Blood Count 7.6 10^3/uL (3.5-10.8)
[2020-03-22 06:43] LABS: Albumin 2.9 g/dL (3.2-5.2); Albumin/Globulin Ratio 1.3 (1-3); BUN/Creatinine Ratio 22.2 (8-20); C Reactive Protein 77.5 mg/L (<8.01); Calcium 8.4 mg/dL (8.6-10.3); EGFR Non-African American 78.5 (>60); Globulin 2.3 g/dL (2-4); Potassium 3.2 mmol/L (3.5-5.0); Total Bilirubin 0.5 mg/dL (0.2-1.0); Total Protein 5.2 g/dL (6.4-8.9)
[2020-03-22 07:15] LABS: Vancomycin Trough 16.3 mcg/mL
[2020-03-22] MEDS: Vancomycin 750 MG in NS 0.9% 250 ML IVPB SCH (07:45)
[2020-03-22] MEDS ORDERED: Insulin GLARGINE 100 un/ml 10 ml VIAL SUBCUT ONE (08:51)
[2020-03-22] MEDS ORDERED: Insulin GLARGINE 100 un/ml 10 ml VIAL SUBCUT SCH (09:00)
[2020-03-22] MEDS: Dorzolamide 2% OPTH (NF) 10 ML BTL LEFT EYE SCH (09:10)
[2020-03-22] MEDS: Timolol 0.5% OPTH.SOL BTL LEFT EYE SCH (09:10)
[2020-03-22] MEDS ORDERED: Heparin 2 UNITS/ML 1000 mls 2,000 ML IV ONE (11:29)
[2020-03-22] MEDS ORDERED: Lidocaine 1% VIAL 10 MG/ML VIAL ONE (11:29)
[2020-03-22] MEDS ORDERED: Iodixanol 320 (CONTRAST) 100 ML SDV ONE (11:29)
[2020-03-22] MEDS ORDERED: Midazolam 5 mg/5 ml VIAL 1 mg/ml 5 ml VIAL (5 mg) ONE (12:02)
[2020-03-22] MEDS ORDERED: fentaNYL 100 mcg/2 ml 50 MCG/ML VIAL ONE (12:02)
[2020-03-22] MEDS ORDERED: hydrALAZINE 20 mg/ml 1 ML Vial IV ONE (12:44)
[2020-03-22 16:23] VITALS: BP 120/46
== END 2020-03-22 17:10 | DRG 854 ==
LOC: ED 17:25 → MED 19:46 → SSU 03-18 19:45
PROVIDERS: ADMIT Internal Medicine; ATTEND Hospitalist

== ENCOUNTER 2020-07-30 03:22 | Inpatient (IN) ==
[2020-07-30] MEDS ORDERED: NS 0.9% 1000 ml BAG 1,000 ML IV ONE ×2 (04:04→06:59)
[2020-07-30 04:12] LABS: ABS Eosinophils 0.2 10^3/ul (0-0.6); ABS Lymphocytes 1.4 10^3/ul (1.0-4.8); ABS Monocytes 0.9 10^3/ul (0-0.8); ABS Neutrophils 15.1 10^3/ul (1.5-7.7); Eosinophil % 1.2 %; Hematocrit 29 % (35-47); Hemoglobin 9.6 g/dL (12.0-16.0); Lymphocyte % 7.8 %; Mean Corpuscular HGB Conc 33 g/dL (31-36); Mean Corpuscular Hemoglobin 30 pg (27-31); Mean Corpuscular Volume 91 fL (80-97); Mean Platelet Volume 6.6 fL (7.4-10.4); Platelet Count 408 10^3/uL (150-450); Red Blood Count 3.23 10^6 /uL (3.70-4.87); Red Cell Distribution Width 17 % (10-15); White Blood Count 17.5 10^3/uL (3.5-10.8)
[2020-07-30 04:17] LABS: INR 1.19 (0.82-1.09)
[2020-07-30 04:26] LABS: ALT 14 U/L (7-52); Albumin 3.2 g/dL (3.2-5.2); Alkaline Phosphatase 92 U/L (34-104); Blood Urea Nitrogen 59 mg/dL (6-24); C Reactive Protein 11.64 mg/L (<8.01); CO2 Carbon Dioxide 28 mmol/L (22-32); Chloride 102 mmol/L (101-111); EGFR African American 53.7 (>60); EGFR Non-African American 44.4 (>60); Globulin 3.2 g/dL (2-4); Glucose 81 mg/dL (70-100); Sodium 134 mmol/L (135-145); Total Protein 6.4 g/dL (6.4-8.9)
[2020-07-30 04:53] LABS: AST 27 U/L (13-39); Anion Gap 4 mmol/L (2-11); Potassium 5.1 mmol/L (3.5-5.0)
[2020-07-30 06:57] LABS: Urine Appearance Turbid; Urine Bilirubin Negative (Negative); Urine Blood 2+ (Negative); Urine Color Yellow; Urine Glucose Negative (Negative); Urine Ketones Negative (Negative); Urine Nitrite Positive (Negative); Urine Protein 2+(100 mg/dL) (Negative); Urine Specific Gravity 1.012 (1.010-1.030); Urine Urobilinogen Negative (Negative)
[2020-07-30] MEDS ORDERED: cefTRIAXone 1 gm/50 mL NS BAG 1 GM/50 ML BAG IV ONE (06:59)
[2020-07-30 07:01] LABS: Urine Bacteria 1+ (Absent); Urine Red Blood Cell 1+(3-5/hpf) (Absent); Urine Squamous Epithelial Cell Present (Absent); Urine White Blood Cell 3+(>20/hpf) (Absent)
[2020-07-30] MEDS ORDERED: Magnesium Hydroxide LIQ 30 ML UDC PO PRN (07:43)
[2020-07-30] MEDS ORDERED: Ondansetron 4 mg VIAL 2 MG/ML 2 ml VIAL ONE (08:13)
[2020-07-30] MEDS ORDERED: Ondansetron 4 mg VIAL 2 MG/ML 2 ml VIAL IV ONE (08:20)
[2020-07-30 08:30] LABS: % Iron Saturation 14 % (15-55); Iron 44 ug/dL (50-212); Total Iron Binding Capacity 308 mcg/dL (250-450); Transferrin 220 mg/dL (203-362); Unsaturated Iron Binding < 293 ug/dL
[2020-07-30] MEDS ORDERED: Ondansetron 4 mg VIAL 2 MG/ML 2 ml VIAL IV PRN (08:45)
[2020-07-30] MEDS ORDERED: Insulin GLARGINE 100 un/ml 10 ml VIAL SUBCUT SCH (09:00)
[2020-07-30 09:54] LABS: Magnesium 2.4 mg/dL (1.9-2.7)
[2020-07-30] MEDS: CMC:Dorzolamide 2% OPTH (NF) 10 ML BTL LEFT EYE SCH ×2 (10:08→21:30)
[2020-07-30] MEDS: Timolol 0.5% OPTH.SOL BTL LEFT EYE SCH ×2 (10:08→21:30)
[2020-07-30] MEDS ORDERED: NS 0.9% 500 ml BAG 500 ML IV ONE ×4 (11:45→15:02)
[2020-07-30] MEDS ORDERED: Prochlorperazine 5 mg/ml 2 ml VIAL (10 mg) IV PRN (11:45)
[2020-07-30] MEDS ORDERED: Piperacillin/Tazobac ADVAN 3.375 GM in NS 0.9% 100 ml BAG 100 ML IV ONE (16:00)
[2020-07-30] MEDS ORDERED: Zosyn per Pharmacy NOTE FOLLOW UP SCH (16:00)
[2020-07-30] MEDS ORDERED: Vancomycin 1,000 MG in NS 0.9% 250 ml 250 ML IVPB ONE (16:30)
[2020-07-30] MEDS: Dextrose 50% Syringe 50 ml 25 GM/50 ML SYRINGE IV PUSH PRN (16:51)
[2020-07-30 17:04] LABS: BUN/Creatinine Ratio 48.9 (8-20); Calcium 7.8 mg/dL (8.6-10.3); EGFR African American 75.4 (>60); EGFR Non-African American 62.3 (>60); Potassium 4.8 mmol/L (3.5-5.0)
[2020-07-30 17:09] LABS: ABS Lymphocytes 2.5 10^3/ul (1.0-4.8); ABS Monocytes 1.3 10^3/ul (0-0.8); ABS Neutrophils 30.1 10^3/ul (1.5-7.7); Hematocrit 26 % (35-47); Hemoglobin 8.1 g/dL (12.0-16.0); Lymphocyte % 7.3 %; Mean Corpuscular HGB Conc 31 g/dL (31-36); Mean Corpuscular Hemoglobin 29 pg (27-31); Mean Corpuscular Volume 93 fL (80-97); Mean Platelet Volume 6.7 fL (7.4-10.4); Platelet Count 330 10^3/uL (150-450); Red Blood Count 2.78 10^6 /uL (3.70-4.87); Red Cell Distribution Width 16 % (10-15); White Blood Count 33.9 10^3/uL (3.5-10.8)
[2020-07-30] MEDS ORDERED: Lactated Ringers 1000 ml BAG 1,000 ML IV ONE (18:12)
[2020-07-30] MEDS ORDERED: Vancomycin per Pharmacy 1 EA NOTE FOLLOW UP PRN (18:20)
[2020-07-30 19:00] LABS: Corrected Retic Count 1.3 % (0.5-1.5); Hematocrit for Retic CNT 26 % (35-47); Immature Retic Fraction 0.47; RBC Retic Count 2.77 10^6/uL (3.70-4.87)
[2020-07-30] MEDS: Latanoprost 0.005% 2.5 ml BTL LEFT EYE SCH (21:30)
[2020-07-30] MEDS: Hydrocortisone INJ 100 MG/2ML 2 ML VIAL IV SCH (22:07)
[2020-07-30 23:23] LABS: TSH Ultra Thyroid Stim Horm 1.86 mcIU/mL (0.34-5.60)
[2020-07-30] MEDS: ZOSYN 3.375 GM Q8H per EXTENDED INFUSION IV SCH (23:33)
[2020-07-31 01:32] LABS: Hematocrit 33 % (35-47); Hemoglobin 10.7 g/dL (12.0-16.0); Mean Corpuscular HGB Conc 33 g/dL (31-36); Mean Corpuscular Hemoglobin 30 pg (27-31); Mean Corpuscular Volume 90 fL (80-97); Mean Platelet Volume 6.5 fL (7.4-10.4); Platelet Count 348 10^3/uL (150-450); Red Blood Count 3.63 10^6 /uL (3.70-4.87); Red Cell Distribution Width 15 % (10-15); White Blood Count 35.8 10^3/uL (3.5-10.8)
[2020-07-31 03:01] LABS: ABS Eosinophils 0.1 10^3/ul (0-0.6); ABS Lymphocytes 1.8 10^3/ul (1.0-4.8); ABS Monocytes 0.7 10^3/ul (0-0.8); ABS Neutrophils 33.2 10^3/ul (1.5-7.7); Eosinophil % 0.2 %; Lymphocyte % 5.1 %
[2020-07-31] MEDS: Hydrocortisone INJ 100 MG/2ML 2 ML VIAL IV SCH (03:36)
[2020-07-31] MEDS ORDERED: Vancomycin 750 MG in NS 0.9% 250 ML IVPB SCH (06:00)
[2020-07-31] MEDS: ZOSYN 3.375 GM Q8H per EXTENDED INFUSION IV SCH ×3 (06:30→20:42)
[2020-07-31] MEDS: Dextrose 50% Syringe 50 ml 25 GM/50 ML SYRINGE IV PUSH PRN (07:22)
[2020-07-31] MEDS: CMC:Dorzolamide 2% OPTH (NF) 10 ML BTL LEFT EYE SCH ×2 (07:34→20:43)
[2020-07-31] MEDS: Timolol 0.5% OPTH.SOL BTL LEFT EYE SCH ×2 (07:35→20:43)
[2020-07-31 08:14] LABS: BUN/Creatinine Ratio 37.4 (8-20); Calcium 8.3 mg/dL (8.6-10.3); EGFR African American 65.8 (>60); EGFR Non-African American 54.4 (>60); Potassium 4.4 mmol/L (3.5-5.0)
[2020-07-31 08:18] LABS: Hematocrit 31 % (35-47); Hemoglobin 10.3 g/dL (12.0-16.0); Mean Corpuscular HGB Conc 33 g/dL (31-36); Mean Corpuscular Hemoglobin 30 pg (27-31); Mean Corpuscular Volume 91 fL (80-97); Mean Platelet Volume 6.8 fL (7.4-10.4); Platelet Count 323 10^3/uL (150-450); Red Blood Count 3.45 10^6 /uL (3.70-4.87); Red Cell Distribution Width 16 % (10-15)
[2020-07-31 08:23] LABS: ABS Lymphocytes 1.5 10^3/ul (1.0-4.8); ABS Monocytes 0.5 10^3/ul (0-0.8); ABS Neutrophils 25.9 10^3/ul (1.5-7.7); Lymphocyte % 5.3 %
[2020-07-31] MEDS ORDERED: cefTRIAXone 1 gm/50 mL NS BAG 1 GM/50 ML BAG IVPB SCH (09:00)
[2020-07-31] MEDS: Latanoprost 0.005% 2.5 ml BTL LEFT EYE SCH (20:43)
[2020-08-01 05:30] LABS: ABS Basophils 0.1 10^3/ul (0-0.2); ABS Eosinophils 0.2 10^3/ul (0-0.6); ABS Lymphocytes 2.2 10^3/ul (1.0-4.8); ABS Monocytes 1.3 10^3/ul (0-0.8); ABS Neutrophils 14.5 10^3/ul (1.5-7.7); Hematocrit 28 % (35-47); Hemoglobin 9.1 g/dL (12.0-16.0); Lymphocyte % 11.9 %; Mean Corpuscular HGB Conc 33 g/dL (31-36); Mean Corpuscular Hemoglobin 30 pg (27-31); Mean Corpuscular Volume 91 fL (80-97); Mean Platelet Volume 6.6 fL (7.4-10.4); Platelet Count 279 10^3/uL (150-450); Red Blood Count 3.07 10^6 /uL (3.70-4.87); Red Cell Distribution Width 16 % (10-15); White Blood Count 18.3 10^3/uL (3.5-10.8)
[2020-08-01] MEDS ORDERED: Vancomycin Trough Check NOTE FOLLOW UP ONE (05:30)
[2020-08-01 05:47] LABS: BUN/Creatinine Ratio 27.2 (8-20); Calcium 8.4 mg/dL (8.6-10.3); EGFR African American 62.9 (>60); Potassium 4.2 mmol/L (3.5-5.0)
[2020-08-01] MEDS: ZOSYN 3.375 GM Q8H per EXTENDED INFUSION IV SCH ×3 (05:48→20:37)
[2020-08-01] MEDS: CMC:Dorzolamide 2% OPTH (NF) 10 ML BTL LEFT EYE SCH ×2 (10:52→20:37)
[2020-08-01] MEDS: Timolol 0.5% OPTH.SOL BTL LEFT EYE SCH ×2 (10:52→20:36)
[2020-08-01] MEDS: Latanoprost 0.005% 2.5 ml BTL LEFT EYE SCH (20:36)
[2020-08-02] MEDS: ZOSYN 3.375 GM Q8H per EXTENDED INFUSION IV SCH (05:37)
[2020-08-02 06:28] LABS: ABS Eosinophils 0.3 10^3/ul (0-0.6); ABS Lymphocytes 2.2 10^3/ul (1.0-4.8); ABS Monocytes 0.8 10^3/ul (0-0.8); ABS Neutrophils 7.8 10^3/ul (1.5-7.7); Hematocrit 30 % (35-47); Hemoglobin 9.8 g/dL (12.0-16.0); Lymphocyte % 19.7 %; Mean Corpuscular HGB Conc 33 g/dL (31-36); Mean Corpuscular Hemoglobin 31 pg (27-31); Mean Corpuscular Volume 92 fL (80-97); Mean Platelet Volume 7.1 fL (7.4-10.4); Platelet Count 285 10^3/uL (150-450); Red Blood Count 3.23 10^6 /uL (3.70-4.87); Red Cell Distribution Width 16 % (10-15); White Blood Count 11.1 10^3/uL (3.5-10.8)
[2020-08-02 06:43] LABS: BUN/Creatinine Ratio 24.4 (8-20); Calcium 8.3 mg/dL (8.6-10.3); EGFR African American 73.5 (>60); EGFR Non-African American 60.7 (>60); Potassium 4.1 mmol/L (3.5-5.0)
[2020-08-02] MEDS: CMC:Dorzolamide 2% OPTH (NF) 10 ML BTL LEFT EYE SCH (10:16)
[2020-08-02] MEDS: Timolol 0.5% OPTH.SOL BTL LEFT EYE SCH (10:17)
[2020-08-02 10:43] VITALS: BP 130/56
== END 2020-08-02 14:10 | DRG 871 ==
LOC: ED 03:22 → MED 03:22
PROVIDERS: ADMIT Internal Medicine; ATTEND Internal Medicine

== ENCOUNTER 2020-08-05 09:40 | Inpatient (IN) ==
[2020-08-05] MEDS ORDERED: NS 0.9% 1000 ml BAG 1,000 ML IV ONE (10:18)
[2020-08-05] MEDS ORDERED: Ondansetron ODT 4 mg TAB 4 MG TAB SL ONE (12:00)
[2020-08-05 13:18] LABS: ABS Lymphocytes 1.7 10^3/ul (1.0-4.8); ABS Monocytes 1.2 10^3/ul (0-0.8); ABS Neutrophils 17.7 10^3/ul (1.5-7.7); Hematocrit 33 % (35-47); Hemoglobin 10.9 g/dL (12.0-16.0); Lymphocyte % 8.4 %; Mean Corpuscular HGB Conc 33 g/dL (31-36); Mean Corpuscular Hemoglobin 30 pg (27-31); Mean Corpuscular Volume 90 fL (80-97); Mean Platelet Volume 6.9 fL (7.4-10.4); Platelet Count 417 10^3/uL (150-450); Red Blood Count 3.62 10^6 /uL (3.70-4.87); Red Cell Distribution Width 15 % (10-15); White Blood Count 20.7 10^3/uL (3.5-10.8)
[2020-08-05] MEDS ORDERED: cefTRIAXone 1 gm/50 mL NS BAG 1 GM/50 ML BAG IV ONE (13:27)
[2020-08-05 13:37] LABS: Albumin 2.9 g/dL (3.2-5.2); BUN/Creatinine Ratio 34.3 (8-20); C Reactive Protein 36.54 mg/L (<8.01); Calcium 9.6 mg/dL (8.6-10.3); EGFR African American 45.2 (>60); EGFR Non-African American 37.4 (>60); Potassium 3.7 mmol/L (3.5-5.0); Total Bilirubin 0.3 mg/dL (0.2-1.0); Total Protein 5.9 g/dL (6.4-8.9); Troponin I 0.01 ng/mL (<0.03)
[2020-08-05] MEDS ORDERED: NS 0.9% 500 ml BAG 500 ML IV ONE (13:46)
[2020-08-05] MEDS ORDERED: Enoxaparin 30 MG/0.3 ML SYR SUBCUT SCH (15:00)
[2020-08-05] MEDS ORDERED: MENTHOL ZINC OXIDE TOPICAL PRN (15:05)
[2020-08-05] MEDS ORDERED: Magnesium Hydroxide LIQ 30 ML UDC PO PRN (15:05)
[2020-08-05] MEDS ORDERED: Sodium Phosphate ADULT ENEMA 133 ML BTL PR PRN (15:05)
[2020-08-05] MEDS ORDERED: Piperacillin/Tazobac ADVAN 3.375 GM in NS 0.9% 100 ml BAG 100 ML IV ONE (15:09)
[2020-08-05] MEDS ORDERED: Dextrose 50% Syringe 50 ml 25 GM/50 ML SYRINGE IV PUSH PRN (15:16)
[2020-08-05 15:41] LABS: Urine Appearance Cloudy; Urine Color Red; Urine Specific Gravity 1.017 (1.010-1.030)
[2020-08-05 15:52] LABS: Urine Bacteria Absent (Absent); Urine Red Blood Cell 3+(>10/hpf) (Absent); Urine Squamous Epithelial Cell Present (Absent); Urine White Blood Cell 3+(>20/hpf) (Absent)
[2020-08-05] MEDS ORDERED: Lactated Ringers 1000 ml BAG 1,000 ML IV SCH (16:00)
[2020-08-05] MEDS ORDERED: Zosyn per Pharmacy NOTE FOLLOW UP SCH (16:00)
[2020-08-05] MEDS ORDERED: Lidocaine 5% OINT TUBE TOPICAL PRN (16:03)
[2020-08-05 16:49] LABS: Calcium 7.3 mg/dL (8.6-10.3); Chloride 111 mmol/L (101-111); Sodium 138 mmol/L (135-145)
[2020-08-05 16:55] LABS: Anion Gap 13 mmol/L (2-11); BUN/Creatinine Ratio 39.2 (8-20); Blood Urea Nitrogen 38 mg/dL (6-24); CO2 Carbon Dioxide 14 mmol/L (22-32); EGFR African American 67.4 (>60); EGFR Non-African American 55.7 (>60); Glucose 226 mg/dL (70-100)
[2020-08-05] MEDS ORDERED: Dorzolamide 2% OPTH (NF) 10 ML BTL LEFT EYE SCH (21:00)
[2020-08-05] MEDS ORDERED: Insulin GLARGINE 100 un/ml 10 ml VIAL SUBCUT SCH (21:00)
[2020-08-05] MEDS: ZOSYN 3.375 GM Q8H per EXTENDED INFUSION IV SCH (21:47)
[2020-08-06] MEDS: Timolol 0.5% OPTH.SOL BTL LEFT EYE SCH ×3 (00:33→20:40)
[2020-08-06] MEDS: Latanoprost 0.005% 2.5 ml BTL LEFT EYE SCH ×2 (00:33→20:41)
[2020-08-06] MEDS ORDERED: Glucose ORAL 15 GM TUBE PO ONE ×2 (06:00→06:38)
[2020-08-06 06:24] LABS: Hematocrit 31 % (35-47); Hemoglobin 10.2 g/dL (12.0-16.0); Mean Corpuscular HGB Conc 33 g/dL (31-36); Mean Corpuscular Hemoglobin 30 pg (27-31); Mean Corpuscular Volume 90 fL (80-97); Mean Platelet Volume 6.8 fL (7.4-10.4); Platelet Count 360 10^3/uL (150-450); Red Blood Count 3.41 10^6 /uL (3.70-4.87); Red Cell Distribution Width 15 % (10-15)
[2020-08-06 06:42] LABS: ABS Basophils 0.1 10^3/ul (0-0.2); ABS Lymphocytes 3.6 10^3/ul (1.0-4.8); ABS Monocytes 1.3 10^3/ul (0-0.8); Eosinophil % 0.1 %; Lymphocyte % 13.7 %
[2020-08-06 07:38] LABS: Potassium 3.5 mmol/L (3.5-5.0)
[2020-08-06] MEDS: CMC:Dorzolamide 2% OPTH (NF) 10 ML BTL LEFT EYE SCH ×2 (07:40→20:40)
[2020-08-06 07:43] LABS: BUN/Creatinine Ratio 34.6 (8-20); EGFR African American 49.4 (>60); EGFR Non-African American 40.8 (>60)
[2020-08-06] MEDS: ZOSYN 3.375 GM Q8H per EXTENDED INFUSION IV SCH (11:59)
[2020-08-06] MEDS ORDERED: Prochlorperazine 5 mg/ml 2 ml VIAL (10 mg) IM PRN (18:06)
[2020-08-07 04:43] LABS: ABS Basophils 0.2 10^3/ul (0-0.2); ABS Lymphocytes 2.4 10^3/ul (1.0-4.8); ABS Monocytes 0.8 10^3/ul (0-0.8); ABS Neutrophils 10.6 10^3/ul (1.5-7.7); Eosinophil % 0.3 %; Hematocrit 30 % (35-47); Hemoglobin 10.2 g/dL (12.0-16.0); Lymphocyte % 16.8 %; Mean Corpuscular HGB Conc 34 g/dL (31-36); Mean Corpuscular Hemoglobin 30 pg (27-31); Mean Corpuscular Volume 90 fL (80-97); Mean Platelet Volume 6.8 fL (7.4-10.4); Platelet Count 300 10^3/uL (150-450); Red Blood Count 3.38 10^6 /uL (3.70-4.87); Red Cell Distribution Width 15 % (10-15); White Blood Count 14.1 10^3/uL (3.5-10.8)
[2020-08-07 05:00] LABS: BUN/Creatinine Ratio 37.2 (8-20); C Reactive Protein 15.53 mg/L (<8.01); Calcium 8.7 mg/dL (8.6-10.3); EGFR African American 77.4 (>60); Potassium 3.9 mmol/L (3.5-5.0)
[2020-08-07] MEDS: Timolol 0.5% OPTH.SOL BTL LEFT EYE SCH ×2 (08:40→20:54)
[2020-08-07] MEDS: CMC:Dorzolamide 2% OPTH (NF) 10 ML BTL LEFT EYE SCH ×2 (08:49→20:54)
[2020-08-07] MEDS: Latanoprost 0.005% 2.5 ml BTL LEFT EYE SCH (20:54)
[2020-08-08] MEDS: CMC:Dorzolamide 2% OPTH (NF) 10 ML BTL LEFT EYE SCH ×2 (08:30→20:55)
[2020-08-08] MEDS: Timolol 0.5% OPTH.SOL BTL LEFT EYE SCH ×2 (08:31→20:55)
[2020-08-08 08:38] LABS: ABS Eosinophils 0.1 10^3/ul (0-0.6); ABS Lymphocytes 2.2 10^3/ul (1.0-4.8); ABS Monocytes 0.7 10^3/ul (0-0.8); Eosinophil % 0.8 %; Hematocrit 37 % (35-47); Hemoglobin 11.6 g/dL (12.0-16.0); Lymphocyte % 19.7 %; Mean Corpuscular HGB Conc 32 g/dL (31-36); Mean Corpuscular Hemoglobin 30 pg (27-31); Mean Corpuscular Volume 96 fL (80-97); Mean Platelet Volume 7.1 fL (7.4-10.4); Nucleated Red Blood Cells % 0.1; Platelet Count 252 10^3/uL (150-450); Red Blood Count 3.83 10^6 /uL (3.70-4.87); Red Cell Distribution Width 16 % (10-15)
[2020-08-08] MEDS: Insulin GLARGINE 100 un/ml 10 ml VIAL SUBCUT SCH (10:36)
[2020-08-08] MEDS: Latanoprost 0.005% 2.5 ml BTL LEFT EYE SCH (20:55)
[2020-08-09 04:38] LABS: ABS Eosinophils 0.2 10^3/ul (0-0.6); ABS Lymphocytes 2.8 10^3/ul (1.0-4.8); ABS Monocytes 0.9 10^3/ul (0-0.8); ABS Neutrophils 6.5 10^3/ul (1.5-7.7); Eosinophil % 1.6 %; Hematocrit 30 % (35-47); Lymphocyte % 27.1 %; Mean Corpuscular HGB Conc 33 g/dL (31-36); Mean Corpuscular Hemoglobin 30 pg (27-31); Mean Corpuscular Volume 90 fL (80-97); Mean Platelet Volume 6.8 fL (7.4-10.4); Platelet Count 267 10^3/uL (150-450); Red Blood Count 3.33 10^6 /uL (3.70-4.87); Red Cell Distribution Width 15 % (10-15); White Blood Count 10.3 10^3/uL (3.5-10.8)
[2020-08-09 04:43] LABS: INR 1.11 (0.82-1.09)
[2020-08-09 04:53] LABS: BUN/Creatinine Ratio 30.9 (8-20); Calcium 8.5 mg/dL (8.6-10.3); EGFR African American 101.5 (>60); EGFR Non-African American 83.9 (>60); Potassium 3.5 mmol/L (3.5-5.0)
[2020-08-09] MEDS ORDERED: Iodixanol (CONTRAST) 320 MG/ML 100 ML SDV IV ONE (07:50)
[2020-08-09] MEDS: Insulin GLARGINE 100 un/ml 10 ml VIAL SUBCUT SCH (08:24)
[2020-08-09] MEDS: CMC:Dorzolamide 2% OPTH (NF) 10 ML BTL LEFT EYE SCH ×2 (08:26→20:36)
[2020-08-09] MEDS: Timolol 0.5% OPTH.SOL BTL LEFT EYE SCH ×2 (08:26→20:35)
[2020-08-09] MEDS: Latanoprost 0.005% 2.5 ml BTL LEFT EYE SCH (20:35)
[2020-08-10 06:15] LABS: ABS Eosinophils 0.1 10^3/ul (0-0.6); ABS Lymphocytes 2.6 10^3/ul (1.0-4.8); ABS Monocytes 0.6 10^3/ul (0-0.8); ABS Neutrophils 6.9 10^3/ul (1.5-7.7); Eosinophil % 1.4 %; Hematocrit 29 % (35-47); Hemoglobin 9.8 g/dL (12.0-16.0); Lymphocyte % 25.7 %; Mean Corpuscular HGB Conc 34 g/dL (31-36); Mean Corpuscular Hemoglobin 31 pg (27-31); Mean Corpuscular Volume 91 fL (80-97); Mean Platelet Volume 7.2 fL (7.4-10.4); Nucleated Red Blood Cells % 0.1; Platelet Count 222 10^3/uL (150-450); Red Blood Count 3.21 10^6 /uL (3.70-4.87); Red Cell Distribution Width 15 % (10-15); White Blood Count 10.3 10^3/uL (3.5-10.8)
[2020-08-10] MEDS: Insulin GLARGINE 100 un/ml 10 ml VIAL SUBCUT SCH (08:35)
[2020-08-10] MEDS: Timolol 0.5% OPTH.SOL BTL LEFT EYE SCH ×2 (08:39→21:11)
[2020-08-10] MEDS: CMC:Dorzolamide 2% OPTH (NF) 10 ML BTL LEFT EYE SCH ×2 (08:40→21:10)
[2020-08-10] MEDS: Latanoprost 0.005% 2.5 ml BTL LEFT EYE SCH (21:11)
[2020-08-10] MEDS ORDERED: Insulin GLARGINE 100 un/ml 10 ml VIAL SUBCUT ONE (22:58)
[2020-08-11 06:24] LABS: ABS Basophils 0.1 10^3/ul (0-0.2); ABS Eosinophils 0.2 10^3/ul (0-0.6); ABS Lymphocytes 2.4 10^3/ul (1.0-4.8); ABS Monocytes 0.8 10^3/ul (0-0.8); ABS Neutrophils 8.4 10^3/ul (1.5-7.7); Eosinophil % 1.3 %; Hematocrit 29 % (35-47); Hemoglobin 9.5 g/dL (12.0-16.0); Lymphocyte % 20.3 %; Mean Corpuscular HGB Conc 33 g/dL (31-36); Mean Corpuscular Hemoglobin 30 pg (27-31); Mean Corpuscular Volume 91 fL (80-97); Mean Platelet Volume 7.7 fL (7.4-10.4); Platelet Count 217 10^3/uL (150-450); Red Blood Count 3.16 10^6 /uL (3.70-4.87); Red Cell Distribution Width 15 % (10-15); White Blood Count 11.9 10^3/uL (3.5-10.8)
[2020-08-11] MEDS ORDERED: Insulin GLARGINE 100 un/ml 10 ml VIAL SUBCUT SCH (09:00)
[2020-08-11] MEDS: Timolol 0.5% OPTH.SOL BTL LEFT EYE SCH ×2 (09:07→21:10)
[2020-08-11] MEDS: CMC:Dorzolamide 2% OPTH (NF) 10 ML BTL LEFT EYE SCH ×2 (09:07→21:09)
[2020-08-11] MEDS ORDERED: Insulin GLARGINE 100 un/ml 10 ml VIAL SUBCUT ONE (10:54)
[2020-08-11] MEDS: Latanoprost 0.005% 2.5 ml BTL LEFT EYE SCH (21:10)
[2020-08-12] MEDS: CMC:Dorzolamide 2% OPTH (NF) 10 ML BTL LEFT EYE SCH ×2 (08:39→20:44)
[2020-08-12] MEDS: Insulin GLARGINE 100 un/ml 10 ml VIAL SUBCUT SCH (08:39)
[2020-08-12] MEDS: Timolol 0.5% OPTH.SOL BTL LEFT EYE SCH ×2 (08:39→20:45)
[2020-08-12] MEDS ORDERED: Insulin GLARGINE 100 un/ml 10 ml VIAL SUBCUT SCH ×2 (09:00)
[2020-08-12] MEDS: Latanoprost 0.005% 2.5 ml BTL LEFT EYE SCH (20:44)
[2020-08-13] MEDS: CMC:Dorzolamide 2% OPTH (NF) 10 ML BTL LEFT EYE SCH (08:42)
[2020-08-13] MEDS: Timolol 0.5% OPTH.SOL BTL LEFT EYE SCH (08:42)
[2020-08-13] MEDS: Insulin GLARGINE 100 un/ml 10 ml VIAL SUBCUT SCH (08:43)
[2020-08-13 09:44] LABS: ABS Eosinophils 0.4 10^3/ul (0-0.6); ABS Monocytes 0.9 10^3/ul (0-0.8); ABS Neutrophils 8.6 10^3/ul (1.5-7.7); Hematocrit 30 % (35-47); Hemoglobin 9.8 g/dL (12.0-16.0); Lymphocyte % 16.7 %; Mean Corpuscular HGB Conc 32 g/dL (31-36); Mean Corpuscular Hemoglobin 30 pg (27-31); Mean Corpuscular Volume 91 fL (80-97); Mean Platelet Volume 7.7 fL (7.4-10.4); Platelet Count 201 10^3/uL (150-450); Red Cell Distribution Width 15 % (10-15); White Blood Count 11.8 10^3/uL (3.5-10.8)
[2020-08-13 10:00] LABS: BUN/Creatinine Ratio 26.1 (8-20); Calcium 8.2 mg/dL (8.6-10.3); EGFR African American 99.8 (>60); EGFR Non-African American 82.5 (>60); Potassium 4.1 mmol/L (3.5-5.0)
[2020-08-13] MEDS ORDERED: Pantoprazole VIAL 40 MG VIAL IV SCH (10:00)
[2020-08-13 11:30] VITALS: BP 92/47
== END 2020-08-13 12:05 | DRG 871 ==
LOC: ED 09:40 → MEDTELE 14:57 → SUATTDRO 14:57 → ICU 18:40 → MEDTELE 08-07 05:51
PROVIDERS: ADMIT Student in an Organized Health Care Education/Training Program; ATTEND Internal Medicine